=== PATIENT | male | born 1970 | race Caucasian/White ===

== ENCOUNTER 2025-01-01 14:47 | Inpatient (IN) | payer SELFPAY ==
[2025-01-01 14:48] VITALS: BP 148/79; PULSE 90; RESP 18; TEMP 36.8; O2SAT 99; BMI 27.4
--- NOTE | 2025-01-01 16:16 | EX.ED.SAOD ---
HPI History of Present Illness Chief Complaint: Substance Abuse Detail of Chief Complaint: Requesting detox for opiate abuse. Informant: patient Onset/Context/Timing Onset: - (Years.) Context: Gradual Onset Timing: Continuous Current Severity: Moderate Maximum Severity: Moderate Associated Symptoms Associated Symptoms: Positive for vomiting* Narrative Narrative: 54-year-old male history of opiate abuse. States he uses heroin daily about a gram a day. He snorts it. He denies any IV drug abuse. His last detox was 2017 about 7 years ago. States he has had some mild nausea and vomiting. Denies any other complaints. Prior similar symptoms: Yes Recent Illness/Hospitalization: No PFSH PFSH Home Medications ?Medication ?Instructions ?Recorded ?Last Taken ?Type diflunisal 500 mg tablet 500 mg PO BID 06/25/16 06/25/16 History orphenadrine citrate 100 mg 100 mg PO BID 06/25/16 06/25/16 History tablet,extended release Allergy/AdvReac Type Severity Reaction Status Date / Time ciprofloxacin (From Cipro) AdvReac Upset Verified 01/01/25 14:49 Stomach Social History Smoking Status: Current every day smoker ROS ROS ED ROS Narrative Nausea and vomiting. Constitutional Constitutional ED: Denies chills or fever(s) Eyes Eyes: Denies blurry vision ENT ENT ED: Denies ear pain Cardiovascular Cardiovascular: Denies chest pain Respiratory/Chest Respiratory/Chest: Denies cough or dyspnea Gastrointestinal Gastrointestinal: Reports nausea and vomiting; Denies abdominal pain, constipation, diarrhea or melena Genitourinary Genitourinary ED: Denies dysuria Musculoskeletal Musculoskeletal: Denies arthralgias Integumentary Denies abscess Neurologic Neurologic: Denies headache(s) Psychiatric Psychiatric: Denies anxiety Endocrine Endocrinology: Denies cold intolerance Hematologic/Lymphatic Hematologic/Lymphatic: Denies easy bleeding, easy bruising or lymphadenopathy Allergic/Immunologic Allergic/Immunologic ED: Denies mouth swelling, tongue swelling or urticaria EXAM Physical Exam Narrative Exam Narrative: 54-year-old male sitting upright in bed. Vital signs are stable afebrile. No acute distress. Clinically looks well. H EENT exam pupils round react to light. Moist mucous membranes. No trauma. Neck nontender. No lymphadenopathy. Back nontender. Lungs clear to auscultation bilaterally. Heart regular rhythm rate about 90 no murmur. Chest wall ribs nontender. Moving all 4 extremities. Normal strength. Normal range of motion. No track molina. Nontender no edema. Neurologically he is awake alert. Answering questions following commands. Very benign exam. Const Vital Signs: 01/01/25 14:48 Temperature 98.3 F Temperature Source Oral Pulse Rate 90 Respiratory Rate 18 Blood Pressure 148/79 H Blood Pressure Mean 102 Pulse Ox 99 Oxygen Delivery Method Room Air MDM MDM MDM Narrative Medical decision making narrative: 54-year-old male history of opiate abuse snorts heroin. Requesting inpatient detox. Exam benign. Hospitalist on page for admission. History & Record Review Discussion w/independent historian: Patient Additional record(s) reviewed:: Prior labs Lab Data Attestation: I reviewed the patient's lab results. Discharge Plan Dx/Rx/DC Orders Clinical Impression: Opiate abuse, continuous, Admitted to substance misuse detoxification center Disposition Disposition: Acute Care Hospital [facility]
[2025-01-01 16:40] LABS: Hematocrit 45.5 % (40-54); Hemoglobin 14.7 g/dL (13.0-16.5); Immature Granulocytes Count 0.010 X10^3/uL (0.0-0.0); Mean Corp Hgb Conc 32.3 g/dL (32-36); Mean Corpuscular Volume 88.3 fL (80-94); Mean Platelet Vol. 10.9 fl (6.2-12.0); NRBC Flagged by Analyzer 0 % (0-5); Platelet Count 187 K/mm3 (150-450); RBC Distribution Width CV 13.2 % (11.6-14.6); RBC Distribution Width SD 43.0 fl (35.1-43.9); Red Blood Count 5.15 M/mm3 (4.6-6.2); White Blood Count 8.8 K/mm3 (4.4-11.0)
--- NOTE | 2025-01-01 16:41 | HP.PCM.HOS_ITS ---
HPI - General General Date of Admission: 01/01/25 Date of Service: 01/01/25 Chief Complaint: Opiate withdrawal and desire for detox HPI Narrative ARJUN VACA, is a 54 M who presented to [facility] ED on 01/01/2025 with opiate withdrawal and desire for detox. Patient snorts about a gram of heroin daily. Last use was around 2 PM this afternoon. Denies any IV drug use. Has history of hepatitis C, no other medical history noted. He was last here in 2017 for opiate detox and left AMA. In the ED today he is hemodynamically stable on room air at rest. Labs are pending. Given desire for detox, hospitalist was contacted for admission. I saw the patient at bedside in the ED. He was sitting back fairly comfortably in bed, conversing normally, in no acute distress. Reported mild nausea and bodyaches currently, no other significant withdrawal symptoms. Notes that he left AMA in 2017 because the Subutex led to precipitated withdrawal for him. I noted that we can use as needed medications for symptom control without Subutex and he preferred this. No other acute concerns currently. Will be admitted for further management. [facility] Medical History (Updated 01/01/25 @ 16:45 by Cristina Vargas) Substance abuse Home Medications ?Medication ?Instructions ?Recorded ?Last Taken ?Type omeprazole 20 mg capsule,delayed 20 mg PO DAILY GERD 1 03/03/24 01/01/25 History release Allergy/AdvReac Type Severity Reaction Status Date / Time ciprofloxacin (From Cipro) AdvReac Upset Verified 01/01/25 14:49 Stomach Social History Smoking Status: Current every day smoker tobacco type: cigarettes ROS Constitutional Constitutional: Denies chills, fatigue, fever(s) or weakness Cardiovascular Cardiovascular: Denies chest pain Respiratory/Chest Respiratory/Chest: Denies shortness of breath at rest Gastrointestinal Gastrointestinal: Reports nausea; Denies abdominal pain, constipation, diarrhea or vomiting Musculoskeletal Musculoskeletal: Reports myalgias; Denies arthralgias Neurologic Neurologic: Denies dizziness, focal weakness or headache(s) Vital Signs Vital Signs Vital Signs: 01/01/25 14:48 Temperature 98.3 F Temperature Source Oral Pulse Rate 90 Respiratory Rate 18 Blood Pressure 148/79 H Blood Pressure Mean 102 Pulse Ox 99 Oxygen Delivery Method Room Air Weight Weight: 97.069 kg Body Mass Index (BMI) 27.4 Physical Exam Const alert, oriented x3, no apparent distress and average body habitus Constitutional Narrative: Pleasant middle-age male, sitting back in bed fairly comfortably, conversing normally, in no acute distress. General Appearance: cooperative and comfortable HEENT normocephalic, head/scalp atraumatic, hearing grossly normal bilaterally, nasal mucous membranes and turbinates normal and moist oral mucous membranes Eyes PERRL, EOMs intact bilaterally and conjunctivae normal Neck full ROM Chest inspection of chest normal Resp normal respiratory effort, normal air movement, no use of accessory muscles and clear to auscultation bilaterally Cardio regular rate, regular rhythm, no murmurs and peripheral pulses 2+ throughout GI normal to inspection, nondistended, normoactive bowel sounds, soft to palpation, non-tender and non-distended Back/Spine normal ROM Extremity normal to inspection, full ROM and no pedal edema Skin no rashes or lesions noted Psych mental status grossly normal Results Lab / Micro Data 01/01/25 16:34 01/01/25 16:34 Labs: Laboratory Results - last 24 hr 01/01/25 16:34: WBC 8.8, RBC 5.15, Hgb 14.7, Hct 45.5, MCV 88.3, MCH 28.5, MCHC 32.3, RDW Std Deviation 43.0, RDW Coeff of Julio 13.2, Plt Count 187, MPV 10.9, Immature Gran % (Auto) 0.100, Neut % (Auto) 69.1, Lymph % (Auto) 24.3, [place] % (Auto) 5.6, Eos % (Auto) 0.7, Baso % (Auto) 0.2, Absolute Neuts (auto) 6.1, Absolute Lymphs (auto) 2.13, Nucleated RBC % 0 Assessment & Plan Assessment/Plan (1) Opiate abuse, continuous: (2) Acute opioid withdrawal: PLAN: Plan Patient is a 54-year-old male who presented to [facility] ED on 01/01/2025 for opiate withdrawal and desire for detox. 1. Opiate abuse with withdrawal and desire for detox ? Admit under inpatient status to [facility]. Case management consulted. Snorts about 1 g of heroin daily, last used at 2 PM on day of admission. No IV drug use recently but does have history of IV drug use. Last attempted detox in 2017 but had precipitated withdrawal due to Subutex and left AMA. Will treat with as needed medications per opiate withdrawal order set. Will not give Subutex taper per patient request. Appreciate case management recommendations. 2. History of hepatitis C ? History of hepatitis C reported during prior hospitalization here in 2017. No abdominal pain at this time. Hepatic panel and hepatitis C viral quant ordered. 3. GERD ? Continue home PPI. DVT prophylaxis: Lovenox CODE STATUS: Full code, verified Expected disposition: TBD Total clinical time spent by myself addressing the patient's medical issues, reviewing all the data, and collaborating with patient's care team: 57 minutes. Charges/Coding Visit Charges Inpatient E&M: 67103 Init Hosp L2
[2025-01-01 16:47] VITALS: BP 150/75; PULSE 78; RESP 18; TEMP 35.9; O2SAT 97
--- NOTE | 2025-01-01 16:59 | CM.ED ---
Social work Reason for referral: no insurance Referral source: Roxy, [facility] Registration SW heard from Roxy that patient did not have insurance and made a comment stating that patient came here due to hearing that we have a program that will pay for detox. SW entered patient's room, introducing self and role at [facility]. Patient accepted SW visit and SW explained the [facility]AMP process and how [employer] is involved. SW also explained that SW could reach out to someone who could help patient apply for Medicaid tomorrow; patient stated this would be fine. Patient denied further needs at this time and thanked SW for time spent. Olesya Ocampo, FIG W[employer]ER, OPERATIONS CHIEF
[2025-01-01 17:06] LABS: Alcohol, Blood (Medical)-Serum < 10.1 mg/dL (<=10.0)
[2025-01-01 17:12] LABS: Barbiturate Urine NEGATIVE (< 200 ng/mL); Benzodiazepine Urine NEGATIVE (< 200 ng/mL); PCP Urine NEGATIVE (< 25 ng/mL); THC Urine PRESUMPTIVE POSITIVE (< 50 ng/mL)
[2025-01-01 17:39] LABS: AST(SGOT) 20 U/L (<=37); Alanine Aminotransfer ALT/SGPT 10 U/L (<=46); Albumin, Serum 4.3 g/dL (3.5-5.0); Alkaline Phosphatase 88 U/L (40-129); Anion Gap 10 (5-15); BUN 12 mg/dL (4-19); BUN/Creat Ratio 13.1 RATIO (10-20); Bilirubin, Direct 0.22 mg/dL (0.00-0.30); Calcium,Total 9.9 mg/dL (7.6-11.0); Carbon Dioxide 28.9 mmol/L (21.0-32.0); Chloride 101 mmol/L (98-108); Estimated Creatinine Clearance 105.66 ml/min (50-250); Globulin 4.3 g/dL (2.2-4.2); Glucose 102 mg/dL (70-99); Potassium 4.0 mmol/L (3.3-5.1)
[2025-01-01 18:14] VITALS: BMI 27.4
[2025-01-01 18:32] VITALS: BP 153/80; PULSE 77; RESP 16; TEMP 36.4; O2SAT 97
--- OUTSIDE RECORDS SUMMARY | 2025-01-01 19:39 | XMS RPT_ITS | CCD ---
Author Organization [facility] [employer] [facility] [employer] [facility] Care Team Providers Care Work Force Advisor Name Role Phone KAPPUS, POP Unavailable Unavailable KAPPUS, POP Unavailable Unavailable MUKONJE, SHAMAR Unavailable Unavailable [facility] Unavailable Unavaila ble MUKONJE, SHAMAR Unavailable Unavailable MUKONJE, SHAMAR Unavailable Unavailable MUKONJE, SHAMAR Unavailable Unavailable Physician, No Family Unavailable Unavailable Physician, No Family Unavailable Unavailable Parran, Andres Unavailable Unavailable Parran, Andres Unavailable Unavailable PHYSICAN, NONE Unavailable Unavailable PHYSICAN, NONE Unavailable Unavailable Galvan III, DO, Rudy R Primary Care Provider NEERU ELIZONDO Referring Unavailable GALVAN III, RUDY R Primary Care Unavailabl e LISA DELGADO Attending Unavailable NEERU ELIZONDO Attending Unavailable CARO, NEERU Referring Unavailable GALVAN III, RUDY R Primary Care Unavailabl e NICOLE POLANCO Attending Unavailable GALVAN III, RUDY R Primary Care Unavailabl e LESLIE BLOUNT Referring Unavailable GALVAN III, RUDY R Primary Care Unavailabl e CARO, NEERU Referring Unavailable GALVAN III, RUDY R Primary Care Unavailabl e CAROJONATHANA Attending Unavailable GALVAN III, RUDY R Primary Care Unavailabl e CARO, NEERU Referring Unavailable GALVAN III, RUDY R Primary Care Unavailabl e GIL CORDERO Attending Unavailable GALVAN III, RUDY R Primary Care Unavailabl e GALVAN III, RUDY R Primary Care Unavailabl e Yamil Swan Attending Unavailable James Yi Attending Unavailable James Yi Attending Unavailable PRIYA ELIZONDO Admitting Unavailable PRIYA ELIZONDO Attending Unavailable Yamil Swan Attending Unavailable Lyn Dumont Attending Unavailable Yamil Swan Attending Unavailable Yamil Swan Attending Unavailable Unavailable Primary Care Provider UnavailEMILY Lizarraga Consulting Unavailable SHARON MENDOZA Admitting Unavail able SHARON MENDOZA Attending Unavail able Case Jenn ZAFAR Attending Unavailable Allergies Allergy Classification Reported Allergen(s) Allergy Type Date of Onset Reaction(s) Facility (20 sources) Ciprofloxacin; Translations: [CIPROFLOXACIN] Drug Allergy 7 GI Upset, Hives [facility] (8 sources) gabapentin; Translations: [GABAPENTIN] Drug Allergy 3 Intolerance [facility] (3 sources) Ciprofloxacin; Translations: [Cipro] Drug Allergy [facility] (3 sources) Sulfamethoxazole / Trimethoprim; Translations: [Bactrim] Drug Allergy [facility] Medications Current Medications Medication Drug Class(es) Dates Sig (Normalized) Sig (Original) Acetaminophen (1 source) Start: 09-18-2024 acetaminophen (TYLENOL) tablet 650 mg cloNIDine hydrochloride 0.1 mg oral tablet (2 sources) Central alpha-2 Adrenergic Agonist Start: 09-20-2024 take 1 tablet by mouth twice daily cloNIDine (CATAPRES) 0.1 MG tablet Take 1 tablet by mouth 2 times daily 60 tablet 3 09/20/2024 Active Start: 09-18-2024 take 0.1 mg by mouth twice daily 0.1 mg, Oral, 2 TIMES DAILY, First dose on Tue09/18/24 at 0900, Until Discontinued cyclobenzaprine hydrochloride 10 mg oral tablet (2 sources) Muscle Relaxant Start: 06-09-2022 End: 07-09-2022 take 1 tablet by mouth every twenty-four hours as needed cyclobenzaprine (FLEXERIL) 10 mg tablet Take 1 tablet by mouth at bedtime as needed. 30 tablet 0 06/09/2022 07/09/2022 Active Comment on above: Take 1 tablet by azael th at bedtime as needed. 0.4 ml enoxaparin sodium 100 mg/ml prefilled syringe (1 source) Low Molecular Weight Heparin Start: 09-18-2024 famotidine (PEPCID) 20 MG/2ML 20 mg in sodium chloride (PF) 0.9 % 10 mL injection (2 sources) Start: 09-18-2024 take 10 mL intravenously twice daily 20 mg, IntraVENous, 2 TIMES DAILY, First dose on Tue09/18/24 at 0900, Until Discontinued, IV Push over minimum of 2 minutes - Dilute with 10 mL NS Start: 09-18-2024 End: 09-18-2024 20 mg, IntraVENous, NOW, 1 d ose, On Tue09/18/24 at 0015, IV Push over minimum of 2 minutes - Dilute with 10 mL NS 50 ml magnesium sulfate 40 mg/ml injection (1 source) Start: 09-18-2024 melatonin 3 mg oral tablet (1 source) Start: 09-18-2024 naproxen 500 mg oral tablet (2 sources) Nonsteroidal Anti-inflammatory Drug Start: 06-09-2022 End: 07-09-2022 take 1 tablet by mouth twice daily at mealtime naproxen (NAPROSYN) 500 mg tablet Take 1 tablet by mouth twice daily with meals. 60 tablet 0 06/09/2022 07/09/2022 Active Comment on above: Take 1 tablet by azael th twice daily with meals. ondansetron (ZOFRAN-ODT) disintegrating tablet 4 mg (1 source) Start: 09-18-2024 ondansetron (ZOFRAN-ODT) disintegrating tablet 4 mg polyethylene glycol [id number] [id number] mg powder for oral solution (1 source) Osmotic Laxative Start: 09-18-2024 Potassium Chloride (1 source) Start: 09-18-2024 potassium chloride (KLOR-CON M) extended release tablet 40 mEq rOPINIRole 0.25 mg oral tablet (2 sources) Nonergot Dopamine Agonist Start: 09-20-2024 take 1 tablet by mouth three times daily as needed rOPINIRole (REQUIP) 0.25 MG tablet Take 1 tablet by mouth 3 times daily as needed (Restless legs) 90 tablet 3 09/20/2024 Active Start: 09-18-2024 take 0.25 mg by mout h three times daily as needed 0.25 mg, Oral, 3 TIMES DAILY PRN, Starting on Tue09/18/24 at 0802, Until Discontinued, Restless legs Completed/Discontinued Medications Medication Drug Class(es) Dates Sig (Normalized) Sig (Original) buprenorphine 4 mg / naloxone 1 mg sublingual film (2 sources) Partial Opioid Agonist, Opioid Antagonist Start: 09-18-2024 1 Film, SubLINGual, PRN, Starting on Tue09/18/24 at 0157, Until Discontinued, Per COWS assessment, No withdrawal (COWS less than 5): No medication intervention and reassess COWS in 4 hours. Mild (COWS 5-12): Give 2 tablets of buprenorphine-nalox one 2-0.5 mg per tablet and reassess COWS in 2 hours (120 minutes). Moderate (COWS 13-24): Give 2 tablets of buprenorphine-nalox one 2-0.5 mg per tablet and reassess COWS in 1.5 hours (90 minutes). Moderately Severe (COWS 25-36): Give 2 tablets of buprenorphine-nalox one 2-0.5 mg per tablet and reassess COWS in 1 hour (60 minutes). Severe (COWS above 36): Give 2 tablets of buprenorphine-nalox one 2-0.5 mg per tablet and reassess COWS in 0.5 hours (30 minutes). Do not exceed 12 tablets of buprenorphine-nalox one 2-0.5 mg per tablet in any 24 hour period. Start: 09-18-2024 End: 09-18-2024 1 tablet, SubLINGual, ONCE, 1 dose, On Tue09/18/24 at 0045, For 15 minutes before, during and after dissolving Buprenorphine in your mouth: NO EATING, DRINIKING or SMOKING. calcium chloride 0.0014 meq/ml / potassium chloride 0.004 meq/ml / sodium chloride 0.103 meq/ml / sodium lactate 0.028 meq/ml injectable solution (1 source) Start: 09-18-2024 End: 09-19-2024 IntraVENous, at 75 mL/hr, CONTINUOUS, Starting on Tue09/18/24 at 0200, For 24 hours, Complete last bag that is running at 24 hours and then saline lock IV glecaprevir 100 mg / pibrentasvir 40 mg oral tablet (13 sources) Start: 04-08-2022 take 3 tablets by mouth once daily at mealtime glecaprevir-pibre ntasvir (MAVYRET) 100-40 mg tablet Indications: Chronic hepatitis C without hepatic coma (HCC) Take 3 tablets by mouth once daily with food. 84 tablet 1 04/08/2022 Active Comment on above: Take 3 tablets by [facility] once daily. Take with food. Take 3 tablets by [facility] once daily with food. hydrOXYzine hydrochloride 25 mg oral tablet (1 source) Antihistamine Start: 09-18-2024 take 50 mg by mouth three times daily as needed 50 mg, Oral, 3 TIMES DAILY PRN, Starting on Tue09/18/24 at 0802, Until Discontinued, Anxiety loperamide hydrochloride 2 mg oral capsule (1 source) Opioid Agonist Start: 09-18-2024 2 mg, Oral, 4 TIMES DAILY PRN, Starting on Tue09/18/24 at 0026, Until Discontinued, Diarrhea, After each loose stool. methocarbamol 500 mg oral tablet (1 source) Muscle Relaxant Start: 09-18-2024 take 1000 mg by mouth every six hours as needed 1,000 mg, Oral, EVERY 6 HOURS PRN, Starting on Tue09/18/24 at 0802, Until Discontinued, Muscle spasms 1 ml naloxone hydrochloride 0.4 mg/ml injection (1 source) Opioid Antagonist Start: 09-17-2024 End: 09-17-2024 0.4 mg, IntraVENous, ONCE, 1 dose, On Tue09/17/24 at 2100 Start: 09-17-2024 End: 09-17-2024 0.4 mg, IntraVENous, ONCE, 1 dose, On Tue09/17/24 at 2100 2 ml ondansetron 2 mg/ml injection (18 sources) Serotonin-3 Receptor Antagonist Start: 09-17-2024 End: 09-17-2024 4 mg, IntraVENous, ONCE, 1 dose, On Tue09/17/24 at 2345 Start: 09-17-2024 End: 09-17-2024 4 mg, IntraVENous, ONCE, 1 d ose, On Tue09/17/24 at 2100 take [address] [facility] every eight hours as needed for nausea ondansetron (ZOFRAN) 4 MG tablet Take 1 tablet by mouth every 8 hours as needed for Nausea or Vomiting Active Comment on above: Take 4 mg by mouth e very 8 hours as needed for nausea/vomiting. promethazine hydrochloride 12.5 mg oral tablet (2 sources) Phenothiazine Start: 09-19-19 take 12.5 mg by mouth every six hours as needed 12.5 mg, Oral, EVERY 6 HOURS PRN, Starting on Tue09/18/24 at 1624, Until Discontinued, Nausea Start: 09-18-2024 End: 09-18-2024 inject 1 dose by intramuscular injection once 12.5 mg, IntraMUSCular, ONCE, 1 dose, On Tue09/18/24 at 0615, Only to be given as IM injection. 5 ml sodium chloride 9 mg/ml injection (3 sources) Start: 09-18-2024 5-40 mL, Intra VENous, EVERY 12 HOURS SCHEDULED (2 times per day), First dose on Tue09/18/24 at 0900, Until Discontinued, For Line Patency: Peripheral IV = 5 mL; Midline or Central Line = 10 mL/lumen. If following IV push medication, administer flush at same rate as the IV push. Flush volume is determined by type of infusion therapy being given. For non-viscous solutions use: Peripheral IV = 5 mL Midline or Central Line = 10 mL/lumen For viscous solutions (i.e. blood components, parenteral nutrition, contrast media, or after obtaining blood sample) use: Peripheral IV = 10 mL Midline or Central Line = 20 mL/lumen Start: 09-18-2024 Start: 09-18-2024 Problems Active Problems Problem Classification Problem Date Documented Da te Episodic/Chronic Hepatitis (20 sources) Chronic hepatitis C; Translations: [Chronic viral hepatitis C] Onset: 03-05-2022 03-05-2022 Chronic Nausea and vomiting (5 sources) Nausea; Translations: [Nausea] Onset: 04-14-2022 Episodic Other connective tissue disease (2 sources) Muscle pain; Translations: [Myalgia, unspecified site] Onset: 09-18-2024 09-18-2024 Episodic Other non-traumatic joint disorders (1 source) 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; Translations: [Other specified joint disorders, right hip] Episodic Other nutritional; endocrine; and metabolic disorders (2 sources) Decrease in appetite; Translations: [Anorexia] Episodic Other nutritional; endocrine; and metabolic disorders (1 source) Anorexia; Translations: [Decreased appetite] Onset: 04-14-2022 Episodic Residual codes; unclassified (1 source) Left before being seen; Translations: [Procedure and treatment not carried out due to patient leaving prior to being seen by health care provider] Episodic Spondylosis; intervertebral disc disorders; other back problems (1 source) Lumbar radiculopathy; Translations: [Radiculopathy, lumbar region] Episodic Substance-related disorders (17 sources) History of opioid abuse; 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, in remission] Onset: 04-05-2022 Chronic Substance-related disorders (20 sources) Opioid withdrawal; Translations: [Opioid use, unspecified with withdrawal] Onset: 01-14-2017 03-05-2022 Episodic Unclassified (1 source) Unknown / UNK(Unknown) Onset: 01-14-2017 Past or Other Problems Problem Classification Problem Date Documented Da te Episodic/Chronic Residual codes; unclassified (19 sources) Tobacco user; Translations: [Tobacco use] Onset: 01-15-2017 03-05-2022 Episodic Results Test Name Value Interpretation Reference Range Facility Basic Metab w/rfx MGon 09-19 Anion gap [Moles/Vol] 12 mmol/L Normal 9-16 [facility] Comment on above: Performed By: #### C DP, BMPX ####[facility] [address] [place] [address] Lab Director: Ramy Cho MD Calcium [Mass/Vol] 9.4 mg/dL Normal 8.6-10.4 [facility] Comment on above: Performed By: #### C DP, BMPX ####[facility] [address] [place] [address] Lab Director: Ramy Cho MD Chloride [Moles/Vol] 104 mmol/L Normal 98-107 [facility] Comment on above: Performed By: #### C DP, BMPX ####[facility] [address] [place] [address] Lab Director: Ramy Cho MD CO2 [Moles/Vol] 23 mmol/L Normal 20-31 [facility] Comment on above: Performed By: #### C DP, BMPX ####[employer] [address] [place] [address] Lab Director: Ramy Cho MD Creatinine [Mass/Vol] 0.9 mg/dL Normal 0.7-1.2 [facility] Comment on above: Performed By: #### C DP, BMPX ####[place] [address] Lab Director: Ramy Cho MD GFR/1.73 sq M.predicted among non-blacks MDRD (S/P/Bld) [Vol rate/Area] mL/min/{1.73_m2} Normal >60 [facility] Comment on above: Result Comment: These results are not intended for use in patients <18 years of age. eGFR results are calculated without a race factor using the 2020 CKD-EPI equation. Careful clinical correlation is recommended, particularly when comparing to results calculated using previous equations. The CKD-EPI equation is less accurate in patients with extremes of muscle mass, extra-renal metabolism of creatine, excessive creatine ingestion, or following therapy that affects renal tubular secretion. Performed By: #### C DP, BMPX ####[facility] [address] [place] [address] Lab Director: Ramy Cho MD Glucose [Mass/Vol] 114 mg/dL High 74-99 [facility] Comment on above: Performed By: #### C DP, BMPX ####[facility] [address] [place] [address] Lab Director: Ramy Cho MD Potassium [Moles/Vol] 4.1 mmol/L Normal 3.7-5.3 [facility] Comment on above: Result Comment: Spec imen hemolysis has exceeded the interference as defined by Kojo. Value may be falsely increased. Suggest recollection if clinically indicated. Performed By: #### C DP, BMPX ####[facility] [address] [place] [address] Lab Director: Ramy Cho MD Sodium [Moles/Vol] 139 mmol/L Normal 136-145 [facility] Comment on above: Performed By: #### C DP, BMPX ####[place] [address] lab Director: Ramy Cho MD Urea nitrogen [Mass/Vol] 14 mg/dL Normal 6-20 [facility] Comment on above: Performed By: #### C DP, BMPX ####[facility] [address] [place], [place] [phone] lab Director: Ramy Cho MD Basic Metabolic Panel w/ Ref gisela to MGon 09-19-2024 Anion gap [Moles/Vol] 12 mmol/L 9 - 16 mmol/L [facility] Calcium [Mass/Vol] 9.4 mg/dL 8.6 - 10. 4 mg/dL [facility] Chloride [Moles/Vol] 104 mmol/L 98 - 107 mmol/L [facility] CO2 [Moles/Vol] 23 mmol/L 20 - 31 mmol/L [facility] Creatinine [Mass/Vol] 0.9 mg/dL 0.7 - 1.2 mg/dL [facility] Est, Glom Filt Rate - PINF [facility] Comment on above: These results are not intended for use in patients <18 years of age. eGFR results are calculated without a race factor using the 2020 CKD-EPI equation. Careful clinical correlation is recommended, particularly when comparing to results calculated using previous equations. The CKD-EPI equation is less accurate in patients with extremes of muscle mass, extra-renal metabolism of creatine, excessive creatine ingestion, or following therapy that affects renal tubular secretion. Glucose [Mass/Vol] 114 mg/dL High 74 - 99 mg/dL [facility] Interpretation and review of laboratory results Abnormal [facility] Potassium [Moles/Vol] 4.1 mmol/L 3.7 - 5.3 mmol/L [facility] Comment on above: Specimen hemolysis h as exceeded the interference as defined by Kojo. Value may be falsely increased. Suggest recollection if clinically indicated. Sodium [Moles/Vol] 139 mmol/L 136 - 145 mmol/L [facility] Urea nitrogen [Mass/Vol] 14 mg/dL 6 - 20 mg/dL [facility] CBC with Auto Differentialon 09-19-2024 Basophils (Bld) [#/Vol] [facility] Eosinophils (Bld) [#/Vol] [facility] Immature granulocytes (Bld) [#/Vol] 0.03 10*3/uL [facility] Interpretation and review of laboratory results Abnormal [facility] Lymphocytes/100 WBC (Bld) 1.96 % [facility] Monocytes/100 WBC (Bld) 0.84 % [facility] Neutrophils/100 WBC (Bld) 74 % High 36 - 65 % [facility] Nucleated RBC/100 WBC (Bld) [Ratio] 0 % 0.0 per 100 WBC [facility] Segmented neutrophils/100 WBC (Bld) 8.2 % High [facility] WBC other (Bld) [#/Vol] 11.1 [facility] CBC with Diffon 09-19-2024 Basophils/100 WBC (Bld) 0 % Normal 0-2 [facility] Comment on above: Performed By: #### C DP, BMPX ####[facility] [address] [place] [address] Lab Director: Ramy Cho MD Eosinophils/100 WBC (Bld) 0 % Low 1-4 [facility] Comment on above: Performed By: #### C DP, BMPX ####[facility] [address] [place] [address] Lab Director: Ramy Cho MD Erythrocyte distribution width (RBC) [Ratio] 13.4 % Normal 11.8-14.4 [facility] Comment on above: Performed By: #### C DP, BMPX ####[facility] [address] [place] [address] Lab Director: Ramy Cho MD Hematocrit (Bld) [Volume fraction] 39.8 % Low 40.7-50.3 [facility] Comment on above: Performed By: #### C DP, BMPX ####[facility] [address] [place] [address] Lab Director: Ramy Cho MD Hemoglobin (Bld) [Mass/Vol] 13.1 g/dL Normal 13.0-17.0 [facility] Comment on above: Performed By: #### C DP, BMPX ####[facility] [address] [place] [address] [facility] Director: Ramy Cho MD Immature granulocytes/100 WBC (Bld) 0 % Normal 0 [facility] Comment on above: Performed By: #### C DP, BMPX ####[facility] [address] [place] [address] [facility] Director: Ramy Cho MD Lymphocytes/100 WBC (Bld) 18 % Low 24-43 [facility] Comment on above: Performed By: #### C DP, BMPX ####[address] [address] [facility] Director: Ramy Cho MD MCH (RBC) [Entitic mass] 28.2 pg Normal 25.2-33.5 [facility] Comment on above: Performed By: #### C DP, BMPX ####[address] [address] Lab Director: Ramy Cho MD MCHC (RBC) [Mass/Vol] 32.9 g/dL Normal 28.4-34.8 [facility] Comment on above: Performed By: #### C DP, BMPX ####[facility] [address] [place] [address] Lab Director: Ramy Cho MD MCV (RBC) [Entitic vol] 85.8 fL Normal 82.6-102.9 [facility] Comment on above: Performed By: #### C DP, BMPX ####[facility] [address] [place] [address] Lab Director: Ramy Cho MD Monocytes/100 WBC (Bld) 8 % Normal 3-12 [facility] Comment on above: Performed By: #### C DP, BMPX ####[facility] [address] [place], [place] [phone] Director: Ramy Cho MD Platelet mean volume (Bld) [Entitic vol] 11.6 fL Normal 8.1-13.5 [facility] Comment on above: Performed By: #### C DP, BMPX ####[facility] [address] [place], [place] [phone] Director: Ramy Cho MD Platelets (Bld) [#/Vol] 147 10*3/uL Normal 138-453 [facility] Comment on above: Performed By: #### C DP, BMPX ####[place], [place] [phone] Director: Ramy Cho MD RBC (Bld) [#/Vol] 4.64 10*6/uL Normal 4.21-5.77 [facility] Comment on above: Performed By: #### C DP, BMPX ####[facility] [address] [place], [place] [phone] Director: Ramy Cho MD Abs. Basophil <0.03 Normal 0.00-0.20 [facility] Comment on above: Performed By: #### C DP, BMPX ####[place] [address] Lab Director: Ramy Cho MD Abs. Eosinophil <0.03 Normal 0.00-0.44 [facility] Comment on above: Performed By: #### C DP, BMPX ####[facility] [address] [place], [place] [phone] Director: Ramy Cho MD Abs.Imm.Granulocyt e 0.03 k/uL Normal 0.00-0.30 [facility] Comment on above: Performed By: #### C DP, BMPX ####[facility] [address] [place], [place] [phone] Lab Director: Ramy Cho MD Abs.Neutrophil (Seg) 8.20 k/uL High 1.50-8.10 [facility] Comment on above: Performed By: #### C DP, BMPX ####[facility] [address] [place] [address] Lab Director: Ramy Cho MD Lymphocytes (Bld) [#/Vol] 1.96 10*3/uL Normal 1.10-3.70 [facility] Comment on above: Performed By: #### C DP, BMPX ####[address] [address] Lab Director: Ramy Cho MD Monocytes (Bld) [#/Vol] 0.84 10*3/uL Normal 0.10-1.20 [facility] Comment on above: Performed By: #### C DP, BMPX ####[facility] [address] [place] [address] Lab Director: Ramy Cho MD Neutrophil (Seg) 74 % High 36-65 [facility] Comment on above: Performed By: #### C DP, BMPX ####[facility] [address] [place] [address] Lab Director: Ramy Cho MD NRBC Automated 0.0 per 100 WBC Normal 0.0 [facility] Comment on above: Performed By: #### C DP, BMPX ####[facility] [address] [place] [address] Lab Director: Ramy Cho MD WBC (Bld) [#/Vol] 11.1 10*3/uL Normal 3.5-11.3 [facility] Comment on above: Performed By: #### C DP, BMPX ####[facility] [address] [place] [address] Lab Director: Ramy Cho MD EKG 12 Lead (SOB)Ordered By: Saturnino Zhao on 09-18-2024 Atrial Rate 82 BPM [facility] Work Phone: [phone] P Forbes 79 degrees [facility] Work Phone: [phone] P-R Interval 274 ms [facility] Work Phone: [phone] Q-T Interval 418 ms [facility] Work Phone: [phone] QRS Duration 86 ms [facility] Work Phone: QTc Calculation (Bazett) 488 ms [facility] Work Phone: R Forbes 67 degrees [facility] Work Phone: T Forbes 33 degrees [facility] Work Phone: [phone] Ventricular Rate 82 BPM [facility] [employer] Work Phone: [phone] [facility] Work Phone: [phone] EKG 12 Lead (SOB)on 09-19-19 25 Sinus rhythm with 1s t degree A-V block with occasional Premature ventricular complexes Biatrial enlargement Septal infarct , age undetermined Abnormal ECG No previous ECGs available [facility] Saturnino Iglesias DO - 06/2024 Sinus rhythm with 1st degree A-V block with occasional Premature ventricular complexes Biatrial enlargement Septal infarct , age undetermined Abnormal ECG No previous ECGs available [facility] [employer] Portable XR Chest AP single viewon 09-18-2024 No acute cardiopulmo nary finding. [facility] EXAM[facility]ATION: ONE XRAY VIEW OF THE CHEST 09/17/2024 6:18 pm COMPARISON: None. HISTORY: ORDERING SYSTEM PROVIDED HISTORY: Shortness of Breath TECHNOLOGIST PROVIDED HISTORY: Shortness of Breath FINDINGS: No focal airspace consolidation. Costophrenic angles are sharp. No pneumothorax. Cardiomediastinal silhouette is not enlarged. Visualized aorta is unremarkable. No acute osseous abnormality. [facility] Parisa Alvarenga MD - 09/18/2024 EXAMINATION: ONE XRAY VIEW OF THE CHEST 09/17/2024 6:18 pm COMPARISON: None. HISTORY: ORDERING SYSTEM PROVIDED HISTORY: Shortness of Breath TECHNOLOGIST PROVIDED HISTORY: Shortness of Breath FINDINGS: No focal airspace consolidation. Costophrenic angles are sharp. No pneumothorax. Cardiomediastinal silhouette is not enlarged. Visualized aorta is unremarkable. No acute osseous abnormality. IMPRESSION: No acute cardiopulmonary finding. [facility] [employer] Portable XR Chest AP single viewOrdered By: Parisa Alvarenga on 09-18-2024 [facility] tamyca Work Phone: XR CHEST PORTABLEon 09-19-19 XR CHEST PORTABLE EXAMINATION: ONE XRAY VIEW OF THE CHEST 09/17/2024 6:18 pm COMPARISON: None. HISTORY: ORDERING SYSTEM PROVIDED HISTORY: Shortness of Breath TECHNOLOGIST PROVIDED HISTORY: Shortness of Breath FINDINGS: No focal airspace consolidation. Costophrenic angles are sharp. No pneumothorax. Cardiomediastinal silhouette is not enlarged. Visualized aorta is unremarkable. No acute osseous abnormality. IMPRESSION: No acute cardiopulmonary finding. Interpreted by: Parisa Alvarenga MD Signed by: Parisa Alvarenga MD 09/18/24 Final result Normal [facility] BUN, POCon 09-17-2024 Urea nitrogen [Mass/Vol] 13 mg/dL Normal 10-09 [facility] CALCIUM, IONIC (POC)on 09-17 Calcium.ionized (Bld) [Moles/Vol] 1.15 mmol/L 1.15 - 1.33 mmol/L [facility] CBC with Auto Differentialon 09-17-2024 Basophils (Bld) [#/Vol] [facility] Basophils/100 WBC (Bld) 0 % 0 - 2 % [facility] Eosinophils (Bld) [#/Vol] 0.07 10*3/uL [facility] Eosinophils/100 WBC (Bld) 1 % 1 - 4 % [facility] Erythrocyte distribution width (RBC) [Ratio] 13.3 % 11.8 - 14.4 % [facility] Hematocrit (Bld) [Volume fraction] 39.9 % Low 40.7 - 50.3 % [facility] Hemoglobin (Bld) [Mass/Vol] 13.1 g/dL 13.0 - 17.0 g/dL [facility] Immature granulocytes (Bld) [#/Vol] [facility] Immature granulocytes/100 WBC (Bld) 0 % 0 [facility] Interpretation and review of laboratory results Abnormal [facility] Lymphocytes/100 WBC (Bld) 25 % 24 - 43 % [facility] Lymphocytes/100 WBC (Bld) 2.05 % [facility] MCH (RBC) [Entitic mass] 28.7 pg 25.2 - 33.5 pg [facility] MCHC (RBC) [Mass/Vol] 32.8 g/dL 28.4 - 34.8 g/dL [facility] MCV (RBC) [Entitic vol] 87.3 fL 82.6 - 102.9 fL [facility] Monocytes/100 WBC (Bld) 7 % 3 - 12 % [facility] Monocytes/100 WBC (Bld) 0.56 % [facility] Neutrophils/100 WBC (Bld) 67 % High 36 - 65 % [facility] Nucleated RBC/100 WBC (Bld) [Ratio] 0 % 0.0 per 100 WBC [facility] Platelet mean volume (Bld) [Entitic vol] 10.9 fL 8.1 - 13.5 fL [facility] Platelets (Bld) [#/Vol] 150 10*3/uL [facility] RBC (Bld) [#/Vol] 4.57 10*6/uL 4.21 - 5.7 7 m/uL [facility] Segmented neutrophils/100 WBC (Bld) 5.47 % [facility] WBC other (Bld) [#/Vol] 8.2 [facility] CBC with Diffon 09-17-2024 Abs. Basophil <0.03 Normal 0.00-0.20 [facility] Comment on above: Performed By: #### C DP, CP, TROPI #### [facility] [employer] [facility] [place] [address] Graphic Art Technician: Ramy Cho MD Abs.Imm.Granulocyt e <0.03 Normal 0.00-0.30 [facility] Comment on above: Performed By: #### C DP, CP, TROPI #### [address] [address] Graphic Art Technician: Ramy Cho MD Abs.Neutrophil (Seg) 5.47 k/uL Normal 1.50-8.10 [facility] Comment on above: Performed By: #### C DP, CP, TROPI #### [address] [address] Graphic Art Technician: Raym Cho MD Basophils/100 WBC (Bld) 0 % Normal 0-2 [facility] Comment on above: Performed By: #### C DP, CP, TROPI #### [place] [address] Graphic Art Technician: Ramy Cho MD Eosinophils (Bld) [#/Vol] 0.07 10*3/uL Normal 0.00-0.44 [facility] Comment on above: Performed By: #### C DP, CP, TROPI #### [address] [address] Graphic Art Technician: Ramy Cho MD Eosinophils/100 WBC (Bld) 1 % Normal 1-4 [facility] Comment on above: Performed By: #### C DP, CP, TROPI #### [address] [address] Graphic Art Technician: Ramy Cho MD Erythrocyte distribution width (RBC) [Ratio] 13.3 % Normal 11.8-14.4 [facility] Comment on above: Performed By: #### C DP, CP, TROPI #### [address] [address] Graphic Art Technician: Ramy Cho MD Hematocrit (Bld) [Volume fraction] 39.9 % Low 40.7-50.3 [facility] Comment on above: Performed By: #### C DP, CP, TROPI #### [address] [address] Graphic Art Technician: Ramy Cho MD Hemoglobin (Bld) [Mass/Vol] 13.1 g/dL Normal 13.0-17.0 [facility] Comment on above: Performed By: #### C DP, CP, TROPI #### [address] [address] Graphic Art Technician: Ramy Cho MD Immature granulocytes/100 WBC (Bld) 0 % Normal 0 [facility] Comment on above: Performed By: #### C DP, CP, TROPI #### [address] [address] Graphic Art Technician: Ramy Cho MD Lymphocytes (Bld) [#/Vol] 2.05 10*3/uL Normal 1.10-3.70 [facility] Comment on above: Performed By: #### C DP, CP, TROPI #### [address] [address] Graphic Art Technician: Ramy Cho MD Lymphocytes/100 WBC (Bld) 25 % Normal 24-43 [facility] Comment on above: Performed By: #### C DP, CP, TROPI #### [address] [address] Graphic Art Technician: Ramy Cho MD MCH (RBC) [Entitic mass] 28.7 pg Normal 25.2-33.5 [facility] Comment on above: Performed By: #### C DP, CP, TROPI #### [address] [address] Graphic Art Technician: Ramy Cho MD MCHC (RBC) [Mass/Vol] 32.8 g/dL Normal 28.4-34.8 [facility] Comment on above: Performed By: #### C DP, CP, TROPI #### [place] [address] Graphic Art Technician: Ramy Cho MD MCV (RBC) [Entitic vol] 87.3 fL Normal 82.6-102.9 [facility] Comment on above: Performed By: #### C DP, CP, TROPI #### [place] [address] Graphic Art Technician: Ramy Cho MD Monocytes (Bld) [#/Vol] 0.56 10*3/uL Normal 0.10-1.20 [facility] Comment on above: Performed By: #### C DP, CP, TROPI #### [place] [address] Graphic Art Technician: Ramy Cho MD Monocytes/100 WBC (Bld) 7 % Normal 3-12 [facility] Comment on above: Performed By: #### C DP, CP, TROPI #### [place] [address] Graphic Art Technician: Ramy Cho MD Neutrophil (Seg) 67 % High 36-65 [facility] Comment on above: Performed By: #### C DP, CP, TROPI #### [place] [address] Graphic Art Technician: Ramy Cho MD NRBC Automated 0.0 per 100 WBC Normal 0.0 [facility] Comment on above: Performed By: #### C DP, CP, TROPI #### [place] [address] Graphic Art Technician: Ramy Cho MD Platelet mean volume (Bld) [Entitic vol] 10.9 fL Normal 8.1-13.5 [facility] Comment on above: Performed By: #### C DP CP, TROPI #### [facility] [address] [place] [address] Graphic Art Technician: Ramy Cho MD Platelets (Bld) [#/Vol] 150 10*3/uL Normal 138-453 [facility] Comment on above: Performed By: #### C DP CP, TROPI #### [facility] [address] [place] [address] Graphic Art Technician: Ramy Cho MD RBC (Bld) [#/Vol] 4.57 10*6/uL Normal 4.21-5.77 [facility] Comment on above: Performed By: #### C DP CP, TROPI #### [facility] [address] [place] [address] Graphic Art Technician: Ramy Cho MD WBC (Bld) [#/Vol] 8.2 10*3/uL Normal 3.5-11.3 [facility] Comment on above: Performed By: #### C DP CP, TROPI #### [facility] [address] [place] [address] Graphic Art Technician: Ramy Cho MD [facility] 09-17-2024 Albumin [Mass/Vol] 3.9 g/dL 3.5 - 5.2 g/dL [facility] Albumin/Globulin [Mass ratio] 1.3 {ratio} 1.0 - 2.5 [facility] ALP [Catalytic activity/Vol] 74 U/L 40 - 129 U/L [facility] ALT [Catalytic activity/Vol] 9 U/L Low 10 - 50 U/L [facility] Anion gap [Moles/Vol] 13 mmol/L 9 - 16 mmol/L [facility] AST [Catalytic activity/Vol] 20 U/L 10 - 50 U/L [facility] Bilirubin [Mass/Vol] 0.3 mg/dL 0.0 - 1.2 mg/dL [facility] Calcium [Mass/Vol] 9.2 mg/dL 8.6 - 10. 4 mg/dL [facility] Chloride [Moles/Vol] 105 mmol/L 98 - 107 mmol/L [facility] CO2 [Moles/Vol] 22 mmol/L 20 - 31 mmol/L [facility] Creatinine [Mass/Vol] 1.1 mg/dL 0.7 - 1.2 mg/dL [facility] Est, Glom Filt Rate 80 - PINF [facility] Comment on above: These results are not intended for use in patients <18 years of age. eGFR results are calculated without a race factor using the 2020 CKD-EPI equation. Careful clinical correlation is recommended, particularly when comparing to results calculated using previous equations. The CKD-EPI equation is less accurate in patients with extremes of muscle mass, extra-renal metabolism of creatine, excessive creatine ingestion, or following therapy that affects renal tubular secretion. Glucose [Mass/Vol] 119 mg/dL High 74 - 99 mg/dL [facility] Interpretation and review of laboratory results Abnormal [facility] Potassium [Moles/Vol] 3.2 mmol/L Low 3.7 - 5.3 mmol/L [facility] Comment on above: Specimen hemolysis h as exceeded the interference as defined by Kojo. Value may be falsely increased. Suggest recollection if clinically indicated. Protein [Mass/Vol] 7 g/dL 6.6 - 8.7 g/dL [facility] Sodium [Moles/Vol] 140 mmol/L 136 - 145 mmol/L [facility] Urea nitrogen [Mass/Vol] 14 mg/dL 6 - 20 mg/dL [facility] Calcium, Ionic (POC)on 09-17 Calcium [Moles/Vol] 1.15 mmol/L Normal 1.15-1.33 [facility] Comp Metabolic Profon 2024 Albumin [Mass/Vol] 3.9 g/dL Normal 3.5-5.2 [facility] Comment on above: Performed By: #### C DP, CP, TROPI #### [facility] [employer] [facility] [place] [address] Graphic Art Technician: Ramy Cho MD Albumin/Glob Ratio 1.3 Normal 1.0-2.5 [facility] Comment on above: Performed By: #### C DP, CP, TROPI #### [address] [address] Graphic Art Technician: Ramy Cho MD Alkaline Phos 74 U/L Normal 40-129 [facility] Comment on above: Performed By: #### C DP, CP, TROPI #### [address] [address] Graphic Art Technician: Ramy Cho MD ALT [Catalytic activity/Vol] 9 U/L Low 10-50 [facility] Comment on above: Performed By: #### C DP, CP, TROPI #### [address] [address] Graphic Art Technician: Ramy Cho MD Anion gap [Moles/Vol] 13 mmol/L Normal 9-16 [facility] Comment on above: Performed By: #### C DP, CP, TROPI #### [address] [address] Graphic Art Technician: Ramy Cho MD AST [Catalytic activity/Vol] 20 U/L Normal 10-50 [facility] Comment on above: Performed By: #### C DP, CP, TROPI #### [address] [address] Graphic Art Technician: Ramy Cho MD Bilirubin [Mass/Vol] 0.3 mg/dL Normal 0.0-1.2 [facility] Comment on above: Performed By: #### C DP, CP, TROPI #### [facility] [employer] [address] [place] [address] Graphic Art Technician: Ramy Cho MD Calcium [Mass/Vol] 9.2 mg/dL Normal 8.6-10.4 [facility] Comment on above: Performed By: #### C DP, CP, TROPI #### [facility] [place] [address] Graphic Art Technician: Ramy Cho MD Chloride [Moles/Vol] 105 mmol/L Normal 98-107 [facility] Comment on above: Performed By: #### C DP CP, TROPI #### [facility] [address] [place] [address] Graphic Art Technician: Ramy Cho MD CO2 [Moles/Vol] 22 mmol/L Normal 20-31 [facility] Comment on above: Performed By: #### C DP CP, TROPI #### [facility] [address] [place] [address] Graphic Art Technician: Ramy Cho MD Creatinine [Mass/Vol] 1.1 mg/dL Normal 0.7-1.2 [facility] Comment on above: Performed By: #### C BHASKAR CP, TROPI #### [facility] [employer] [address] [place] [address] Graphic Art Technician: Ramy Cho MD GFR/1.73 sq M.predicted among non-blacks MDRD (S/P/Bld) [Vol rate/Area] 80 mL/min/{1.73_m2} Normal >60 [facility] Comment on above: Result Comment: These results are not intended for use in patients <18 years of age. eGFR results are calculated without a race factor using the 2020 CKD-EPI equation. Careful clinical correlation is recommended, particularly when comparing to results calculated using previous equations. The CKD-EPI equation is less accurate in patients with extremes of muscle mass, extra-renal metabolism of creatine, excessive creatine ingestion, or following therapy that affects renal tubular secretion. Performed By: #### C DP CP, TROPI #### [address] [address] Graphic Art Technician: Ramy Cho MD Glucose [Mass/Vol] 119 mg/dL High 74-99 [facility] Comment on above: Performed By: #### C DP, CP, TROPI #### [employer] [address] [place] [address] Graphic Art Technician: Ramy Cho MD Potassium [Moles/Vol] 3.2 mmol/L Low 3.7-5.3 [facility] Comment on above: Result Comment: Spec imen hemolysis has exceeded the interference as defined by Kojo. Value may be falsely increased. Suggest recollection if clinically indicated. Performed By: #### C DP, CP, TROPI #### [employer] [address] [place] [address] Graphic Art Technician: Ramy Cho MD Protein [Mass/Vol] 7.0 g/dL Normal 6.6-8.7 [facility] Comment on above: Performed By: #### C DP, CP, TROPI #### [facility] [address] [place] [address] Graphic Art Technician: Ramy Cho MD Sodium [Moles/Vol] 140 mmol/L Normal 136-145 [facility] Comment on above: Performed By: #### C DP, CP, TROPI #### [facility] [address] [place] [address] Graphic Art Technician: Ramy Cho MD Urea nitrogen [Mass/Vol] 14 mg/dL Normal 6-20 [facility] Comment on above: Performed By: #### C DP, CP, TROPI #### [facility] [address] [place] [address] Graphic Art Technician: Ramy Cho MD Creatinine W/GFR Point of Ca reon 09-17-2024 Creatinine [Mass/Vol] 1.1 mg/dL 0.51 - 1.19 mg/dL [facility] eGFR, POC 80 - PINF [facility] Comment on above: These results are not intended for use in patients <18 years of age. eGFR results are calculated without a race factor using the 2020 CKD-EPI equation. Careful clinical correlation is recommended, particularly when comparing to results calculated using previous equations. The CKD-EPI equation is less accurate in patients with extremes of muscle mass, extra-renal metabolism of creatine, excessive creatine ingestion, or following therapy that affects renal tubular secretion. Creatinine w/GFR, POCon Creatinine [Mass/Vol] 1.1 mg/dL Normal 0.51-1.19 [facility] GFR/1.73 sq M.predicted among non-blacks MDRD (S/P/Bld) [Vol rate/Area] 80 mL/min/{1.73_m2} Normal >60 [facility] Comment on above: Result Comment: These results are not intended for use in patients <18 years of age. eGFR results are calculated without a race factor using the 2020 CKD-EPI equation. Careful clinical correlation is recommended, particularly when comparing to results calculated using previous equations. The CKD-EPI equation is less accurate in patients with extremes of muscle mass, extra-renal metabolism of creatine, excessive creatine ingestion, or following therapy that affects renal tubular secretion. ELECTROLYTES PLUSon 09-18-19 Anion gap [Moles/Vol] 15 mmol/L 7 - 16 mmol/L [facility] Chloride [Moles/Vol] 108 mmol/L High 98 - 107 mmol/L [facility] CO2 Calc (Bld) [Moles/Vol] 23 mmol/L 22 - 30 mmol/L [facility] Potassium [Moles/Vol] 3 mmol/L Low 3.5 - 4.5 mmol/L [facility] Sodium [Moles/Vol] 145 mmol/L 138 - 146 mmol/L [facility] Electrolyteson 09-17-2024 Anion gap [Moles/Vol] 15 mmol/L Normal 7-16 [facility] Chloride [Moles/Vol] 108 mmol/L High 98-107 [facility] CO2 [Moles/Vol] 23 mmol/L Normal 22-30 [facility] Potassium [Moles/Vol] 3.0 mmol/L Low 3.5-4.5 [facility] Sodium [Moles/Vol] 145 mmol/L Normal 138-146 [facility] Glucose (POC)on 09-17-2024 Glucose [Mass/Vol] 120 mg/dL High 74-100 [facility] Hemoglobin and hematocrit, b loodon 09-17-2024 Hematocrit (Bld) [Volume fraction] 40 % Low 41 - 53 % [facility] Hemoglobin (Bld) [Mass/Vol] 13.7 g/dL 13.5 - 17.5 g/dL [facility] Hgb/Hct, POCon 09-17-2024 Hematocrit (Bld) [Volume fraction] 40 % Low 41-53 [facility] Hemoglobin (Bld) [Mass/Vol] 13.7 g/dL Normal 13.5-17.5 [facility] Lactic Acid (POC)on 09-18-19 25 Lactate [Moles/Vol] 2.0 mmol/L High 0.56-1.39 [facility] Lactic Acid, POCon POC Lactic Acid 2 mmol/L High 0.56 - 1.39 mmol/L [facility] No Panel Informationon 09-17 [facility] Interpretation and review of laboratory results Abnormal [facility] POCT Glucoseon 09-17-2024 Glucose [Mass/Vol] 120 mg/dL High 74 - 100 mg/dL [facility] POCT urea (BUN)on 09-17-2024 Urea nitrogen [Mass/Vol] 13 mg/dL 8 - 26 mg/dL [facility] Portable XR Chest AP single viewon 09-17-2024 Radiology Study observation (narrative) [facility] Troponinon 09-17-2024 Troponin I.cardiac High sensitivity method [Mass/Vol] ng/L 0 - 22 ng/L [facility] Comment on above: High Sensitivity Tro ponin values cannot be compared with other Troponin methodologies. [facility] Troponin, High Sens <6 Normal 0-22 [facility] Comment on above: Result Comment: High Sensitivity Troponin values cannot be compared with other Troponin methodologies. Performed By: #### T ROPI ####[facility] [place] [id number] [facility] Director: Ramy Cho MD Troponin I.cardiac High sensitivity method [Mass/Vol] ng/L 0 - 22 ng/L [facility] Comment on above: High Sensitivity Tro ponin values cannot be compared with other Troponin methodologies. Troponin, High Sens <6 Normal 0-22 [facility] Comment on above: Result Comment: High Sensitivity Troponin values cannot be compared with other Troponin methodologies. Performed By: #### C DP, CP, TROPI ####[facility] [place] [address] lab Director: Ramy Cho MD Venous Bld Gas,POCon HCO3 (Bld) [Moles/Vol] 23.9 mmol/L Normal 22.0-29.0 [facility] Oxygen saturation in Blood 89.4 % High 60.0-85.0 [facility] pCO2, Venous 28.3 mm Hg Low 41.0-51.0 [facility] pH,Venous 7.536 High 7.320-7.430 [facility] pO2, Venous 49.2 mm Hg Normal 30.0-50.0 [facility] Positive Base Excess (calc) 2.3 mmol/L Normal 0.0-3.0 [facility] Venous Blood Gas, POCon HCO3 (Bld) [Moles/Vol] 23.9 mmol/L 22.0 - 29.0 mmol/L [facility] Oxygen saturation in Blood 89.4 % High 60.0 - 85.0 % [facility] pCO2, Madan 28.3 Low [facility] pH, Madan 7.536 High 7.320 - 7.430 [facility] PO2, Madan 49.2 [facility] Positive Base Excess, Madan 2.3 mmol/L 0.0 - 3.0 mmol/L [facility] BMPon 02-10-2024 Anion gap [Moles/Vol] 14 mmol/L Normal 6-16 [facility] Comment on above: Performed By: #### 2 [id number] #### [facility] [address] [place] [address] Calcium [Mass/Vol] 9.8 mg/dL Normal 8.9-11.1 [facility] Comment on above: Performed By: #### 2 [id number] #### [facility] [address] [place] [address] Chloride [Moles/Vol] 100 mmol/L Low 101-111 [facility] Comment on above: Performed By: #### 2 [id number] #### [facility] [address] [place] [address] CO2 [Moles/Vol] 25 mmol/L Normal 21-31 [facility] Comment on above: Performed By: #### 2 [id number] #### [facility] [address] [place] [address] Creatinine [Mass/Vol] 0.9 mg/dL Normal 0.5-1.3 [facility] Comment on above: Performed By: #### 2 [id number] #### [facility] [address] [place] [address] Glucose [Mass/Vol] 124 mg/dL Normal 55-199 [facility] Comment on above: Performed By: #### 2 [id number] #### [facility] [address] [place] [address] Potassium [Moles/Vol] 4.3 mmol/L Normal 3.5-5.3 [facility] Comment on above: Performed By: #### 2 [id number] #### [facility] [address] [place] [address] Sodium [Moles/Vol] 135 mmol/L Normal 135-145 [facility] Comment on above: Performed By: #### 2 [id number] #### [facility] [address] [place] [address] Urea nitrogen [Mass/Vol] 13 mg/dL Normal 5-21 [facility] Comment on above: Performed By: #### 2 [id number] #### [facility] [address] [place] [address] Urea nitrogen/Creatinin e [Mass ratio] 14 No Units Normal 10-20 [facility] Comment on above: Performed By: #### 2 [id number] #### [facility] [address] [place] [address] CBC w/ Auto Diffon 4 Basophils/100 WBC (Bld) 0.6 % Normal 0.0-2.0 [facility] Comment on above: Performed By: #### 2 [id number] #### [facility] [address] [place] [address] Basophils/Leukocyt es Auto (Bld) [Pure # fraction] 0.1 E9/L Normal 0.0-0.2 [facility] Comment on above: Performed By: #### 2 [id number] #### [facility] [facility] [address] [place] [id number] Eosinophils (Bld) [#/Vol] 0.0 E9/L Normal 0.0-0.5 [facility] Comment on above: Performed By: #### 2 [id number] #### [facility] [address] [place] [address] Eosinophils/100 WBC (Bld) 0.4 % Normal 0.0-8.0 [facility] Comment on above: Performed By: #### 2 [id number] #### [facility] [address] [place] [address] Erythrocyte distribution width (RBC) [Ratio] 14.9 % High 10.9-14.2 [facility] Comment on above: Performed By: #### 2 [id number] #### [facility] [address] [place] [address] Hematocrit (Bld) [Volume fraction] 39.6 % Normal 37.7-49.0 [facility] Comment on above: Performed By: #### 2 [id number] #### [facility] [address] [place] [address] Hemoglobin (Bld) [Mass/Vol] 13.3 g/dL Low 13.5-17.5 [facility] Comment on above: Performed By: #### 2 [id number] #### [facility] [address] [place] [address] Lymphocytes (Bld) [#/Vol] 1.5 E9/L Normal 1.0-4.0 [facility] Comment on above: Performed By: #### 2 [id number] #### [facility] [address] [place] [address] Lymphocytes/100 WBC (Bld) 17.0 % Normal 14.0-50.0 [facility] Comment on above: Performed By: #### 2 [id number] #### [facility] [address] [place] [address] MCH (RBC) [Entitic mass] 26.2 pg Low 27.0-34.0 [facility] Comment on above: Performed By: #### 2 [id number] #### [facility] [address] [place] [address] MCHC (RBC) [Mass/Vol] 33.7 g/dL Normal 31.4-36.0 [facility] Comment on above: Performed By: #### 2 [id number] #### [facility] [address] [place] [address] MCV (RBC) [Entitic vol] 77.7 fL Low 80.0-100.0 [facility] Comment on above: Performed By: #### 2 [id number] #### [facility] [address] [place] [address] Monocytes (Bld) [#/Vol] 0.4 E9/L Normal 0.2-1.0 [facility] Comment on above: Performed By: #### 2 [id number] #### [facility] [address] [place] [address] Neutrophils (Bld) [#/Vol] 6.9 E9/L Normal 2.0-7.5 [facility] Comment on above: Performed By: #### 2 [id number] #### [facility] [address] [place] [address] Neutrophils/100 WBC (Bld) 77.1 % High 36.0-75.0 [facility] Comment on above: Performed By: #### 2 [id number] #### [facility] [address] [place] [address] Platelet mean volume (Bld) [Entitic vol] 8.3 fL Normal 6.4-10.8 [facility] Comment on above: Performed By: #### 2 [id number] #### [facility] [address] [place] [address] Platelets (Bld) [#/Vol] 268.0 E9/L Normal 150.0-500.0 [facility] Comment on above: Performed By: #### 2 [id number] #### [facility] [address] [place] [address] RBC (Bld) [#/Vol] 5.1 E12/L Normal 4.3-5.9 [facility] Comment on above: Performed By: #### 2 [id number] #### [facility] [address] [place] [address] WBC corrected for nucl RBC Auto (Bld) [#/Vol] 8.9 E9/L Normal 4.0-11.0 [facility] Comment on above: Performed By: #### 2 [id number] #### [facility] [address] [place] [address] ED Clinical Summaryon 2023 ED Clinical Summary ED Clinical Summary [address] [address] ED Clinical Summary Person Information Name: ADDISON GRULLON Kyle Sue/[facility] Age: 53 Years : 1970 Sex: Male Language: Ghanaian PCP: Rudy Galvan III, DO Marital Status: Phone: [phone] Visit Id: Visit Reason: Medical problem - minor; DRUG USE Speciality: Acuity: 3 Enc Type: Emergency Med Service: Emergency Arrival: 02/10/2024 12:32:09 Discharge: 02/10/2024 16:24:48 LOS: 000 03:52 Checkin: 02/10/2024 12:32:09 Checkout: 02/10/2024 16:24:48 Dispo Type: Home (Routine DC) EVENTS: Event Name Event Status Request Date/Time Start Date/Time Complete Date/Time Arrive Complete 02/10/2024 12:32:09 02/10/2024 12:32:09 02/10/2024 12:32:09 Document Home Meds Request 02/10/2024 12:32:09 Triage Complete 02/10/2024 12:32:09 02/10/2024 12:37:29 02/10/2024 12:37:29 Bed Assign Complete 02/10/2024 12:32:09 02/10/2024 12:32:09 02/10/2024 12:32:09 Dr Exam Complete 02/10/2024 12:32:09 02/10/2024 12:50:23 02/10/2024 12:50:23 RN Exam Complete 02/10/2024 12:32:09 02/10/2024 12:36:53 02/10/2024 12:36:53 Registration Complete 02/10/2024 12:50:23 02/10/2024 13:36:31 02/10/2024 13:36:31 EKG Complete 02/10/2024 13:01:48 02/10/2024 13:42:52 Meds Admin Cancel 02/10/2024 13:01:48 02/10/2024 13:02:14 Pending Labs Inlab 02/10/2024 13:01:48 Lab Inlab 02/10/2024 13:01:48 Urine Collect Complete 02/10/2024 13:01:48 02/10/2024 15:50:17 Patient Care Cancel 02/10/2024 13:01:48 02/10/2024 13:02:14 RT Request 02/10/2024 13:01:48 Pending Labs Complete 02/10/2024 13:27:51 02/10/2024 13:27:51 02/10/2024 14:09:53 Lab Complete 02/10/2024 13:27:51 02/10/2024 13:27:51 02/10/2024 14:09:53 Reg Complete Request 02/10/2024 13:36:31 Reg Bed Request Complete 02/10/2024 13:36:31 02/10/2024 13:36:31 02/10/2024 13:36:31 Pending Labs Complete 02/10/2024 13:54:23 02/10/2024 13:54:23 02/10/2024 13:54:24 Discharge Complete 02/10/2024 16:17:15 02/10/2024 16:25:15 02/10/2024 16:25:15 Transfer Complete 02/10/2024 16:25:15 02/10/2024 16:25:15 02/10/2024 16:25:15 ADDRESS: [address] [place] [phone] PHYS DOC NOTES: MEDICAL INFORMATION: Prescriptions Given: Medications to Continue with No Changes Other Medications ondansetron (Zofran ODT 4 mg Tab-Dis) 1 Tablets By Mouth every 12 hours as needed Nausea. Refills: 0. PATIENT EDUCATION INFORMATION: Instructions: Opioid Use Disorder Follow up: With: Address: When: Rudy Galvan [address] [place] [address], [place] [address] [facility] (5) In 3 days 02/13/2024 Comments: Call the office of your primary care doctor to arrange for follow-up within the above-stated timeframe. Follow-up with your primary care doctor about this ED visit. You should review your labs, imaging, and diagnoses from this ED visit with your primary care physician. There are occasionally non-emergent findings that require additional follow-up after your ED visit. If you were prescribed medications you should discuss possible side-effects and drug interactions with your pharmacist. Call 911 or go to the nearest Emergency Department if you develop any new or worsening symptoms. DIAGNOSIS: Opiate abuse, continuous Normal [facility] ED Note-Physicianon 02-10-20 ED Note-Physician ED Note-Physician Basic Information Time Seen: Yamil Swan DO 02/10/2024 12:50 Chief Complaint pt believes he got bad batch of heroin on 02/07. weak ever since. pt tried new batch 2 hrs ago. pt worried something was in bad batch History of Present Illness 53-year-old male to the emergency department with chief complaint of generalized weakness. Patient reports that on 02/07 he tried a new batch of heroin. He reports that ever since that he felt off. He denies any fever, sweats, chills. No chest pain, shortness of breath. No nausea, vomiting, abdominal pain, diarrhea. He reports that he just feels fatigued. It is worse after he uses the bad batch of heroin. He last used it 3 hours ago. Review of Systems A 10 point review of systems is negative except as noted above. Medical and Surgical History: Reviewed and noted Social history: Lives at home Tobacco: Denies Physical Exam Vitals & Measurements T: 36.5 ???C(Oral) HR: 59(Monitored) RR: 18 BP: 118/56 SpO2: 98% HT: 184 cm WT: 93.8 kg BMI: 27.71 VITALS: I have reviewed the triage vital signs. GENERAL: Disheveled male in no distress NEURO: Alert and oriented. Moves all extremities. Face is symmetric and expressive. EYES: PERRL. No scleral icterus or conjunctival injection. No discharge. HENT: Normocephalic, atraumatic. Hearing is grossly intact. Nares grossly patent and without discharge. Mucous membranes moist. NECK: No JVD. Patient moves neck without restriction. CARDIO: Rhythm regular. Normal rate. No murmur, rub, or gallop. Pulses equal bilaterally in the upper and lower extremity. No lower extremity edema. PULM: Lungs clear to auscultation in all medellin. No wheezes, rales, or rhonchi. No conversational dyspnea. No splinting, stridor, or accessory muscle use. GI/: Abdomen is soft and non-tender. Normoactive bowel sounds. EXTREMITIES: Symmetric muscle bulk. No joint swelling. No clubbing, cyanosis, or deformity. SKIN: Warm and dry. Normal turgor. No rash or lesions appreciated. PSYCH: Mood, affect, and interaction is appropriate to the setting. Medical Decision Making Well-appearing 53-year-old male to the emergency department chief complaint of fatigue and feeling unwell after using a bad batch of heroin. He is continue to use it. Vital stable, the patient is afebrile. Lab work reviewed and noted. No major abnormalities. Urine drug screen positive for marijuana, fentanyl, opiates. Patient is not surprised by these results. EKG without evidence of ischemia. Troponin is normal. Patient remains well-appearing and in no distress. I recommended he discontinue use of the bad heroin. Discussed reassuring workup with the patient. He is going to proceed directly to rehab facility. Patient was discharged to his 's care. Assessment/Plan Opiate abuse, continuous (F11.10: Opioid abuse, uncomplicated) Orders: Basic Metabolic Panel Blood Culture Charcoal Blood Culture Charcoal CBC w/ Auto Diff Continuous Pulse Oximetry Drug Screen Urine ECG 12 Lead Adult ED Cardiac Monitoring eGFR Ethanol Level Extra SST Tube Hepatic Function Panel Routine Capillary Glucose POC Troponin 0 Hr. UA with Cult Rflx Disposition Plan Patient Discharge Condition Stable Discharge Disposition Home Discharge Prescription List Prescriptions No active prescription medications Follow-up With When Contact Information Rudy Galvan In 3 days 02/13/[address] [address] Business (1) Additional Instructions: Call the office of your primary care doctor to arrange for follow-up within the above-stated timeframe. Follow-up with your primary care doctor about this ED visit. You should review your labs, imaging, and diagnoses from this ED visit with your primary care physician. There are occasionally non-emergent findings that require additional follow-up after your ED visit. If you were prescribed medications you should discuss possible side-effects and drug interactions with your pharmacist. Call 911 or go to the nearest Emergency Department if you develop any new or worsening symptoms. Patient Education Opioid Use Disorder Problem List/Past Medical History Ongoing Abdominal pain Acid reflux Basal cell carcinoma of cheek BMI 27.0-27.9,adult Heavy tobacco smoker >10 cigarettes per day Hepatitis C, chronic Heroin addiction Heroin User IV - Intravenous drug user Kidney stone Liver Failure Nausea & vomiting Overweight with body mass index (BMI) of 27 to 27.9 in adult RUQ pain Screen for colon cancer Skin infection Smoker Historical Addiction, opium Procedure/Surgical History cystoscopy left stent removed (09/15/2016), stent lt ureter lt post eswl. (09/15/2016), Circumcision, Lithotripsy of kidney, stent insertion left ureter. Medications Inpatient No active inpatient medications Home Zofran ODT 4 mg Tab-Dis, 4 mg= 1 tab(s), Oral, q12hr, PRN Allergies Cipro (Nause (more content not included)... Normal [facility] Comment on above: Result Comment: Elec tronically Signed By: Yamil Swan DO\.br\Date and Time Signed: 02/10/24 19:55 EST ED Patient Summaryon 024 ED Patient Summary ED Patient Summary [facility] [address] [place], [place] [address] Patient Discharge Instructions Person Information Name: ADDISON GRULLON Age: 53 Years Arrival Date: 02/10/2024 12:32:09 Discharge Diagnosis: Opiate abuse, continuous Primary Care Physician: Rudy Galvan III, DO Provider Information Primary Provider: Yamil Swan DO Advanced Electronics System Mechanic:None The exam and treatment you received in the Emergency Department were for an urgent problem and are not intended as complete care. It is important that you follow up with a doctor, nurse practitioner, or physician???s post production assistant for ongoing care. If your symptoms become worse or you do not improve as expected and you are unable to reach your usual health care provider, you should return to the Emergency Department. We are available 24 hours a day. CHAIADDISON CEJA has been given the following list of patient education materials, prescriptions and follow-up instructions: Follow-up Instructions: With: Address: When: Rudy Galvan [address] [place] [id number] Business (1) In 3 days 02/13/2024 Comments: Call the office of your primary care doctor to arrange for follow-up within the above-stated timeframe. Follow-up with your primary care doctor about this ED visit. You should review your labs, imaging, and diagnoses from this ED visit with your primary care physician. There are occasionally non-emergent findings that require additional follow-up after your ED visit. If you were prescribed medications you should discuss possible side-effects and drug interactions with your pharmacist. Call 911 or go to the nearest Emergency Department if you develop any new or worsening symptoms. In the event that this physician does not participate in your insurance network, please consult with your insurance company to find a nearby participating provider. Patient Education Materials: Opioid Use Disorder A MESSAGE TO ALL PATIENTS REGARDING OPIOIDS PRESCRIPTION OPIOIDS: WHAT YOU NEED TO KNOW Prescription opioids can be used to help relieve yobuypqi-bc-tprnzq pain and are often prescribed following a surgery or injury, or for certain health conditions. These medications can be an important part of the treatment but also come with serious risks. It is important to work with your healthcare provider to make sure you are getting the safest, most effective care. WHAT ARE THE RISKS AND SIDE EFFECTS OF OPIOID USE? Prescription opioids carry serious risks of addiction and overdose, especially with prolonged use. An opioid overdose, often marked by slowed breathing, can cause sudden . The use of prescription opioids can have a number of side effects as well, even when taken as directed: ??? Tolerance???meaning you might need to take more of the medication for the same pain relief ??? Physical dependence???meaning you have symptoms of withdrawal when a medication is stopped ??? Increased sensitivity to pain ??? Constipation ??? Nausea, vomiting, and dry mouth ??? Sleepiness and dizziness ??? Confusion ??? Depression ??? Low levels of testosterone that can result in lower sex drive, energy, and strength ??? Itching and sweating RISKS ARE GREATER WITH: ??? History of drug misuse, substance use disorder, or overdose ??? Mental health conditions (such as depression or anxiety) ??? Sleep apnea ??? Older age (65 years and older) ??? Avoid alcohol while taking prescription opioids. Also, unless specifically advised by your health care provider, medications to avoid include: ??? Benzodiazepines (such as Xanax or Valium) ??? Muscle relaxants (such as Soma or Flexeril) ??? Hypnotics (such as Ambien or Lunesta) ??? Other prescription opioids KNOW YOUR OPTIONS Talk to your health care provider about ways to manage your pain that don???t involve prescription opioids. Some of these options may actually work better and have fewer risks and side effects. Options may include: ??? Pain relievers such as acetaminophen, ibuprofen, and naproxen ??? Some medication that are also used for depression or seizures ??? Physical therapy and exercise ??? Cognitive behavioral therapy, a psychological, goal-directed approach, in which patients learn how to modify physical, behavioral, and emotional triggers of pain and stress. IF YOU ARE PRESCRIBED OPIOIDS FOR PAIN: ??? Never take opioids in greater amounts or more often than prescribed. ??? Follow up with your primary health care provider. o Work together to create a plan on how to manage your pain. o Talk about ways to help manage your pain that don???t involve prescription opioids. o Talk about any and all concerns and side effects. ??? Help prevent misuse and abuse o Never sell or share prescription opioids. o Never use another person???s (more content not included)... Normal [facility] Ethanolon 02-10-2024 Ethanol Lvl <10 Normal <=11 [facility] Comment on above: Performed By: #### 2 [id number] #### [facility] [address] [place] [address] Hep Func Panelon 02-10-2024 Albumin [Mass/Vol] 4.0 g/dL Normal 3.3-5.0 [facility] Comment on above: Performed By: #### 2 [id number] #### [facility] [address] [place] [address] Albumin/Globulin (S) [Mass conc ratio] 0.9 Low 1.1-2.2 [facility] Comment on above: Performed By: #### 2 [id number] #### [facility] [address] [place] [address] ALP [Catalytic activity/Vol] 79 Int._Unit/L Normal 21-98 [facility] Comment on above: Performed By: #### 2 [id number] #### [facility] [address] [place] [address] ALT No additional P-5'-P [Catalytic activity/Vol] 6 Int._Unit/L Normal 6-46 [facility] Comment on above: Performed By: #### 2 [id number] #### [facility] [address] [place] [address] AST [Catalytic activity/Vol] 13 Int._Unit/L Normal 5-43 [facility] Comment on above: Performed By: #### 2 [id number] #### [facility] [address] [place] [address] Bilirubin [Mass/Vol] 1.2 mg/dL High 0.0-1.1 [facility] Comment on above: Performed By: #### 2 [id number] #### [facility] [address] [place] [address] Bilirubin.direct [Mass/Vol] 0.1 mg/dL Normal 0.0-0.4 [facility] Comment on above: Performed By: #### 2 [id number] #### [facility] [address] [place] [address] Bilirubin.indirect [Mass or moles/Vol] 1.1 mg/dL High 0.1-0.9 [facility] Comment on above: Performed By: #### 2 [id number] #### [facility] [address] [place] [address] Globulin (S) [Mass/Vol] 4.5 g/dL High 1.4-4.0 [facility] Comment on above: Performed By: #### 2 [id number] #### [facility] [address] [place] [address] Protein [Mass/Vol] 8.5 g/dL High 6.0-7.8 [facility] Comment on above: Performed By: #### 2 [id number] #### [facility] [address] [place] [address] Pre-Arrival Noteon Pre-Arrival Note Pre-Arrival Note Pre-Arrival Summary Name: , Current Date: 02/10/2024 12:32:50 EST Gender: Date of : Age: 53 Pre-Arrival Type: EMS ETA: 02/10/2024 12:56:00 EST Primary Care Physician: Presenting Problem: drug use Pre-Arrival User: Matias Israel Referring Source: Location: [place] Completion Date/Time: 02/10/2024 12:26:00 [facility] Emergency Department Pre-Hospital Report Form Vital Signs: Pre-Hospital Report: Treatment in Route: Response to Treatment: Misc. Issues: Normal [facility] Troponin 0 Hr.on 02-10-2024 Troponin HS 3.30 pg/mL Low 15.90-38.40 [facility] Comment on above: Result Comment: The 95% CI (Confidence Interval) PPV (Positive Predictive Value) for myocardial infarction in females is 38 pg/mL, in males 51 pg/mL. The results should be used in conjunction with clinical conditions of myocardial infarction. (Access High Sensitivity Troponin I Instructions For Use, Juliane [place], September 2017) Performed By: #### 1 [id number] #### [facility] [address] [place] [address] U Drug Screenon 02-10-2024 Amphetamines Screen method >1000 ng/mL Ql (U) Negative Normal NEGATIVE [facility] Comment on above: Result Comment: Nega tive Cutoff: <1000 ng/mL Performed By: #### 2 [id number] #### [facility] [address] [place] [address] Barbiturates Screen Ql (U) Negative Normal NEGATIVE [facility] Comment on above: Result Comment: Nega tive Cutoff: <200 ng/mL Performed By: #### 2 [id number] #### [facility] [address] [place] [address] Benzodiazepines Ql (U) Negative Normal NEGATIVE [facility] Comment on above: Result Comment: Nega tive Cutoff: <200 ng/mL Performed By: #### 2 [id number] #### [facility] [address] [place] [address] Cannabinoids Screen Ql (U) Positive Abnormal NEGATIVE [facility] Comment on above: Result Comment: No C onfirmation Requested by Physician Result Verified by Repeat Analysis Unconfirmed by an Alternate Method Negative Cutoff: <50 ng/mL Performed By: #### 2 [id number] #### [facility] [address] [place] [address] Cocaine Ql (U) Negative Normal NEGATIVE [facility] Comment on above: Result Comment: Nega tive Cutoff: <300 ng/mL Performed By: #### 2 [id number] #### [facility] [address] [place] [address] Opiates Screen Ql (U) Positive Abnormal NEGATIVE [facility] Comment on above: Result Comment: Resu lt Verified by Repeat Analysis Unconfirmed by an Alternate Method No Confirmation Requested by Physician Negative Cutoff: <300 ng/mL Performed By: #### 2 [id number] #### [facility] [address] [place] [address] Phencyclidine Screen method >25 ng/mL Ql (U) Negative Normal NEGATIVE [facility] Comment on above: Result Comment: Nega tive Cutoff: <25 ng/mL These drug screen results are to be used for medical (i.e., treatment) purposes only. Unconfirmed drug screening results must not be used for non-medical purposes (e.g., employment testing, legal testing). Performed By: #### 2 [id number] #### [facility] [address] [place] [address] U Fentanyl Positive Abnormal NEGATIVE [facility] Comment on above: Result Comment: No C onfirmation Requested by Physician Result Verified by Repeat Analysis Unconfirmed by an Alternate Method postives called to Nafisa Garcia in ER Negative Cutoff: <5 ng/mL These drug screen results are to be used for medical (i.e., treatment) purposes only. Unconfirmed drug screening results must not be used for non-medical purposes (e.g., employment testing, legal testing). Performed By: #### 2 [id number] #### [facility] [address] [place] [address] UA with Cult Rflxon 02-10-20 24 Bilirubin Ql (U) Negative Normal Negative [facility] Comment on above: Performed By: #### 4 [id number] #### [facility] [address] [place] [address] Clarity (U) Clear Normal Clear [facility] Comment on above: Performed By: #### 4 [id number] #### [facility] [address] [place] [address] Color (U) Light-Yellow Normal Yellow [facility] Comment on above: Result Comment: Micr oscopic readings are only performed on those samples that meet specific criteria set forth by [facility]. Performed By: #### 4 [id number] #### [facility] [address] [place] [address] Glucose Ql (U) Negative Normal Negative [facility] Comment on above: Performed By: #### 4 [id number] #### [facility] [address] [place] [address] Hemoglobin Auto test strip (U) [Mass/Vol] Negative Normal Negative [facility] Comment on above: Performed By: #### 4 [id number] #### [facility] [address] [place] [address] Ketones Auto test strip Ql (U) Negative Normal Negative [facility] Comment on above: Performed By: #### 4 [id number] #### [facility] [address] [place] [address] Leukocyte esterase Auto test strip Ql (U) Negative Normal Negative [facility] Comment on above: Performed By: #### 4 [id number] #### [facility] [address] [place] [address] Nitrite Auto test strip Ql (U) Negative Normal Negative [facility] Comment on above: Performed By: #### 4 [id number] #### [facility] [address] [place] [address] pH (U) 7.0 [pH] Invalid Interpretation Code 5.0-9.0 [facility] Comment on above: Performed By: #### 4 [id number] #### [facility] [address] [place] [address] Protein Ql (U) Negative Normal Negative [facility] Comment on above: Performed By: #### 4 [id number] #### [facility] [address] [place] [address] Specific gravity (U) [Rel density] 1.013 Invalid Interpretation Code 1.005-1.030 [facility] Comment on above: Performed By: #### 4 [id number] #### [facility] [address] [id number] Urobilinogen (U) [Mass/Vol] Negative Normal Negative [facility] Comment on above: Performed By: #### 4 [id number] #### [facility] [address] [id number] Type of Urine collection method Clean Catch Normal [facility] Comment on above: Performed By: #### 4 [id number] #### [facility] [address] [place] [address] eGFRon 02-10-2024 eGFR 102 mL/min/1.73 m2 Normal >=59 [facility] Comment on above: Performed By: #### 1 [id number] #### [facility] [address] [id number] Family Medicine Office/Clini c Noteon 11-04-2023 Family Medicine Office/Clinic Note Family Medicine Office/Clinic Note Chief Complaint ER follow up HPI Staff New pt. presents today for ER followup: Hospital: [facility] [place] Visit date: 10/30/23 Symptoms the patient presented with: vomiting & abdominal pain Left AMA before CT was finalized. Current concerns: sx have calmed down. No vomiting for the past 2-3 days. Poor appetite. Gets lightheaded when he stands up to walk. Rt foot swollen & red. Painful. Believes he may have infection from IV drug use. History of Present Illness pt presents today for ER follow up. has infection of right foot Review of Systems PHQ Score Initial Depression Screen Score: 0 SCORE Physical Exam Vitals & Measurements T: 37.4 ?C(Temporal Artery) HR: 69(Peripheral) RR: 16 BP: 122/68 SpO2: 98% HT: 72 in HT: 184 cm WT: 93.8 kg WT: 206.36 lb BMI: 27.71 General: alert, no acute distress ENMT: oral mucosa moist, no pharyngeal erythema or exudate Cardiovascular: regular rate and rhythm, normal peripheral perfusion Respiratory: Lungs CTA, respirations non labored Extremities: no deformity, no trauma Neurological: oriented x 4, LOC appropriate for age, CN II-XII intact, motor strength equal & normal bilaterally, speech normal multiple abscesses healing in different stages on arms, right foot pain swelling redness and warmth Assessment/Plan 1. Skin infection (L08.9: Local infection of the skin and subcutaneous tissue, unspecified) pt presents today for infection of right foot. pt admits to IV drug use. right foot is red, warm, swollen and painful. pt was in ER the other day for nausea, vomiting and stomach pain. and at that time WBC's were elevated. left AMA so was never treated for this infection. Will send in Bactrim DS. if area is not improved by Tuesday they will call in and I will change antibiotics. pt is very appreciative that we were able to help him today. would like to switch to me for PCP. Ordered: ondansetron, 4 mg = 1 tab(s), Oral, q12hr, PRN Nausea, # 10 tab(s), Refills(s) 0, Pharmacy: [facility], 184, cm, 11/04/23 11:02:00 EDT, Height/Length Dosing, 93.8, kg, 11/04/23 11:02:00 EDT, Weight Dosing sulfamethoxazole-trimethopr im, 1 tab(s), Oral, BID for 10 day(s), 20 tab(s), Refill(s) 0, [facility], 184, cm, 11/04/23 11:02:00 EDT, Height/Length Dosing, 93.8, kg, 11/04/23 11:02:00 EDT, Weight Dosing 2. BMI 27.0-27.9,adult, (Z68.27: Body mass index [BMI] 27.0-27.9, adult)Body mass index [BMI] 27.0-27.9, adult BMI education given Ordered: ondansetron, 4 mg = 1 tab(s), Oral, q12hr, PRN Nausea, # 10 tab(s), Refills(s) 0, Pharmacy: [facility], 184, cm, 11/04/23 11:02:00 EDT, Height/Length Dosing, 93.8, kg, 11/04/23 11:02:00 EDT, Weight Dosing sulfamethoxazole-trimethopr im, 1 tab(s), Oral, BID for 10 day(s), 20 tab(s), Refill(s) 0, [facility], 184, cm, 11/04/23 11:02:00 EDT, Height/Length Dosing, 93.8, kg, 11/04/23 11:02:00 EDT, Weight Dosing Body Mass Index (BMI) documented 3008F Current tobacco smoker 1034F Depression Screening Negative 3352F Discharge medications reconciled with current medications in outpatient record 1111F Medication list documented in medical record 1159F Most recent diastolic blood pressure <80 mm Hg 3078F Patient screen for fall risk: no falls in last year or 1 fall with no injury in last year 1101F Review of all meds by a prescribing practitioner or clinical pharmacist documented in EHR 1160F Systolic BP <130 mm Hg (Most Recent) 3074F 3. Overweight with body mass index (BMI) of 27 to 27.9 in adult (E66.3: Overweight) see above Ordered: ondansetron, 4 mg = 1 tab(s), Oral, q12hr, PRN Nausea, # 10 tab(s), Refills(s) 0, Pharmacy: [facility], 184, cm, 11/04/23 11:02:00 EDT, Height/Length Dosing, 93.8, kg, 11/04/23 11:02:00 EDT, Weight Dosing sulfamethoxazole-trimethopr im, 1 tab(s), Oral, BID for 10 day(s), 20 tab(s), Refill(s) 0, [facility], 184, cm, 11/04/23 11:02:00 EDT, Height/Length Dosing, 93.8, kg, 11/04/23 11:02:00 EDT, Weight Dosing 4. Heavy tobacco smoker >10 cigarettes per day (F17.210: Nicotine dependence, cigarettes, uncomplicated) consider not smoking or decreasing Ordered: ondansetron, 4 mg = 1 tab(s), Oral, q12hr, PRN Nausea, # 10 tab(s), Refills(s) 0, Pharmacy: [facility], 184, cm, 11/04/23 11:02:00 EDT, Height/Length Dosing, 93.8, kg, 11/04/23 11:02:00 EDT, Weight Dosing sulfamethoxazole-trimethopr im, 1 tab(s), Oral, BID for 10 day(s), 20 tab(s), Refill(s) 0, [facility], 184, cm, 11/04/23 11:02:00 EDT, Height/Length Dosing, 93.8, kg, 11/04/23 11:02:00 EDT, Weight Dosing Follow-up No qualifying data available Problem List/Past Medical History Ongoing Abdominal pain Acid reflux Basal cell carcinoma of cheek BMI 27.0-27.9,adult Heavy tobacco smoker >10 cigarettes per day Hepatitis C, chronic Heroin addiction Heroin User IV - Intravenous drug user Kidney stone Liver Failure (more content not included)... Normal [facility] Comment on above: Result Comment: Elec tronically Signed By: Julia MEI, Lyn Tellez\.br\Date and Time Signed: 11/04/23 11:36 EDT ED Note-Physicianon 11-02-19 ED Note-Physician ED Note-Physician Basic Information Time Seen: Leonel POWERS, Toby New. 10/30/2023 17:47 Chief Complaint vomiting x5 days History of Present Illness A 53-year-old male reports emerged department complaining of vomiting for last 5 days. States that he also has some upper abdominal pain. States that he is a IV drug user. He has a history of kidney stones. Reports does have Zofran at home but is not working. He denies any constipation. He denies any chest pain or shortness of breath. Reports more of a heartburn-like sensation. States not any blood thinners at this time. Reports he does smoke marijuana daily. Review of Systems No other aggravating or relieving factors no other associated symptoms no other prior treatments or complaints. Family: Reviewed and noncontributory Social: lives at home Review of systems negative unless otherwise specified in the HPI. Physical Exam Vitals & Measurements T: 37.4 ?C(Oral) HR: 81(Monitored) RR: 16 BP: 112/64 SpO2: 98% HT: 187.96 cm WT: 92.4 kg BMI: 26.15 General: The patient appears well and in no apparent distress. Patient is resting comfortably on bed. Afebrile Skin: Warm, dry, no pallor noted. Head: Normocephalic, atraumatic Neck: No JVD Eye: PERRLA, EOMI ENT: Moist mucus membranes Cardiovascular: Regular rate normal peripheral perfusion Respiratory: No respiratory distress no accessory muscle use no obvious audible wheezing. Lung sounds clear auscultation Chest Wall: no deformity Musculoskeletal: normal ROM, no deformity, no swelling GI: No obvious distention soft, mild generalized tenderness throughout the entire abdomen. No rebound tenderness or guarding noted. Neurological: A&O moves all extremities equal strength and symmetry Psychiatric: Cooperative and appropriate Medical Decision Making MEDICAL DECISION MAKING Number and Complexity of Problems Differential Diagnosis: [] [facility] Data External documents reviewed: [] My EKG interpretation: [] My CT interpretation: reviewed My X-ray interpretation: [] My Ultrasound interpretation: [] Decision rules/scores evaluated: [] Discussed with: [] Treatment and Disposition ED Course: 53-year-old male reports emerged department with complaints of abdominal pain with vomiting. Reports heartburn-like sensation. Exam the patient is rather benign. Mild tenderness generalized throughout the abdomen, otherwise benign. Due to concerns, we did do a full workup on the patient. Lab work reviewed noted. No acute changes seen. Does have a history of liver failure. He does have slight elevation of his bilirubin. Due to concerns, we did do lab work as well as EKG and CT of his abdomen. Lab work reviewed noted. No acute changes seen. CT of his abdomen that pending at this time, patient became impatient because of the long time to read the CTs. He decided leave AGAINST MEDICAL ADVICE. The patient wishes to sign out AGAINST MEDICAL ADVICE. The nursing staff and physicians begged and pleaded with the patient to stay for further investigations and evaluation. The patient understands and appreciates the admission diagnosis and its prognosis and the likelihood of risks and benefits of leaving the hospital. The patient signed documentation that they would like to leave at their own insistence and against the advice of the physicians. The patient was advised of the possible dangers to their life and health from this departure, and the patient assumes the risks and consequences involved and releases the staff and the Medical Center from any liability in connection with leaving AGAINST MEDICAL ADVICE. The patient understands that we cannot fully assess the patient for the current complaint at this time because they do not want us to perform our investigations. The patient understands and the possibilities of and disability and consequences of leaving AGAINST MEDICAL ADVICE. The patient has been informed of the dangers of leaving AGAINST MEDICAL ADVICE and still is insistent upon signing out. The patient has arrived at this decision without being subjected to coercion and with a full understanding in appreciation of the risks, benefits, and alternatives of the decision. The patient is not intoxicated. Shared decision making: [] Code status: [] Assessment/Plan Abdominal pain (R10.9: Unspecified abdominal pain) Left against medical advice (Z53.29: Procedure and treatment not carried out because of patient's decision for other reasons) Orders: famotidine, 20 mg = 2 mL, Soln-IV, IV Push, Once, Stop date 10/30/23 18:08:00 EDT, STAT, Start date 10/30/23 18:08:00 EDT, 10/30/23 18:08:00 EDT promethazine 12.5 mg + Sodium Chloride 0.9% intravenous solution 50 mL, Injection, IV Piggyback, Once, Stop date 10/30/23 18:08:00 EDT, STAT, Start date 10/30/23 18:08:00 EDT, 151.5 mL/hr, Infuse over 20 minute(s) Sodium Chloride 0.9% intravenous solution, 1,000 mL, Soln-IV, IV, Once, Stop date 10/30/23 18:08:00 EDT, STAT, Start date (more content not included)... Normal [facility] Comment on above: Result Comment: Elec tronically Signed By: Toby Castaneda PA-C\.br\Date and Time Signed: 10/30/23 22:01 EDT\.br\Electronically Co-Signed By: Yamil Swan DO.br\Date and Time Co-Signed: 11/02/23 06:48 EDT C Urineon 10-31-2023 Bacteria identified Cx Nom (U) Microbiology PROCEDURE: Urine Culture [R1] SOURCE: U CleanCatch BODY SITE: COLLECTED DATE/TIME: 10/29/2023 19:58 EDT RECEIVED DATE/TIME: 10/29/2023 20:41 EDT START DATE/TIME: 10/29/2023 20:41 EDT FREE TEXT SOURCE: James Yi DO Kd ROJAS, James Mckay. FINAL REPORTS Final Report [] Verified Date/Time: 10/31/2023 10:41 EDT 1,000 cfu/ml Mixed skin contaminants Performing Locations R1: This test was performed at: [facility], [address] [place] [address], [id number] , [place], Normal [facility] Comment on above: Performed By: #### 2 [id number] #### [facility] [address] [place] [address] CT Abdomen/Pelvis w/ Contras ton 10-31-2023 CT Abdomen/Pelvis w/ Contrast Exam Date/Time: 10/30/2023 18:51 EDT Reason for Exam: ABDOMINAL PAIN, ACUTE, NONLOCALIZED;Other (please specify) Report IMPRESSION: No acute process in the abdomen/pelvis. EXAMINATION: CT Abdomen/Pelvis w/ Contrast HISTORY: Nausea. Vomiting. TECHNIQUE: CT of the abdomen and pelvis was performed using standard technique with intravenous contrast, scanning from just above the dome of the diaphragm to the symphysis pubis. Including delayed images through the kidneys. Including sagittal and coronal reconstructions on both phases. Unless otherwise stated, incidental findings identified in this report do not require routine follow-up imaging. All CT scans at this facility use dose modulation, iterative reconstruction, and/or weight based dosing when appropriate to reduce radiation dose to as low as reasonably achievable. COMPARISON: 07/30/2020. RESULT: Liver: No mass or lesion. Biliary: Gallbladder partially decompressed and not well evaluated. No bile duct dilation. Pancreas: Atrophy without distinct duct dilation. Spleen: Calcified granulomas. Otherwise unremarkable. Adrenals: No mass. Kidneys: No calculus or hydronephrosis. Lobular contour to the left kidney with parenchymal defect/scar, unchanged. No suspicious renal lesions. Delayed phase images unremarkable. GI tract: No bowel dilation. Stomach decompressed and not well evaluated. Fluid-filled loops of normal caliber small bowel. No evidence for appendicitis or diverticulitis. Lymph nodes: No abdominal or pelvic lymphadenopathy. Report Mesentery/Peritoneum/Retrop eritoneum: No ascites or mass. Vasculature: The celiac axis and SMA are patent. The portal vein and branches, splenic vein, SMV, and hepatic veins are patent. Mild arterial atherosclerotic disease without aneurysm. Pelvis: No significant free fluid. Bladder decompressed. Bones: No acute osseous findings. Degenerative changes. Soft tissues: Unremarkable. Lower thorax: Unremarkable. Ordering Provider: Toby Castaneda FINAL REPORT Dictated: 10/31/2023 9:35 am Tommy Brown MD. Signed (Electronic Signature): 10/31/2023 9:35 am Signed by: Tommy Brown MD. Transcribed by: BHASKAR Technologist: COLT Technical Comments GFR (mL/min/1/73m2) na Contrast: Isovue 300 Contrast amount in ml's: 100 Rectal Contrast Given? No Normal [facility] XR Chest 2 Viewson XR Chest 2 Views Exam Date/Time: 10/30/2023 19:00 EDT Reason for Exam: Abdominal pain;Other (please specify) Report IMPRESSION: NO EVIDENCE OF ACTIVE CHEST DISEASE. CLINICAL HISTORY: Abdominal pain. Burning sensation in chest. COMPARISON: 04/28/2021. COMMENT: The heart is normal in size. The mediastinum is unremarkable. The lungs appear clear. No infiltration nor pleural effusion is evident. There is an old healed anterior right rib fracture. No significant change is noted when compared to the prior exam. Ordering Provider: Toby Castaneda FINAL REPORT Dictated: 10/31/2023 8:16 am Ar Simpson M.D. Signed (Electronic Signature): 10/31/2023 8:16 am Signed by: Ar Simpson M.D. Transcribed by: BHASKAR Technologist: ANDI Technical Comments Radiation Dose: Ka,r in mGy = 0 DAP = [address] [facility] BMPon 10-30-2023 Anion gap [Moles/Vol] 16 mmol/L Normal -16 [facility] Comment on above: Performed By: #### 2 [id number] #### [facility] [address] [place] [address] Calcium [Mass/Vol] 9.5 mg/dL Normal 8.9-11.1 [facility] Comment on above: Performed By: #### 2 [id number] #### [facility] [address] [place] [address] Chloride [Moles/Vol] 93 mmol/L Low 101-111 [facility] Comment on above: Performed By: #### 2 [id number] #### [facility] [address] [place] [address] CO2 [Moles/Vol] 26 mmol/L Normal 21-31 [facility] Comment on above: Performed By: #### 2 [id number] #### [facility] [address] [place] [address] Creatinine [Mass/Vol] 1.2 mg/dL Normal 0.5-1.3 [facility] Comment on above: Performed By: #### 2 [id number] #### [facility] [address] [place] [address] Glucose [Mass/Vol] 107 mg/dL Normal 55-199 [facility] Comment on above: Performed By: #### 2 [id number] #### [facility] [address] [place] [address] Potassium [Moles/Vol] 4.0 mmol/L Normal 3.5-5.3 [facility] Comment on above: Performed By: #### 2 [id number] #### [facility] [address] [place] [address] Sodium [Moles/Vol] 131 mmol/L Low 135-145 [facility] Comment on above: Performed By: #### 2 [id number] #### [facility] [address] [place] [address] Urea nitrogen [Mass/Vol] 22 mg/dL High 5-21 [facility] Comment on above: Performed By: #### 2 [id number] #### [facility] [address] [place] [address] Urea nitrogen/Creatinin e [Mass ratio] 18 No Units Normal 10-20 [facility] Comment on above: Performed By: #### 2 [id number] #### [facility] [address] [place] [address] CBC w/ Auto Diffon 4 Basophils/100 WBC (Bld) 0.6 % Normal 0.0-2.0 [facility] Comment on above: Performed By: #### 2 [id number] #### [facility] [address] [place] [address] Basophils/Leukocyt es Auto (Bld) [Pure # fraction] 0.1 E9/L Normal 0.0-0.2 [facility] Comment on above: Performed By: #### 2 [id number] #### [facility] [address] [place] [address] Eosinophils (Bld) [#/Vol] 0.0 E9/L Normal 0.0-0.5 [facility] Comment on above: Performed By: #### 2 [id number] #### [facility] [address] [place] [address] Eosinophils/100 WBC (Bld) 0.2 % Normal 0.0-8.0 [facility] Comment on above: Performed By: #### 2 [id number] #### [facility] [address] [place] [address] Erythrocyte distribution width (RBC) [Ratio] 14.2 % Normal 10.9-14.2 [facility] Comment on above: Performed By: #### 2 [id number] #### [facility] [address] [place] [address] Hematocrit (Bld) [Volume fraction] 41.0 % Normal 37.7-49.0 [facility] Comment on above: Performed By: #### 2 [id number] #### [facility] [address] [place] [address] Hemoglobin (Bld) [Mass/Vol] 13.9 g/dL Normal 13.5-17.5 [facility] Comment on above: Performed By: #### 2 [id number] #### [facility] [address] [place] [address] Lymphocytes (Bld) [#/Vol] 2.0 E9/L Normal 1.0-4.0 [facility] Comment on above: Performed By: #### 2 [id number] #### [facility] [address] [place] [address] Lymphocytes/100 WBC (Bld) 16.7 % Normal 14.0-50.0 [facility] Comment on above: Performed By: #### 2 827189 #### [facility] [address] [place] [address] MCH (RBC) [Entitic mass] 27.9 pg Normal 27.0-34.0 [facility] Comment on above: Performed By: #### 2 [id number] #### [facility] [address] [place] [address] MCHC (RBC) [Mass/Vol] 33.9 g/dL Normal 31.4-36.0 [facility] Comment on above: Performed By: #### 2 [id number] #### [facility] [address] [place] [address] MCV (RBC) [Entitic vol] 82.4 fL Normal 80.0-100.0 [facility] Comment on above: Performed By: #### 2 136892 #### [facility] [address] [place] [address] Monocytes (Bld) [#/Vol] 1.3 E9/L High 0.2-1.0 [facility] Comment on above: Performed By: #### 2 [id number] #### [facility] [address] [place] [address] Neutrophils (Bld) [#/Vol] 8.6 E9/L High 2.0-7.5 [facility] Comment on above: Performed By: #### 2 [id number] #### [facility] [address] [place] [address] Neutrophils/100 WBC (Bld) 71.7 % Normal 36.0-75.0 [facility] Comment on above: Performed By: #### 2 [id number] #### [facility] [address] [place] [address] Platelet mean volume (Bld) [Entitic vol] 9.7 fL Normal 6.4-10.8 [facility] Comment on above: Performed By: #### 2 [id number] #### [facility] [address] [place] [address] Platelets (Bld) [#/Vol] 145.0 E9/L Low 150.0-500.0 [facility] Comment on above: Performed By: #### 2 130702 #### [facility] [address] [place] [address] RBC (Bld) [#/Vol] 5.0 E12/L Normal 4.3-5.9 [facility] Comment on above: Performed By: #### 2 [id number] #### [facility] [address] [place] [address] WBC corrected for nucl RBC Auto (Bld) [#/Vol] 12.0 E9/L High 4.0-11.0 [facility] Comment on above: Performed By: #### 2 [id number] #### [facility] [address] [place], [place] [id number] ED Clinical Summaryon 2023 ED Clinical Summary ED Clinical Summary [address] [address] ED Clinical Summary Person Information Name: ADDISON GRULLON Kyle Use/[facility] Age: 53 Years : 1970 Sex: Male Language: Ghanaian PCP: Rudy Galvan III, DO Marital Status: Phone: [phone] Visit Id: Visit Reason: Heartburn or indigestion; Abdominal pain; Vomiting; NAUSEA/ VOMMITING Speciality: Acuity: 3 Enc Type: Emergency Med Service: Emergency Arrival: 10/30/2023 17:35:32 Discharge: 10/30/2023 21:55:38 LOS: 000 04:20 Checkin: 10/30/2023 17:35:32 Checkout: 10/30/2023 21:55:38 Dispo Type: Left Against Medical Advice EVENTS: Event Name Event Status Request Date/Time Start Date/Time Complete Date/Time Arrive Complete 10/30/2023 17:35:32 10/30/2023 17:35:32 10/30/2023 17:35:32 Document Home Meds Request 10/30/2023 17:35:32 Triage Complete 10/30/2023 17:35:32 10/30/2023 17:50:54 10/30/2023 17:50:54 Registration Complete 10/30/2023 17:38:12 10/30/2023 17:38:12 10/30/2023 17:38:12 Reg Complete Request 10/30/2023 17:38:12 Reg Bed Request Complete 10/30/2023 17:38:12 10/30/2023 17:38:12 10/30/2023 17:38:12 Bed Assign Complete 10/30/2023 17:45:55 10/30/2023 17:45:55 10/30/2023 17:45:55 Dr Exam Complete 10/30/2023 17:45:55 10/30/2023 17:47:10 10/30/2023 17:47:10 RN Exam Complete 10/30/2023 17:45:55 10/30/2023 18:04:58 10/30/2023 18:04:58 Registration Request 10/30/2023 17:47:10 EKG Complete 10/30/2023 17:48:05 10/30/2023 18:26:04 Dr Exam Complete 10/30/2023 17:50:34 10/30/2023 17:50:34 10/30/2023 17:50:34 X-Ray Complete 10/30/2023 18:08:44 10/30/2023 18:51:19 10/30/2023 19:00:43 CT Complete 10/30/2023 18:08:44 10/30/2023 18:32:47 10/30/2023 18:51:34 Meds Admin Complete 10/30/2023 18:08:44 10/30/2023 18:22:39 Pending Labs Complete 10/30/2023 18:08:44 10/30/2023 18:39:00 10/30/2023 18:59:56 Lab Complete 10/30/2023 18:08:44 10/30/2023 18:48:47 Pending Labs Complete 10/30/2023 18:13:55 10/30/2023 18:13:55 10/30/2023 18:48:47 Lab Complete 10/30/2023 18:13:55 10/30/2023 18:13:55 10/30/2023 18:48:47 Wet Read Request 10/30/2023 19:00:43 Discharge Complete 10/30/2023 21:55:59 10/30/2023 21:55:59 10/30/2023 21:55:59 Transfer Complete 10/30/2023 21:55:59 10/30/2023 21:55:59 10/30/2023 21:55:59 ADDRESS: [address] [place] [phone] PHYS DOC NOTES: MEDICAL INFORMATION: Prescriptions Given: Medications to Continue with No Changes Other Medications acetaminophen (acetaminophen 325 mg Tab) 2 Tablets By Mouth every 4 hours. cyclobenzaprine (cyclobenzaprine 10 mg Tab) 1 Tablets By Mouth 3 times a day as needed Muscle pain. Refills: 0. dicyclomine (dicyclomine 20 mg Tab) 1 Tablets By Mouth 3 times a day. as needed. Refills: 11. lidocaine topical (Lidoderm 5% Patch) 1 Patches Topical every day. apply 12 hours on and 12 hours off daily. Refills: 0. naproxen (Naprosyn 500 mg Tab) 1 Tablets By Mouth 2 times a day as needed for pain. Refills: 0. naproxen (naproxen 500 mg Tab) 1 Tablets By Mouth 2 times a day as needed for pain. Refills: 0. ondansetron (Zofran ODT 4 mg Tab-Dis) 1 Tablets By Mouth every 8 hours as needed Nausea/Vomiting. Refills: 0. ondansetron (Zofran ODT 4 mg Tab-Dis) 1 Tablets By Mouth every 8 hours. Refills: 0. pantoprazole (Protonix 40 mg Tab-DR) 1 Tablets By Mouth every day. PATIENT EDUCATION INFORMATION: Instructions: Follow up: DIAGNOSIS: Normal [facility] ED Note-Nursingon 10-30-2023 ED Note-Nursing ED Note-Nursing pt requesting to leave at this time. states he can't wait any longer for this ct to come back. pt calm and cooperative, just repeatedly reiterating that he would like to leave, and requesting ama paper. this rn reviewed risks of leaving ama and pt agreed, verbalized understanding. pt signed ama paper and left calmly. Normal [facility] ED Patient Education Noteon 10-30-2023 ED Patient Education Note ED Patient Education Note Normal [facility] ED Patient Summaryon 024 ED Patient Summary ED Patient Summary [place] [id number] Patient Discharge Instructions Person Information Name: ADDISON GRULLON Age: 53 Years Arrival Date: 10/30/2023 17:35:32 Discharge Diagnosis: Primary Care Physician: Rudy Galvan III, DO Provider Information Primary Provider: Yamil Swan DO Advanced [employer] System Mechanic:None The exam and treatment you received in the Emergency Department were for an urgent problem and are not intended as complete care. It is important that you follow up with a doctor, nurse practitioner, or physician?s post production assistant for ongoing care. If your symptoms become worse or you do not improve as expected and you are unable to reach your usual health care provider, you should return to the Emergency Department. We are available 24 hours a day. ADDISON GRULLON has been given the following list of patient education materials, prescriptions and follow-up instructions: Follow-up Instructions: In the event that this physician does not participate in your insurance network, please consult with your insurance company to find a nearby participating provider. Patient Education Materials: A MESSAGE TO ALL PATIENTS REGARDING OPIOIDS PRESCRIPTION OPIOIDS: WHAT YOU NEED TO KNOW Prescription opioids can be used to help relieve itrfgxiv-ul-mhtdex pain and are often prescribed following a surgery or injury, or for certain health conditions. These medications can be an important part of the treatment but also come with serious risks. It is important to work with your healthcare provider to make sure you are getting the safest, most effective care. WHAT ARE THE RISKS AND SIDE EFFECTS OF OPIOID USE? Prescription opioids carry serious risks of addiction and overdose, especially with prolonged use. An opioid overdose, often marked by slowed breathing, can cause sudden . The use of prescription opioids can have a number of side effects as well, even when taken as directed: ? Tolerance?meaning you might need to take more of the medication for the same pain relief ? Physical dependence?meaning you have symptoms of withdrawal when a medication is stopped ? Increased sensitivity to pain ? Constipation ? Nausea, vomiting, and dry mouth ? Sleepiness and dizziness ? Confusion ? Depression ? Low levels of testosterone that can result in lower sex drive, energy, and strength ? Itching and sweating RISKS ARE GREATER WITH: ? History of drug misuse, substance use disorder, or overdose ? Mental health conditions (such as depression or anxiety) ? Sleep apnea ? Older age (65 years and older) ? Avoid alcohol while taking prescription opioids. Also, unless specifically advised by your health care provider, medications to avoid include: ? Benzodiazepines (such as Xanax or Valium) ? Muscle relaxants (such as Soma or Flexeril) ? Hypnotics (such as Ambien or Lunesta) ? Other prescription opioids KNOW YOUR OPTIONS Talk to your health care provider about ways to manage your pain that don?t involve prescription opioids. Some of these options may actually work better and have fewer risks and side effects. Options may include: ? Pain relievers such as acetaminophen, ibuprofen, and naproxen ? Some medication that are also used for depression or seizures ? Physical therapy and exercise ? Cognitive behavioral therapy, a psychological, goal-directed approach, in which patients learn how to modify physical, behavioral, and emotional triggers of pain and stress. IF YOU ARE PRESCRIBED OPIOIDS FOR PAIN: ? Never take opioids in greater amounts or more often than prescribed. ? Follow up with your primary health care provider. o Work together to create a plan on how to manage your pain. o Talk about ways to help manage your pain that don?t involve prescription opioids. o Talk about any and all concerns and side effects. ? Help prevent misuse and abuse o Never sell or share prescription opioids. o Never use another person?s prescription opioids. ? Store prescription opioids in a secure place and out of reach of others (this may include visitors, children, friends, and family). ? Safely dispose of unused prescription opioids: Find your community drug take-back program or your pharmacy mail-back program, or flush them down the toilet, following guidance from the Food and Drug Administration (www.fda.gov/Drugs/Resource sFPatiou). ? Visit www.cdc.gov/drugoverdose to learn about the risks of opioids abuse and overdose. ? If you believe you may be struggling with addiction, tell your health workforce investment act career manager and ask for guidance or call [facility]S National Helpline at 4-988-774-UCKO. v Source: US Department of Health and Human Services/Center for Disease Control & Prevention [facility] Medications Given: Medication Dose Route Sodium C (more content not included)... Normal [facility] Hep Func Panelon 10-30-2023 Albumin [Mass/Vol] 4.5 g/dL Normal 3.3-5.0 [facility] Comment on above: Performed By: #### 2 [id number] #### [facility] [address] [place] [address] Albumin/Globulin (S) [Mass conc ratio] 1.2 Normal 1.1-2.2 [facility] Comment on above: Performed By: #### 2 [id number] #### [facility] [address] [place] [address] ALP [Catalytic activity/Vol] 75 Int._Unit/L Normal 21-98 [facility] Comment on above: Performed By: #### 2 [id number] #### [facility] [address] [place] [address] ALT No additional P-5'-P [Catalytic activity/Vol] 14 Int._Unit/L Normal 6-46 [facility] Comment on above: Performed By: #### 2 [id number] #### [facility] [address] [place] [address] AST [Catalytic activity/Vol] 35 Int._Unit/L Normal 5-43 [facility] Comment on above: Performed By: #### 2 [id number] #### [facility] [address] [place] [address] Bilirubin [Mass/Vol] 2.5 mg/dL High 0.0-1.1 [facility] Comment on above: Performed By: #### 2 [id number] #### [facility] [address] [place] [address] Bilirubin.direct [Mass/Vol] 0.3 mg/dL Normal 0.0-0.4 [facility] Comment on above: Performed By: #### 2 [id number] #### [facility] [address] [place] [address] Bilirubin.indirect [Mass or moles/Vol] 2.2 mg/dL High 0.1-0.9 [facility] Comment on above: Performed By: #### 2 [id number] #### [facility] [address] [place] [address] Globulin (S) [Mass/Vol] 3.8 g/dL Normal 1.4-4.0 [facility] Comment on above: Performed By: #### 2 [id number] #### [facility] [address] [place] [address] Protein [Mass/Vol] 8.3 g/dL High 6.0-7.8 [facility] Comment on above: Performed By: #### 2 [id number] #### [facility] [address] [place] [address] Lipase Levelon 10-30-2023 Lipase [Catalytic activity/Vol] 4 U/L Low 13-58 [facility] Comment on above: Performed By: #### 2 [id number] #### [facility] [address] [place] [address] PT & PTTon 10-30-2023 aPTT Coag (PPP) [Time] 28.0 second(s) Normal 25.1-36.5 [facility] Comment on above: Result Comment: Para meter 15 days - 4 weeks 1 - 5 months 6 - 11 months 1 - 5 years 6 - 10 years 11 - 17 years PTT Mean: 35.4 (27.6-45.6) Mean: 33.5 (24.8-40.7) Mean: 32.4 (25.1-40.7) Mean: 31.6 (24.0-39.2) Mean: 31.6 (26.9-38.7) Mean: 31.0 (24.6-38.4) Pediatric Reference ranges were obtained from a study by siena Gong. prepared from 1437 samples obtained at 7 different centers using the same coagulation reagent and instrumentation as [facility]. Currently there are no coagulation studies available worldwide for children to 14 days, and no normal ranges. Heparin therapeutic range (represented by Anti-Factor Xa activity of 0.2 - 0.4 U/mL) corresponds to PTT of 56.6 - 109.0 sec. Performed By: #### 1 [id number] #### [facility] [address] [place] [address] INR Coag (PPP) [Relative time] 1.27 {INR} Invalid Interpretation Code [facility] Comment on above: Result Comment: INR results are specifically intended to assess patients stabilized on long-term Anticoagulation therapy suggested INR?s ?Less Intensive Anticoagulation? 2.0 ? 3.0 Conventional Range 3.0 ? 4.5 Performed By: #### 1 [id number] #### [facility] [address] [place] [address] PT Coag (PPP) [Time] 14.3 second(s) High 9.4-12.5 [facility] Comment on above: Result Comment: 15 d ays - 4 weeks 1 - 5 months 6 -11 months 1 ? 5 years 6 ? 10 years 11 -17 years Mean: 11.2 (9.5 ? 12.6) Mean: 11.0 (9.7 ? 12.8) Mean: 11.0 (9.8 ? 13.0) Mean: 11.3 (9.9 ? 13.4) Mean: 11.7 (10.0 ? 14.6) Mean: 11.8 (10.0 - 14.1) Pediatric Reference ranges were obtained from a study by siena Gong. prepared from 1437 samples obtained at 7 different centers using the same coagulation reagent and instrumentation as [facility]. Currently there are no coagulation studies available worldwide for children to 14 days, and no normal ranges. Performed By: #### 1 [id number] #### [facility] [address] [place] [address] Troponin 0 Hr.on 10-30-2023 Troponin HS 7.70 pg/mL Low 15.90-38.40 [facility] Comment on above: Result Comment: The 95% CI (Confidence Interval) PPV (Positive Predictive Value) for myocardial infarction in females is 38 pg/mL, in males 51 pg/mL. The results should be used in conjunction with clinical conditions of myocardial infarction. (Access High Sensitivity Troponin I Instructions For Use, Juliane [place], September 2017) Performed By: #### 1 [id number] #### [facility] [address] [place] [address] UA with Cult Rflxon 10-30-19 Bilirubin Ql (U) 1+ mg/dL Abnormal Negative [facility] Comment on above: Performed By: #### 4 [id number] #### [facility] [address] [place] [address] Clarity (U) Clear Normal Clear [facility] Comment on above: Performed By: #### 4 [id number] #### [facility] [address] [place] [address] Color (U) [place] Abnormal Yellow [facility] Comment on above: Result Comment: Micr oscopic readings are only performed on those samples that meet specific criteria set forth by [facility]. Performed By: #### 4 [id number] #### [facility] [address] [place] [address] Epithelial cells.squamous Auto (Urine sed) [#/Area] 0-[address] [facility] Comment on above: Performed By: #### 4 [id number] #### [facility] [address] [place] [address] Glucose Ql (U) Negative Normal Negative [facility] Comment on above: Performed By: #### 4 [id number] #### [facility] [address] [place] [address] Hemoglobin Auto test strip (U) [Mass/Vol] 1+ mg/dL Abnormal Negative [facility] Comment on above: Performed By: #### 4 [id number] #### [facility] [address] [place] [address] Ketones Auto test strip Ql (U) Trace Abnormal Negative [facility] Comment on above: Performed By: #### 4 [id number] #### [facility] [address] [place] [address] Leukocyte esterase Auto test strip Ql (U) Negative Normal Negative [facility] Comment on above: Performed By: #### 4 [id number] #### [facility] [address] [place] [address] Mucus Auto Ql (U) 2+ CD:[id number] Abnormal Negative [facility] Comment on above: Performed By: #### 4 [id number] #### [facility] [address] [place] [address] Nitrite Auto test strip Ql (U) Negative Normal Negative [facility] Comment on above: Performed By: #### 4 [id number] #### [facility] [address] [place] [address] pH (U) 5.5 [pH] Invalid Interpretation Code 5.0-9.0 [facility] Comment on above: Performed By: #### 4 [id number] #### [facility] [address] [place] [address] Protein Ql (U) 1+ mg/dL Abnormal Negative [facility] Comment on above: Performed By: #### 4 [id number] #### [facility] [address] [place] [address] RBC Ql (U) 0-3 Normal 0-3 [facility] Comment on above: Performed By: #### 4 [id number] #### [facility] [address] [place] [address] Specific gravity (U) [Rel density] 1.032 Invalid Interpretation Code 1.005-1.030 [facility] Comment on above: Performed By: #### 4 [id number] #### [facility] [address] [place] [address] Urobilinogen (U) [Mass/Vol] 6 mg/dL Abnormal Negative [facility] Comment on above: Performed By: #### 4 [id number] #### [facility] [address] [place] [address] WBC Auto (Urine sed) [#/Area] 0-5 Normal 0-5 [facility] Comment on above: Performed By: #### 4 [id number] #### [facility] [address] [place] [address] Type of Urine collection method Clean Catch Normal [facility] Comment on above: Performed By: #### 4 [id number] #### [facility] [address] [place] [address] eGFRon 10-30-2023 eGFR 73 mL/min/1.73 m2 Normal >=59 [facility] Comment on above: Order Comment: Order added by Discern Expert. Performed By: #### 1 [id number] #### [facility] [address] [place] [address] ED Clinical Summaryon 2023 ED Clinical Summary ED Clinical Summary [address] [address] ED Clinical Summary Person Information Name: ADDISON GRULLON Sue/[facility] Age: 53 Years : 1970 Sex: Male Language: Ghanaian PCP: Rudy Galvan III, DO Marital Status: Phone: [phone] Visit Id: Visit Reason: Vomiting; Abdominal pain; NAUSEA/VOMMITING Speciality: Acuity: 3 Enc Type: Emergency Med Service: Emergency Arrival: 10/29/2023 19:42:49 Discharge: 10/29/2023 20:51:07 LOS: 000 01:09 Checkin: 10/29/2023 19:42:49 Checkout: 10/29/2023 20:51:07 Dispo Type: Eloped EVENTS: Event Name Event Status Request Date/Time Start Date/Time Complete Date/Time Arrive Complete 10/29/2023 19:42:49 10/29/2023 19:42:49 10/29/2023 19:42:49 Document Home Meds Request 10/29/2023 19:42:49 Triage Complete 10/29/2023 19:42:49 10/29/2023 19:54:45 10/29/2023 19:54:45 Registration Complete 10/29/2023 19:46:54 10/29/2023 19:46:54 10/29/2023 19:46:54 Reg Complete Request 10/29/2023 19:46:54 Reg Bed Request Complete 10/29/2023 19:46:54 10/29/2023 19:46:54 10/29/2023 19:46:54 Pending Labs Complete 10/29/2023 19:56:19 10/29/2023 20:09:26 Pending Labs Inlab 10/29/2023 20:09:26 10/29/2023 20:09:26 Lab Inlab 10/29/2023 20:09:26 10/29/2023 20:09:26 Discharge Complete 10/29/2023 20:51:17 10/29/2023 20:51:17 10/29/2023 20:51:17 Transfer Complete 10/29/2023 20:51:17 10/29/2023 20:51:17 10/29/2023 20:51:17 ADDRESS: [address] [place] [id number] PHYS DOC NOTES: MEDICAL INFORMATION: Prescriptions Given: Medications to Continue with No Changes Other Medications acetaminophen (acetaminophen 325 mg Tab) 2 Tablets By Mouth every 4 hours. cyclobenzaprine (cyclobenzaprine 10 mg Tab) 1 Tablets By Mouth 3 times a day as needed Muscle pain. Refills: 0. dicyclomine (dicyclomine 20 mg Tab) 1 Tablets By Mouth 3 times a day. as needed. Refills: 11. lidocaine topical (Lidoderm 5% Patch) 1 Patches Topical every day. apply 12 hours on and 12 hours off daily. Refills: 0. naproxen (Naprosyn 500 mg Tab) 1 Tablets By Mouth 2 times a day as needed for pain. Refills: 0. naproxen (naproxen 500 mg Tab) 1 Tablets By Mouth 2 times a day as needed for pain. Refills: 0. ondansetron (Zofran ODT 4 mg Tab-Dis) 1 Tablets By Mouth every 8 hours as needed Nausea/Vomiting. Refills: 0. ondansetron (Zofran ODT 4 mg Tab-Dis) 1 Tablets By Mouth every 8 hours. Refills: 0. pantoprazole (Protonix 40 mg Tab-DR) 1 Tablets By Mouth every day. PATIENT EDUCATION INFORMATION: Instructions: Follow up: DIAGNOSIS: Normal [facility] ED Patient Education Noteon 10-29-2023 ED Patient Education Note ED Patient Education Note Normal [facility] ED Patient Summaryon 024 ED Patient Summary ED Patient Summary [place] [id number] Patient Discharge Instructions Person Information Name: ADDISON GRULLON Age: 53 Years Arrival Date: 10/29/2023 19:42:49 Discharge Diagnosis: Primary Care Physician: Rudy Galvan III, DO Provider Information Primary Provider: Advanced [employer] System Mechanic:None The exam and treatment you received in the Emergency Department were for an urgent problem and are not intended as complete care. It is important that you follow up with a doctor, nurse practitioner, or physician?s post production assistant for ongoing care. If your symptoms become worse or you do not improve as expected and you are unable to reach your usual health care provider, you should return to the Emergency Department. We are available 24 hours a day. ADDISON GRULLON has been given the following list of patient education materials, prescriptions and follow-up instructions: Follow-up Instructions: In the event that this physician does not participate in your insurance network, please consult with your insurance company to find a nearby participating provider. Patient Education Materials: A MESSAGE TO ALL PATIENTS REGARDING OPIOIDS PRESCRIPTION OPIOIDS: WHAT YOU NEED TO KNOW Prescription opioids can be used to help relieve ylwhkltc-hj-fageir pain and are often prescribed following a surgery or injury, or for certain health conditions. These medications can be an important part of the treatment but also come with serious risks. It is important to work with your healthcare provider to make sure you are getting the safest, most effective care. WHAT ARE THE RISKS AND SIDE EFFECTS OF OPIOID USE? Prescription opioids carry serious risks of addiction and overdose, especially with prolonged use. An opioid overdose, often marked by slowed breathing, can cause sudden . The use of prescription opioids can have a number of side effects as well, even when taken as directed: ? Tolerance?meaning you might need to take more of the medication for the same pain relief ? Physical dependence?meaning you have symptoms of withdrawal when a medication is stopped ? Increased sensitivity to pain ? Constipation ? Nausea, vomiting, and dry mouth ? Sleepiness and dizziness ? Confusion ? Depression ? Low levels of testosterone that can result in lower sex drive, energy, and strength ? Itching and sweating RISKS ARE GREATER WITH: ? History of drug misuse, substance use disorder, or overdose ? Mental health conditions (such as depression or anxiety) ? Sleep apnea ? Older age (65 years and older) ? Avoid alcohol while taking prescription opioids. Also, unless specifically advised by your health care provider, medications to avoid include: ? Benzodiazepines (such as Xanax or Valium) ? Muscle relaxants (such as Soma or Flexeril) ? Hypnotics (such as Ambien or Lunesta) ? Other prescription opioids KNOW YOUR OPTIONS Talk to your health care provider about ways to manage your pain that don?t involve prescription opioids. Some of these options may actually work better and have fewer risks and side effects. Options may include: ? Pain relievers such as acetaminophen, ibuprofen, and naproxen ? Some medication that are also used for depression or seizures ? Physical therapy and exercise ? Cognitive behavioral therapy, a psychological, goal-directed approach, in which patients learn how to modify physical, behavioral, and emotional triggers of pain and stress. IF YOU ARE PRESCRIBED OPIOIDS FOR PAIN: ? Never take opioids in greater amounts or more often than prescribed. ? Follow up with your primary health care provider. o Work together to create a plan on how to manage your pain. o Talk about ways to help manage your pain that don?t involve prescription opioids. o Talk about any and all concerns and side effects. ? Help prevent misuse and abuse o Never sell or share prescription opioids. o Never use another person?s prescription opioids. ? Store prescription opioids in a secure place and out of reach of others (this may include visitors, children, friends, and family). ? Safely dispose of unused prescription opioids: Find your community drug take-back program or your pharmacy mail-back program, or flush them down the toilet, following guidance from the Food and Drug Administration (www.fda.gov/Drugs/Resource sFSamantha). ? Visit www.cdc.gov/drugoverdose to learn about the risks of opioids abuse and overdose. ? If you believe you may be struggling with addiction, tell your health workforce investment act career manager and ask for guidance or call [facility]S National Helpline at 3-461-088-WPLX. v Source: US Department of Health and Human Services/Center for Disease Control & Prevention [facility] Medications Given: Medication Dose Route No medications found. Med (more content not included)... Normal [facility] UA with Cult Rflxon 10-29-19 24 Bilirubin Ql (U) 1+ mg/dL Abnormal Negative [facility] Comment on above: Performed By: #### 4 [id number] #### [facility] [address] [place] [address] Clarity (U) Clear Normal Clear [facility] Comment on above: Performed By: #### 4 [id number] #### [facility] [address] [place] [address] Color (U) Light-[place] Abnormal Yellow [facility] Comment on above: Result Comment: Micr oscopic readings are only performed on those samples that meet specific criteria set forth by [facility]. Performed By: #### 4 [id number] #### [facility] [address] [place] [address] Glucose Ql (U) Negative Normal Negative [facility] Comment on above: Performed By: #### 4 [id number] #### [facility] [address] [place] [address] Hemoglobin Auto test strip (U) [Mass/Vol] 1+ mg/dL Abnormal Negative [facility] Comment on above: Performed By: #### 4 [id number] #### [facility] [address] [place] [address] Ketones Auto test strip Ql (U) Trace Abnormal Negative [facility] Comment on above: Performed By: #### 4 [id number] #### [facility] [address] [place] [address] Leukocyte esterase Auto test strip Ql (U) 75 [place]/uL Abnormal Negative [facility] Comment on above: Performed By: #### 4 [id number] #### [facility] [address] [place] [address] Mucus Auto Ql (U) 2+ CD:[id number] Abnormal Negative [facility] Comment on above: Performed By: #### 4 [id number] #### [facility] [address] [place] [address] Nitrite Auto test strip Ql (U) Negative Normal Negative [facility] Comment on above: Performed By: #### 4 [id number] #### [facility] [address] [place] [address] pH (U) 5.5 [pH] Invalid Interpretation Code 5.0-9.0 [facility] Comment on above: Performed By: #### 4 [id number] #### [facility] [address] [place] [address] Protein Ql (U) 1+ mg/dL Abnormal Negative [facility] Comment on above: Performed By: #### 4 [id number] #### [facility] [address] [place] [address] RBC Ql (U) 0-3 Normal 0-3 [facility] Comment on above: Performed By: #### 4 [id number] #### [facility] [address] [place] [address] Specific gravity (U) [Rel density] 1.033 Invalid Interpretation Code 1.005-1.030 [facility] Comment on above: Performed By: #### 4 [id number] #### [facility] [address] [place] [address] Urobilinogen (U) [Mass/Vol] 3 mg/dL Abnormal Negative [facility] Comment on above: Performed By: #### 4 [id number] #### [facility] [address] [place] [address] WBC Auto (Urine sed) [#/Area] 0-5 Normal 0-5 [facility] Comment on above: Performed By: #### 4 [id number] #### [facility] [address] [place] [address] Type of Urine collection method Clean Catch Normal [facility] Comment on above: Performed By: #### 4 [id number] #### [facility] [address] [place] [address] .HCV RT-PCR, Quant (Non-Grap h)on 12-03-2022 Diagnostic impression Molgen Felipe (Unsp spec) [Interp] Comment Invalid Interpretation Code [facility] Comment on above: Result Comment: Posi tive HCV antibody screen without the presence of HCV RNA is consistent with a resolved past infection or a false positive HCV antibody. Consider repeat testing after one month. Performed at: [facility] [id number] MD Joe Carpio Performed By: #### 2 [id number], 9933784, 31203446, [id number], [id number] #### [facility] [address] [place] [address] HCV RNA BELKYS+probe Qn Not detected Invalid Interpretation Code [facility] Comment on above: Performed By: #### 2 [id number], 4372012, 68011924, [id number], 8018740 #### [facility] [address] [place] [address] Reference Lab Test Reference Range Comment Invalid Interpretation Code [facility] Comment on above: Result Comment: The quantitative range of this assay is 15 IU/mL to 100 million IU/mL. Performed By: #### 2 [id number], 0245249, 42872429, [id number], 7999804 #### [facility] [address] [place] [address] HCV Antibody RFX to Quant PC Heriberto 12-03-2022 HCV IgG IA Ql Reactive Abnormal Non Reactive [facility] Comment on above: Result Comment: Perf ormed at: [facility] [address] [id number] PhD Tucker Varela Performed By: #### 2 [id number], 8512008, 15031834, [id number], 2596001 #### [facility] [address] [place] [address] CBC w/Indiceson 11-29-2022 Erythrocyte distribution width (RBC) [Ratio] 13.8 % Normal 10.9-14.2 [facility] Comment on above: Performed By: #### 2 [id number], 3281979, 94206359, 7532242323, 2875894 #### [facility] [address] [place] [address] Hematocrit (Bld) [Volume fraction] 44.0 % Normal 37.7-49.0 [facility] Comment on above: Performed By: #### 2 [id number], 3712274, 89908114, 8106859099, 7669093 #### [facility] [address] [place] [address] Hemoglobin (Bld) [Mass/Vol] 14.8 g/dL Normal 13.5-17.5 [facility] Comment on above: Performed By: #### 2 [id number], 3462634, 59977059, 2500077007, 0089127 #### [facility] [address] [place] [address] MCH (RBC) [Entitic mass] 28.4 pg Normal 27.0-34.0 [facility] Comment on above: Performed By: #### 2 [id number], 1962999, 15899672, 2546161418, 2348390 #### [facility] [address] [place] [address] MCHC (RBC) [Mass/Vol] 33.6 g/dL Normal 31.4-36.0 [facility] Comment on above: Performed By: #### 2 [id number], 0537304, 61308276, 5665497385, 2749708 #### [facility] [address] [place] [address] MCV (RBC) [Entitic vol] 84.5 fL Normal 80.0-100.0 [facility] Comment on above: Performed By: #### 2 [id number], 0348271, 36631103, 9570445414, 0201182 #### [facility] [address] [place] [address] Platelet mean volume (Bld) [Entitic vol] 9.1 fL Normal 6.4-10.8 [facility] Comment on above: Performed By: #### 2 [id number], 2335089, 66684200, 2232438014, 9460906 #### [facility] [address] [place] [address] Platelets (Bld) [#/Vol] 149.0 E9/L Low 150.0-500.0 [facility] Comment on above: Performed By: #### 2 [id number], 5064632, 03175186, 9779310415, 7168093 #### [facility] [address] [place] [address] RBC (Bld) [#/Vol] 5.2 E12/L Normal 4.3-5.9 [facility] Comment on above: Performed By: #### 2 135410621, 8778345, 44762475, 1495882620, 5230043 #### [facility] [address] [place] [address] WBC corrected for nucl RBC Auto (Bld) [#/Vol] 7.5 E9/L Normal 4.0-11.0 [facility] Comment on above: Performed By: #### 2 [id number], 5253376, 33025344, 9738103759, 8036098 #### [facility] [address] [place] [address] CMPon 11-29-2022 Albumin [Mass/Vol] 4.2 g/dL Normal 3.3-5.0 [facility] Comment on above: Performed By: #### 2 326552303, 7145379, 68568644, 3893965968, 6186391 #### [facility] [address] [place] [address] Albumin/Globulin (S) [Mass conc ratio] 1.0 Low 1.1-2.2 [facility] Comment on above: Performed By: #### 2 963213146, 8776146, 63399526, 6423326034, 8026997 #### [facility] [address] [place] [address] ALP [Catalytic activity/Vol] 73 Int._Unit/L Normal 21-98 [facility] Comment on above: Performed By: #### 2 [id number], 2491362, 92464553, 3685531716, 5680804 #### [facility] [address] [place] [address] ALT No additional P-5'-P [Catalytic activity/Vol] 10 Int._Unit/L Normal 6-46 [facility] Comment on above: Performed By: #### 2 887539076, 1153202, 68174151, 7510769356, 0052397 #### [facility] [address] [place] [address] Anion gap [Moles/Vol] 10 mmol/L Normal 6-16 [facility] Comment on above: Performed By: #### 2 528268457, 6586506, 02687813, 7277729131, 5701616 #### [facility] [address] [place] [address] AST [Catalytic activity/Vol] 16 Int._Unit/L Normal 5-43 [facility] Comment on above: Performed By: #### 2 851058450, 1377226, 79452786, 8092923125, 4994979 #### [facility] [address] [place] [address] Bilirubin [Mass/Vol] 0.8 mg/dL Normal 0.0-1.1 [facility] Comment on above: Performed By: #### 2 892425120, 9037381, 64136331, 6572698347, 3850826 #### [facility] [address] [place] [address] Calcium [Mass/Vol] 9.5 mg/dL Normal 8.9-11.1 [facility] Comment on above: Performed By: #### 2 404908184, 6634979, 55258137, 8192509419, 5828614 #### [facility] [address] [place] [address] Chloride [Moles/Vol] 102 mmol/L Normal 101-111 [facility] Comment on above: Performed By: #### 2 048244881, 8965864, 10543746, 5047876527, 2142874 #### [facility] [address] [place] [address] CO2 [Moles/Vol] 30 mmol/L Normal 21-31 [facility] Comment on above: Performed By: #### 2 738168915, 6894411, 50088911, 4097949518, 2380324 #### [facility] [address] [place] [address] Creatinine [Mass/Vol] 0.8 mg/dL Normal 0.5-1.3 [facility] Comment on above: Performed By: #### 2 557121880, 5898204, 87801781, 8027286043, 0145190 #### [facility] [address] [place] [address] Globulin (S) [Mass/Vol] 4.2 g/dL High 1.4-4.0 [facility] Comment on above: Performed By: #### 2 215881105, 2025688, 76468965, 2056380003, 4049413 #### [facility] [address] [place] [address] Glucose [Mass/Vol] 94 mg/dL Normal 55-199 [facility] Comment on above: Result Comment: If t his glucose result represents a fasting glucose, interpretation should refer to the following reference range: 55-99 mg/dL Performed By: #### 2 501140905, 2104862, 86833572, 1129928909, 5232457 #### [facility] [address] [place] [address] Potassium [Moles/Vol] 3.4 mmol/L Low 3.5-5.3 [facility] Comment on above: Performed By: #### 2 529216522, 3656472, 37884844, 2711689580, 9731390 #### [facility] [address] [place] [address] Protein [Mass/Vol] 8.4 g/dL High 6.0-7.8 [facility] Comment on above: Performed By: #### 2 910802636, 2521456, 80640727, 5676808402, 4388591 #### [facility] [address] [place] [address] Sodium [Moles/Vol] 139 mmol/L Normal 135-145 [facility] Comment on above: Performed By: #### 2 310747564, 0718318, 68070243, 8891538819, 2625729 #### [facility] [address] [place] [address] Urea nitrogen [Mass/Vol] 10 mg/dL Normal 5-21 [facility] Comment on above: Performed By: #### 2 217677838, 8275941, 67588112, 6256807426, 4790907 #### [facility] [address] [place] [address] Urea nitrogen/Creatinin e [Mass ratio] 12 No Units Normal 10-20 [facility] Comment on above: Performed By: #### 2 492698713, 8636456, 20626074, 2206569915, 2215786 #### [facility] [address] [place] [address] Physician Orderon 11-29-2022 Physician Order [id number] Normal [facility] eGFRon 11-29-2022 GFR/1.73 sq M.predicted among non-blacks MDRD (S/P/Bld) [Vol rate/Area] 107 mL/min/1.73 m2 Normal >=59 [facility] Comment on above: Order Comment: Order added by Discern Expert. Result Comment: Flight Communications Officer deion kidney disease could be indicated at eGFR's of less than 60 mL/min/1.73m2. Kidney failure is indicated at less than 15 mL/min/1.73m2. Performed By: #### 2 [id number], 1823573, 50166594, 4555127172, 5716941 #### [facility] [address] [place] [address] [facility] 10-13-2022 CNPN Telephone (GASTA5) ADDISON GRULLON ([id number]) 1970 M Date Time Provider Department 10/13/22 NEERU ELIZONDO GASTA5 During your visit today, we recorded the following information about you: Neeru Elizondo PA-C 10/13/2022 9:10 AM Signed Spoke to patient's , said she forgot to help patient log in for VV last night, she was at work, ask that we re-schedule, agreed on 11/02 at 4:45pm and will have patient go for labs, prefers [facility], will fax lab orders there She said he completed treatment but just hasn't had labs done She appreciated my call Neeru Elizondo PA-C October 13, 2022 9:09 AM Allergies As of Date: 10/13/2022 Noted Allergy Reaction CIPROFLOXACIN 01/14/2017 8 - GI Upset GABAPENTIN 05/31/2022 5 - Intolerance Date Reviewed: 05/31/2022 Reviewed by: Catalina Underwood MA - Fully Assessed Reason for Visit: Patient Update [1234] Prescriptions as of 10/13/2022 - glecaprevir-pibrentasvir (MAVYRET) 100-40 mg tablet Take 3 tablets by mouth once daily with food. - ondansetron (ZOFRAN) 4 mg tablet Take 4 mg by mouth every 8 hours as needed for nausea/vomiting. Problem List As Of Date 10/13/2022 Noted Resolved Opiate withdrawal (HCC) [F11.93] 01/14/2017 Tobacco abuse disorder [Z72.0] 01/15/2017 Chronic hepatitis C without hepatic coma (HCC) *03/05/2022 History of opioid abuse (HCC) [F11.11] 04/05/2022 Encounter Status:Closed by NEERU ELIZONDO on 10/13/22 [facility] CNPNon 06-24-2022 CNPN Telephone (CrowdmarkWIL) ADDISON GRULLON ([id number]) 1970 M Date Time Provider Department 06/24/22 NICOLE POLANCO SPMWIL During your visit today, we recorded the following information about you: Allergies As of Date: 06/24/2022 Noted Allergy Reaction CIPROFLOXACIN 01/14/2017 8 - GI Upset GABAPENTIN 05/31/2022 5 - Intolerance Date Reviewed: 05/31/2022 Reviewed by: Catalina Underwood MA - Fully Assessed Reason for Visit: Roll Hand - Other [3602] Cmt: Signed physical therapy orders faxed to [facility] with confirmation Orders [441] Prescriptions as of 06/29/2022 - naproxen (NAPROSYN) 500 mg tablet Take 1 tablet by mouth twice daily with meals. - cyclobenzaprine (FLEXERIL) 10 mg tablet Take 1 tablet by mouth at bedtime as needed. - glecaprevir-pibrentasvir (MAVYRET) 100-40 mg tablet Take 3 tablets by mouth once daily with food. - ondansetron (ZOFRAN) 4 mg tablet Take 4 mg by mouth every 8 hours as needed for nausea/vomiting. Problem List As Of Date 06/24/2022 Noted Resolved Opiate withdrawal (HCC) [F11.93] 01/14/2017 Tobacco abuse disorder [Z72.0] 01/15/2017 Chronic hepatitis C without hepatic coma (HCC) *03/05/2022 History of opioid abuse (HCC) [F11.11] 04/05/2022 Encounter Status:Closed by PETER ALLRED on 06/29/22 [facility] CNCOon 06-09-2022 CNCO Letter Text [facility] CNOVon 05-31-2022 CNOV Office Visit (PAINLN ) ADDISON GRULLON ([id number]) 1970 M Date Time Provider Department 05/31/22 1:00 PM GIL CORDERO PAINLN During your visit today, we recorded the following information about you: Pulse Height 87/minute 1.88 m Allergies As of Date: 05/31/2022 Noted Allergy Reaction CIPROFLOXACIN 01/14/2017 8 - GI Upset GABAPENTIN 05/31/2022 5 - Intolerance Date Reviewed: 05/31/2022 Reviewed by: Catalina Underwood MA - Fully Assessed Reason for Visit: Patient Left Without Being Seen [2006] Primary Visit Diagnosis:Patient left without being seen [Z53.21] Prescriptions as of 06/28/2022 - naproxen (NAPROSYN) 500 mg tablet Take 1 tablet by mouth twice daily with meals. - cyclobenzaprine (FLEXERIL) 10 mg tablet Take 1 tablet by mouth at bedtime as needed. - glecaprevir-pibrentasvir (MAVYRET) 100-40 mg tablet Take 3 tablets by mouth once daily with food. - ondansetron (ZOFRAN) 4 mg tablet Take 4 mg by mouth every 8 hours as needed for nausea/vomiting. Problem List As Of Date 05/31/2022 Noted Resolved Opiate withdrawal (HCC) [F11.93] 01/14/2017 Tobacco abuse disorder [Z72.0] 01/15/2017 Chronic hepatitis C without hepatic coma (HCC) *03/05/2022 History of opioid abuse (HCC) [F11.11] 04/05/2022 Level of Service: UNLISTED EVALUATION AND MANAGEMENT SERVICE [[id number]] Encounter Status:Closed by MARIE PETERS on 06/28/22 [facility] Kenny 05-11-2022 CNPN Telephone (GASTA5) ADDISON GRULLON ([id number]) 1970 M Date Time Provider Department 05/11/22 NEERU ELIZONDO GASTA5 During your visit today, we recorded the following information about you: Neeru Elizondo PA-C 05/11/2022 2:42 PM Signed Attempted to call patient to discuss recent suspected allergic reaction, left voicemail and call back number with his spouse Lisa (per notes) Requested call back to discuss results from local ED and to see if he's had any lapses in his HCV treatment (Mavyret) and if he is still taking it Allergies As of Date: 05/11/2022 Noted Allergy Reaction CIPROFLOXACIN 01/14/2017 8 - GI Upset Date Reviewed: 04/14/2022 Reviewed by: Oneyda Talley RN - Fully Assessed Reason for Visit: Patient Update [1234] Prescriptions as of 05/11/2022 - glecaprevir-pibrentasvir (MAVYRET) 100-40 mg tablet Take 3 tablets by mouth once daily with food. - ondansetron (ZOFRAN) 4 mg tablet Take 4 mg by mouth every 8 hours as needed for nausea/vomiting. Problem List As Of Date 05/11/2022 Noted Resolved Opiate withdrawal (HCC) [F11.93] 01/14/2017 Tobacco abuse disorder [Z72.0] 01/15/2017 Chronic hepatitis C without hepatic coma (HCC) *03/05/2022 History of opioid abuse (HCC) [F11.11] 04/05/2022 Encounter Status:Closed by NEERU ELIZONDO on 05/11/22 [facility] CNPNon 04-29-2022 CNPN Telephone (GASTA5) ADDISON GRULLON ([id number]) 1970 M Date Time Provider Department 04/29/22 NEERU ELIZONDO GASTA5 During your visit today, we recorded the following information about you: Neeru Elizondo PA-C 04/29/2022 1:07 PM Signed Spoke to patient's , Mavyret delivered yesterday and will start tonight/tomorrow. First set of labs due around 05/28 then at end of treatment around 06/25/22 and SVR around 10/06 Can go to any [facility] lab to have blood work done, she verbalized understanding and thanked me for calling Allergies As of Date: 04/29/2022 Noted Allergy Reaction CIPROFLOXACIN 01/14/2017 8 - GI Upset Date Reviewed: 04/14/2022 Reviewed by: Oneyda Talley RN - Fully Assessed Reason for Visit: Patient Update [1234] Prescriptions as of 04/29/2022 - glecaprevir-pibrentasvir (MAVYRET) 100-40 mg tablet Take 3 tablets by mouth once daily with food. - ondansetron (ZOFRAN) 4 mg tablet Take 4 mg by mouth every 8 hours as needed for nausea/vomiting. Problem List As Of Date 04/29/2022 Noted Resolved Opiate withdrawal (HCC) [F11.93] 01/14/2017 Tobacco abuse disorder [Z72.0] 01/15/2017 Chronic hepatitis C without hepatic coma (HCC) *03/05/2022 History of opioid abuse (HCC) [F11.11] 04/05/2022 Encounter Status:Closed by NEERU ELIZONDO on 04/29/22 [facility] Kenny 04-19-2022 CNPN Telephone (AVPRAD) ADDISON GRULLON ([id number]) 1970 M Date Time Provider Department 04/19/22 LESLIE BLOUNT AVPRAD During your visit today, we recorded the following information about you: Mary Lou Blount DO 04/19/2022 8:58 AM Signed Please contact patient regarding upper endoscopy BIOPSY result - see below. FINAL DIAGNOSIS Stomach, biopsy: - Oxyntic mucosa with no significant diagnostic alteration. - No morphologic evidence of Helicobacter pylori organisms Recommend patient to follow-up with GI for further workup for abdominal pain. . Mary Lou Blount DO April 19, 2022 8:57 AM Cheryl Veliz RN 04/19/2022 9:11 AM Signed April 19, 2022 9:11 AM Contacted patient and reviewed his results with his . They verbalized understanding. Cheryl Veliz RN Allergies As of Date: 04/19/2022 Noted Allergy Reaction CIPROFLOXACIN 01/14/2017 8 - GI Upset Date Reviewed: 04/14/2022 Reviewed by: Oneyda Talley RN - Fully Assessed Reason for Visit: Results [95] Prescriptions as of 04/19/2022 - glecaprevir-pibrentasvir (MAVYRET) 100-40 mg tablet Take 3 tablets by mouth once daily with food. - ondansetron (ZOFRAN) 4 mg tablet Take 4 mg by mouth every 8 hours as needed for nausea/vomiting. Problem List As Of Date 04/19/2022 Noted Resolved Opiate withdrawal (HCC) [F11.93] 01/14/2017 Tobacco abuse disorder [Z72.0] 01/15/2017 Chronic hepatitis C without hepatic coma (HCC) *03/05/2022 History of opioid abuse (HCC) [F11.11] 04/05/2022 Encounter Status:Closed by CHERYL VELIZ on 04/19/22 [facility] SURGICAL PATHOLOGYon 023 Case Report Surgical Pathology R eport Case: [id number] Authorizing Provider: Leslie Blount DO Collected: 04/14/2022 10:31 AM Ordering Location: Procedures Received: 04/14/2022 10:46 AM Pathologist: Reba Yost MD Specimen: STOMACH BIOPSY, r/o h pylori [facility] FINAL DIAGNOSIS Stomach, biopsy: - Oxyntic mucosa with no significant diagnostic alteration. - No morphologic evidence of Helicobacter pylori organisms. [facility] Gross Description A. STOMACH BIOPSY Received in formalin is one piece of finney, soft tissue measuring 0.5 x 0.2 x 0.2 cm. Totally submitted in one cassette. Gross examination performed at [facility], [address] [place] [address] 04/14/2022 4:36 PM [facility] Performing Lab Diagnostic interpret ation performed at [facility], [address] [place] [address] CLIA# [id number] Cigar Binder: Vinayak Mansfield M.D. [facility] ANES POSTPROC EVALon 023 ANES POSTPROC EVAL HNO ID: [id number] Author: Jenny Gramajo MD Service: Anesthesiology Author Type: Anesthesiologist Type: Anesthesia Postprocedure Evaluation Filed: 04/14/2022 11:44 AM Note Text: POST ANESTHESIA EVALUATION NOTE : 1970 Procedure Summary Date: 04/14/22 Room / Location: Procedures Anesthesia Start: 1022 Anesthesia Stop: 1038 Procedure: EGD DIAGNOSTIC Diagnosis: Nausea Decreased appetite (Abdominal pain in the left upper quadrant) Scheduled Providers: Leslie Blount DO; Jenny Gramajo MD; ANNA Matute Responsible Provider: Jenny Gramajo MD Anesthesia Type: MAC ASA Status: 2 Anesthesia Type: MAC Last Vitals Vitals Value Taken Time BP 126/78 04/14/22 1107 Temp 36.5 ?C (97.7 ?F) 04/14/22 1037 Pulse 67 04/14/22 1107 Resp 16 04/14/22 1107 SpO2 98 % 04/14/22 1107 Post Anesthesia Patient Status Patient Evaluation: PACU. Neurological Status: aware and responsive. Pulmonary Status: breathing comfortably on room air Airway Control: returned to baseline unsupported. Cardiovascular Status: stable. Pain Management: clinically adequate Postoperative Hydration: acceptable. Intraoperative Events: no significant anesthesia events Post Operative Nausea/Vomiting Status: no significant post operative nausea or vomiting Recommendation: continue current plan of care. Anesthesia Observations No Documentation SIGNATURE: JENNY GRAMAJO MD PATIENT NAME: Addison Grullon DATE: April 14, 2022 TIME: 11:44 AM CSN: [id number] [facility] ANES PRE-OPon 04-14-2022 ANES PRE-OP HNO ID: [id number] Author: Jenny Gramajo MD Service: Anesthesiology Author Type: Anesthesiologist Type: Anesthesia Preprocedure Evaluation Filed: 04/14/2022 9:04 AM Note Text: ANESTHESIOLOGY DAY OF SURGERY NOTE : 1970 Procedure Information Date/Time: 04/14/22 0930 Scheduled providers: Leslie Blount DO; Jenny Gramajo MD; ANNA Matute Procedure: EGD DIAGNOSTIC Location: Procedures Estimated body mass index is 28.76 kg/m? as calculated from the following: Height as of 04/05/22: 188 cm (6' 2). Weight as of 04/05/22: 101.6 kg (224 lb). Most recent hematocrit and potassium results: Hematocrit 48.1 04/05/2022 Potassium 4.0 04/05/2022 Relevant Problems -RENAL (+) Chronic hepatitis C without hepatic coma (HCC) NEURO-PSYCH (+) History of opioid abuse (HCC) PULMONARY (+) Tobacco abuse disorder I - PHYSICAL EVALUATION AIRWAY Patient intubated: No. Tracheostomy tube not present Mallampati: II. TM distance: >3 FB. Neck ROM: full ROM without neurological symptoms. Mouth opening: adequate. Short neck: no. Thick neck: no DENTAL Normal dental observations. Dental findings: teeth intact. Additional exam findings: yes. CARDIOVASCULAR Rhythm: regular Rate: normal PULMONARY Breath sounds clear to auscultation. II - ANESTHESIA PLAN ASA Score: 2 Anesthetic Plan: MAC NPO Status: adequate Beta Major Monitoring Plan Monitoring plan: Standard ASA. Post Procedure Analgesic Plan Postoperative analgesic plan: parenteral or oral opioids and multimodal analgesia. Informed Consent Anesthetic risks, benefits, alternatives, personnel and consent discussed: yes. Patient / Responsible Green Party agrees to proceed: yes Patient / Surrogate agrees to blood products: blood products not planned DNR status not reviewed with patient and/or family prior to surgery. Significant changes in the patient condition since the History and Physical, not otherwise documented in primary service progress note: no. Potential Anesthesia issues that may suggest increased risk of complications or contraindication to planned procedure: none. No vitals data found for the desired time range. Outpatient Medications as of 04/14/2022 Medication Sig - glecaprevir-pibrentasvir (MAVYRET) 100-40 mg tablet Take 3 tablets by mouth once daily with food. - ondansetron (ZOFRAN) 4 mg tablet Take 4 mg by mouth every 8 hours as needed for nausea/vomiting. No current facility-administered medications on file as of 04/14/2022. I have interviewed and examined the patient. I have reviewed the medical record and/or the pre-anesthesia evaluation, pertinent labs, and test results. This contains updated information obtained within 48 hours of Surgery/Procedure. SIGNATURE: JENNY GRAMAJO MD PATIENT NAME: Addison Grullon DATE: April 14, 2022 TIME: 9:04 AM CSN: [id number] Normal [facility] EGD DIAGNOSTICon 04-14-2022 [facility] HISTORY PHYSICALon HISTORY PHYSICAL HNO ID: [id number] Author: Leslie Blount DO Service: General Surgery Author Type: Physician Type: HANDP Filed: 04/14/2022 10:22 AM Note Text: PROCEDURAL SEDATION HISTORY AND PHYSICAL EXAM SERVICE DATE: 04/14/2022 SERVICE TIME: 10:21 AM Subjective HPI: This is a 51 year old male who presents with No FH of stomach cancer, here for EGD due to chronic abdominal pain, mainly on the left. Seen GI at [facility], recommending EGD due to Hep C, nausea and lack of appetite. PAST ANESTHESIA HISTORY: No history of adverse event PAST MEDICAL HISTORY Diagnosis Date Chronic hepatitis C without hepatic coma (HCC) 03/05/2022 History of drug use Tobacco abuse disorder 01/15/2017 PAST SURGICAL HISTORY Procedure Laterality Date EGD KIDNEY STONE SURGERY HX Prior to Admission medications as of 04/14/22 1001 Medication Sig Last Dose Taking glecaprevir-pibrentasvir (MAVYRET) 100-40 mg tablet Take 3 tablets by mouth once daily with food. Unknown ondansetron (ZOFRAN) 4 mg tablet Take 4 mg by mouth every 8 hours as needed for nausea/vomiting. Unknown ALLERGIES Allergen Reactions Ciprofloxacin GI Upset Objective PHYSICAL EXAM: The remainder of the physical exam is noncontributory. AIRWAY: Airway Visualization of Uvula: Yes Mouth opening greater than 2 fingerbreadths: Yes Neck Full Range of Motion: Yes LUNGS: cta CARDIAC: , rrr Assessment/Plan ASA Class: ASA Class:: Patient with severe systemic disease Active Problems: * No active hospital problems. * Resolved Problems: * No resolved hospital problems. * Medication and Non-Pharmacologic VTE Prophylaxis/Anticoagulants VTE Prophylaxis: none Provisional Diagnosis/Treatment Plan: EGD SEDATION GOAL: Anesthesia SIGNATURE: Mary Lou Blount DO PATIENT NAME: Addison Grullon DATE: April 14, 2022 TIME: 10:21 AM [facility] SURGICAL PATHOLOGYon 023 CASE REPORT [facility] Comment on above: Order Comment: Speci jeremias Type: TISSUE SPECIMEN Ordering Facility[facility] Address: [address] [place] [address] Result Comment: Surg ica Pathology Report Case: [id number] Authorizing Provider: Leslie Blount DO Collected: 04/14/2022 10:31 AM Ordering Location: Procedures Received: 04/14/2022 10:46 AM Pathologist: Reba Yost MD Specimen: STOMACH BIOPSY, r/o h pylori Performed By: #### S #### [facility] CLIA [id number] [address] [facility] [place] [address] [place] FINAL DIAGNOSIS Normal [facility] ital Comment on above: Order Comment: Speci men Type: TISSUE SPECIMEN Ordering Facility: [facility] Address: [address] [place] [address] Result Comment: Stom ach, biopsy: - Oxyntic mucosa with no significant diagnostic alteration. - No morphologic evidence of Helicobacter pylori organisms. Performed By: #### S #### [facility] CLIA [id number] [address] [place] [address] [place] FINAL PERFORMING LAB Normal [facility] Comment on above: Order Comment: Speci men Type: TISSUE SPECIMEN [facility]ing Facility[facility] Address: [address] [place] [address] Result Comment: Diag nostic interpretation performed at [facility], [address] [place] [address] CLIA# [id number] Cigar Binder: Vinayak Mansfield M.D. Performed By: #### S #### [facility] CLIA [id number] [address] [place] [address] GROSS DESCRIPTION Normal [facility] Comment on above: Order Comment: Speci men Type: TISSUE SPECIMEN Ordering Facility: [facility] Address: [address] [place] [address] Result Comment: A. S TOMACH BIOPSY Received in formalin is one piece of finney, soft tissue measuring 0.5 x 0.2 x 0.2 cm. Totally submitted in one cassette. Gross examination performed at [address] 04/14/2022 4:36 PM Performed By: #### S #### [facility] CLIA [id number] [address] [place] [address] [place] Upper GI endoscopyon 023 Upper GI endoscopy [facility] Gastrointestinal Endoscopy Patient Name: Addison Grullon Procedure Date: 04/14/2022 10:19 AM Date of : 1970 Admit Type: Outpatient Age: 51 Room: PROCEDURE A Gender: Male Note Status: Finalized Attending MD: Mary Lou Blount DO Procedure: Upper GI endoscopy Indications: Abdominal pain in the left upper quadrant Providers: Mary Lou Blount DO Referring Physician: Neeru Torrez (pa) (Referring ) Medicines: Monitored Anesthesia Care Complications: No immediate complications. Requesting Provider: Procedure: Pre-Anesthesia Assessment: - Prior to the procedure, a History and Physical was performed, and patient medications, allergies and sensitivities were reviewed. The patient's tolerance of previous anesthesia was reviewed. - The risks and benefits of the procedure and the sedation options and risks were discussed with the patient. All questions were answered and informed consent was obtained. - ASA Grade Assessment: II - A patient with mild systemic disease. After obtaining informed consent, the endoscope was passed under direct vision. Throughout the procedure, the patient's blood pressure, pulse, and oxygen saturations were monitored continuously. The Endoscope was introduced through the mouth, and advanced to the second part of duodenum. The upper GI endoscopy was accomplished with ease. The patient tolerated the procedure well. Moderate Sedation: MAC anesthesia was administered by the anesthesia team. Total Procedure Duration: 0 hours 3 minutes 35 seconds Findings: The oropharynx was normal. The esophagus was normal. Diffuse minimal inflammation characterized by erythema was found in the gastric body and in the gastric antrum. Biopsies were taken with a cold forceps for Helicobacter pylori testing. Verification of patient identification for the specimen was done. Estimated blood loss was minimal. To prevent bleeding after the biopsy, one hemostatic clip was successfully placed. There was no bleeding at the end of the procedure. Estimated blood loss was minimal. The examined duodenum was normal. The cardia and gastric fundus were normal on retroflexion. The exam was otherwise without abnormality. Impression: - Normal oropharynx. - Normal esophagus. - Gastritis. Biopsied. Clip was placed. - Normal examined duodenum. - The examination was otherwise normal. Recommendation: - Discharge patient to home (ambulatory). - Resume previous diet. - Continue present medications. - Await pathology results. - Return to referring physician. - Patient has a contact number available for emergencies. The signs and symptoms of potential delayed complications were discussed with the patient. Return to normal activities tomorrow. Written discharge instructions were provided to the patient. - The findings and recommendations were discussed with the patient and their family. Procedure Code(s): --- Professional --- 51708, Esophagogastroduodenoscopy, flexible, transoral; with biopsy, single or multiple CPT copyright 2021 [employer]. All rights reserved. The codes documented in this report are preliminary and upon catering manager review may be revised to meet current compliance requirements. Attending Participation: I personally performed the entire procedure. Scope In: 10:29:26 AM Scope Out: 10:33:01 AM Aide Lora DO 04/14/2022 10:37:37 AM This report has been signed electronically by Mary Lou Blount DO Number of Addenda: 0 Note Initiated On: 04/14/2022 10:19 AM Estimated Blood Loss: Estimated blood loss: none. [facility] 04-08-[facility]22 CARLOSN Telephone (GASTA5) ADDISON GRULLON ([id number]) 1970 M Date Time Provider Department 04/08/22 NEERU ELIZONDO GASTA5 During your visit today, we recorded the following information about you: Neeru Elizondo PA-C 04/08/2022 3:35 PM Signed Virajyret x 8 weeks ordered Shadia Goodrich 04/09/2022 11:26 AM Signed Tried to call pt. Pt does not have vm box set up to leave a message. Will call again at a later time. Shadia Goodrich Lpn April 09, 2022 Shadia Goodrich 04/14/2022 9:07 AM Signed Called pt again. No answer and vm not set up to leave a message. Shadia Goodrich Lpn April 14, 2022 Shadia Goodrich 04/14/2022 12:28 PM Signed Pt spouse aware of message. Medication is pending approval. She will contact the office once medication received. Shadia Goodrich Lpn April 14, 2022 Allergies As of Date: 04/08/2022 Noted Allergy Reaction CIPROFLOXACIN 01/14/2017 8 - GI Upset Date Reviewed: 04/05/2022 Reviewed by: Marie Dainel APRN.CHIEF HYDROELECTRIC STATION OPERATOR - Fully Assessed Reason for Visit: Results [95] Prescriptions as of 04/14/2022 - glecaprevir-pibrentasvir (MAVYRET) 100-40 mg tablet Take 3 tablets by mouth once daily with food. - ondansetron (ZOFRAN) 4 mg tablet Take 4 mg by mouth every 8 hours as needed for nausea/vomiting. Problem List As Of Date 04/08/2022 Noted Resolved Opiate withdrawal (HCC) [F11.93] 01/14/2017 Tobacco abuse disorder [Z72.0] 01/15/2017 Chronic hepatitis C without hepatic coma (HCC) *03/05/2022 History of opioid abuse (HCC) [F11.11] 04/05/2022 Encounter Status:Closed by NEERU ELIZONDO on 04/08/22 [facility] Kenny 04-06-2022 ANGEL Telephone (GENSAM) ADDISON GRULLON ([id number]) 1970 M Date Time Provider Department 04/06/22 LESLIE BLOUNT During your visit today, we recorded the following information about you: Roberta Gaines LPN 04/06/2022 9:56 AM Addendum Unable to LM for patient to call office, VM not set up. Nurse will review EGD prep. Please transfer to [phone] or [phone]. Roberta Gaines LPN Allergies As of Date: 04/06/2022 Noted Allergy Reaction CIPROFLOXACIN 01/14/2017 8 - GI Upset Date Reviewed: 04/05/2022 Reviewed by: Marie Daniel APRN.CHIEF HYDROELECTRIC STATION OPERATOR - Fully Assessed Reason for Visit: EGD Prep [Other] Prescriptions as of 04/06/2022 - ondansetron (ZOFRAN) 4 mg tablet Take 4 mg by mouth every 8 hours as needed for nausea/vomiting. Problem List As Of Date 04/06/2022 Noted Resolved Opiate withdrawal (HCC) [F11.93] 01/14/2017 Tobacco abuse disorder [Z72.0] 01/15/2017 Chronic hepatitis C without hepatic coma (HCC) *03/05/2022 History of opioid abuse (HCC) [F11.11] 04/05/2022 Encounter Status:Closed by ROBERTA GAINES on 04/06/22 Normal [facility] AFP SerPl-mCncon 04-05-2022 AFP [Mass/Vol] 3.5 ng/mL Normal <11.0 [facility] Comment on above: Order Comment: Speci men Type: BLOOD SPECIMENOrdering Facility: [facility] Address: [address] [id number] Result Comment: The test is typically used as an aid in managing hepatocellular carcinoma and non-seminomatous testicular cancer when used in conjunction with physical examination, histology, and other clinical evaluation procedures. Normal levels of AFP do not entirely exclude the possibility of the above-mentioned conditions, other malignancies, and chronic liver diseases. The normal range has not been established for newborns. The Alpha-Fetoprotein test was performed using the Siemens Panjivaaur XP chemiluminometric immunoassay method. Results obtained with different assay methods or kits cannot be used interchangeably. Performed By: #### 1 834-1 ####[facility] [id number] [place] [address] [place] Basic metabolic 2000 panelon 04-05-2022 Anion gap [Moles/Vol] 9 mmol/L Normal 9-18 [facility] Comment on above: Order Comment: Speci men Type: BLOOD SPECIMENOrdering Facility: [facility] Address: [address] [phone] Performed By: #### 2 4321-2, 54430-1 ####[facility] [id number] [place] [address] [place] Calcium [Mass/Vol] 9.9 mg/dL Normal 8.5-10.2 [facility] Comment on above: Order Comment: Speci men Type: BLOOD SPECIMENOrdering Facility: [facility] Address: [address] [place], [place] [id number] Performed By: #### 2 4321-2, 28617-1 ####[facility]CLIA [id number] [place] [address] [place] Chloride [Moles/Vol] 103 mmol/L Normal 97-105 [facility] Comment on above: Order Comment: Speci men Type: BLOOD SPECIMENOrdering Facility: [facility] Address: [address] [place] [address] Performed By: #### 2 432-2, 98173-6 ####[facility]CLIA [id number] [place] [address] [place] CO2 [Moles/Vol] 27 mmol/L Normal 22-30 [facility] Comment on above: Order Comment: Speci men Type: BLOOD SPECIMENOrdering Facility: [facility] Address: [address] [place] [address] Performed By: #### 2 432-2, 20210-5 ####[facility]IA [id number] [place] [address] [place] Creatinine [Mass/Vol] 0.96 mg/dL Normal 0.73-1.22 [facility] Comment on above: Order Comment: Speci men Type: BLOOD SPECIMENOrdering Facility: [facility] Address: [address] [place] [address] Performed By: #### 2 4320-2, 04646-2 ####[facility] LABIA [id number] [place] [address] [place] ESTIMATED GLOMERULAR FILTRATION RATE 96 mL/min/1.73m??? Normal >=60 [facility] Comment on above: Order Comment: Speci men Type: BLOOD SPECIMENOrdering Facility: [facility] Address: [address] [place] [address] Result Comment: Katie mated Glomerular Filtration Rate (eGFR) is calculated using the 2020 CKD-EPI creatinine equation. This equation utilizes serum creatinine, sex, and age as parameters. The creatinine assay has traceable calibration to isotope dilution-mass spectrometry. Refer to KDIGO guidelines for clinical interpretation. In patients with unstable renal function, e.g. those with acute kidney injury, the eGFR may not accurately reflect actual GFR. Performed By: #### 2 4321-2, 09204-7 ####[facility] LABCLIA [id number] [place] [address] [place] Glucose [Mass/Vol] 80 mg/dL Normal 74-99 [facility] Comment on above: Order Comment: Paulette mcdowell Type: BLOOD SPECIMENOrdering Facility: [facility] Address: [address] [address] Result Comment: The [place] [employer] (ADA) provides guidance for cutoff values for fasting glucose and random glucose. The ADA defines fasting as no caloric intake for at least 8 hours. Fasting plasma glucose results between 100 to 125 mg/dL indicate increased risk for diabetes (prediabetes). Fasting plasma glucose results greater than or equal to 126 mg/dL meet the criteria for diagnosis of diabetes. In the absence of unequivocal hyperglycemia, results should be confirmed by repeat testing. In a patient with classic symptoms of hyperglycemia or hyperglycemic crisis, random plasma glucose results greater than or equal to 200 mg/dL meet the criteria for diagnosis of diabetes. Reference: Standards of Medical Care in Diabetes 2016, [place] [employer]. Diabetes Care. 2016.39(Suppl 1). Performed By: #### 2 4320-2, 26599-3 ####[facility]CLIA [id number] [place] [address] [place] Potassium [Moles/Vol] 4.0 mmol/L Normal 3.7-5.1 [facility] Comment on above: Order Comment: Paulette mcdowell Type: BLOOD SPECIMENOrdering Facility: [facility] Address: [address] [phone] Performed By: #### 2 432-2, 00073-4 ####[facility]CLIA [id number] [place] [address] [place] Sodium [Moles/Vol] 139 mmol/L Normal 136-144 [facility] Comment on above: Order Comment: Speci men Type: BLOOD SPECIMENOrdering Facility: [facility] Address: [address] Performed By: #### 2 4321-2, 02429-6 ####[facility]CLIA [id number] [place] [address] [place] Urea nitrogen [Mass/Vol] 17 mg/dL Normal 9-24 [facility] Comment on above: Order Comment: Speci men Type: BLOOD SPECIMENOrdering Facility: [facility] Address: [address] [place] [address] Performed By: #### 2 4321-2, 25084-9 ####[facility]CLIA [id number] [place] [address] [place] CBC W Auto Differential pane l (Bld)on 04-05-2022 Basophils (Bld) [#/Vol] 10*3/uL Normal <0.11 [facility] Comment on above: Order Comment: Speci men Type: BLOOD SPECIMENOrdering Facility: [facility] Address: [address] [place], [place] [id number] Performed By: #### 5 7021-8 ####[facility] LABCLIA [id number] [place] [address] [place] Basophils/100 WBC (Bld) 0.2 % Normal [facility] Comment on above: Order Comment: Speci men Type: BLOOD SPECIMENOrdering Facility: [facility] Address: [address] [place], [place] [id number] Performed By: #### 5 7021-8 ####[facility] LABCLIA [id number] [place] [address] [place] Differential cell count method Nom (Bld) Auto Normal [facility] Comment on above: Order Comment: Speci men Type: BLOOD SPECIMENOrdering Facility: [facility] Address: [address] Performed By: #### 5 7021-8 ####[facility]CLIA [id number] [place] [address] [place] Eosinophils (Bld) [#/Vol] 0.06 10*3/uL Normal <0.46 [facility] Comment on above: Order Comment: Speci men Type: BLOOD SPECIMENOrdering Facility: [facility] Address: [address] [address] Performed By: #### 5 7021-8 ####[facility]CLIA [id number] [address] [place] Eosinophils/100 WBC (Bld) 0.7 % Normal [facility] Comment on above: Order Comment: Speci men Type: BLOOD SPECIMENOrdering Facility: [facility] Address: [address] [place], [place] [id number] Performed By: #### 5 7021-8 ####[facility] LABCLIA [id number] [place] [address] [place] Erythrocyte distribution width (RBC) [Ratio] 13.5 % Normal 11.5-15.0 [facility] Comment on above: Order Comment: Speci men Type: BLOOD SPECIMENOrdering Facility: [facility] Address: [address] [place], [place] [id number] Performed By: #### 5 7021-8 ####[facility] LABCLIA [id number] [address] [place] Hematocrit (Bld) [Volume fraction] 48.1 % Normal 39.0-51.0 [facility] Comment on above: Order Comment: Speci men Type: BLOOD SPECIMENOrdering Facility: [facility] Address: [address] [place], [place] [id number] Performed By: #### 5 7021-8 ####[facility] LABCLIA [id number] [place] [address] [place] Hemoglobin (Bld) [Mass/Vol] 16.5 g/dL Normal 13.0-17.0 [facility] Comment on above: Order Comment: Speci men Type: BLOOD SPECIMENOrdering Facility: [facility] Address: [address] [place] [address] Performed By: #### 5 7021-8 ####[facility] LABCLIA [id number] [place] [address] [place] Immature granulocytes (Bld) [#/Vol] 10*3/uL Normal <0.10 [facility] Comment on above: Order Comment: Speci men Type: BLOOD SPECIMENOrdering Facility: [facility] Address: [address] [place] [address] Performed By: #### 5 7021-8 ####[facility] LABCLIA [id number] [address] [place] Immature granulocytes/100 WBC (Bld) 0.1 % Normal [facility] Comment on above: Order Comment: Speci men Type: BLOOD SPECIMENOrdering Facility: [facility] Address: [address] [place] [address] Performed By: #### 5 7021-8 ####[facility] LABCLIA [id number] [place] [address] [place] Lymphocytes (Bld) [#/Vol] 2.02 10*3/uL Normal 1.00-4.00 [facility] Comment on above: Order Comment: Speci men Type: BLOOD SPECIMENOrdering Facility: [facility] Address: [address] [place], [place] [id number] Performed By: #### 5 7021-8 ####[facility] LABCLIA [id number] [place] [address] [place] Lymphocytes/100 WBC (Bld) 23.4 % Normal [facility] Comment on above: Order Comment: Speci men Type: BLOOD SPECIMENOrdering Facility: [facility] Address: [address] [address] Performed By: #### 5 7021-8 ####[facility] [id number] [address] MCH (RBC) [Entitic mass] 31.0 pg Normal 26.0-34.0 [facility] Comment on above: Order Comment: Speci men Type: BLOOD SPECIMENOrdering Facility: [facility] Address: [address] Performed By: #### 5 7021-8 ####[facility] [id number] [address] [place] MCHC (RBC) [Mass/Vol] 34.3 g/dL Normal 30.5-36.0 [facility] Comment on above: Order Comment: Speci men Type: BLOOD SPECIMENOrdering Facility: [facility] Address: [address] Performed By: #### 5 7021-8 ####[facility] [id number] [address] [place] [facility] MCV (RBC) [Entitic vol] 90.4 fL Normal 80.0-100.0 [facility] Comment on above: Order Comment: Speci men Type: BLOOD SPECIMENOrdering Facility: [facility] Address: [address] [place], [place] [id number] Performed By: #### 5 7021-8 ####[facility] [id number] [place] [address] [facility] [place] Monocytes (Bld) [#/Vol] 0.48 10*3/uL Normal <0.87 [facility] Comment on above: Order Comment: Speci men Type: BLOOD SPECIMENOrdering Facility: [facility] Address: [address] [place], [place] [id number] Performed By: #### 5 7021-8 ####[facility] LABCLIA [id number] [place] [address] [place] Monocytes/100 WBC (Bld) 5.6 % Normal [facility] Comment on above: Order Comment: Speci men Type: BLOOD SPECIMENOrdering Facility: [facility] Address: [address] [place] [address] Performed By: #### 5 7021-8 ####[facility] LABCLIA [id number] [place] [address] [place] Neutrophils (Bld) [#/Vol] 6.03 10*3/uL Normal 1.45-7.50 [facility] Comment on above: Order Comment: Speci men Type: BLOOD SPECIMENOrdering Facility: [facility] Address: [address] [place] [address] Performed By: #### 5 7021-8 ####[facility] LABCLIA [id number] [place] [address] [place] Neutrophils/100 WBC (Bld) 70.0 % Normal [facility] Comment on above: Order Comment: Speci men Type: BLOOD SPECIMENOrdering Facility: [facility] Address: [address] [place], [place] [id number] Performed By: #### 5 7021-8 ####[facility] LABCLIA [id number] [place] [address] [place] Nucleated RBC (Bld) [#/Vol] 10*3/uL Normal <0.01 [facility] Comment on above: Order Comment: Speci men Type: BLOOD SPECIMENOrdering Facility: [facility] Address: [address] [place], [place] [id number] Performed By: #### 5 7021-8 ####[facility] LABCLIA [id number] [place] [address] [place] Nucleated RBC/100 WBC (Bld) [Ratio] 0.0 /100 WBC Normal [facility] Comment on above: Order Comment: Speci men Type: BLOOD SPECIMENOrdering Facility: [facility] Address: [address] [place] [address] Performed By: #### 5 7021-8 ####[facility] [id number] [place] [address] [place] Platelet mean volume (Bld) [Entitic vol] Normal [facility] Comment on above: Order Comment: Speci men Type: BLOOD SPECIMENOrdering Facility: [facility] Address: [address] [place] [address] Result Comment: Unab le to Report. Performed By: #### 5 7021-8 ####[facility] [id number] [place] [address] [place] Platelets (Bld) [#/Vol] Normal [facility] Comment on above: Order Comment: Speci men Type: BLOOD SPECIMENOrdering Facility: [facility] Address: [address] [address] [place], [place] [id number] Result Comment: Plat elets Clumped Estimate Normal. Platelet count confirmed by manual review of peripheral blood smear. Results checked and verified.No clot detected. Performed By: #### 5 7021-8 ####[facility] [id number] [place] [address] [place] RBC (Bld) [#/Vol] 5.32 10*6/uL Normal 4.20-6.00 [facility] Comment on above: Order Comment: Speci men Type: BLOOD SPECIMENOrdering Facility: [facility] Address: [address] [place], [place] [id number] Performed By: #### 5 7021-8 ####[facility] LABIA [id number] [place] [address] [place] WBC (Bld) [#/Vol] 8.62 10*3/uL Normal 3.70-11.00 [facility] Comment on above: Order Comment: Speci men Type: BLOOD SPECIMENOrdering Facility: [facility] Address: [address] [place] [address] Performed By: #### 5 7021-8 ####[facility] LABCLIA [id number] [place] [address] [place] HBV core Ab Ser Qlon 023 HBV core Ab Ql (S) Positive Abnormal Negative [facility] Comment on above: Order Comment: Speci men Type: BLOOD SPECIMENOrdering Facility: [facility] Address: [address] [place] [address] Result Comment: The result suggests either current or past infection with Hepatitis B virus. Non-specific reactivity may at times be seen with this test due to some underlying phenomena. Please correlate with HBsAg result and medical history. Performed By: #### 5 195-3, 63746-9, 18079-0 ####[facility] LABCLIA [id number] [address] OF [facility] HBV surface Ab Ql (S)on 03-18 HBV surface Ab Qn (S) <8.00 Low >=12.00 [facility] Comment on above: Order Comment: Speci jeremias Type: BLOOD SPECIMENOrdering Facility: [facility] Address: [address] [place] [address] Performed By: #### 5 195-3, 43923-0, 35247-2 ####[facility] LABCLIA [id number] [address] OF [facility] HBV surface Ab Ser Qlon 03-18 HBV surface Ab Ql (S) Negative Abnormal Positive [facility] Comment on above: Order Comment: Speci [facility] Type: BLOOD SPECIMENOrdering Facility: [facility] Address: [address] [place] [address] Result Comment: No e vidence of antibodies to Hepatitis B surface antigen. Performed By: #### 5 195-3, 18079-3, 97983-2 ####[facility] LABCLIA [id number] [place] [address] [place] HBV surface Ag Ser Qlon 03-18 HBV surface Ag Ql (S) Negative Normal Negative [facility] Comment on above: Order Comment: Speci men Type: BLOOD SPECIMENOrdering Facility: [facility] Address: [address] [place] [address] Performed By: #### 5 195-3, 91499-8, 84449-2 ####[facility] LABCLIA [id number] [place] [address] [place] HCV Ab Ser Qlon 04-05-2022 HCV Ab Ql (S) Positive Abnormal Negative [facility] Comment on above: Order Comment: Speci men Type: BLOOD SPECIMENOrdering Facility: [facility] Address: [address] [place] [address] Performed By: #### 1 6128-1, 07958-2 ####[facility] LABCLIA [id number] [place] [address] [place] HCV Gentyp SerPl BELKYS+probeon 04-05-2022 HCV genotype BELKYS+probe Nom Genotype 1a Abnormal [facility] Comment on above: Order Comment: Speci men Type: BLOOD SPECIMENOrdering Facility: [facility] Address: [address] [place] [address] Performed By: #### 3 2286-7 ####[facility] LABCLIA [id number] [place] [address] [place] HCV RNA SerPl BELKYS+probe-aCnc on 04-05-2022 HCV RNA BELKYS+probe Qn Abnormal HCV RNA not detected by PCR. [facility] Comment on above: Order Comment: Speci men Type: BLOOD SPECIMENOrdering Facility: [facility] Address: [address] [place] [address] Result Comment: HCV RNA detected by PCR. [id number] 6.64 Performed By: #### 1 1011-4 ####[facility] LABCLIA [id number] [address] Result Comment: HCV RNA detected by PCR. [id number] 6.79 Performed By: #### 1 6128-1, 10438-1 ####[facility] LABCLIA [id number] [address] OF SUE HEPATITIS A ANTIBODY, IGGon 04-05-2022 HEPATITIS A ANTIBODY IGG Positive Abnormal Negative [facility] Comment on above: Order Comment: Speci men Type: BLOOD SPECIMEN [facility] Address: [address] [address] Result Comment: The result suggests recent or past exposure to hepatitis A virus or hepatitis A vaccination. Clinical correlation required. Performed By: #### 3 4528-0 #### [facility] LAB CLIA [id number] [address] HISTORY PHYSICALon HISTORY PHYSICAL HNO ID: [id number] Author: Marie Daniel APRN.CHIEF HYDROELECTRIC STATION OPERATOR Service: ? Author Type: Nurse Practitioner Type: HANDP Filed: 04/06/2022 7:35 AM Note Text: HISTORY AND PHYSICAL EXAMINATION SERVICE DATE: 04/05/2022 SERVICE TIME: 8:20 AM PRIMARY CARE PHYSICIAN: Rudy Galvan III, DO, DO REASON FOR VISIT: Addison Grullon is a 51 year old male who is scheduled for EGD at the request of Dr. Leslie Blount for consultation. My final recommendation will be communicated back to the requesting physician by way of shared medical record or letter. The patient has the following: ACTIVE PROBLEM LIST Opiate Withdrawal (Hcc) Tobacco Abuse Disorder Chronic Hepatitis C Without Hepatic Coma (Hcc) History of Opioid Abuse (Hcc) Subjective CHIEF COMPLAINT: Epigastric pain HPI: 51 year old male with chronic epigastric pain. States had EGD in past- and ulcer was found. Takes Zofran for N/V PRN. Has known hep C- was approved for Epclusa in 2018 but then was incarcerated. Etiology of HCV infection-illicit drug use, last use 2017, fibroscan noted F2 from OSH. PAST MEDICAL HISTORY Diagnosis Date Chronic hepatitis C without hepatic coma (HCC) 03/05/2022 History of drug use Tobacco abuse disorder 01/15/2017 PAST SURGICAL HISTORY Procedure Laterality Date EGD KIDNEY STONE SURGERY HX FAMILY HISTORY Problem Relation Age of Onset Difficulty with anesthesia No Family History SOCIAL HISTORY: Social History Tobacco Use Smoking status: Every Day Packs/day: 2.00 Types: Cigarettes Start date: 1986 Smokeless tobacco: Never Substance Use Topics Alcohol use: Not Currently Comment: drug abuse tx a few yrs ago as of 04/05/21 Drug use: Yes Types: Marijuana Comment: medical---daily MEDICATIONS: Prior to Admission medications as of 04/05/22 0825 Medication Sig Last Dose Taking ondansetron (ZOFRAN) 4 mg tablet Take 4 mg by mouth every 8 hours as needed for nausea/vomiting. No medication comments found. CURRENT ALLERGIES: ALLERGIES Allergen Reactions Ciprofloxacin GI Upset COVID VACCINATION STATUS: Not vaccinated REVIEW OF SYSTEMS: PAIN ASSESSMENT: Pain Pain Level: 5 Pain Location: Abdomen Description: Other: See comment (Nausea more than anything.) Duration Amount of Time: 1.5 Duration Units: Years Frequency: Intermittent Intervention/Comfort measure: Medication Comments: Zofran helps a bit General: No weight loss, malaise or fevers. Neuro: No history of TIA's, stroke, PICTURE FRAMER tumor, impaired sensorium, hemiplegia, paraplegia or quadraplegia. No neurological symptoms or problems. Respiratory: Negative for Asthma, URI < 2 weeks, Wheezing + Smoker - current Cardiovascular: No history of HTN requiring medication, no history of angina, CHF, PR, cardiac surgery or stents. Denies rest pain, gangrene or revascularization/amputatio n for PVD. No history of cardiovascular symptoms or problems. GI: See HPI : No history of dysuria, frequency or incontinence,, stones or chronic kidney disease Endocrine: No history of diabetes. Has not taken steroids within the past 30 days. No history of endocrinological symptoms or problems. Hematology: No history of bleeding or clotting disorder. Pt is not taking anti-coagulation or platelet medications. No history of hematological symptoms or problems. Oncology: No history of CA metastasis, chemo within 30 days, or radiotherapy within 90 days. Has not lost 10% of body wt in 6 months. No history of oncological symptoms or problems. Hx of skin Ca on face Psych: hx of opiate abuse- last use 2017 Musculoskeletal: Negative for joint pain or swelling, back pain or muscle pain. Skin: Negative for lesions, rash and itching. Objective PHYSICAL EXAM: VITALS: BP 119/67 Pulse 86 Temp (Src) 98.1 (Temporal Artery) Resp 16 Ht 6' 2 (1.88m) Wt 224 lb (101.6kg) SpO2 98% BMI 28.75 kg/(m2). General: Alert and oriented, No acute distress Skin: Normal color, no rash, no lesions. HEENT: EOM, pupils equal, round and reactive. Cardiovascular: Normal S1 AND S2, no rubs, murmurs or gallops. No JVD. Pulse regular. Lungs: Normal breath sounds, no wheezes or crackles. Abdomen: Soft, non-tender, no rigidity. Extremities: No deformity, no edema or tenderness, no joint swelling or clubbing. Neurological: Normal cognition and motor skills. Pulses: Carotid and radial pulses normal +2. Diagnostic tests reviewed for today's visit: Lab Value Units Date High Low HB 16.5 g/dL 04/05/2022 17.0 13.0 HCT 48.1 % 04/05/2022 51.0 39.0 WBC 8.62 k/uL 04/05/2022 11.00 3.70 PLT Platelets Clumped Estimate Normal. Platelet count confirmed by manual review of peripheral blood smear. Results checked and verified.No clot detected. NA 139 mmol/L 04/05/2022 144 136 K 4.0 mmol/L 04/05/2022 5.1 3.7 GLUC 80 mg/dL 04/05/2022 99 74 BUN 17 mg/dL 04/05/2022 24 9 CREAT 0.96 mg/dL 04/05/2022 1.22 0.73 PTSEC 10.5 sec 04/05/2022 13.0 9.7 INR 1.0 (more content not included)... Normal [facility] HIV 1+2 Ab IA Qlon 3 HIV 1 and 2 Ab IA.rapid Nom Normal [facility] Comment on above: Order Comment: Speci men Type: BLOOD SPECIMEN [facility] Address: [address] [place] [id number] Result Comment: Test not indicated. Performed By: #### 3 4528-0 #### [facility] LAB CLIA [id number] [address] [place] [address] [place] HIV 1+2 Ab+HIV1 p24 Ag IA Ql Non-Reactive Normal Nonreactive [facility] Comment on above: Order Comment: Speci men Type: BLOOD SPECIMEN [facility] Address: [address] [place] [address] Performed By: #### 3 4528-0 #### [facility] LAB CLIA [id number] [address] [place] HIVINT Normal [facility] Comment on above: Order Comment: Speci men Type: BLOOD SPECIMEN [facility] Address: [address] [place] [address] Result Comment: No e vidence of HIV-1 or HIV-2 infection. Should recent infection be suspected, repeat testing may be considered 2-3 weeks after this draw. [place] Rev. Code 3701.243(E): This information has been disclosed to you from confidential records protected from disclosure by state law. ???You shall make no further disclosure of this information without the specific, written, and informed release of the individual to whom it pertains or as otherwise permitted by state law. A general authorization for the release of medical or other information is not sufficient for the purpose of the release of HIV test results or diagnoses. Performed By: #### 3 4528-0 #### [facility] CLIA [id number] [address] [place] [address] [place] Hepatic function 2000 panelo n 04-05-2022 Albumin [Mass/Vol] 4.6 g/dL Normal 3.9-4.9 [facility] Comment on above: Order Comment: Speci men Type: BLOOD SPECIMENOrdering Facility: [facility] Address: [address] [place] [address] Performed By: #### 2 4321-2, 33360-4 ####[facility] LABCLIA [id number] [place] [address] [place] ALP [Catalytic activity/Vol] 69 U/L Normal 38-113 [facility] Comment on above: Order Comment: Speci men Type: BLOOD SPECIMENOrdering Facility: [facility] Address: [address] [place] [address] Performed By: #### 2 4320-2, 27211-9 ####[facility] LABCLIA [id number] [place] [address] [place] ALT [Catalytic activity/Vol] 45 U/L Normal 10-54 [facility] Comment on above: Order Comment: Speci men Type: BLOOD SPECIMENOrdering Facility: [facility] Address: [address] [place] [address] Performed By: #### 2 2, 27288-5 ####[facility] LABCLIA [id number] [address] [place] AST [Catalytic activity/Vol] 43 U/L High 14-40 [facility] Comment on above: Order Comment: Speci men Type: BLOOD SPECIMENOrdering Facility: [facility] Address: [address] [place], [place] [id number] Performed By: #### 2 2, 15767-4 ####[facility] LABCLIA [id number] [place] [address] [place] Bilirubin [Mass/Vol] 1.1 mg/dL Normal 0.2-1.3 [facility] Comment on above: Order Comment: Speci men Type: BLOOD SPECIMENOrdering Facility: [facility] Address: [address] [place], [place] [id number] Performed By: #### 2 2, 70942-6 ####[facility] LABCLIA [id number] [place] [address] [place] Bilirubin.conjugat ed [Mass/Vol] 0.2 mg/dL High <0.2 [facility] Comment on above: Order Comment: Speci men Type: BLOOD SPECIMENOrdering Facility: [facility] Address: [address] [address] Performed By: #### 2 4321-2, 60669-4 ####[facility] LABCLIA [id number] [place] [address] [place] Protein [Mass/Vol] 7.8 g/dL Normal 6.3-8.0 [facility] Comment on above: Order Comment: Paulette mcdowell Type: BLOOD SPECIMENOrdering Facility: [facility] Address: [address] [address] Performed By: #### 2 4321-2, 31308-9 ####[facility] LABIA [id number] [place] [address] [place] PT panel Coag (PPP)on 2022 INR Coag (PPP) [Relative time] 1.0 {INR} Normal 0.9-1.3 [facility] Comment on above: Order Comment: Paulette mcdowell Type: BLOOD SPECIMEN [facility] Address: [address] [place] [address] Result Comment: Tatianna min K Antagonist (VKA) Therapeutic Range: INR 2 to 3 (Target INR of 2.5) Note: For patients treated with VKA drugs, such as warfarin, the [employer] 2012 Guideline recommends a therapeutic INR range of 2 to 3 (target INR of 2.5). This recommendation includes high-risk patients with antiphospholipid syndrome with previous arterial or venous thromboembolism, current-generation mechanical or bioprosthetic aortic heart valve replacement. Note: Patients with mechanical aortic valve replacement and additional risk factors for thromboembolic events (atrial fibrillation, previous thromboembolism, LV dysfunction, hypercoagulable conditions) or an older generation mechanical AVR (i.e., ball in-Cage) or any mechanical MVR should have a INR therapeutic range of 2.5 to 3.5 (target INR of 3). Kuldeep GH, et al. Chest 2012, 141:7S-47S Lisandra RA, et al. [facility] 2017, 70: 252-289 Performed By: #### 3 4528-0 #### [facility] CLIA [id number] [address] [place] PT Coag (PPP) [Time] 10.5 s Normal 9.7-13.0 [facility] Comment on above: Order Comment: Speci men Type: BLOOD SPECIMEN [facility] Address: [address] [place] [address] Performed By: #### 3 4528-0 #### [facility] CLIA [id number] [address] [place] [address] [place] TOX SCREEN ROUT URon 023 Amphetamines Confirm (U) [Mass/Vol] Negative Normal Negative [facility] Comment on above: Order Comment: Speci men Type: URINE SPECIMEN [facility] Address: [address] [place] [address] Result Comment: Cuto ff threshold at 1000 ng/mL. Performed By: #### U TOX2 #### [facility] CLIA [id number] [address] [place] [address] [place] BARBITURATES, URINE Negative Normal Negative [facility] Comment on above: Order Comment: Speci men Type: URINE SPECIMEN [facility] Address: [address] [place] [address] Result Comment: Cuto ff threshold at 200 ng/mL. Performed By: #### U TOX2 #### [facility] CLIA [id number] [address] [place] [address] [place] BENZODIAZEPINES, UR Negative Normal Negative [facility] Comment on above: Order Comment: Speci men Type: URINE SPECIMEN [facility] Address: [address] [place] [address] Result Comment: Cuto ff threshold at 200 ng/mL. Performed By: #### U TOX2 #### [facility] CLIA [id number] [facility] [place] [address] [place] CANNABINOIDS,URINE Positive Abnormal Negative [facility] Comment on above: Order Comment: Speci men Type: URINE SPECIMEN [facility] Address: [address] [place], [place] [id number] Result Comment: Cuto ff threshold at 50 ng/mL. Performed By: #### U TOX2 #### [facility] CLIA [id number] [address] [place] [address] [place] Cocaine Ql (U) Negative Normal Negative [facility] Comment on above: Order Comment: Speci men Type: URINE SPECIMEN [facility] Address: [address] [place] [address] Result Comment: Cuto ff threshold at 300 ng/mL. Performed By: #### U TOX2 #### [facility] CLIA [id number] [address] [place] [address] [place] Ethanol (U) [Mass/Vol] <11 Normal <11 [facility] Comment on above: Order Comment: Speci men Type: URINE SPECIMEN [facility] Address: [address] [place] [address] Performed By: #### U TOX2 #### [facility] CLIA [id number] [address] [place] [address] [place] Opiates Screen Ql (U) Positive Abnormal Negative [facility] Comment on above: Order Comment: Speci men Type: URINE SPECIMEN [facility] Address: [address] Result Comment: Cuto ff threshold at 300 ng/mL. Performed By: #### U TOX2 #### [facility] CLIA [id number] [address] [place] [address] [place] oxyCODONE cutoff Screen (U) [Mass/Vol] Positive Abnormal Negative [facility] Comment on above: Order Comment: Speci men Type: URINE SPECIMEN [facility] Address: [address] [id number] Result Comment: Cuto ff threshold at 100 ng/mL. Performed By: #### U TOX2 #### [facility] IA [id number] [address] [place] [address] Phencyclidine Ql (U) Negative Normal Negative [facility] Comment on above: Order Comment: Speci men Type: URINE SPECIMEN [facility] Address: [address] [address] Result Comment: Cuto ff threshold at 25 ng/mL. Performed By: #### U TOX2 #### [facility] CLIA [id number] [address] OF [place] CNPNon 03-08-2022 CNPN Telephone (GASTNO) ADDISON GRULLON ([id number]) 1970 M Date Time Provider Department 03/08/22 NEERU ELIZONDO During your visit today, we recorded the following information about you: Rosa Isela Haddad RN 03/08/2022 3:31 PM Signed Wilton Carroll, I'm Dr. Iniguez's RN hearing care professional in her office. I see you've seen this pt in the office for Hep C. He is scheduled for EGD with Dr. Blount, then has an office visit set up with Dr. Iniguez in May. Then has a follow up office visit with you in August. Just trying to figure out if this office visit with Dr. Iniguez is needed. She also does not see Hep C pts's. Just want to be sure we get the pt in the right direction. Thank you for any input. Rosa Isela Haddad RN 03/09/2022 9:01 AM Signed Wilton Natarajan, He has been struggling with nausea and decreased appetite so the consult and EGD is for that, I am taking care of his hepatitis C. Thanks, Neeru Elizondo PA-C Great, thank you for the update. I'll have the diagnosis on the office visit with Dr. Iniguez changed to to that then. Thank you again Rosa Isela Haddad RN 03/09/2022 9:05 AM Signed Schedulers, can someone please change the diagnosis for pt's May with Dr. Iniguez to nausea and loss of appetite? He has Hep C but is being treated for that by an [facility]. Not seeing Dr. Iniguez for that diagnosis. Thank you Rosa Isela Haddad RN Allergies As of Date: 03/08/2022 Noted Allergy Reaction CIPROFLOXACIN 01/14/2017 8 - GI Upset Date Reviewed: 03/05/2022 Reviewed by: Neeru Elizondo PA-C - Fully Assessed Reason for Visit: Appointment [186] Prescriptions as of 04/16/2022 - glecaprevir-pibrentasvir (MAVYRET) 100-40 mg tablet Take 3 tablets by mouth once daily with food. - ondansetron (ZOFRAN) 4 mg tablet Take 4 mg by mouth every 8 hours as needed for nausea/vomiting. Problem List As Of Date 03/08/2022 Noted Resolved Opiate withdrawal (HCC) [F11.93] 01/14/2017 Tobacco abuse disorder [Z72.0] 01/15/2017 Chronic hepatitis C without hepatic coma (HCC) *03/05/2022 Encounter Status:Closed by ROSA ISELA HADDAD RN on 04/16/22 [facility] CNOVon 03-05-2022 CNOV Office Visit (GASTA5 ) ADDISON GRULLON ([id number]) 1970 M Date Time Provider Department 03/05/22 1:00 PM NEERU ELIZONDO During your visit today, we recorded the following information about you: Temperature Pulse Blood pressure Weight 97.9 degrees 92/minute 137/84 101.7 kg Height 1.88 m Neeru Elizondo PA-C 03/08/2022 8:11 AM Signed NAME: Addison Grullon AGE: [age] year old Patient is referred in consultation by for an opinion regarding Hepatitis C and my final recommendations will be communicated back to the requesting physician by way of shared Medical Record. PRESENTING COMPLAINT AND HISTORY Patient presents with: New Patient: Hep C symptoms Addison Grullon is a 51 year old year with pmhx of chronic epigastric pain, PUD (dx 2012), chronic HCV infection (tx naive) who presents with hepatitis C. Presents to clinic with his . This is his [facility] visit to [facility] Per notes from scanned documents, in regards to his HCV he is treatment naive, was approved for Epclusa in 2018 but then was incarcerated. Etiology of HCV infection-illicit drug use, last use 2018, fibroscan noted F2 from OSH. States he's had difficulty obtaining treatment locally, judgmental doctors. Has had chronic nausea, last EGD years ago, interested in GI with [facility] Risk Factors for Liver Disease: 1. Blood transfusions before 1991: 2. IVDA: No 3. Intranasal coccaine use: yes-last use years ago 4. Tattoos: yes 5. Service: No 6. High risk sexual behavior: No 7. Alcohol: No 8. Obesity: No 9. Hyperlipidemia: No 10. Prolonged exposure to hepatotoxic meds: No 11. Other autoimmune disorders No Denies current issues with ascites, HE, hematemesis, hematochezia, confusion, dark urine, nithin colored stool, vomiting, weight loss, early satiety, bloating, dysphagia, odynophagia, change in bm. Remaining systems reviewed and are negative. History reviewed. No pertinent surgical history. History reviewed. No pertinent past medical history. Social History Tobacco Use Smoking status: Never Smokeless tobacco: Never Substance Use Topics Alcohol use: Never Drug use: Yes Types: Marijuana Comment: medical No current outpatient medications on file. No current facility-administered medications for this visit. ALLERGIES Allergen Reactions Ciprofloxacin GI Upset FAMILY HISTORY Liver Problems: No Colitis: No Colon Cancer: No Other Cancers: Yes History reviewed. No pertinent family history. GI SPECIFIC ROS Difficulty swallowing / foods sticking in throat: No Heartburn: No Hoarseness: No Chronic cough: No Regurgitation: No Chest pain: No Filling up quickly at meals: No Loss of appetite: Yes Nausea: Yes Vomiting: No Abdominal pain: No Recent change in bowel movements: No Bloody or black, bowel movements: No Constipation: No Diarrhea: No Loss of control of bowel movements: No Night sweats, fever, chills: No Thought or memory problems: No Fluid in abdomen (ascites): No Prominent leg swelling: No Vomiting blood: No Recent change in weight: No PHYSICAL EXAMINATION BP 137/84 Pulse 92 Temp (Src) 97.9 (Temporal) Ht 6' 2 (1.88m) Wt 224 lb 3.2 oz (101.7kg) SpO2 95% BMI 28.77 kg/(m2). General Appearance: Well appearing, alert, in no acute distress, well-hydrated, well nourished. Eyes: PERRLA, conjunctiva and sclera normal Oropharynx: covered by mask Lungs:breathing comfortably Heart: regular rate Abdomen: not distended Extremities: no cyanosis or edema Skin: no jaundice, no spider angiomas, no palmar erythema Neuro:alert, in no acute distress Recent Labs: No results found for: HB, HCT, WBC No results found for: GLUC, K, NA, CHLOR, CO2, CREAT, BUN, ANION, CA No results found for: ALB, TBILI, CBILI, ALKPHOS, AST, ALT, TPROT Computed MELD-Na score unavailable. Necessary lab results were not found in the last year. Computed MELD score unavailable. Necessary lab results were not found in the last year. Imaging: Fibroscan scanned in from 2018 Assessment IMPRESSION Addison Grullon is a 51 year old year with pmhx of chronic epigastric pain, PUD (dx 2013), chronic HCV infection (tx naive) who presents with hepatitis C. He is treatment naive, not bx proven, previously HCV GT 1a, fibroscan in 2018 (F2). Long discussion today regarding natural history of Hep C, likelihood of progression, complication of liver disease, as well as specific treatment options including side effect profile of therapy, probability of response and evaluation necessary before embarking on therapy. Oriented about risk factors, mode of transmission, strategies to avoid transmission (including very minimal risk of sexual transmission), potential treatment options and possible interventions to stage her liver disease.Discussed regarding the FDA approved HCV medication for his genotyp (more content not included)... [facility]GASTA[facility] ADDISON GRULLON ([id number]) 1970 M Date Time Provider Department 03/05/22 NEERU ELIZONDO GASTA5 During your visit today, we recorded the following information about you: Neeru Elizondo PA-C 03/05/2022 5:09 PM Signed Fibroscan likely F2, S3 (moderate fibrosis with significant steatosis) Shadia Goodrich 03/08/2022 4:14 PM Signed Pt advised of PA message below and voices understanding. Neeru Elizondo PA-C You 3 days ago [place], please call patient and let him know he likely still has stage 2 fibrosis on fibroscan but he also has a very fatty liver We will focus on his hepatitis C for now and can tackle the fatty liver after, treatment involves weight loss and eating well/exercising. Shadia Goodrich Lpn March 08, 2022 Allergies As of Date: 03/05/2022 Noted Allergy Reaction CIPROFLOXACIN 01/14/2017 8 - GI Upset Date Reviewed: 03/05/2022 Reviewed by: Neeru Elizondo PA-C - Fully Assessed Reason for Visit: Results [95] Problem List As Of Date 03/05/2022 Noted Resolved Opiate withdrawal (HCC) [F11.93] 01/14/2017 Tobacco abuse disorder [Z72.0] 01/15/2017 Chronic hepatitis C without hepatic coma (HCC) *03/05/2022 Encounter Status:Closed by NEERU ELIZONDO on 03/05/22 [facility] VIBRATION CONTROLLED TRANSIE NT ELASTOGRAPHY (POC)on 03-05-2022 [facility]20[facility]STA[facility] ADDISON GRULLON ([id number]) 1970 M Date Time Provider Department 03/03/22 MIESHA KEITA ([facility]) GASTA5 During your visit today, we recorded the following information about you: Miesha Keita 03/03/2022 10:31 AM Signed Called Addison Grullon to remind them of an appointment with Neeru Elizondo on 03/05/22. Spoke with patient. Appointment confirmed. Allergies As of Date: 03/03/2022 (Not on File) Date Reviewed: Never Reviewed Reason for Visit: Appointment [186] Problem List As Of Date: 03/03/2022 (None) Encounter Status:Closed by MIESHA KEITA on 03/03/22 [facility] Nohemi 02-06-2018 ALT enzyme act/vol 27 U/L Normal 13-61 [facility] Comment on above: Order Comment: CONSE RVATION Performed By: #### L 500.72384, L500.53746, L500.78859, L500.46953, L500.75949 ####Test performed at: [place] [address] [place] 02-06-2018 AST enzyme act/vol 32 U/L Normal 15-37 [facility] Comment on above: Order Comment: CONSE RVATION Result Comment: Resu lts may be inaccurate due to moderate hemolysis. Performed By: #### L 500.55450, L500.95147, L500.39188, L500.56616, L500.16001 ####Test performed at: [place] [address] BASIC MET PANELon 02-06-2018 Anion gap 3 molar conc 10 mmol/L Normal 6-18 [facility] Comment on above: Order Comment: CONSE RVATION Performed By: #### L 500.21656, L500.90191, L500.26573, L500.04478, L500.22203 ####Test performed at: [place] [address] Calcium mass conc 8.7 mg/dL Normal 8.5-10.1 [facility] Comment on above: Order Comment: CONSE RVATION Performed By: #### L 500.82423, L500.43428, L500.48681, L500.77864, L500.93986 ####Test performed at: [place] [address] Chloride molar conc 106 mmol/L Normal 98-107 [facility] Comment on above: Order Comment: CONSE RVATION Performed By: #### L 500.62819, L500.15793, L500.81046, L500.39325, L500.94414 ####Test performed at: [place] [address] CO2 molar conc 27 mmol/L Normal 21-32 [facility] Comment on above: Order Comment: CONSE RVATION Performed By: #### L 500.73980, L500.51605, L500.62716, L500.38719, L500.79338 ####Test performed at: [place] [id number] Creatinine mass conc 1.060 mg/dL Normal 0.700-1.300 [facility] Comment on above: Order Comment: CONSE RVATION Performed By: #### L 500.10823, L500.40583, L500.67725, L500.68919, L500.79113 ####Test performed at: [place] [id number] Glucose mass conc 83 mg/dL Normal 74-106 [facility] Comment on above: Order Comment: CONSE RVATION Performed By: #### L 500.43577, L500.40141, L500.03309, L500.57892, L500.20564 ####Test performed at: [place] [id number] OSM 286 mosm/kg Normal 270-300 [facility] Comment on above: Order Comment: CONSE RVATION Performed By: #### L 500.48447, L500.46905, L500.64846, L500.65005, L500.09758 ####Test performed at: [place] [address] Potassium molar conc 4.1 mmol/L Normal 3.5-5.1 [facility] Comment on above: Order Comment: CONSE RVATION Result Comment: Resu lts may be inaccurate due to moderate hemolysis. Performed By: #### L 500.60139, L500.27938, L500.77751, L500.54884, L500.81843 ####Test performed at: [place] [id number] Sodium molar conc 139 mmol/L Normal 136-145 [facility] Comment on above: Order Comment: CONSE RVATION Performed By: #### L 500.71823, L500.66823, L500.54479, L500.86385, L500.67419 ####Test performed at: [place] [id number] Urea nitrogen mass conc 10 mg/dL Normal 7-18 [facility] Comment on above: Order Comment: CONSE RVATION Performed By: #### L 500.21348, L500.25216, L500.47732, L500.73880, L500.48004 ####Test performed at: [place] [id number] CBCon 02-06-2018 Erythrocyte distribution width Auto Ratio (RBC) 13.1 % Normal 11.5-14.5 [facility] Comment on above: Order Comment: CONSE RVATION Performed By: #### L 200.36480 ####Test performed at: [place] [address] Hematocrit Auto Volume Fraction (Bld) 47.7 % Normal 39.0-55.0 [facility] Comment on above: Order Comment: CONSE RVATION Performed By: #### L 200.80134 ####Test performed at: [place] [address] Hemoglobin mass conc (Bld) 15.7 g/dL Normal 14.0-16.5 [facility] Comment on above: Order Comment: CONSE RVATION Performed By: #### L 200.64098 ####Test performed at: [place] [address] MCH Auto Entitic mass (RBC) 27.9 pg Normal 25.4-34.6 [facility] Comment on above: Order Comment: CONSE RVATION Performed By: #### L 200.84576 ####Test performed at: [place] [address] MCHC Auto mass conc (RBC) 32.9 g/dL Normal 31.5-36.5 [facility] Comment on above: Order Comment: CONSE RVATION Performed By: #### L 200.91599 ####Test performed at: [place] [address] MCV Auto Entitic volume (RBC) 84.9 fL Normal 80.0-100.0 [facility] Comment on above: Order Comment: CONSE RVATION Performed By: #### L 200.60542 ####Test performed at: [place] [address] Nucleated RBC #/vol (Bld) 0.000 10*3/uL Normal 0-0.012 [facility] Comment on above: Order Comment: CONSE RVATION Performed By: #### L 200.01154 ####Test performed at: [address] [address] Nucleated RBC/100 WBC Ratio (Bld) 0.0 /100 WBC Normal 0-0.2 [facility] Comment on above: Order Comment: CONSE RVATION Performed By: #### L 200.98795 ####Test performed at: [address] [address] Platelet mean volume Auto Entitic volume (Bld) 11.5 fL Normal 8.7-12.4 [facility] Comment on above: Order Comment: CONSE RVATION Performed By: #### L 200.91606 ####Test performed at: [place] [id number] Platelets Auto #/vol (Bld) 167 10*3/uL Normal 140-440 [facility] Comment on above: Order Comment: CONSE RVATION Performed By: #### L 200.59910 ####Test performed at: [place] [address] RBC Auto #/vol (Bld) 5.62 10*6/uL High 3.5-5.5 [facility] Comment on above: Order Comment: CONSE RVATION Performed By: #### L 200.88692 ####Test performed at: [place] [id number] WBC Auto #/vol (Bld) 7.9 10*3/uL Normal 3.9-11.0 [facility] Comment on above: Order Comment: CONSE RVATION Performed By: #### L 200.69740 ####Test performed at: [place] [id number] EST. CREAT CLRon 02-06-2018 Creatinine mass conc 97.177 ML/MIN Normal [facility] Comment on above: Order Comment: CONSE RVATION Result Comment: This result is an ESTIMATED blood creatinine clearance valuewhich is derived from the patient age, sex, weight, andprevious blood creatinine result. Performed By: #### L 500.74733, L500.05498, L500.54171, L500.61193, L500.74147 ####Test performed at: [place] [address] GFR ESTIMATEon 02-06-2018 IF AMER > 60 Normal > 60 [facility] Comment on above: Order Comment: CONSE RVATION Result Comment: eGFR (Estimated GFR) Units of measure:mL/min/1.73 meters sq.*CALCULATION REVISED 12/03/2014;IDMS-traceable MDRD equationeGFR is derived from the reexpressed MDRD Study equationusing the following parameters: serum creatinine, age,gender and race. An eGFR<60 mL/min/1.73m2 for >3 monthsis consistent with chronic kidney disease. Refer to KDOQIguidelines for clinical interpretation. Performed By: #### L 500.80561, L500.46888, L500.52178, L500.69232, L500.78834 ####Test performed at: [place] [address] IF non-AFR AMER > 60 Normal > 60 [facility] Comment on above: Order Comment: CONSE RVATION Performed By: #### L 500.98432, L500.65973, L500.14496, L500.27572, L500.13258 ####Test performed at: [place] [address] LIMIT UR TOXon 02-06-2018 UR AMPH Positive Critically abnormal Negative [facility] Comment on above: Order Comment: CONSE RVATION Result Comment: CUTO IK=4519 Performed By: #### L 600.61768 ####Test performed at: [place] [address] UR VERONICA Negative Normal Negative [facility] Comment on above: Order Comment: CONSE RVATION Result Comment: CUTO WS=373 Performed By: #### L 600.02166 ####Test performed at: [place] [id number] UR DREA Negative Normal Negative [facility] Comment on above: Order Comment: CONSE RVATION Result Comment: CUTO IT=010 Performed By: #### L 600.96640 ####Test performed at: [place] [address] UR BUPREN/NORBU Negative Normal Negative [facility] Comment on above: Order Comment: CONSE RVATION Result Comment: CUTO FF=10 Performed By: #### L 600.46335 ####Test performed at: [place] [address] UR KATE/THC Positive Critically abnormal Negative [facility] Comment on above: Order Comment: CONSE RVATION Result Comment: CUTO FF=50 Performed By: #### L 600.66616 ####Test performed at: [place] [id number] UR MANISH Positive Critically abnormal Negative [facility] Comment on above: Order Comment: CONSE RVATION Result Comment: CUTO HE=133 Performed By: #### L 600.74982 ####Test performed at: [place] [address] UR ECSTASY Negative Normal Negative [facility] Comment on above: Order Comment: CONSE RVATION Result Comment: CUTO BG=929 Performed By: #### L 600.57312 ####Test performed at: [place] [id number] UR METH Negative Normal Negative [facility] Comment on above: Order Comment: CONSE RVATION Result Comment: CUTO LQ=159 Performed By: #### L 600.38606 ####Test performed at: [place] [id number] UR OPIAT Positive Critically abnormal Negative [facility] Comment on above: Order Comment: CONSE RVATION Result Comment: CUTO HT=109 Performed By: #### L 600.17448 ####Test performed at: [place] [address] UR OXYCOCONE Negative Normal Negative [facility] Comment on above: Order Comment: CONSE RVATION Result Comment: CUTO QC=077 Performed By: #### L 600.24376 ####Test performed at: [place] [address] UR PCP Negative Normal Negative [facility] Comment on above: Order Comment: CONSE RVATION Result Comment: CUTO FF=25 Performed By: #### L 600.68415 ####Test performed at: [place] [address] PH TOX 5.0 Normal 5.0-8.0 [facility] Comment on above: Order Comment: CONSE RVATION Performed By: #### L 600.57170 ####Test performed at: [place] [address] TOX COMMENT *PLEASE NOTE: Normal [facility] Comment on above: Order Comment: CONSE RVATION Result Comment: UNCO NFIRMED Toxicology results. For MEDICAL purposes only. Performed By: #### L 600.95064 ####Test performed at: [place] [address] Discharge Summary Reporton 0 05-31-2017 Discharge Summary Report Patient: ADDISON GRULLON Age: 46 years Sex: Male : 1970 Associated Diagnoses: None Author: POP BURROWS DO Discharge [id number] male with no previous past medical history heroin abuse and chronic hepatitis C comes in for sweats and loose stool. Patient says that he does about a half a gram of heroine IV daily with the last use yesterday at 1 PM. Patient says that he decided that he needed to stop using heroin. He does have support at home. He plans on having vivitrol going to MAT out in [facility]. He admits to some watery stool as well as loose stool. he admits to generalized abdominal pain, sweats, increase thist, and anxiety. he was being treated for opoid withdrawl symptoms and left AMA. [facility] Utilization Review Noteon Utilization Review Note BREAKTHRU PATIENT: [facility] STAFF TO COMPLETE AUTH FOR INPT ADMIT Normal [facility] Progress Note-Physicianon Progress Note-Physician Patient: ADDISON GRULLON Age: 46 years Sex: Male : 1970 Associated Diagnoses: None Author: DONTAE WILSON, LAURITA Subjective -Patient seen and examined. No acute events, sleepy Results Review Labs (Last four charted values)WBC 7.2 (MAY 20) Hgb 13.9 (MAY 20) Hct 41.9 (MAY 20) Plt 190 (MAY 20) Na 139 (MAY 20) K 4.1 (MAY 20) CO2 H 32.3 (MAY 20) Cl 104 (MAY 20) Cr 1.0 (MAY 20) BUN 14 (MAY 20) Glucose Random 98 (MAY 20) Ca 9.0 (MAY 20) INR 1.0 (MAY 20) Objective Vital Signs (last 24 hrs) Last Charted Minimum__ Maximum Temp 36.5 (MAY 22 08:44) 36.5 (MAY 22 00:35) 36.7 (MAY 21 16:47)Heart Rate 63 (MAY 22 08:44) L 54 (MAY 22 05:36) 68 (MAY 21 16:47)Resp Rate 16 (MAY 22 08:44) 16 (MAY 21 16:47) 18 (MAY 22 00:35)SBP 112 (MAY 22 08:44) 104 (MAY 21 16:47) 119 (MAY 21 21:17)DBP 67 (MAY 22 08:44) 64 (MAY 21 16:47) 70 (MAY 22 05:36) General: Alert and oriented, No acute distress. Eye: Pupils are equal, round and reactive to light, Extraocular movements are intact, Normal conjunctiva. HENT: Normocephalic, Normal hearing, Oral mucosa is moist. Neck: Supple, Non-tender, No carotid bruit. Respiratory: Lungs are clear to auscultation, Respirations are non-labored, Breath sounds are equal. Cardiovascular: Normal rate, Regular rhythm, No murmur, No gallop, No edema. Musculoskeletal: Normal strength. Neurologic: Alert, Oriented, No focal deficits. Psychiatric: Cooperative, Appropriate mood & affect. Medications (24) ActiveScheduled: (11)CloniDINE 0.1MG TABLET 0.1 mg 1 tabs, ORAL, [id number] ACID 1MG TABLET 1 mg 1 tabs, ORAL, DAILYGABAPENTIN 300MG CAPSULE 300 mg 1 caps, ORAL, QIDMULTIPLE VITAMIN (THERAPUTIC) 1 tabs, ORAL, DAILYNICOTINE 21MG/24HR PATCH 21 mg, Transderm, DAILYNICOTINE PATCH OFF 1 patches, Transderm, DAILYNICOTINE PATCH SITE CHECK 1 patches, Transderm, [id number] PPD 1 EA, Topical, ONCEREAD PPD 1 EA, Topical, ONCESODIUM CHLORIDE SYR/VIAL 10ML 3 mL, IV Push, [id number] (VIT B1) 100MG TABLET 100 mg 1 tabs, ORAL, DAILYContinuous: (0)PRN: (13)ACETAMINOPHEN 325 MG TAB 650 mg 2 tabs, ORAL, [id number] SIMETHICONE 30 ML 30 mL, ORAL, [id number] 10MG SUPP 10 mg 1 supp, Rectal, ONCEDICYCLOMINE 10MG CAPSULE 20 mg 2 caps, ORAL, [id number] 50MG/SENNA 8.6MG TABLET 2 tabs, ORAL, DAILY WITH SUPPERHydrOXYzine LENNOX. 50MG CAPSULE 50 mg 1 caps, ORAL, [id number] 400MG TABLET 800 mg 2 tabs, ORAL, [id number] 2MG CAPSULE 4 mg 2 caps, ORAL, DAILYLOPERAMIDE 2MG CAPSULE 2 mg 1 caps, ORAL, EACH LOOSE STOOLMETHOCARBAMOL 750MG TABLET 750 mg 1 tabs, ORAL, [id number] 4MG ODT TABLET 4 mg 1 tabs, ORAL, R4RXEVVAAHNYX CHLORIDE SYR/VIAL 10ML 3 mL, IV Push, PRNTrazODONE 50MG TABLET 50 mg 1 tabs, ORAL, QHS/[id number] Plan No new acute problems. Continue current treatment opioid withdrawal and addiction patient is not suitable for outpatient opiate withdrawal treatment and will require close monitoring while in the hospital given the concern for potential adverse events. Avoid chlordiazepoxide and Suboxone. Patient is warned that once she has gone through the detox process, she has a risk of if she uses opoids again when the body is opoid naive.Gabapentin and clonidineacute hepatitis panel, PPD, hiv sent and patient informed and agreeable to testingGeneralized body crampingConsider Robaxin.Chronic hepatitis CPatient is aware of his medical condition and that he has not yet cleared the disease. He needs to follow-up with a electrotype finisher of his choosing once he is dischargedFollow up with iron worker needs viral loadDiarrheaContinue oral hydrationAnxiety Will add gabapentin and hydroxyzine.Nausea, vomiting. P.r.n. Zofran.Nicotine dependence Will put nicotine patch, if patient requests. SCD's placed Normal [facility] BreakThru Progress Noteon INR Coag RelTime (Bld) New patient Male 46 in room 245 for Opiate Withdrawal. History of withdrawals. Polysubstance use. OARRS 190. COWS 15 Daily IV use by history 2-3 grams daily but recently reduced to 1/2 gram daily. Last use 05/19/2017 at 1300. Current symptoms include diarrhia, nausea, anxiety, BP 90, bone -joint aches, runny nose. Comorbid Hep C untreated. Smoked a joint to manage withdrawal this morning. Loss of 60 lbs in the last year. Discharge [facility] IOP MAT Vivitrol.This was meant as a progress note [facility] BreakThru Progress Note Patient resting and did not want to talk. He said the medical team was responding to his symptoms. Normal [facility] Progress Note-Physicianon Progress Note-Physician Patient: ADDISON GRULLON Age: 46 years Sex: Male : 1970 Associated Diagnoses: None Author: LAURITA DIGGS MD Subjective -Patient seen and examined. No acute events Health Status Allergies: Allergies (1) Active ReactionNo Known Allergies None Documented Results Review Labs (Last four charted values)WBC 7.2 (MAY 20) Hgb 13.9 (MAY 20) Hct 41.9 (MAY 20) Plt 190 (MAY 20) Na 139 (MAY 20) K 4.1 (MAY 20) CO2 H 32.3 (MAY 20) Cl 104 (MAY 20) Cr 1.0 (MAY 20) BUN 14 (MAY 20) Glucose Random 98 (MAY 20) Ca 9.0 (MAY 20) INR 1.0 (MAY 20) Objective Vital Signs (last 24 hrs) Last Charted Minimum__ Maximum Temp 36.3 (MAY 21 08:51) 36.3 (MAY 21 08:51) 36.7 (MAY 20 15:00)Heart Rate 62 (MAY 21 08:51) L 59 (MAY 21 00:54) 70 (MAY 20 15:00)Resp Rate 16 (MAY 21 08:51) 16 (MAY 20 15:00) 18 (MAY 20 20:13)SBP 118 (MAY 21 08:51) 105 (MAY 21 00:54) 128 (MAY 21 05:10)DBP 73 (MAY 21 08:51) 67 (MAY 21 00:54) 75 (MAY 21 05:10)Weight 84 (MAY 20 15:44)Height 187.96 (MAY 20 15:44)BMI 23.78 (MAY 20 15:44) General: Alert and oriented, No acute distress. Eye: Pupils are equal, round and reactive to light, Extraocular movements are intact, Normal conjunctiva. HENT: Normocephalic, Normal hearing, Oral mucosa is moist. Neck: Supple, Non-tender, No carotid bruit. Respiratory: Lungs are clear to auscultation, Respirations are non-labored, Breath sounds are equal. Cardiovascular: Normal rate, Regular rhythm, No murmur, No gallop, No edema. Musculoskeletal: Normal strength. Neurologic: Alert, Oriented, No focal deficits. Psychiatric: Cooperative, Appropriate mood & affect. Medications (24) ActiveScheduled: (11)CloniDINE 0.1MG TABLET 0.1 mg 1 tabs, ORAL, [id number] ACID 1MG TABLET 1 mg 1 tabs, ORAL, DAILYGABAPENTIN 300MG CAPSULE 300 mg 1 caps, ORAL, QIDMULTIPLE VITAMIN (THERAPUTIC) 1 tabs, ORAL, DAILYNICOTINE 21MG/24HR PATCH 21 mg, Transderm, DAILYNICOTINE PATCH OFF 1 patches, Transderm, DAILYNICOTINE PATCH SITE CHECK 1 patches, Transderm, [id number] PPD 1 EA, Topical, ONCEREAD PPD 1 EA, Topical, ONCESODIUM CHLORIDE SYR/VIAL 10ML 3 mL, IV Push, [id number] (VIT B1) 100MG TABLET 100 mg 1 tabs, ORAL, DAILYContinuous: (0)PRN: (13)ACETAMINOPHEN 325 MG TAB 650 mg 2 tabs, ORAL, [id number] SIMETHICONE 30 ML 30 mL, ORAL, [id number] 10MG SUPP 10 mg 1 supp, Rectal, ONCEDICYCLOMINE 10MG CAPSULE 20 mg 2 caps, ORAL, [id number] 50MG/SENNA 8.6MG TABLET 2 tabs, ORAL, DAILY WITH SUPPERHydrOXYzine LENNOX. 50MG CAPSULE 50 mg 1 caps, ORAL, [id number] 400MG TABLET 800 mg 2 tabs, ORAL, [id number] 2MG CAPSULE 4 mg 2 caps, ORAL, DAILYLOPERAMIDE 2MG CAPSULE 2 mg 1 caps, ORAL, EACH LOOSE STOOLMETHOCARBAMOL 750MG TABLET 750 mg 1 tabs, ORAL, [id number] 4MG ODT TABLET 4 mg 1 tabs, ORAL, [id number] CHLORIDE SYR/VIAL 10ML 3 mL, IV Push, PRNTrazODONE 50MG TABLET 50 mg 1 tabs, ORAL, QHS/EIQLQZDYHB6UOTC Plan Symptoms are well managed with current treatment protocolopioid withdrawal and addiction patient is not suitable for outpatient opiate withdrawal treatment and will require close monitoring while in the hospital given the concern for potential adverse events. Avoid chlordiazepoxide and Suboxone. Patient is warned that once she has gone through the detox process, she has a risk of if she uses opoids again when the body is opoid naive.Gabapentin and clonidineacute hepatitis panel, PPD, hiv sent and patient informed and agreeable to testingGeneralized body crampingConsider Robaxin.Chronic hepatitis CPatient is aware of his medical condition and that he has not yet cleared the disease. He needs to follow-up with a electrotype finisher of his choosing once he is dischargedFollow up with iron worker needs viral loadDiarrheaContinue oral hydrationAnxiety Will add gabapentin and hydroxyzine.Nausea, vomiting. P.r.n. Zofran.Nicotine dependence Will put nicotine patch, if patient requests. SCD's placed [facility] U DOAon 05-21-2017 Amphetamines, U Negative [facility] Comment on above: Order Comment: on ad mission Result Comment: Urin e for Drugs of Abuse tests (U Amphetamines, U Barbituates, U PCP, U Benzodiazepines, U Cocaine, U THC, U Opiates & U Ecstasy)provide preliminary test results only. A more specific alternate method must be used in order to obtain a confirmed analytical result. Gas chromatography/mass spectrometry is the preferred confirmatory method. Clinical consideration and professional judgment should be applied to any drug of abuse test result, particularly when preliminary positive results are used.Urine for Drugs of Abuse [place] Levels:Barbiturate 200 ng/ml PCP 25 ng/ml Cocaine 300 ng/ml Opiates 2000 ng/ml Amphetamines 1000 ng/ml Benzodiazepines 200 ng/ml THC 50 ng/ml EXTC 500 ng/ml Performed By: #### 1 [id number] ####[facility] Ftrfwplj35797 [place] [address] Medical Director: Zachary Niño MD Barbituates, U Negative [facility] Comment on above: Order Comment: on ad mission Performed By: #### 1 23769 ####[facility] Podigtip15301 [place] [address] Medical Director: Zachary Niño MD Benzodiazepines, U Positive Normal [facility] Comment on above: Order Comment: on ad mission Performed By: #### 1 62316 ####[facility] Ajqfxweq92436 [place] [address] Medical Director: Zachary Niño MD Cocaine, U Positive Normal [facility] Comment on above: Order Comment: on ad mission Performed By: #### 1 65963 ####[facility] Ixwlcixc38966 [place] [address] Medical Director: Zachary Niño MD Ecstasy, Negative [facility] Comment on above: Order Comment: on ad mission Performed By: #### 1 89490 ####[facility] Mghmsaba74637 [place] [address] Medical Director: Zachary Niño MD Opiates, U Positive [facility] Comment on above: Order Comment: on ad mission Performed By: #### 1 85402 ####[facility] Mvoraiwb19025 [place] [address] Medical Director: Zachary Niño MD PCP, Negative [facility] Comment on above: Order Comment: on ad mission Performed By: #### 1 54356 ####[facility] Tbcouvdq88837 [place] [address] Medical Director: Zachary Niño MD THC, U Positive [facility] Comment on above: Order Comment: on ad mission Performed By: #### 1 62283 ####[facility] Xsadgqqr75280 [place] [address] Medical Director: Zachary Niño MD AMYon 05-20-2017 Amylase 71 unit/L Normal 25-115 [facility] Comment on above: Order Comment: on ad mission Performed By: #### 1 65835, 625756, 206260, 226812, 051272 ####[facility] Rggbedrn44492 [place] [address] Medical Director: MD Larissa FrazierThruoalla 05-20-2017 INR Coag RelTime (Bld) New patient Male 46 in room 245 for Opiate Withdrawal. History of withdrawals. Polysubstance use. OARRS 190. COWS 15 Daily IV use by history 2-3 grams daily but recently reduced to 1/2 gram daily. Last use 05/19/2017 at 1300. Current symptoms include diarrhia, nausea, anxiety, BP 90, bone -joint aches, runny nose. Comorbid Hep C untreated. Smoked a joint to manage withdrawal this morning. Loss of 60 lbs in the last year. Discharge [facility] Vivitrol. Normal [facility] CBCNDon 05-20-2017 Erythrocyte distribution width Auto Ratio (RBC) 14.9 % High 11.5-14.5 [facility] Comment on above: Order Comment: on ad mission Performed By: #### 1 40050, 832706, 571436, 686039, 815160 ####[facility] Iquixlex95814 [place] [id number] Medical Director: Zachary Niño MD Erythrocytes (RBC) 4.96 x10 Normal 4.70-6.10 [facility] Comment on above: Order Comment: on ad mission Result Comment: Note : RBC morphology is normal unless otherwise stated. Evaluation performed only if differential is requested. Performed By: #### 1 47229, 985139, 955772, 929534, 707524 ####[facility] Mihwhnvb63545 [place] [id number] Medical Director: Zachary Niño MD Hematocrit (HCT) 41.9 % Normal 41.0-52.0 [facility] Comment on above: Order Comment: on ad mission Performed By: #### 1 61339, 029472, 964101, 191828, 706251 ####[facility] Rmiqyqyi10631 [place] [id number] Medical Director: Zachary Niño MD Hemoglobin mass conc (Bld) 13.9 g/dL Normal 13.5-17.5 [facility] Comment on above: Order Comment: on ad mission Performed By: #### 1 64740, 824153, 806855, 111636, 336519 ####[facility] Samqwujd20490 [place], [place] [id number]) [phone] Director: Zachary Niño MD MCH 28.0 pg Normal 27.0-34.0 [facility] Comment on above: Order Comment: on ad mission Performed By: #### 1 55918, 968095, 587961, 995655, 832322 ####[facility] Ofohhfix38958 [place] [address] Medical Director: Zachary Niño MD MCHC mass conc (RBC) 33.1 g/dL Normal 32.0-37.0 [facility] Comment on above: Order Comment: on ad mission Performed By: #### 1 09980, 983541, 965509, 319584, 155579 ####[facility] Btnkmwpf19335 [place], [place] [id number]) [phone] Director: Zachary Niño MD MCV 84.5 fL Normal 80.0-100.0 [facility] Comment on above: Order Comment: on ad mission Performed By: #### 1 49012, 636352, 216642, 313152, 400422 ####[facility] Hzuphpdw38899 [place] [address] Medical Director: Zachary Niño MD Platelet mean volume (PMV) 8.8 fL Normal 7.4-10.4 [facility] Comment on above: Order Comment: on ad mission Performed By: #### 1 17919, 551293, 977481, 538503, 655135 ####[facility] Sjvkolug19768 [place], [place] [id number]) [phone] Director: Zachary Niño MD Platelets 190 x1000 Normal 150-450 [facility] Comment on above: Order Comment: on ad mission Performed By: #### 1 24333, 845925, 760056, 224189, 283278 ####[facility] Slcxucbw36101 [place] [address] Medical Director: Zachary Niño MD WBC (Leukocytes) 7.2 10*3/uL Normal [facility] Comment on above: Order Comment: on ad mission Performed By: #### 1 06506, 398609, 318958, 266431, 845704 ####[facility] Xmlgaakj01491 [place] [address] Medical Director: Zachary Niño MD WBC (Leukocytes) 7.2 x10 Normal 4.5-11.0 [facility] Comment on above: Order Comment: on ad mission Performed By: #### 1 27939, 070237, 557221, 692350, 803554 ####[facility] Hgsparth86437 [place] [address] Medical Director: Zachary Niño MD COMPMETAon 05-20-2017 Albumin/Globulin Ratio 0.8 {ratio} Normal [facility] Comment on above: Order Comment: on ad mission Performed By: #### 1 27686, 163798, 268641, 950178, 440618 ####[facility] Gckuqynm89759 [place] [address] Medical Director: Zachary Niño MD BUN/Creatinine Ratio 14.2 mg/mg Normal [facility] Comment on above: Order Comment: on ad mission Performed By: #### 1 49718, 017259, 639515, 353545, 400270 ####[facility] Gojsngok16862 [place] [address] Medical Director: Zachary Niño MD eGFR (non-black) mL/min/{1.73_m2} Normal [facility] Comment on above: Order Comment: on ad mission Result Comment: Afri can Mongolian GFR Calc Performed By: #### 1 09341, 365823, 646369, 352039, 064924 ####[facility] Eiwiexgd09266 [place], [place] [id number]) [phone] Director: Zachary Niño MD Result Comment: Non GFR CalcMedical judgement is necessary to interpret GFR. The calculated GFR may not accurately reflect renal status in patients >70 years, women, acutely ill hospitalized patients and patients with acute renal failure or known renal disease.Note:Creatinine clearance (not GFR) should be used for drug dosing. Osmolality 278 mOsm/kg Normal 275-295 [facility] Comment on above: Order Comment: on ad mission Performed By: #### 1 30835, 694544, 426046, 699322, 885376 ####[facility] Eckodqbm17356 [place] [address] Medical Director: Zachary Niño MD Albumin 3.3 g/dL Low 3.4-5.0 [facility] Comment on above: Order Comment: on ad mission Performed By: #### 1 67793, 216563, 536598, 818858, 591076 ####[facility] Rtmuhsuk33038 [place] [address] Medical Director: Zachary Niño MD Alk Phos 96 unit/L Normal 45-117 [facility] Comment on above: Order Comment: on ad mission Performed By: #### 1 85957, 816889, 502614, 201906, 707510 ####[facility] Qlwjfijc81734 [place] [address] Medical Director: Zachary Niño MD Bilirubin (total) 0.35 mg/dL Normal 0.20-1.00 [facility] Comment on above: Order Comment: on ad mission Performed By: #### 1 68451, 552116, 044577, 093919, 604078 ####[facility] Juzelskk31003 [place] [address] Medical Director: Zachary Niño MD Calcium 9.0 mg/dL Normal 8.5-10.5 [facility] Comment on above: Order Comment: on ad mission Performed By: #### 1 85118, 720908, 277644, 460061, 209356 ####[facility] Owzoclgx57971 [place] [address] Medical Director: Zachary Niño MD Chloride 104 mmol/L Normal 100-109 [facility] Comment on above: Order Comment: on ad mission Performed By: #### 1 09262, 751069, 806352, 208273, 733454 ####[facility] Dfybdzmu63034 [place] [address] Medical Director: Zachary Niño MD CO2 32.3 mmol/L High 21.0-32.0 [facility] Comment on above: Order Comment: on ad mission Performed By: #### 1 68272, 646872, 904225, 104854, 668190 ####[facility] Fqbwpxbh97264 [place] [address] Medical Director: Zachary Niño MD Creatinine 1.0 mg/dL Normal 0.7-1.3 [facility] Comment on above: Order Comment: on ad mission Performed By: #### 1 35766, 389867, 287656, 960004, 251634 ####[facility] Clstoabd64412 [place] [address] Medical Director: Zachary Niño MD Globulin 3.9 g/dL Normal [facility] Comment on above: Order Comment: on ad mission Performed By: #### 1 24024, 782170, 992970, 936224, 627411 ####[facility] Vliojqnr85868 [place] [address] Medical Director: Zachary Niño MD Glucose mass conc 98 mg/dL Normal 72-100 [facility] Comment on above: Order Comment: on ad mission Result Comment: Karlene puncture should occur prior to sulfasalazine administration due to the potential for falsely depressed results. Venipuncture should occur prior to sulfapyridine administration due to the potential falsely elevated results.Baseline assay values before administration of sulfasalazine and sulfapyridine therapy would not be affected. Performed By: #### 1 14263, 242485, 045981, 486440, 117923 ####[facility] Vhudpnku04491 [place] [address] Medical Director: Zachary Niño MD GOT 22 unit/L Normal 15-37 [facility] Comment on above: Order Comment: on ad mission Result Comment: Karlene puncture should occur prior to sulfasalazine and/or sulfapyridine administration due to the potential for falsely depressed results.Baseline assay values before administration of sulfasalazine and sulfapyridine therapy would not be affected. Performed By: #### 1 79347, 701227, 600581, 121090, 317834 ####[facility] Yadusfvd96332 [place] [address] Medical Director: Zachary Niño MD GPT 22 unit/L Normal 16-61 [facility] Comment on above: Order Comment: on ad mission Result Comment: Karlene puncture should occur prior to sulfasalazine and/or sulfapyridine administration due to the potential for falsely depressed results.Baseline assay values before administration of sulfasalazine and sulfapyridine therapy would not be affected. Performed By: #### 1 62297, 817970, 665179, 178191, 991075 ####[facility] Slycdjro71139 [place] [address] Medical Director: Zachary Niño MD Potassium molar conc 4.1 mmol/L Normal 3.5-5.1 [facility] Comment on above: Order Comment: on ad mission Performed By: #### 1 43110, 908023, 359046, 002132, 558284 ####[facility] Itltavbj20843 [place] [address] Medical Director: Zachary Niño MD Protein 7.2 g/dL Normal 6.0-8.5 [facility] Comment on above: Order Comment: on ad mission Performed By: #### 1 02727, 671285, 390366, 578776, 557077 ####[facility] Qdtxlrmw49584 [place] [address] Medical Director: Zachary Niño MD Sodium 139 mmol/L Normal 135-145 [facility] Comment on above: Order Comment: on ad mission Performed By: #### 1 10987, 569479, 928201, 885988, 998353 ####[facility] Bkmrpnws52316 [place] [address] Medical Director: Zachary Niño MD Urea nitrogen 14 mg/dL Normal 10-20 [facility] Comment on above: Order Comment: on ad mission Performed By: #### 1 66098, 760221, 529757, 759480, 422174 ####[facility] Fovivszj30923 [place] [address] Medical Director: Zachary Niño MD HEP ACUTEon 05-20-2017 Hepatitis A Antibody, IgM Nonreactive Normal [facility] Comment on above: Result Comment: High levels of serum biotin may interfere with this test. Performed By: #### 3 792768 ####[facility] Dteoyanz99532 [place] [address] Medical Director: Zachary Niño MD Hepatitis B Core Antibody, IgM Nonreactive Normal [facility] Comment on above: Result Comment: High levels of serum biotin may interfere with this test. Performed By: #### 3 960447 ####[facility] Lnwctlfu43111 [place] [address] Medical Director: Zachary Niño MD Hepatitis B Surface Antigen Nonreactive Normal [facility] Comment on above: Result Comment: High levels of serum biotin may interfere with this test. Performed By: #### 3 036439 ####[facility] Cbvidxnk58331 [place] [address] Medical Director: Zachary Niño MD Hepatitis C Antibody Reactive Abnormal [facility] Comment on above: Performed By: #### 3 741602 ####[facility] Whuacrsr41760 [place], [place] 0727230 Medical Director: Zachary Niño MD HIV 1O2on 05-20-2017 HIV Panel 1&2 Nonreactive Normal [facility] Comment on above: Performed By: #### 1 [id number] ####[facility] Wihlxjdr15229 [place] [address] Medical Director: Zachary Niño MD History and Physicalon 05-20 History and Physical Patient: ADDISON GRULLON Age: 46 years Sex: Male : 1970 Associated Diagnoses: None Author: POP BURROWS DO History of Present Illness 46-year-old male with no previous past medical history heroin abuse and chronic hepatitis C comes in for sweats and loose stool. Patient says that he does about a half a gram of heroine IV daily with the last use yesterday at 1 PM. Patient says that he decided that he needed to stop using heroin. He does have support at home. He plans on having vivitrol going to [facility] out [facility]. He admits to some watery stool as well as loose stool. he admits to generalized abdominal pain, sweats, increase thist, and anxiety. Review of Systems Constitutional: Admits to sweats. Denies weight lossHEENT: Denies sore throat or blurred vision or double vision. No headaches. Cardiovascular: No exertional chest pain, no palpitations, no lower extremity edema. No intermittent leg claudication. No syncopal episodes.Lungs: Denies shortness of breath, exertional dyspnea, wheezing.Gastrointestinal: Denies changes in bowel habits. . Denies melena, bright red blood per rectum, dark stool.Musculoskeletal: No myalgias, no muscle weakness. No limb swelling.Neurological: No headaches, seizures, numbness, or lateralizing deficits. No fainting.Psychiatric: No depression or anxiety. denies hematuria, dysuria, polyriaSkin: denies any skin rashes or skin lesions Health Status Allergies: Allergies (1) Active ReactionNo Known Allergies None Documented Current medications: No qualifying data available Problem list: Active Problems (1)At risk for falls Histories Family History: No family history items have been selected or recorded. Procedure history: No active procedure history items have been selected or recorded. Social History Social & Psychosocial HabitsSubstance Abuse05/20/2017 Use: Current Type: Heroin Frequency: BgbkaBznvsyk87/06/2018 Use: 10 or more cigarettes (1/ Type: Cigarettes. Physical Examination VS/Measurements Vital Signs (last 24 hrs) Last Charted Minimum__ Maximum Temp 36.7 (MAY 20 15:00) 36.7 (MAY 20 15:00) 36.7 (MAY 20 15:00)Heart Rate 70 (MAY 20 15:00) 70 (MAY 20 15:00) 70 (MAY 20 15:00)Resp Rate 16 (MAY 20 15:00) 16 (MAY 20 15:00) 16 (MAY 20 15:00)SBP 110 (MAY 20 15:00) 110 (MAY 20 15:00) 110 (MAY 20 15:00)DBP 71 (MAY 20 15:00) 71 (MAY 20 15:00) 71 (MAY 20 15:00)Weight 84 (MAY 20 15:44)Height 187.96 (MAY 20 15:44)BMI 23.78 (MAY 20 15:44) Gen. appearance: Alert and oriented in no acute distress. Speech is clear and coherent.HEENT: Sclera and conjunctiva white, PERRLA, EOMI, uvula midline, no mouth lesions. Moist mucous membranes.Neck: No carotid bruits, thyromegaly. No lymphadenopathyCardiovascul ar: Regular heart rate, S1-S2. No murmurs. No lower extremity edemaRespiratory: No increased work of breathing, normal respiratory rhythm and effort. Clear to auscultation bilaterally. No wheezing or rhonchi.Skin inspection: Normal skin color and pigmentation. Normal skin turgor. No visible rash induration or cellulitis.Muscle skeletal: 5/5 strength upper and lower extremities. No loss of muscle mass.Neuro: 2-12 CN grossly intact. No slurred speech no lateralizing deficits.Psychiatric orientation: Oriented to person place and time. No depression, homicidal or suicidal thoughts. Normal affect.Abdomen: Soft, nontender, nondistended. No organomegaly. Impression and Plan opioid withdrawal and addiction patient is not suitable for outpatient opiate withdrawal treatment and will require close monitoring while in the hospital given the concern for potential adverse events. Avoid chlordiazepoxide and Suboxone. Patient is warned that once she has gone through the detox process, she has a risk of if she uses opoids again when the body is opoid naive.Gabapentin and clonidineacute hepatitis panel, PPD, hiv sent and patient informed and agreeable to testingGeneralized body crampingConsider Robaxin.Chronic hepatitis CPatient is aware of his medical condition and that he has not yet cleared the disease. He needs to follow-up with a electrotype finisher of his choosing once he is dischargedDiarrheaContinue oral hydrationAnxiety Will add gabapentin and hydroxyzine.Nausea, vomiting. P.r.n. Zofran.Nicotine dependence Will put nicotine patch, if patient requests. SCD's placed lectronically Co-Signed by: Daphne BURROWS DO 05/20/2017 17:28 EDT Normal [facility] LIPon 05-20-2017 Lipase 110 unit/L Normal 73-393 [facility] Comment on above: Order Comment: on ad mission Performed By: #### 1 61668, 625519, 525327, 858720, 358658 ####[facility] [address]ox[address]h927[address] [place] [id number] Medical Director: Zachary Niño MD PT INRon 05-20-2017 INR Coag RelTime (PPP) 1.0 {INR} Normal [facility] Comment on above: Order Comment: on ad mission Result Comment: Norm al reference range for INR on patients not on anticoagulant therapy: 0.9-1.1. General therapeutic range for patients on anticoagulant therapy: 2.0-3.5. Performed By: #### 1 12643, 328078, 523070, 781710, 485972 ####[facility] Kqidrfla40294 [place] [address] Medical Director: Zachary Niño MD Protime Patient 11.0 seconds Normal 9.8-12.7 [facility] Comment on above: Order Comment: on ad mission Performed By: #### 1 17892, 398950, 153738, 254454, 798937 ####[facility] Ccizsrdj77897 [place] [address] Medical Director: Zachary Niño MD Discharge Summarieson 2016 HIM IP Note OR Encephalographer Normal [facility] Progress Noteson 01-15-2017 HIM IP Note OR Encephalographer Normal [facility] TROPONIN-Ion 01-15-2017 Troponin I.cardiac mass conc ng/mL Normal 0.000-0.033 [facility] Comment on above: Result Comment: Expe cted Value: <0.034 ng/mL Indeterminate Value: 0.034 - 0.119 ng/mL Suggest repeat testing in 1 hr and 2 hrs with further evaluation of patient for cardiac ischemic event. Diagnostic of AMI: >= 0.120 ng/mL. Performed By: #### 4 [id number] ####[facility] [address] [phone] Troponin I.cardiac mass conc ng/mL Normal 0.000-0.033 [facility] Comment on above: Result Comment: Expe cted Value: <0.034 ng/mL Indeterminate Value: 0.034 - 0.119 ng/mL Suggest repeat testing in 1 hr and 2 hrs with further evaluation of patient for cardiac ischemic event. Diagnostic of AMI: >= 0.120 ng/mL. Performed By: #### 4 [id number] ####[facility] [address] [phone] AMYLASEon 01-14-2017 Amylase 87 U/L Normal 30-110 [facility] Comment on above: Performed By: #### 4 [id number] ####[facility] [address] [phone] BLOOD CULTUREon 01-14-2017 Bacteria culture NO GROWTH--PRELIMINA RY REPORT. NO GROWTH--PRELIMINARY REPORT. NO GROWTH--PRELIMINARY REPORT. NO GROWTH--PRELIMINARY REPORT. NO GROWTH--FINAL REPORT. Normal [facility] Comment on above: Order Comment: Site: not specified Performed By: #### 4 [id number] ####[facility] [address] [phone] Bacteria culture NO GROWTH--PRELIMINA RY REPORT. NO GROWTH--PRELIMINARY REPORT. NO GROWTH--PRELIMINARY REPORT. NO GROWTH--PRELIMINARY REPORT. NO GROWTH--FINAL REPORT. Normal [facility] Comment on above: Order Comment: Site: left arm Performed By: #### 4 [id number] ####[facility] [address] [phone] CBC NO DIFFon 01-14-2017 Erythrocyte distribution width Auto Ratio (RBC) 14.7 % High 11.5-14.5 [facility] Comment on above: Performed By: #### 4 [id number] ####[facility] [address] [phone] Erythrocytes (RBC) 5.88 x10 6/uL High 3.80-5.80 [facility] Comment on above: Performed By: #### 4 [id number] ####[facility] [address] [phone] Hematocrit (HCT) 48.7 % Normal 37.7-49.7 [facility] Comment on above: Performed By: #### 4 [id number] ####[facility] [address] [phone] Hemoglobin mass conc (Bld) 16.6 g/dL Normal 12.8-16.8 [facility] Comment on above: Performed By: #### 4 [id number] ####[facility] [address] [phone] MCH 28.2 pg Normal 26.0-34.0 [facility] Comment on above: Performed By: #### 4 [id number] ####[facility] [address] [phone] MCHC mass conc (RBC) 34.1 g/dL Normal 31.0-36.5 [facility] Comment on above: Performed By: #### 4 [id number] ####[facility] [address] [phone] MCV 82.8 fL Low 83.0-103.0 [facility] Comment on above: Performed By: #### 4 [id number] ####[facility] [address] [phone] Platelets 235.0 x10 3/uL Normal 150.0-440.0 [facility] Comment on above: Performed By: #### 4 [id number] ####[facility] [address] [phone] WBC (Leukocytes) 12.8 x10 3/uL High 4.0-11.0 [facility] Comment on above: Performed By: #### 4 [id number] ####[facility] [address] [phone] ECGon 01-14-2017 ECG Stationary ECG Study Test Date: [id number] Name: ADDISON GRULLON Department: Room: 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1970 Requested By: Order Number: Reading MD: Harry Armenta MeasurementsIntervals Forbes Rate: 70 P: 82PR: 195 QRS: 62QRSD: 94 T: 56QT: 415 QTc: 436 Interpretive StatementsSINUS RHYTHMPOSSIBLE RIGHT ATRIAL ENLARGEMENT LEFT ATRIAL ABNORMALITYABNORMAL ECGElectronically Signed On 01-15-2017 7:05:58 EST by Harry [id number] Normal [facility] ETHANOL-SERUMon 01-14-2017 ETHANOL-SERUM <10 Normal NOT DETECTED [facility] Comment on above: Performed By: #### 4 [id number] ####[employer] [address] [phone] GFRon 01-14-2017 eGFR (MDRD) mL/min/{1.73_m2} Normal [facility] Comment on above: Result Comment: To e stimate the GFR for Americans, multiply the resultprovided by 1.21. Population mean GFR = 99 ml/min/1.73 sq.m. for ages 40-49 yrsFive stages of CKD and GFR for each stage:Stage 1 GFR >=90Stage 2 GFR 60-89Stage 3 GFR 30-59Stage 4 GFR 15-29Stage 5 GFR <15 Performed By: #### G FR1 ####[address] [phone] GLUCOSE-POCon 01-14-2017 Glucose mass conc 94 mg/dL Normal 65-100 [facility] Comment on above: Performed By: #### 4 [id number] ####[address] [phone] H and Adebayo 01-14-2017 HIM IP Note OR Encephalographer Normal [facility] LIPASEon 01-14-2017 Lipase 38 U/L Normal 23-300 [facility] Comment on above: Performed By: #### 4 [id number] ####[address] [phone] METABOLIC PANELon 01-14-2017 Alanine aminotransferase (ALT) 42 U/L Normal 21-72 [facility] Comment on above: Performed By: #### 4 [id number] ####[address] [phone] ALK PHOS 96 U/L Normal 24-126 [facility] Comment on above: Performed By: #### 4 [id number] ####[address] [phone] Aspartate aminotransferase (AST) 56 U/L High 3-55 [facility] Comment on above: Performed By: #### 4 [id number] ####[facility] [address] [phone] Calcium 9.7 mg/dL Normal 8.4-10.4 [facility] Comment on above: Performed By: #### 4 [id number] ####[facility] [address] [phone] Glucose mass conc 93 mg/dL Normal 65-100 [facility] Comment on above: Performed By: #### 4 [id number] ####[facility] [address] [phone] Urea nitrogen 18 mg/dL Normal 8-26 [facility] Comment on above: Performed By: #### 4 [id number] ####[facility] [address] [phone] Bilirubin Ql (U) 1.1 mg/dL Normal 0.2-1.6 [facility] Comment on above: Performed By: #### 4 [id number] ####[facility] [address] [phone] CO2 19 mmol/L Low 22-30 [facility] Comment on above: Performed By: #### 4 [id number] ####[facility] [address] [phone] Creatinine 0.83 mg/dL Normal 0.66-1.25 [facility] Comment on above: Performed By: #### 4 [id number] ####[facility] [address] [phone] Protein 9.3 g/dL High 6.3-8.2 [facility] Comment on above: Performed By: #### 4 [id number] ####[facility] [address] [phone] Chloride 103 mmol/L Normal 96-109 [facility] Comment on above: Performed By: #### 4 [id number] ####[employer] [facility] [address] [phone] Potassium molar conc 4.0 mmol/L Normal 3.6-5.1 [facility] Comment on above: Performed By: #### 4 [id number] ####[employer] [facility] [address] [phone] Sodium 137 mmol/L Normal 135-147 [facility] Comment on above: Performed By: #### 4 [id number] ####[employer] [address] [phone] Albumin 4.1 g/dL Normal 3.5-5.0 [facility] Comment on above: Performed By: #### 4 [id number] ####[employer] [address] [phone] PROCALCITONINon 01-14-2017 PROCALCITONIN 0.21 ng/mL High 0.00 - 0.07 [facility] Comment on above: Result Comment: Proc alcitonin Interpretation GuidelinesDiagnosis of Systemic Bacterial Infection/Sepsis/or Septic Shock<0.50 ng/mL: Low risk for sepsis; localized infection possible. Recommend retest within 6-24hrs.>0.50-2.0 ng/mL: Sepsis is possible. Interpret in context of clinical condition of the patient. Recommend retest within 6-24hrs.>2.0 ng/mL: High risk for sepsis and /or septic shock.>10.0 ng/mL: Severe sepsis or septic shock.Diagnosis of Lower Respiratory Tract Infection (LRTI)and Antibiotic Therapy Recommendation<0.10 ng/mL: Bacterial infection very unlikely. Antibiotics strongly discouraged.0.10-0.25 ng/mL: Bacterial infection unlikely. Antibiotics discouraged.0.26-0.50 ng/mL: Bacterial infection likely. Antibiotics encouraged.>0.51 ng /mL: Bacterial infection very likely. Antibiotics strongly encouraged. Performed By: #### 3 [id number] ####[employer] [address] [phone] PTon 01-14-2017 INR Coag RelTime (PPP) 1.11 {INR} Normal 0.89-1.17 [facility] Comment on above: Performed By: #### 4 [id number] ####[employer] [address] [phone] Prothrombin time (PT) Coag time (PPP) 11.5 s Normal 9.1-11.9 [facility] Comment on above: Performed By: #### 4 [id number] ####[address] [phone] TROPONIN-Ion 01-14-2017 Troponin I.cardiac mass conc ng/mL Normal 0.000-0.033 [facility] Comment on above: Result Comment: Expe cted Value: <0.034 ng/mL Indeterminate Value: 0.034 - 0.119 ng/mL Suggest repeat testing in 1 hr and 2 hrs with further evaluation of patient for cardiac ischemic event. Diagnostic of AMI: >= 0.120 ng/mL. Performed By: #### 4 [id number] ####[address] [phone] UR DRUG SCREEN-7 PANELon PCP NOT DETECTED Normal CUTOFF <25 [facility] Comment on above: Performed By: #### 4 [id number] ####[address] [phone] COCAINE/BE NOT DETECTED Normal CUTOFF <300 [facility] Comment on above: Performed By: #### 4 [id number] ####[address] [phone] MARIJUANA/THC Positive Abnormal CUTOFF <50 [facility] Comment on above: Performed By: #### 4 [id number] ####[address] [phone] Urine, opiates presence NOT DETECTED Normal CUTOFF <300 [facility] Comment on above: Performed By: #### 4 [id number] ####[address] [phone] AMPHETAMINES/METH NOT DETECTED Normal CUTOFF <1000 [facility] Comment on above: Performed By: #### 4 [id number] ####[address] [phone] BARBITURATE NOT DETECTED Normal CUTOFF <200 [facility] Comment on above: Performed By: #### 4 [id number] ####[facility] [address] [phone] BENZODIAZEPINE Positive Abnormal CUTOFF <200 [facility] Comment on above: Performed By: #### 4 [id number] ####[address] [phone] TOX MESSAGE see below Normal [facility] Comment on above: Result Comment: Note s: 1. SCREENING RESULTS SHOULD BE CONSIDERED PRESUMPTIVE UNLESS THE PRESENCE OF THE ANALYTE HAS BEEN CONFIRMED BY A REFERENCE LAB. 2. ALL DRUG GROUPS ARE ANALYZED ON URINE. Performed By: #### 4 [id number] ####[address] [phone] URINALYSIS-NO CULTUREon 12-0 Bilirubin Ql (U) Negative Normal Negative [facility] Comment on above: Performed By: #### 4 [id number] ####[address] [phone] CELLULAR CAST 3 /LPF Normal [facility] Comment on above: Performed By: #### 4 [id number] ####[address] [phone] HYALINE CAST 2 /LPF Normal [facility] Comment on above: Performed By: #### 4 [id number] ####[address] [phone] LEUKOESTERASE Negative Normal Negative [facility] Comment on above: Performed By: #### 4 [id number] ####[address] [phone] MUCOUS-URINE Many Normal [facility] Comment on above: Performed By: #### 4 [id number] ####[address] [phone] OCCULT BLOOD Negative Normal Negative [facility] Comment on above: Performed By: #### 4 [id number] ####[address] [phone] SQUAMOUS EPI CELLS 3 /LPF Normal [facility] Comment on above: Performed By: #### 4 [id number] ####[facility] [address] [phone] Urine, appearance Cloudy Normal [facility] Comment on above: Performed By: #### 4 [id number] ####[facility] [address] [phone] Urine, color Abimbola Normal [facility] Comment on above: Performed By: #### 4 [id number] ####[facility] [address] [phone] Urine, erythrocytes in sediment by area 1 /[HPF] Normal 0-5 [facility] Comment on above: Performed By: #### 4 [id number] ####[facility] [address] [phone] Urine, glucose presence Negative Normal Negative [facility] Comment on above: Performed By: #### 4 [id number] ####[facility] [address] [phone] Urine, ketones presence Trace Abnormal Negative [facility] Comment on above: Performed By: #### 4 [id number] ####[facility] [address] [phone] Urine, leukocytes in sedmiment 6 /[HPF] High 0-5 [facility] Comment on above: Performed By: #### 4 [id number] ####[facility] [address] [phone] Urine, nitrite presence Negative Normal Negative [facility] Comment on above: Performed By: #### 4 [id number] ####[facility] [address] [phone] Urine, pH 5.0 [pH] Normal [facility] Comment on above: Performed By: #### 4 [id number] ####[facility] [address] [phone] Urine, protein presence 30 mg/dL Abnormal Negative [facility] Comment on above: Performed By: #### 4 [id number] ####[employer] [employer] [id number] [place], [place] [phone] Urine, specific gravity 1.029 Normal 1.003-1.029 [facility] Comment on above: Performed By: #### 4 [id number] ####[employer] [id number] [place] [address] [phone] Urine, urobilinogen 2.0 mg/dL Normal <2.0 [facility] Comment on above: Performed By: #### 4 [id number] ####[employer] [facility] [address] [phone] URINE SOURCE Not Specified Normal [facility] Comment on above: Performed By: #### 4 [id number] ####[employer] [address] [phone] XR CHEST 1 VIEWon 01-14-2017 XR CHEST 1 VIEW EXAMINATION:SINGLE V IEW OF THE CHEST01/14/2017 3:48 pmCOMPARISON:None.HISTORY:C hest painFINDINGS:Cardiomediasti nal silhouette is normal. Pulmonary vasculature is normal. Nolarge pleural effusion is identified. There is mild infiltrates in the rightupper lobe peripherally.IMPRESSION:Mil d right upper lobe infiltrates may represent pneumonia. Recommendshort-term follow-up in 6 weeks after treatment to ensure resolution. Normal [facility] DDI VIBRATION CONTROLLED TRA NSIENT ELASTOGRAPHY (VCTE) [facility] Vital Signs Date Time Vital Sign Value Performing Clinician Faci lity 09-20-2024 09:22-0400 Diastolic blood pressure 64 mm[Hg] Italo Pickett MD Work Phone: [facility] 09-20-2024 09:22-0400 Systolic blood pressure 128 mm[Hg] Italo Pickett MD Work Phone: [facility] 09-20-2024 07:35-0400 Body temperature 98.2 [degF] [facility] 09-20-2024 07:35-0400 Heart rate 68 /min Italo Pickett MD Work Phone: [facility] 09-20-2024 07:35-0400 Respiratory rate 18 /min Italo Pickett MD Work Phone: [facility] 09-20-2024 07:35-0400 SaO2% (BldA) [Mass fraction] 99 % Italo Pickett MD Work Phone: [facility] 09-20-2024 05:45-0400 Body mass index (BMI) [Ratio] 29.15 kg/m2 Italo Pickett MD Work Phone: [facility] 09-20-2024 05:45-0400 Body weight 103 kg Italo Pickett MD Work Phone: [facility] 09-18-2024 09:45-0400 Body height 188 cm Italo Pickett MD Work Phone: [facility] 05-31-2022 13:17-0400 Body height 188 cm Gil Gil DO Work Phone: [facility] 05-31-2022 13:17-0400 Heart rate 87 /min Gil Gil DO Work Phone: [facility] 05-31-2022 13:17-0400 SaO2% (BldA) [Mass fraction] 98 % Gil Gil DO Work Phone: [facility] 04-14-2022 11:07-0500 Diastolic blood pressure 78 mm[Hg] Mary Lou-Niko Blount DO Work Phone: [facility] 04-14-2022 11:07-0500 Heart rate 67 /min Mary Lou-Niko Blount DO Work Phone: [facility] 04-14-2022 11:07-0500 Respiratory rate 16 /min Mary Lou-Niko Blount DO Work Phone: [facility] 04-14-2022 11:07-0500 SaO2% (BldA) [Mass fraction] 98 % Mary Lou-Niko Blount DO Work Phone: [facility] 04-14-2022 11:07-0500 Systolic blood pressure 126 mm[Hg] Mary Lou-Niko Blount DO Work Phone: [facility] 04-14-2022 10:37-0500 Body temperature 97.7 [degF] Mary Lou-Niko Blount DO Work Phone: [facility] 04-14-2022 10:03-0500 Body height 188 cm Mary Lou-Niko Blount DO Work Phone: [facility] 04-14-2022 10:03-0500 Body weight 101.61 kg Mary Lou-Niko Blount DO Work Phone: [facility] 04-05-2022 08:24-0500 Body height 188 cm Pacc 2 Work Phone: [facility] 04-05-2022 08:24-0500 Body temperature 98.1 [degF] Pacc 2 Work Phone: [facility] 04-05-2022 08:24-0500 Body weight 101.61 kg Pacc 2 Work Phone: [facility] 04-05-2022 08:24-0500 Diastolic blood pressure 67 mm[Hg] Pacc 2 Work Phone: [facility] 04-05-2022 08:24-0500 Heart rate 86 /min Pacc 2 Work Phone: [facility] 04-05-2022 08:24-0500 Respiratory rate 16 /min Pacc 2 Work Phone: [facility] 04-05-2022 08:24-0500 SaO2% (BldA) [Mass fraction] 98 % Pacc 2 Work Phone: [facility] 04-05-2022 08:24-0500 Systolic blood pressure 119 mm[Hg] Pacc 2 Work Phone: [facility] 03-05-2022 13:24-0500 Body height 188 cm Neeru Elizondo PA-C Work Phone: [facility] 03-05-2022 13:24-0500 Body temperature 97.9 [degF] Neeru [place] PA-C Work Phone: [facility] 03-05-2022 13:24-0500 Body weight 101.7 kg Neeru Caro PA-C Work Phone: [facility] 03-05-2022 13:24-0500 Diastolic blood pressure 84 mm[Hg] Neeru Caro PA-C Work Phone: [facility] 03-05-2022 13:24-0500 Heart rate 92 /min Neeru [place] PA-C Work Phone: [facility] 03-05-2022 13:24-0500 SaO2% (BldA) [Mass fraction] 95 % Neeru Caro PA-C Work Phone: [facility] 03-05-2022 13:24-0500 Systolic blood pressure 137 mm[Hg] Neeru [place] PA-C Work Phone: [facility] Encounters Encounter Date Encounter Type Care Provider Facility Start: 12-20-2024 ambulatory Jenn Shyam [facility] Start: 09-17-2024 End: 09-20-2024 ambulatory [facility] Start: 09-17-2024 End: 09-20-2024 Evaluation and management of inpatient Italo Pickett MD Work Phone: [facility] Observation Unit Comment on above: Accidental overdose of heroin, initial encounter (HCC) (Primary Dx); Opiate withdrawal (HCC) Start: 02-10-2024 End: 02-10-2024 Emergency department patient visit Yamil Swan Facility:[facility] Start: 11-04-2023 End: 11-04-2023 ambulatory Lyn Dumont Facility:[facility] Tia mora Start: 11-04-2023 ambulatory James Yi Facility: [facility] Margaret Start: 10-30-2023 End: 10-30-2023 Emergency department patient visit Yamil Swan Facility:[facility] Start: 10-29-2023 End: 10-29-2023 Emergency department patient visit James MckayDirk Kd Facility:[facility] Start: 11-30-2022 End: 11-30-2022 ambulatory NEERU ELIZONDO Facility:[facility] Start: 11-29-2022 End: 11-29-2022 ambulatory PA-C NEERU ELIZONDO Facility:[facility] Start: 11-03-2022 End: 11-04-2022 ambulatory RUDY R GALVAN III Facility:[facility] Start: 10-13-2022 Telephone encounter Neeru wright PA-C Work Phone: Gastroenterology Comment on above: Patient Update Start: 06-24-2022 Telephone encounter Nicole spangler DO Work Phone: [facility] [place] Comment on above: Roll Hand - Daniel simms (Signed physical therapy orders faxed to [facility] with confirmation); Orders Start: 06-09-2022 End: 06-09-2022 ambulatory Nicole Polanco DO Work Phone: [facility] [place] Comment on above: Femoroacetabular imp ingement of right hip (Primary Dx); Radiculopathy, lumbar region Start: 06-09-2022 End: 06-09-2022 Telemedicine consultation with patient Nicole Polanco DO Work Phone: [place] [phone] Start: 05-31-2022 ambulatory GIL Lisbet CORDERO Facilit y:[facility] Start: 05-31-2022 End: 05-31-2022 Unlisted evaluation and management service Gil Lisbet Cordero DO Work Phone: Pain Management Comment on above: Patient left without being seen (Primary Dx) Start: 05-17-2022 Specialty Pharmacy Amy jonas [facility] Work Phone: [facility] Comment on above: SPP Hepatology - Med ication Refill (Mavyret final fill ) Start: 05-11-2022 Telephone encounter Neeru wright PA-C Work Phone: Gastroenterology Comment on above: Patient Update Start: 04-29-2022 Orders Only Neeru Elizondo PA -C Work Phone: Gastroenterology Comment on above: Chronic hepatitis C without hepatic coma (HCC) (Primary Dx) Patient Update Start: 04-19-2022 Telephone encounter Leslie Blount DO Work Phone: [facility] Adult Comment on above: Results Start: 04-14-2022 ambulatory NEERU ELIZONDO Facility:[facility] Start: 04-14-2022 End: 04-14-2022 Subsequent hospital visit by physician Leslie Blount DO Work Phone: Procedures Comment on above: Nausea [R11.0] Start: 04-09-2022 ambulatory Amy Mendoza [facility] Work Phone: [facility] Start: 04-09-2022 Patient encounter procedure Amy Mendoza [facility] Work Phone: [facility] Specialty Pharm[facility] Comment on above: SPP Hepatology - Juan Carlos atment Referral (Mavyret) Start: 04-08-2022 Orders Only Neeru Lockhart Work Phone: Gastroenterology Comment on above: Chronic hepatitis C without hepatic coma (HCC) (Primary Dx) Results Start: 04-06-2022 Telephone encounter Leslie Blount DO Work Phone: General Surgery Comment on above: EGD Prep Start: 04-05-2022 End: 04-06-2022 ambulatory NEERU ELIZONDO Facility:[facility] Start: 04-05-2022 Encounter for other preprocedural examination NEERU ELIZONDO [facility] Start: 04-05-2022 End: 04-05-2022 PAT Pacc Leonard 2 Work Phone: Pre Anesthesia Comment on above: Pre-op evaluation (P rimary Dx); Tobacco abuse disorder; Chronic hepatitis C without hepatic coma (HCC); History of opioid abuse (HCC) Start: 04-05-2022 End: 04-05-2022 Preprocedural examination done Pacc Leonard 2 Work Phone: Pre Anesthesia Start: 03-08-2022 Telephone encounter Neeru wright PA-C Work Phone: Gastroenterology Comment on above: Appointment Start: 03-05-2022 End: 03-05-2022 ambulatory NEERU ELIZONDO Facility:[facility] Start: 03-05-2022 Telephone encounter Neeru wright PA-C Work Phone: Gastroenterology Comment on above: Results Start: 03-05-2022 End: 03-05-2022 Patient encounter procedure Neeru Elizondo PA-C Work Phone: Gastroenterology Comment on above: Chronic hepatitis C without hepatic coma (HCC) (Primary Dx); Nausea; Decreased appetite Start: 03-03-2022 Telephone encounter Miesha Alla (Pss) [facility] Comment on above: Appointment Start: 02-23-2018 Evaluation and manag ement of inpatient NONE PHYSICAN Facility: Start: 02-06-2018 End: 02-06-2018 Evaluation and management of inpatient No Family Physician Facility:[facility] Start: 05-20-2017 End: 05-22-2017 Evaluation and management of inpatient POP KAPPUS Facility:[id number] Start: 01-14-2017 Evaluation and manag ement of inpatient [facility] Start: 01-14-2017 End: 01-15-2017 Evaluation and management of inpatient [facility] Procedures Date Procedure Procedure Detail Performing Clinician Start: 09-19-2024 BASIC METABOLIC PANEL W/ REFLEX TO MG FOR LOW K Emily Davila FELT HAT MELLOWING MACHINE OPERATOR - CHIEF HYDROELECTRIC STATION OPERATOR Work Phone: Start: 09-19-2024 Blood count complete auto&auto difrntl wbc Emily Davila FELT HAT MELLOWING MACHINE OPERATOR - CHIEF HYDROELECTRIC STATION OPERATOR Work Phone: Start: 09-17-2024 Assay of troponin quantitative Danny parsons MD Work Phone: Start: 09-17-2024 Radiologic exam chest single view Christina Comer MD Work Phone: Start: 09-17-2024 End: 09-17-2024 Comprehensive metabolic panel Danny epps MD Work Phone: Start: 09-17-2024 Ecg routine ecg w/least 12 lds i&r only Danny Comer MD Work Phone: Start: 09-17-2024 CALCIUM, IONIC (POC) Italo Pickett MD Work Phone: Start: 09-17-2024 CREATININE W/GFR POINT OF CARE Italo Pickett MD Work Phone: Start: 09-17-2024 ELECTROLYTES PLUS Italo Pickett MD Work Phone: Start: 09-17-2024 LACTIC ACID,POINT OF CARE Italo rainey MD Work Phone: Start: 09-17-2024 VENOUS BLOOD GAS, POINT OF CARE Italo Pickett MD Work Phone: Start: 04-14-2022 Level iv surg pathology gross&microscopic exam Leslie Blount DO Work Phone: Start: 04-14-2022 Esophagogastroduodenoscopy transoral diagnostic Neeru SOTOC Work Phone: Start: 03-05-2022 End: 03-05-2022 Liver elastography w/o imag w/i&r Neeru AYALA-C Work Phone: Plan of Treatment Date Care Activity Detail Author Start: 04-05-2025 DIABETES SCREEN DIABETES SCREEN [facility] Start: 04-05-2025 Diabetes Screening Diabetes Screening [facility] Start: 09-14-2024 Influenza vaccination Flu vaccine (#1) [facility] Start: 10-16-2023 COVID-19 Vaccine ( season) COVID-19 Vaccine ( season) [facility] Start: 10-15-2022 Influenza vaccination [facility] Start: 03-05-2022 End: 05-05-2022 [id number] [Mass/volume] in Serum or Plasma ALPHA FETOPROTEIN BL Lab Routine Chronic hepatitis C without hepatic coma (HCC) Expected: 03/05/2022, Expires: 05/05/2022 [facility] Work Phone: Comment on above: Expected: 03/05/2022, Expires: Start: 03-05-2022 End: 05-05-2022 Basic metabolic 2000 panel - Serum or Plasma BASIC METABOLIC PNL Lab Routine Chronic hepatitis C without hepatic coma (HCC) Expected: 03/05/2022, Expires: 05/05/2022 [facility] Work Phone: Comment on above: Expected: 03/05/2022, Expires: 3 Start: 03-05-2022 End: 05-05-2022 CBC W Auto Differential panel - Blood CBC + DIFF Lab Routine Chronic hepatitis C without hepatic coma (HCC) Expected: 03/05/2022, Expires: 05/05/2022 [facility] Work Phone: Comment on above: Expected: 03/05/2022, Expires: 3 Start: 03-05-2022 End: 05-05-2022 Chronic hepatitis differentiation between hepatitis B and C virus panel - Serum or Plasma HEP REMOTE PANEL BL Lab Routine Chronic hepatitis C without hepatic coma (HCC) Expected: 03/05/2022, Expires: 05/05/2022 [facility] Work Phone: Comment on above: Expected: 03/05/2022, Expires: 3 Start: 03-05-2022 End: 05-05-2022 Hepatic function 2000 panel - Serum or Plasma HEPATIC FUNCTION PNL Lab Routine Chronic hepatitis C without hepatic coma (HCC) Expected: 03/05/2022, Expires: 05/05/2022 [facility] Work Phone: Comment on above: Expected: 03/05/2022, Expires: 3 Start: 03-05-2022 End: 05-05-2022 HEPATITIS A ANTIBODY, IGG HEPATITIS A ANTIBODY, IGG Lab Routine Chronic hepatitis C without hepatic coma (HCC) Expected: 03/05/2022, Expires: 05/05/2022 [facility] Work Phone: Comment on above: Expected: 03/05/2022, Expires: 3 Start: 03-05-2022 End: 05-05-2022 Hepatitis C virus genotype [Identifier] in Serum or Plasma by BELKYS with probe detection HEPATITIS C GENOTYPE Lab Routine Chronic hepatitis C without hepatic coma (HCC) Expected: 03/05/2022, Expires: 05/05/2022 [facility] Work Phone: Comment on above: Expected: 03/05/2022, Expires: 3 Start: 03-05-2022 End: 05-05-2022 Hepatitis C virus RNA [Units/volume] (viral load) in Serum or Plasma by BELKYS with probe detection HCV QUANT RNA BY PCR Lab Routine Chronic hepatitis C without hepatic coma (HCC) Expected: 03/05/2022, Expires: 05/05/2022 [facility] Work Phone: Comment on above: Expected: 03/05/2022, Expires: 3 Start: 03-05-2022 End: 05-05-2022 HIV 1+2 Ab [Presence] in Serum or Plasma by Immunoassay HIV 1 2 COMBO(AG/AB),WITH REFLEX TO DIFFERENTIATION Lab Routine Chronic hepatitis C without hepatic coma (HCC) Expected: 03/05/2022, Expires: 05/05/2022 [facility] Work Phone: Comment on above: Expected: 03/05/2022, Expires: 3 Start: 03-05-2022 End: 05-05-2022 PT panel - Platelet poor plasma by Coagulation assay PROTHROMBIN TIME/PT Lab Routine Chronic hepatitis C without hepatic coma (HCC) Expected: 03/05/2022, Expires: 05/05/2022 [facility] Work Phone: Comment on above: Expected: 03/05/2022, Expires: 3 Start: 03-05-2022 End: 05-05-2022 TOX SCREEN ROUT UR TOX SCREEN ROUT UR Lab Routine Chronic hepatitis C without hepatic coma (HCC) Expected: 03/05/2022, Expires: 05/05/2022 [facility] Work Phone: Comment on above: Expected: 03/05/2022, Expires: 3 Start: 02-14-2022 DEPRESSION ASSESSMENT DEPRESSION ASSESSMENT [facility] Start: 10-15-2021 Influenza vaccination INFLUENZA (#1) [facility] Start: 07-27-2021 Pneumococcal 50+ years Vaccine (1 of 1 - PCV) Pneumococcal 50+ years Vaccine (1 of 1 - PCV) [facility] Start: 07-27-2021 Shingles vaccine (1 of 2) Shingles vaccine (1 of 2) [facility] Start: 07-27-2021 SHINGRIX VACCINE (1 of 2) SHINGRIX VACCINE (1 of 2) [facility] Start: 01-15-2020 DIABETES SCREEN DIABETES SCREEN [facility] Start: 07-27-2016 COLOGUARD (FIT-DNA) COLOGUARD (FIT-DNA) [facility] Start: 07-27-2016 Colonoscopy COLONOSCOPY [facility] Start: 07-27-2016 COLORECTAL CANCER SCREENING COLORECTAL CANCER SCREENING [facility] Start: 07-27-[address] COLONOGRAPHY [facility] Start: 07-27-2016 DIABETES SCREEN DIABETES SCREEN [facility] Start: 07-27-2016 FECAL OCCULT BLOOD FECAL OCCULT BLOOD [facility] Start: 07-27-2016 Screening for malignant neoplasm of colon [facility] Start: 07-27-2016 SIGMOIDOSCOPY SIGMOIDOSCOPY [facility] Start: 2011 Lipid panel Lipids [facility] Start: 07-27-2006 Diabetes screen Diabetes screen [facility] Start: 07-27-2006 Lipid 1996 panel - Serum or Plasma Lipid Screening [facility] Start: 07-27-2006 LIPID SCREEN LIPID SCREEN [facility] Start: 07-27-1990 DTaP/Tdap/Td vaccine (1 - Tdap) DTaP/Tdap/Td vaccine (1 - Tdap) [facility] Start: 07-27-1990 HEPATITIS A (1 of 2 - Risk 2-dose series) HEPATITIS A (1 of 2 - Risk 2-dose series) [facility] Start: 07-27-1990 Hepatitis A Vaccine (1 of 2 - Risk 2-dose series) Hepatitis A Vaccine (1 of 2 - Risk 2-dose series) [facility] Start: 07-27-1990 Hepatitis B vaccine (1 of 3 - 19+ 3-dose series) Hepatitis B vaccine (1 of 3 - 19+ 3-dose series) [facility] Start: 07-27-1990 Urine microalbumin profile [facility] Start: 07-27-1989 HEPATITIS C SCREENING HEPATITIS C SCREENING [facility] Start: 07-27-1989 Hepatitis C screening Hepatitis C screen [facility] Start: 07-27-1989 HIV SCREENING HIV SCREENING [facility] Start: 07-27-1986 HIV screening HIV screen [facility] Start: 1983 Depression Screen Depression Screen [facility] Start: 07-27-1977 PNEUMOCOCCAL (1 - PCV) PNEUMOCOCCAL (1 - PCV) [facility] Start: 07-27-1977 Pneumococcal vaccination Pneumococcal Vaccine (1 - PCV) [facility] Start: 07-27-1972 HEPATITIS A (1 of 2 - Risk 2-dose series) HEPATITIS A (1 of 2 - Risk 2-dose series) [facility] Start: 01-27-1972 COVID-19 VACCINE (#1) COVID-19 VACCINE (#1) [facility] Start: 1971 HEPATITIS B (1 of 3 - 3-dose series) HEPATITIS B (1 of 3 - 3-dose series) [facility] Start: 1971 Hepatitis B Vaccine (1 of 3 - 3-dose series) Hepatitis B Vaccine (1 of 3 - 3-dose series) [facility] End: 04-29-2023 CBC panel - Blood by Automated count CBC Lab Routine Chronic hepatitis C without hepatic coma (HCC) Once per month for 2 Occurrences starting 04/29/2022 until 04/29/2023 [facility] Work Phone: Comment on above: Once per month for 2 Occurrences startin g 04/29/2022 until 04/29/2023 End: 04-29-2023 Comprehensive metabolic 2000 panel - Serum or Plasma COMP METABOLIC PANEL Lab Routine Chronic hepatitis C without hepatic coma (HCC) Once per month for 2 Occurrences starting 04/29/2022 until 04/29/2023 [facility] Work Phone: Comment on above: Once per month for 2 Occurrences startin g 04/29/2022 until 04/29/2023 End: 03-05-2023 EGD DIAGNOSTIC EGD DIAGNOSTIC Endoscopy Routine Nausea Decreased appetite 1 Occurrences starting 03/05/2022 until 03/05/2023 [facility] Work Phone: Comment on above: 1 Occurrences starting 03/05/2022 until 03/05/2023 End: 09-18-2024 Gastrointestinal Panel, Molecular Gastrointestinal Panel, Molecular Microbiology Routine One Time for 1 Occurrences starting 09/18/2024 until 09/18/2024 [facility] Comment on above: One Time for 1 Occurrences starting 06/2024 until 09/18/2024 End: 04-29-2023 Hepatitis C virus RNA [Units/volume] (viral load) in Serum or Plasma by BELKYS with probe detection HCV QUANT RNA BY PCR Lab Routine Chronic hepatitis C without hepatic coma (HCC) Once per month for 2 Occurrences starting 04/29/2022 until 04/29/2023 [facility] Work Phone: Comment on above: Once per month for 2 Occurrences startin g 04/29/2022 until 04/29/2023 Intermittent pulse oximetry Pulse Oximetry Spot Check Respiratory Care Routine As Needed until discontinued starting 09/18/2024 [facility] Comment on above: As Needed until discontinued starting End: 09-18-2024 LAB RESULT LAB RESULT Lab One Time for 1 Occurrences starting 09/18/2024 until 09/18/2024 [facility] Comment on above: One Time for 1 Occurrences starting 06/2024 until 09/18/2024 Oxygen therapy [[facility] Data Set] Initiate Oxygen Therapy Protocol Respiratory Care Routine As Needed until discontinued starting 09/18/2024 [facility] Comment on above: As Needed until discontinued starting End: 04-04-2023 Us abdominal real time w/image limited US ABD RT UPPER QUADRANT Radiology Routine Chronic hepatitis C without hepatic coma (HCC) 1 Occurrences starting 03/05/2022 until 04/04/2023 [facility] Work Phone: Comment on above: 1 Occurrences starting 03/05/2022 until 04/04/2023 [facility] Payers Date Payer Category Payer Medicaid [id number] 2016 Medicaid [id number] 1970 Unknown [id number] 2.16.8 [id number] 1971 Unknown [id number] 2.16.8 [id number] 1971 Unknown [id number] 2.16.8 [id number] 1971 Unknown [id number] 2.16.8 [id number] 1971 Unknown [id number] 2.16.8 [id number] 1971 Unknown [id number] 2.16.8 [id number] 1971 Unknown [id number] 2.16.8 [id number] 1971 Unknown [id number] 2.16.8 [id number] 1971 Unknown [id number] 2.16.8 [id number] 1971 Unknown [id number] 2.16.8 [id number] 1971 Unknown [id number] 2.16.8 [id number] 1971 Unknown [id number] 2.16.8 [id number] 1959 Unknown [id number] Self-pay [id number] Unknown [id number] 2.16.8 [id number] Social History Date Type Detail Facility Tobacco smoking stat [facility] Tobacco smoking consumption unknown [facility] Start: 1970 Sex Assigned At Male C [facility] Start: 03-05-2022 Tobacco smoking stat [facility] Never smoked tobacco [facility] Start: 03-05-2022 End: 09-20-2024 Tobacco use and exposure Smokeless tobacco non-user [facility] Start: 03-05-2022 Alcohol intake Lifetime non-d aguilar (finding) [facility] Start: 04-05-2022 End: 09-20-2024 Tobacco smoking status NHIS Smokes tobacco daily [facility] Start: 02-14-1986 History of tobacco use Cigarette Smo ker [facility] Start: 04-05-2022 End: 09-18-2024 Cigarettes smoked current (pack per day) - Reported 2 [facility] Start: 04-05-2022 End: 05-31-2022 Alcohol intake Ex-drinker (finding) [facility] Start: 04-05-2022 Alcohol Comment drug abuse tx a few yrs ago as of 04/05/21 [facility] Start: 05-31-2022 End: 09-18-2024 Tobacco use panel [facility] Adult Depression Screening Assessment 3 [facility] Start: 02-24-2022 Gender identity Identifies as male gender (finding) [facility] Start: 02-24-2022 Sexual orientation Heterosexual (deya baldwin) [facility] Has the [employer], [employer], or [employer] threatened to shut off services in your home in past 12Mo No [employer] (I/We) worried wheth er (my/our) food would run out before (I/we) got money to buy more. Never true [employer] Start: 1970 Sex assigned at Not on file [facility] [employer] Start: 09-17-2024 Sex Male (finding) [facility] [employer] Clinical Notes 03-03-2022 to 09-19-2024 Sharon Mendoza MD - 09/19/2024 12:50 PM Mary Anglin PT - 09/19/2024 9:31 AM Brandie Gonzalez RN - 09/19/2024 6:37 AM Andrzej Gomez MD - 09/18/2024 1:42 PM EDT Note Date & Type Note Facility 09-19-2024 History of Presen t illness Narrative Images from the original note were not included. [facility] Office: [phone] Alexandre Cordon, DO, Mahesh Marcos, DO, Len Lynn, DO, Kareem Collins, DO, Sofía Fink MD, Ileana Kidd MD, Ester Balderas MD, Mariaelena Moya MD, Giancarlo Keita MD, Sallie Wilder MD, Bernardino Cardoso MD, Michelet Flores DO, Italo Cordon DO, Sonali Hines MD, Jackson Pascual DO, Kavita Ibrahim MD, Irene Paige MD, Cuate Cat MD, Darwin Grimm MD, Diana Damon MD, Faith Milan MD, Sharon Mendoza MD, Andrzej Arias MD, Martha Alejandra MD, Tommy Holt DO, Valentina Marroquin MD, Addi Saunders DO, Shahram Herrera MD, Antwan Morley MD, Michelet Gonsalez MD, Aruna Gonsalez MD, Radha Britt MD, Brittny Ochoa, CHIEF HYDROELECTRIC STATION OPERATOR, Glenny Malhotra, CHIEF HYDROELECTRIC STATION OPERATOR, Tommy Benton, CHIEF HYDROELECTRIC STATION OPERATOR, Gloria Ashby, DNP, Jaylene Monahan, CHIEF HYDROELECTRIC STATION OPERATOR, Shey Naik, CHIEF HYDROELECTRIC STATION OPERATOR, Elena Becerra, CHIEF HYDROELECTRIC STATION OPERATOR, Joselin Mcmillan, CHIEF HYDROELECTRIC STATION OPERATOR, Paris Gomez, PA-C, Patricia Khan, CHIEF HYDROELECTRIC STATION OPERATOR, Nisreen Weston, CHIEF HYDROELECTRIC STATION OPERATOR, Jamilah Oneal, CHIEF HYDROELECTRIC STATION OPERATOR, Mary Lainez, CHIEF HYDROELECTRIC STATION OPERATOR, Roman Cardozo, PA-C, Sowmya Anderson, PA-C, Abimbola Eckert, CHIEF HYDROELECTRIC STATION OPERATOR, Rika Hernandez, PICTURE FRAMER, Amy Davidson, CHIEF HYDROELECTRIC STATION OPERATOR, Mansi Lea, CHIEF HYDROELECTRIC STATION OPERATOR [facility] IN-PATIENT SERVICE [facility] Progress Note 09/19/2024 12:50 PM Name: Addison Grullon Acct: [id number] Room: OBS IP Day: 1 Admit Date: 09/17/2024 8:47 PM PCP: No primary care provider on file. Code Status: Full Code Subjective: C/C: Chief Complaint Patient presents with Drug Overdose Interval History Status: improved. Seen and examined, he is feeling better however he continued to reports nausea and vomiting Denies diarrhea Lab vital signs reviewed Review of Systems: Review of Systems Constitutional: Positive for fatigue. HENT: Negative. Respiratory: Negative. Gastrointestinal: Positive for abdominal pain, nausea and vomiting. Genitourinary: Negative. Musculoskeletal: Negative. Neurological: Negative. Hematological: Negative. Medications: Allergies: Allergies Allergen Reactions Ciprofloxacin Hives Current Meds: Scheduled Meds: sodium chloride flush 5-40 mL IntraVENous 2 times per day enoxaparin 40 mg SubCUTAneous Daily famotidine (PEPCID) injection 20 mg IntraVENous BID cloNIDine 0.1 mg Oral BID potassium chloride 40 mEq Oral Once Continuous Infusions: sodium chloride PRN Meds: loperamide, sodium chloride flush, sodium chloride, potassium chloride OR potassium alternative oral replacement OR potassium chloride, magnesium sulfate, ondansetron OR ondansetron, polyethylene glycol, acetaminophen OR acetaminophen, melatonin, buprenorphine-naloxone, methocarbamol, hydrOXYzine HCl, rOPINIRole, promethazine Data: Past Medical History: has no past medical history on file. Social History: Family History: No family history on file. Vitals: BP (!) 149/82 Pulse 56 Temp 98.8 F (37.1 C) Resp 14 Ht 1.88 m (6' 2) Wt 98.7 kg (217 lb 9.5 oz) SpO2 96% BMI 27.94 kg/m Temp (24hrs), Av.6 F (37 C), Min:97.7 F (36.5 C), Max:99.3 F (37.4 C) Recent Labs 09/17/242052 POCGLU 120* I/O (24Hr): No intake or output data in the 24 hours ending 09/19/24 1250 Labs: Hematology: Recent Labs 09/17/24205409/19/24 0700 WBC 8.2 11.1 RBC 4.57 4.64 HGB 13.1 13.1 HCT 39.9* 39.8* MCV 87.3 85.8 MCH 28.7 28.2 MCHC 32.8 32.9 RDW 13.3 13.4 PLT 150 147 MPV 10.9 11.6 Chemistry: Recent Labs 08/06/08 205209/17/24205409/17/24 2217 09/19/24 0700 NA -- 140 -- 139 K -- 3.2* -- 4.1 CL -- 105 -- 104 CO2 -- 22 -- 23 GLUCOSE -- 119* -- 114* BUN -- 14 -- 14 CREATININE 1.1 1.1 -- 0.9 ANIONGAP -- 13 -- 12 LABGLOM -- 80 -- >90 CALCIUM -- 9.2 -- 9.4 TROPHS -- <6 <6 -- Recent Labs 09/17/24205209/17/242054 AST -- 20 ALT -- 9* ALKPHOS -- 74 BILITOT -- 0.3 POCGLU 120* -- ABG:No results found for: POCPH, PHART, PH, POCPCO2, QUS8ZZH, PCO2, POCPO2, PO2ART, PO2, POCHCO3, BSG7AKH, HCO3, NBEA, PBEA, BEART, BE, THGBART, THB, HCG8JGG, HAGD1MXI, B6PITJTO, O2SAT, FIO2 No results found for: SPECIAL No results found for: CULTURE Radiology: XR CHEST PORTABLE Result Date: 09/18/2024 No acute cardiopulmonary finding. Physical Examination: Physical Exam Constitutional: General: He is not in acute distress. Appearance: Normal appearance. HENT: Head: Normocephalic and atraumatic. Mouth/Throat: Mouth: Mucous membranes are moist. Eyes: Extraocular Movements: Extraocular movements intact. Pupils: Pupils are equal, round, and reactive to light. Cardiovascular: Rate and Rhythm: Normal rate and regular rhythm. Heart sounds: No murmur heard. Pulmonary: Effort: No respiratory distress. Breath sounds: No wheezing or rales. Abdominal: General: There is no distension. Tenderness: There is abdominal tenderness. There is no rebound. Musculoskeletal: General: No deformity. Cervical back: No rigidity or tenderness. Right lower leg: No edema. Left lower leg: No edema. Lymphadenopathy: Cervical: No cervical adenopathy. Skin: Coloration: Skin is not jaundiced or pale. Findings: No lesion or rash. Neurological: General: No focal deficit present. Mental Status: He is alert and oriented to person, place, and time. Sensory: No sensory deficit. Motor: No weakness. Psychiatric: Mood and Affect: Mood normal. Assessment: Hospital Problems Last Modified POA * (Principal) Opiate withdrawal (HCC) 09/18/2024 Yes Accidental overdose of heroin (HCC) 09/18/2024 Yes Nausea and vomiting 09/18/2024 Yes Myalgia 09/18/2024 Yes Plan: Acute accidental heroin overdose present on admission with acute withdrawal symptoms after receiving 8 mg of Narcan, continued tachycardia continue supportive care, patient continued to experience nausea and vomiting, health and social care teacher was consulted for detox and rehab Hypertensive urgency present on admission, was started on clonidine continue to monitor blood pressure Correct electrolyte abnormalities DVT prophylaxis PT/OT Sharon Mendoza MD 09/19/2024 12:50 PM Images from the original note were not included. Physical Therapy Physical Therapy Cancel Note DATE: 09/19/2024 NAME: Addison Grullon : 1970 Patient not seen this date for Physical Therapy due to: Patient Declined: reports fatigue, chest pain. Check back as available Pt is refusing to wear telemetry at this time. Education was provided. Images from the original note were not included. [facility] Office: [phone] Alexandre Cordon DO, Mahesh Marcos DO, Len Lynn DO, Kareem Collins DO, Sofía Fink MD, Ileana Kidd MD, Ester Balderas MD, Mariaelena Moya MD, Giancarlo Keita MD, Sallie Wilder MD, Bertrand Meléndez DO, Bernardino Cardoso MD, Michelet Florse DO, Prudence Kearney MD, Shahram Herrera MD, Italo Cordon DO, Sonali Hines MD, Jackson Pascual DO, Terra Harman MD, Kavita Ibrahim MD, Irene Paige MD, Cuate Cat MD, Darwin Grimm MD, Diana Damon MD, Faith Milan MD, Julio Yun DO, Chris Hill MD, Antwan Morley MD, Brittny Ochoa, CHIEF HYDROELECTRIC STATION OPERATOR, Glenny Malhotra, CHIEF HYDROELECTRIC STATION OPERATOR, Abimbola Eckert, CHIEF HYDROELECTRIC STATION OPERATOR, Tommy Benton, CHIEF HYDROELECTRIC STATION OPERATOR, Gloria Ashby, DNP, Jaylene Monahan, CHIEF HYDROELECTRIC STATION OPERATOR, Shey Naik, CHIEF HYDROELECTRIC STATION OPERATOR, Amy Davidson CHIEF HYDROELECTRIC STATION OPERATOR, Elena Becerra, CHIEF HYDROELECTRIC STATION OPERATOR, Joselin Mcmillan, CHIEF HYDROELECTRIC STATION OPERATOR, Ludin Farrar PA-C, Rika Hernandez, PICTURE FRAMER, Emily Davila, CHIEF HYDROELECTRIC STATION OPERATOR, Mansi Lea, CHIEF HYDROELECTRIC STATION OPERATOR [facility] IN-PATIENT SERVICE [facility] Second Visit Note For more detailed information please refer to the progress note of the day 09/18/2024 1:42 PM Name: Addison Grullon Acct: [id number] Room: OBS IP Day: 1 Admit Date: 09/17/2024 8:47 PM PCP: No primary care provider on file. Code Status: Full Code Pt vitals were reviewed New labs were reviewed Patient was seen, RN reported that patient had loose stools overnight however nothing since this morning. Updated plan : Diarrhea: Follow-up on GI molecular panel. Continue to monitor electrolytes, replace as indicated, keep potassium more than 4 and mag more than 2. correction worker on board. Andrzej Arias MD 09/18/2024 1:42 PM documented in this encounter [facility] 02-17-2024 Note Microbiology PROCEDURE: Blood Culture Charcoal [R1] SOURCE: Blood BODY SITE: Arm R COLLECTED DATE/TIME: 02/10/2024 13:22 EST RECEIVED DATE/TIME: 02/10/2024 13:30 EST START DATE/TIME: 02/10/2024 13:30 EST FREE TEXT SOURCE: Yamil Levy DO, DO, Kevin M. FINAL REPORTS Final Report [] Verified Date/Time: 02/17/2024 14:48 EST No growth at 7 days. Performing Locations R1: This test was performed at: [facility], [address] [place] [address], [address] [place] [address], [facility] Comment on above: Performed By: #### [id number] #### [facility] [address] [place] [address] 02-17-2024 Note Microbiology PROCEDURE: Blood Culture Charcoal [R1] SOURCE: Blood BODY SITE: Arm L COLLECTED DATE/TIME: 02/10/2024 13:21 EST RECEIVED DATE/TIME: 02/10/2024 13:30 EST START DATE/TIME: 02/10/2024 13:30 EST FREE TEXT SOURCE: Yamil Bah DO, DO, Kevin M. FINAL REPORTS Final Report [] Verified Date/Time: 02/17/2024 14:48 EST No growth at 7 days. Performing Locations R1: This test was performed at: [facility], [address] [place] [address], [address] [place] [address], [facility] Comment on above: Performed By: #### 1 [id number] #### [facility] [address] [place] [address] 02-10-2024 Note ED Patient Education Note Mental and Behavioral Health Opioid Use Disorder Opioid use disorder is a condition in which opioids are used for reasons other than medical care. The person may use them even though taking them hurts the person's health and well-being. These drugs are powerful substances that relieve pain. Opioids include drugs such as heroin as well as prescription medicines for pain, such as: ??? Codeine. ??? Morphine. ??? Hydrocodone. ??? Oxycodone. ??? Fentanyl. Taking prescribed opioids regularly can lead to dependence, especially if you take them in larger amounts or more often than they should be taken. Opioid use disorder can lead to problems with mental and physical health, including: ??? Depression or anxiety. ??? Severe constipation. ??? Malnutrition and weight loss. ??? Sleep problems. ??? Diseases caused by infections, such as hepatitis or HIV. ??? Sexual problems. Opioid use disorder can be dangerous. It increases the risk of suicide and can lead to a life-threatening overdose. What are the causes? This condition is caused by taking opioids. Taking opioids again and again results in changes in the brain that make it hard to control opioid use. Many people develop this condition because they like the way they feel when they take opioids or because they get addicted to them. What increases the risk? This condition is more likely to develop in people who: ??? Have a family history of opioid use disorder. ??? Misuse other drugs. ??? Have a mental illness, such as depression, post-traumatic stress disorder, or antisocial personality disorder. ??? Begin use at an early age, such as during their teenage years. What are the signs or symptoms? Symptoms of this condition include: ??? Taking opioids in larger amounts or for longer periods than you want to. ??? Spending an abnormal amount of time getting opioids, using them, or recovering from their effects. ??? Craving opioids. ??? Using opioids in a way that interferes with work, school, social activities, and personal relationships. ??? Giving up or cutting down on important life activities because of opioid use. ??? Using opioids when it is dangerous, such as when driving a car. ??? Continuing to use the drug even after it has led to problems such as: ? Physical or mental health problems. ? Legal or financial troubles. ? Job loss. ? Broken relationships. ??? Being unable to slow down or stop your use of the drug. ??? Needing more and more of an opioid to get the same effect (building up a tolerance). ??? Experiencing unpleasant symptoms if you do not use the opioid (withdrawal). Some symptoms of withdrawal include: ? Depression, anxiety, or feeling irritable. ? Nausea or vomiting. ? Muscle aches or spasms. ? Watery eyes. ? Trouble sleeping. ? Yawning. How is this diagnosed? This condition is diagnosed based on: ??? A physical exam. ??? Your history of opioid use. ??? Your symptoms. This includes: ? How opioid use affects your life. ? Changes in personality, behaviors, and mood. ? Having at least two symptoms of opioid use disorder within a 12-month period. ? Health issues related to using opioids. ??? Blood or urine tests to screen for drugs. How is this treated? The first goal of treatment is to stop your use of opioids. This must be done safely and may involve taking medicines to lessen withdrawal symptoms. Treatment may also involve: ??? Taking part in group and individual counseling from mental health providers who have experience with substance use disorder. ??? Staying at a residential treatment center for several days or weeks. ??? Attending daily counseling sessions at a treatment center. ??? Taking medicines as told by your health care provider that: ? Ease symptoms and prevent complications during withdrawal. ? Block cravings and block the good feeling that you get from using opioids. ? Treat other mental health issues, such as depression or anxiety. ? Reduce agitation. ??? Participating in a support group to share your experience with others who are going through the same thing. ??? Using opioid maintenance treatment. This involves taking certain kinds of opioid medicines. These medicines satisfy cravings but are safer than opioids that are commonly misused. Recovery can be a long process. Some people who undergo treatment start using opioids again after stopping (relapse). If you relapse, it does not mean that treatment will not work. Follow these instructions at home: Medicines ??? Take [id number] and prescription medicines only as told by your health care provider. ??? Check with your health care provider before starting any new medicines, herbs, or supplements. General instructions ??? Do not use any drugs or alcohol. ??? Avoid people and activities that trigger your use of opioids. ??? Learn and practice techniques for managing str (more content not included)... [facility] 11-30-2022 Note HNO ID: [id number] Author: Neeru Elizondo PA-C Service: ? Author Type: Physician Senior Facilities Manager Type: Progress Notes Filed: 11/30/2022 4:14 PM Note Text: I have communicated my name and active licensure. The patient's identity and physical location were verified at the time of this visit. Either the patient or their legal marketing sales representative has been informed of the risks and benefits of -- and alternatives to -- treatment through a remote evaluation and consents to proceed with the evaluation remotely. VIRTUAL VISIT FOLLOW UP I had a virtual visit with Mr. Grullon today for follow up of chronic hep c. UPDATED HISTORY: HPI: Mr. Grullon is a 52 year old Male with past medical history of chronic epigastric pain, PUD (dx 2012), chronic HCV infection (tx naive) , presenting today for follow up of chronic hep c. Patient was last seen by myself 03/05/22. Patient unable to connect to [employer], I waited 35 minutes for him to connect and he never did. Attempted to call him and his -no response. My administrative assistant front desk tried to talk him through how to use the [employer] platform over the phone but seems he needed to update [employer] first so will re-schedule his visit Visit not completed, below was pre-charted for today's visit At last visit: He is treatment naive, not bx proven, previously HCV GT 1a, fibroscan in 2018 (F2). Long discussion today regarding natural history of Hep C, likelihood of progression, complication of liver disease, as well as specific treatment options including side effect profile of therapy, probability of response and evaluation necessary before embarking on therapy. Oriented about risk factors, mode of transmission, strategies to avoid transmission (including very minimal risk of sexual transmission), potential treatment options and possible interventions to stage her liver disease.Discussed regarding the FDA approved HCV medication for his genotype, side effects, DD interaction and response rate. Blood work will be due every 4 weeks while on treatment along with last set of labs 3 months after treatment completion. PLAN MELD labs with HBV serologies, AFP, HCV PCR, HCV GT, HAV IgG, HIV Urine drug screen Fibroscan today for staging RUQ US for liver morphology Okay to use medical marijuana, has medical marijuana card Will order HCV medication once above testing is complete. Instructed to call me 2-3 weeks from today if not heard about approval, will call me once meds are delivered so I know start date. Recommend CMP, CBC, HCV PCR every 4 weeks while on treatment then 3 months afterward -Mediterranean diet -increased cardiovascular exercise with goal >45 minutes 5 days weekly -avoid liver detox cleanse/supplements -not to exceed 2,000 mg tylenol daily -strict alcohol abstinence recommended -PCP to assist with management/screening for any and all components of metabolic syndrome Nausea with decreased appetite: EGD and referral to GI Return to office in 6 months (3 months post HCV treatment), sooner if needed Interval hx: Fibroscan kPa 8.7, CAP 360 Approved for Mavyret x 8 weeks 04/2022 and started 04/29/22 Labs received today from [facility]: Alk phos 73 AST 16, ALT 10 TB 0.8 PLT 149K MELD 3.0: 6 at 04/05/2022 9:08 AM MELD-Na: 7 at 04/05/2022 9:08 AM Calculated from: Serum Creatinine: 0.96 mg/dL (Using min of 1 mg/dL) at 04/05/2022 9:08 AM Serum Sodium: 139 mmol/L (Using max of 137 mmol/L) at 04/05/2022 9:08 AM Total Bilirubin: 1.1 mg/dL at 04/05/2022 9:08 AM Serum Albumin: 4.6 g/dL (Using max of 3.5 g/dL) at 04/05/2022 9:08 AM INR(ratio): 1.0 at 04/05/2022 9:08 AM Age at listing (hypothetical): 51 years Sex: Male at 04/05/2022 9:08 AM PAST MEDICAL HISTORY Diagnosis Date Chronic hepatitis C without hepatic coma (HCC) 03/05/2022 History of drug use Tobacco abuse disorder 01/15/2017 PAST SURGICAL HISTORY Procedure Laterality Date EGD KIDNEY STONE SURGERY HX FAMILY HISTORY Problem Relation Age of Onset Difficulty with anesthesia No Family History Social History Tobacco Use Smoking status: Every Day Packs/day: 2 Types: Cigarettes Start date: 1986 Smokeless tobacco: Never Substance Use Topics Alcohol use: Not Currently Comment: drug abuse tx a few yrs ago as of 04/05/21 Drug use: Yes Types: Marijuana Comment: medical---daily Current Outpatient Medications Medication Sig Dispense Refill glecaprevir-pibrentasvir (MAVYRET) 100-40 mg tablet Take 3 tablets by mouth once daily with food. 84 tablet 1 ondansetron (ZOFRAN) 4 mg tablet Take 4 mg by mouth every 8 hours as needed for nausea/vomiting. No current facility-administered medications for this visit. ALLERGIES Allergen Reactions Ciprofloxacin GI Upset Gabapentin Intolerance REVIEWED ITEMS EGD 05/06: Findings: The oropharynx was normal. The esophagus was normal. Diffuse minimal inflammation characterized by erythema was found in the gastric body and in the (more content not included)... [facility] 10-13-2022 Miscellaneous Notes Spoke to patient's , said she forgot to help patient log in for VV last night, she was at work, ask that we re-schedule, agreed on 11/02 at 4:45pm and will have patient go for labs, prefers [facility], will fax lab orders there She said he completed treatment but just hasn't had labs done She appreciated my call Neeru Elizondo PA-C October 13, 2022 9:09 AM documented in this encounter [facility] 06-09-2022 Note HNO ID: [id number] Author: Nicole Polanco, DO Service: ? Author Type: Physician Type: Progress Notes Filed: 06/09/2022 4:45 PM Note Text: Spine Care Path Low Back Pain - Acute (0 - 6 weeks) Initial Exam This was a virtual visit the patient requested. SUBJECTIVE HISTORY OF PRESENT ILLNESS: Addison Grullon is a 51 year old male who presents with a chief complaint of low back pain and is self-referred. Patient reports 2 week onset of acute low back pain radiating down posterior right lower extremity to foot. Reports symptoms started after he picked up a generator from his truck. Falls a loud pop in his low back and caused shooting pain down his right leg. Endorses weakness in his right foot with difficulty lifting it up while ambulating. Reports pain is worse in the right low back and right hip but radiates all the way down to his foot. He has tried Naproxen and Flexeril with some improvement. Reports pain has progressively been worsening. Pain ranges from 7-10/10 and wakes him up at night. Also reports difficulty ambulating and going up stairs due to pain in his right hip. Prior Therapy: Naproxen Flexeril [place] Litigation: No Workers' Compensation: No YELLOW AND BLUE FLAGS No-Neg Attitude; Back Pain is Disabling No-Avoiding Activity (for Fear of Pain) No-Depression or Anxiety Disorders No-Social Problems No-Substance Use Disorder No-Job Dissatisfaction No-Financial Disincentives Patient Entered Questionnaires Spine Questions 06/09/2022 Pain Location: Lower back Pain Duration: Less than 1 month Symptoms from neck/cervical spine: No Employment Status: Disabled due to back pain, permanently or temporarily Off work 1 month or more due to back/neck pain: Yes Applied for/receive disability/WC due to low back/neck pain No Involved in law suit/legal claim: No Spine Red Flags 06/09/2022 Any type of cancer: Yes Unexplained fever: No Bowel or bladder disfunction: No Unintentional weight loss: No Osteoporosis: No PROMIS Score Percentiles Physical Health 06/09/2022 Physical Function Percentile 4 Sleep Percentile 0 Fatigue Percentile 10 Pain Interference Percentile 1 PROMIS SOCIAL ROLE SCORE 06/09/2022 Social Role Satisfaction Percentile 5 PROMIS Global Health Scale 06/09/2022 Physical Health Percentile 2 Mental Health Percentile 13 Percentiles provide an indication of how the patient's score ranks in relation to the general population. Higher percentile rankings indicate better function/quality of life. 50th percentile is the average of the general population and indicates half of respondents had a worse score. Depression Screening: PHQ-9 06/09/2022 Score 11 PHQ-9 Self Harm 06/09/2022 Question 9 Not at all PHQ-9 Self-Harm (Item 9) response options: 0 Not at all 1 Several days 2 More than half the days 3 Nearly every day PHQ-9 Levels: 0-4 No - mild depression 5-9 Mild depression 10-14 Moderate depression 15-19 Moderately severe depression 20-27 Severe depression ACTIVE PROBLEM LIST Opiate Withdrawal (Hcc) Tobacco Abuse Disorder Chronic Hepatitis C Without Hepatic Coma (Hcc) History of Opioid Abuse (Hcc) PAST MEDICAL HISTORY Diagnosis Date Chronic hepatitis C without hepatic coma (HCC) 03/05/2022 History of drug use Tobacco abuse disorder 01/15/2017 PAST SURGICAL HISTORY Procedure Laterality Date EGD KIDNEY STONE SURGERY HX Social History Tobacco Use Smoking status: Every Day Packs/day: 2.00 Types: Cigarettes Start date: 1986 Smokeless tobacco: Never Substance Use Topics Alcohol use: Not Currently Comment: drug abuse tx a few yrs ago as of 04/05/21 Drug use: Yes Types: Marijuana Comment: medical---daily FAMILY HISTORY Problem Relation Age of Onset Difficulty with anesthesia No Family History ALLERGIES Allergen Reactions Ciprofloxacin GI Upset Gabapentin Intolerance CURRENT MEDICATIONS: glecaprevir-pibrentasvir (MAVYRET) 100-40 mg tablet Take 3 tablets by mouth once daily with food. ondansetron (ZOFRAN) 4 mg tablet Take 4 mg by mouth every 8 hours as needed for nausea/vomiting. REVIEW OF SYSTEMS: PAIN ASSESSMENT: See HPI. GENERAL: Denies fever, chills malaise and weight loss. HEENT: No recent change in vision or hearing. CARDIOVASCULAR: Denies chest pain, history of A-fib, valvular disease, or pacemaker/ICD. RESPIRATORY: Denies SOB, sputum production, and hemoptysis. GI: Denies GI ulcers, inflammatory disease, or liver disease. : Denies change in frequency or urgency, kidney disease, and burning with urination. MUSCULOSKELETAL: Positive for low back pain, right hip pain SKIN: Denies rash or itching. PSYCHOLOGICAL: Denies uncontrolled depression or anxiety. NEURO: Denies CVA, seizures, headaches. ENDOCRINE: Denies diabetes, thyroid disease. HEMATOLOGY/LYMPHOLOGY: Denies cancer, bleeding or clotting disorders, anemia,and DVT's. ALLERGIC/IMMUNOLOGICAL: (more content not included)... [facility] 06-09-2022 History of Presen t illness Narrative Spine Care Path Low Back Pain - Acute (0 - 6 weeks) Initial Exam This was a virtual visit the patient requested. SUBJECTIVE HISTORY OF PRESENT ILLNESS: Addison Grullon is a 51 year old male who presents with a chief complaint of low back pain and is self-referred. Patient reports 2 week onset of acute low back pain radiating down posterior right lower extremity to foot. Reports symptoms started after he picked up a generator from his truck. Falls a loud pop in his low back and caused shooting pain down his right leg. Endorses weakness in his right foot with difficulty lifting it up while ambulating. Reports pain is worse in the right low back and right hip but radiates all the way down to his foot. He has tried Naproxen and Flexeril with some improvement. Reports pain has progressively been worsening. Pain ranges from 7-10/10 and wakes him up at night. Also reports difficulty ambulating and going up stairs due to pain in his right hip. Prior Therapy: Naproxen Flexeril [place] Litigation: No Workers' Compensation: No YELLOW & BLUE FLAGS No-Neg Attitude; Back Pain is Disabling No-Avoiding Activity (for Fear of Pain) No-Depression or Anxiety Disorders No-Social Problems No-Substance Use Disorder No-Job Dissatisfaction No-Financial Disincentives Patient Entered Questionnaires Spine Questions 06/09/2022 Pain Location: Lower back Pain Duration: Less than 1 month Symptoms from neck/cervical spine: No Employment Status: Disabled due to back pain, permanently or temporarily Off work 1 month or more due to back/neck pain: Yes Applied for/receive disability/WC due to low back/neck pain No Involved in law suit/legal claim: No Spine Red Flags 06/09/2022 Any type of cancer: Yes Unexplained fever: No Bowel or bladder disfunction: No Unintentional weight loss: No Osteoporosis: No PROMIS Score Percentiles Physical Health 06/09/2022 Physical Function Percentile 4 Sleep Percentile 0 Fatigue Percentile 10 Pain Interference Percentile 1 PROMIS SOCIAL ROLE SCORE 06/09/2022 Social Role Satisfaction Percentile 5 PROMIS Global Health Scale 06/09/2022 Physical Health Percentile 2 Mental Health Percentile 13 Percentiles provide an indication of how the patient's score ranks in relation to the general population. Higher percentile rankings indicate better function/quality of life. 50th percentile is the average of the general population and indicates half of respondents had a worse score. Depression Screening: PHQ-9 06/09/2022 Score 11 PHQ-9 Self Harm 06/09/2022 Question 9 Not at all PHQ-9 Self-Harm (Item 9) response options: 0 Not at all 1 Several days 2 More than half the days 3 Nearly every day PHQ-9 Levels: 0-4 No - mild depression 5-9 Mild depression 10-14 Moderate depression 15-19 Moderately severe depression 20-27 Severe depression ACTIVE PROBLEM LIST Opiate Withdrawal (Hcc) Tobacco Abuse Disorder Chronic Hepatitis C Without Hepatic Coma (Hcc) History of Opioid Abuse (Hcc) PAST MEDICAL HISTORY Diagnosis Date Chronic hepatitis C without hepatic coma (HCC) 03/05/2022 History of drug use Tobacco abuse disorder 01/15/2017 PAST SURGICAL HISTORY Procedure Laterality Date EGD KIDNEY STONE SURGERY HX Social History Tobacco Use Smoking status: Every Day Packs/day: 2.00 Types: Cigarettes Start date: 1986 Smokeless tobacco: Never Substance Use Topics Alcohol use: Not Currently Comment: drug abuse tx a few yrs ago as of 04/05/21 Drug use: Yes Types: Marijuana Comment: medical---daily FAMILY HISTORY Problem Relation Age of Onset Difficulty with anesthesia No Family History ALLERGIES Allergen Reactions Ciprofloxacin GI Upset Gabapentin Intolerance CURRENT MEDICATIONS: glecaprevir-pibrentasvir (MAVYRET) 100-40 mg tablet Take 3 tablets by mouth once daily with food. ondansetron (ZOFRAN) 4 mg tablet Take 4 mg by mouth every 8 hours as needed for nausea/vomiting. REVIEW OF SYSTEMS: PAIN ASSESSMENT: See HPI. GENERAL: Denies fever, chills malaise and weight loss. HEENT: No recent change in vision or hearing. CARDIOVASCULAR: Denies chest pain, history of A-fib, valvular disease, or pacemaker/ICD. RESPIRATORY: Denies SOB, sputum production, and hemoptysis. GI: Denies GI ulcers, inflammatory disease, or liver disease. : Denies change in frequency or urgency, kidney disease, and burning with urination. MUSCULOSKELETAL: Positive for low back pain, right hip pain SKIN: Denies rash or itching. PSYCHOLOGICAL: Denies uncontrolled depression or anxiety. NEURO: Denies CVA, seizures, headaches. ENDOCRINE: Denies diabetes, thyroid disease. HEMATOLOGY/LYMPHOLOGY: Denies cancer, bleeding or clotting disorders, anemia,and DVT's. ALLERGIC/IMMUNOLOGICAL: Denies risks for infection, or recent MRSA infections. OBJECTIVE: PHYSICAL EXAM There were no vitals taken for this visit. GENERAL APPEARANCE: Well appearing, well-hydrated, well nourished and alert Rest of exam limited due to virtual encounter Data Review: Outside records independently reviewed, no imaging available XR lumbar spine 06/03/22: Minimal endplate degenerative spurring at L3-4 and L4-5 XR right hip 06/03/22: Shallow angle between the femoral head and neck which may produce a cam-type impingement ASSESSMENT/PLAN (M25.851) Femoroacetabular impingement of right hip (primary encounter diagnosis) (M54.16) Radiculopathy, lumbar region -Referral to PT for hip ROM, core strengthening, stretching/flexibility and strengthening exercises, soft-tissue/joint mobilization, modalities, gait mechanics, posture, and development of home exercise program -Prescribed Naproxen 500 mg BID and Flexeril 10 mg qhs -Follow up in 6 weeks for virtual visit- consider right intraarticular hip joint injection and MRI lumbar spine for consideration of Lumbar ENE if no improvement Medical Decision Making: Problems: Moderate: New problem with uncertain prognosis Data: Unique test result(s) reviewed: 1 Independent interpretation of test from other physician/QHCP Risk: Moderate: Drug management Medical Decision Making Level: 4 - Moderate SIGNATURE: Nicole Polanco DO PATIENT NAME: Addison Grullon DATE: June 09, 2022 TIME: 4:12 PM documented in this encounter [facility] 05-17-2022 Note HNO ID: [id number] Author: Anjel Renee (Combination Welder) Service: ? Author Type: ? Type: Progress Notes Filed: 05/18/2022 5:30 PM Note Text: [facility] Refill Assessment Medication(s): Mavyret final fill Reviewed Tel note on 05/11. Patient update, Any missed doses? Next clinic visit scheduled 09/07 Total duration of treatment: 8 weeks Estimated Start Date: 04/29/21 Estimated Completion Date: 06/24/22. Estimated SVR 12 Date 09/16/22 ALLERGIES Allergen Reactions Ciprofloxacin GI Upset Patient's current medication list and adherence status to current therapy were reviewed by Specialty Pharmacy clinical pharmacist to identify any new drug interactions or non-compliance to therapy. Therapy continues to be appropriate for disease, patient response, and medical condition. Verification of therapeutic benefit and effectiveness with current therapy was completed. Adverse events, barriers in adherence, and side effects were assessed and addressed if applicable. Will proceed with refill with no changes in therapy - patient progressing towards achieving therapeutic goals based on medication-specific laboratory parameters, disease state markers and outcomes. Amy Mendoza, PharmD, BCPS, CSP, MSCS Clinical Pharmacist [facility] P: ; F: Pool: P [facility] Coloring Room Worker Assessment Patient confirmed: Yes Med/dose confirmed: Yes Supplies needed: No supplies needed Missed doses: No Estimated days supply on hand: 10 Copay amount: 0 Copay form of payment: Credit card on file Payment confirmed: Yes Delivery method: FedEx Signature required: Yes (, Medicaid, patient preference) Delivery address: [address] [place] [id number] Delivery date: 05/21/22 Questions or concerns for the pharmacist?: No [facility] Visit Assessment - Hepatology: Ivent complete: No Is pre-assessment?: No Is initial or refill assessment?: Yes Assessment to use: Refill Vaccination Assessment: Date of influenza vaccination reminder: 04/26/2022 Date of most recent vaccination assessment: 04/26/2022 Refill Assessment: Concurrent med therapy screening: Yes Adverse reactions and mitigation: Yes Hepatitis C RNA level at 12 weeks after end of therapy with additional testing as clinically indicated: Yes Hepatic function panel, eGFR: Yes CBC after 2 weeks if on ribavirin: N/A Anjel Renee (Combination Welder) [facility] 05-17-2022 Note HNO ID: [id number] Author: Miracle Garcia RPh Service: ? Author Type: Pharmacist Type: Progress Notes Filed: 12/27/2022 8:15 AM Note Text: [facility] Discontinuation Assessment: Disease group: Hepatology Medication: MAVYRET 100 MG-40 MG TABLET Is this for hepatitis C treatment: Yes Did patient complete SVR-12: Yes SVR-12 result: Undetectable Discontinue reason: Completed full course of therapy OUTSIDE LABS scanned 12/06/22 Miracle Garcia RPh [facility] 05-17-2022 Note HNO ID: [id number] Author: Amy Mendoza RPh Service: ? Author Type: Pharmacist Type: Progress Notes Filed: 11/30/2022 5:29 PM Note Text: Addendum October 29, 2022 1:17 PM : Appt for 11/02 video call follow up to review labs not yet completed. Addendum November 04, 2022 3:47 PM : Patient has not completed lab work, Active in [email or web address] and has not read message. Spoke with who requests paper orders for local labs ([place]) and to reschedule virtual appt. Sent request to provider Amy Mendoza, PharmD, BCPS, CSP, MSCS Clinical Pharmacist [facility] P: ; F: Pool: P [facility] Addendum November 22, 2022 7:37 AM : Appointment rescheduled for 11/30 Addendum November 30, 2022 5:25 PM : Patient not able to complete visit, will be rescheduled. Standing order expires 04/29/23 Amy Mendoza PharmD, BCPS, CSP, MSCS Clinical Pharmacist [facility] P: ; F: Pool: P [facility] 05-17-2022 Note HNO ID: [id number] Author: Anjel Renee (Combination Welder) Service: ? Author Type: ? Type: Progress Notes Filed: 05/18/2022 5:30 PM Note Text: [facility] Visit Assessment - Hepatology: Is pre-assessment?: No Is initial or refill assessment?: No Is post-assessment?: Yes Vaccination Assessment: Date of influenza vaccination reminder: 04/26/2022 Date of most recent vaccination assessment: 04/26/2022 End of Treatment Assessment: Treatment end date: 06/24/2022 Estimated date SVR12 should be drawn: 09/16/2022 HCV RNA viral load ordered?: No The patient was reminded to follow-up with his/her provider regarding future tests. Anjel Renee (Dee) [facility] Addendum May 18, 2022 5:30 PM : Standing order HCV Quant Expires 04/29/2023 Amy Mendoza PharmD, RYLAN, JAYDEN, MSCS Clinical Pharmacist [facility] P: ; F: Pool: P [facility] 05-17-2022 Note HNO ID: [id number] Author: Amy Mendoza [facility] Service: ? Author Type: Pharmacist Type: Progress Notes Filed: 10/01/2022 9:01 AM Note Text: Patient has Gastro Follow up visit 10/12 Will check chart for result Standing order good until 04/29/2023 Amy Mendoza PharmD, BCPS, CSP, MSCS Clinical Pharmacist [facility] P: ; F: Pool: P [facility] 05-17-2022 History of Presen t illness Narrative [facility] Refill Assessment Medication(s): Mavyret final fill Patient's current medication list and adherence status to current therapy were reviewed by Specialty Pharmacy clinical pharmacist to identify any new drug interactions or non-compliance to therapy. Therapy continues to be appropriate for disease, patient response, and medical condition. Verification of therapeutic benefit and effectiveness with current therapy was completed. Adverse events, barriers in adherence, and side effects were assessed and addressed if applicable. Will proceed with refill with no changes in therapy - patient progressing towards achieving therapeutic goals based on medication-specific laboratory parameters, disease state markers and outcomes. Coloring Room Worker Assessment Patient confirmed: Yes Med/dose confirmed: Yes Supplies needed: No supplies needed Missed doses: No Estimated days supply on hand: 10 Copay amount: 0 Copay form of payment: Credit card on file Payment confirmed: Yes Delivery method: FedEx Signature required: Yes (, Medicaid, patient preference) Delivery address: [address] [place] [address] Delivery date: 05/21/22 Questions or concerns for the pharmacist?: No [facility] Visit Assessment - Hepatology: Is pre-assessment?: No Is initial or refill assessment?: Yes Assessment to use: Refill Vaccination Assessment: Date of influenza vaccination reminder: 04/26/2022 Date of most recent vaccination assessment: 04/26/2022 Anjel Renee ([employer]) [facility] Visit Assessment - Hepatology: Is pre-assessment?: No Is initial or refill assessment?: No Is post-assessment?: Yes Vaccination Assessment: Date of influenza vaccination reminder: 04/26/2022 Date of most recent vaccination assessment: 04/26/2022 End of Treatment Assessment: Treatment end date: 06/24/2022 Estimated date SVR12 should be drawn: 09/16/2022 HCV RNA viral load ordered?: No The patient was reminded to follow-up with his/her provider regarding future tests. Anjel Renee CPhT ([place]ee) [facility] documented in this encounter [facility] 05-11-2022 Miscellaneous Notes Attempted to call patient to discuss recent suspected allergic reaction, left voicemail and call back number with his spouse Lisa (per notes) Requested call back to discuss results from local ED and to see if he's had any lapses in his HCV treatment (Mavyret) and if he is still taking it documented in this encounter [facility] 04-29-2022 Miscellaneous Notes Spoke to patient's , Mavyret delivered yesterday and will start tonight/tomorrow. First set of labs due around 05/28 then at end of treatment around 06/25/22 and SVR around 10/06 Can go to any [facility] lab to have blood work done, she verbalized understanding and thanked me for calling documented in this encounter [facility] 04-19-2022 Miscellaneous Notes April 19, 2022 9:11 AM Contacted patient and reviewed his results with his . They verbalized understanding. Cheryl Veliz RN Please contact patient regarding upper endoscopy BIOPSY result - see below. FINAL DIAGNOSIS Stomach, biopsy: - Oxyntic mucosa with no significant diagnostic alteration. - No morphologic evidence of Helicobacter pylori organisms Recommend patient to follow-up with GI for further workup for abdominal pain. . Mary Lou Blount DO April 19, 2022 8:57 AM documented in this encounter [facility] 04-14-2022 History and physical note PROCEDURAL SEDATION HISTORY AND PHYSICAL EXAM SERVICE DATE: 04/14/2022 SERVICE TIME: 10:21 AM Subjective HPI: This is a 51 year old male who presents with No FH of stomach cancer, here for EGD due to chronic abdominal pain, mainly on the left. Seen GI at [facility], recommending EGD due to Hep C, nausea and lack of appetite. PAST ANESTHESIA HISTORY: No history of adverse event PAST MEDICAL HISTORY Diagnosis Date Chronic hepatitis C without hepatic coma (HCC) 03/05/2022 History of drug use Tobacco abuse disorder 01/15/2017 PAST SURGICAL HISTORY Procedure Laterality Date EGD KIDNEY STONE SURGERY HX Prior to Admission medications as of 04/14/22 1001 Medication Sig Last Dose Taking glecaprevir-pibrentasvir (MAVYRET) 100-40 mg tablet Take 3 tablets by mouth once daily with food. Unknown ondansetron (ZOFRAN) 4 mg tablet Take 4 mg by mouth every 8 hours as needed for nausea/vomiting. Unknown ALLERGIES Allergen Reactions Ciprofloxacin GI Upset Objective PHYSICAL EXAM: The remainder of the physical exam is noncontributory. AIRWAY: Airway Visualization of Uvula: Yes Mouth opening greater than 2 fingerbreadths: Yes Neck Full Range of Motion: Yes LUNGS: cta CARDIAC: , rrr Assessment/Plan ASA Class: ASA Class:: Patient with severe systemic disease Active Problems: * No active hospital problems. * Resolved Problems: * No resolved hospital problems. * Medication and Non-Pharmacologic VTE Prophylaxis/Anticoagulants VTE Prophylaxis: none Provisional Diagnosis/Treatment Plan: EGD SEDATION GOAL: Anesthesia SIGNATURE: Mary Lou Blount DO PATIENT NAME: Addison Grullon DATE: April 14, 2022 TIME: 10:21 AM documented in this encounter [facility] 04-09-2022 Note HNO ID: [id number] Author: Amy Mendoza [facility] Service: ? Author Type: Pharmacist Type: Progress Notes Filed: 04/13/2022 10:04 AM Note Text: HCV New Start HCV New Start Received referral for Hepatitis C follow up and prior authorization process Provider is Neeru Antunez [employer] Medication:Mavyret 8 weeks - take THREE tablets daily with food Indication: Chronic Hepatitis C B18.2 Prior Treatment: naive Allergies: Ciprofloxacin GI Upset PAST MEDICAL HISTORY Diagnosis Date Chronic hepatitis C without hepatic coma (HCC) 03/05/2022 History of drug use Tobacco abuse disorder 01/15/2017 Problem List as of 04/09/2022 Reviewed: 03/05/2022 1:50 PM by Neeru Elizondo PA-C Neurology Opiate withdrawal (HCC) Pulmonary Tobacco abuse disorder Last Assessment AND Plan 04/05/2022 PAT Written 04/05/2022 8:44 AM by Marie Daniel APRN.CHIEF HYDROELECTRIC STATION OPERATOR Assessment: current smoker-- > 40 pack year Gastrointestinal Chronic hepatitis C without hepatic coma (HCC) Last Assessment AND Plan 04/05/2022 PAT Written 04/05/2022 8:45 AM by Marie Daniel APRN.CHIEF HYDROELECTRIC STATION OPERATOR Assessment: see HPI Other History of opioid abuse (HCC) Last Assessment AND Plan 04/05/2022 PAT Written 04/05/2022 8:45 AM by Marie Daniel APRN.CHIEF HYDROELECTRIC STATION OPERATOR Assessment: vick last used 2017 GT 1A Fibroscan Score: 8.7 kPa F2 HBV status has been reviewed - 04/05/22 Hep B Core Ab Positive, José AG negative, José Ab negative. HIV negative (04/05/22) Addison Grullon has been counseled on adherence to therapy, office visits and labs. S/he will have HCV RNA testing every 4 weeks while on therapy and has a life expectancy greater than 12 months. Patient DOES NOT have cirrhosis. Patient has been screened for signs of decompensation (ascites, jaundice, hepatic encephalopathy, esophageal varices.) Medication list has been reviewed for adverse reactions, medication toxicity and interactions by introduction of treatment using Nichewith Hep interactions (https://www.hep-druginteraction s.org) and [employer] No significant drug interactions were found Patient does not take efavirenz or organic anion transporting polypeptides 1 b1/3 (XMMC6O6/3) inhibitors or strong inducers of CYP 450 (CYP3A) including: phenytoin, carbamazepine, rifampin, Biju's Wort, atazanavir, darunavir, lopinavir, saquinavir, tipranavir, cyclosporine. Bosentan (Tracleer), warfarin, Dabigatran (pradaxa) Patient does not take amiodarone HCV Treatment plan: -Candidate for treatment: YES -Medication(s): - Mavyret for 8 weeks - this treatment plan meets AASLD-IDSA guidelines -Therapeutic goal - achieve and sustain SVR as measured by HCV RNA test throughout and beyond treatment end date PLAN: - Medication reconciliation completed at last office visit. Medications are accurate as listed in chart. - Submit for prior authorization to insurance once above tests resulted - Pharmacy will update on progress in this encounter as updates are available. - Provider office will manage lab orders and follow up [facility] Visit Assessment - Hepatology: Ivent complete: Yes Is pre-assessment?: Yes Pre-Assessment: Diagnosis: Chronic Hepatits C Medication: Mavyret Length of treatment: 8 Genotype: 1 Fibroscan Score: F2 Cirrhotic: N/A iVent Started: No Amy Mendoza [facility] 04-09-2022 Note HNO ID: [id number] Author: Elena Hampton Service: ? Author Type: ? Type: Progress Notes Filed: 04/23/2022 3:49 PM Note Text: [facility] received prescription(s) for Mavyret from Dr. Elizondo's office. Benefits investigation was conducted, indicating that a prior authorization is required. PA was approved with details listed below. Plan Name: Hunter AYALA reference number: [id number] Approval Dates: 04/19/22 - 06/13/22 Prescriptions will now be processed through [facility] for determination of next steps. Elena Hampton [facility] P: [phone] F: [phone] [facility] 04-09-2022 Note HNO ID: [id number] Author: Amy Mendoza [facility] Service: ? Author Type: Pharmacist Type: Progress Notes Filed: 04/26/2022 1:29 PM Note Text: [facility] received prescription(s) for Mavyret from Dr. Neeru Elizondo's office. Benefits investigation was conducted, indicating that a prior authorization is required. PA was approved with details listed below: Plan Name: Hunter AYALA reference number: [id number] Approval Dates: 04/19/22 - 06/13/22 Pt's copay is $0. Shipment has been arranged, and pt will receive medication(s) on 04/28. Pt has been instructed to follow-up with clinic to confirm start date. A full drug interaction report was conducted, and none found. I reviewed with patients appropriate dose and dosing frequency, administration directions, potential side effects, ability to self-administer and proper storage and handling requirements. S/he expressed understanding of the information we provided today, and received our contact information for the pharmacy if s/he had any other questions. PAST MEDICAL HISTORY Diagnosis Date Chronic hepatitis C without hepatic coma (HCC) 03/05/2022 History of drug use Tobacco abuse disorder 01/15/2017 Problem List as of 04/09/2022 Reviewed: 03/05/2022 1:50 PM by Neeru Elizondo PA-C Neurology Opiate withdrawal (HCC) Pulmonary Tobacco abuse disorder Last Assessment AND Plan 04/05/2022 PAT Written 04/05/2022 8:44 AM by Marie Daniel APRN.CHIEF HYDROELECTRIC STATION OPERATOR Assessment: current smoker-- > 40 pack year Gastrointestinal Chronic hepatitis C without hepatic coma (HCC) Last Assessment AND Plan 04/05/2022 PAT Written 04/05/2022 8:45 AM by Marie Daniel APRN.CHIEF HYDROELECTRIC STATION OPERATOR Assessment: see HPI Other History of opioid abuse (HCC) Last Assessment AND Plan 04/05/2022 PAT Written 04/05/2022 8:45 AM by Marie Daniel APRN.CHIEF HYDROELECTRIC STATION OPERATOR Assessment: vick pedro used 2017 Coloring Room Worker Assessment Patient confirmed: Yes Med/dose confirmed: Yes Supplies needed: Welcome packet Copay amount: 0 Payment confirmed: Yes Delivery method: FedEx Signature required: Yes (, Medicaid, patient preference) (signature waived) Delivery address: [address] [place] [address] Delivery date: 04/28/22 Questions or concerns for the pharmacist?: Yes Patient questions/concerns: Medication dose, Medication route, Medication storage, Side effects, Delivery Total duration of treatment: 8 weeks Estimated Start Date: 04/29/21 Estimated Completion Date: 06/24/22 [facility] Visit Assessment - Hepatology: Ivent complete: No Is pre-assessment?: No Is initial or refill assessment?: Yes Assessment to use: Initial Vaccination Assessment: Annual influenza vaccination reminder: Yes Date of influenza vaccination reminder: 04/26/2022 Vaccination assessment completed: Yes Date of most recent vaccination assessment: 04/26/2022 Initial Assessment: Current and prior medication therapy assessment completed: Yes Counseling on intended outcome of therapy: Yes Hepatic function panel, eGFR, hepatic fibrosis staging, treatment history: Yes Baseline drug specific resistance testing (i.e. ZEPATIER, prior DAA treatment failures.): Yes HBV co-infection screening (HBsAg, anti-HBs, anti-HBc): Yes Hepatitis C genotype: Yes Hepatitis C RNA level: Yes HIV status: Yes HIV screening results: Yes CBC if on ribavirin: N/A testing in all women of childbearing potential prior to starting ribavirin: N/A Amy Mendoza [facility] 04-09-2022 Note HNO ID: [id number] Author: Anjel Renee ([employer]) Service: ? Author Type: ? Type: Progress Notes Filed: 04/09/2022 7:18 AM Note Text: [facility] received prescription(s) for Mavyret from Dr. Neeru Elizondo's office. Benefits investigation was conducted, indicating that a prior authorization is required by pt's plan with [place] Medicaid. Note will be updated once prior authorization has been submitted. Anjel Renee (Dee) [facility], Neurology/Cardiology/Hepatology/ Inflammatory P: F: [facility] 04-09-2022 Note HNO ID: [id number] Author: Amy Mendoza [facility] Service: ? Author Type: Pharmacist Type: Progress Notes Filed: 04/13/2022 3:23 PM Note Text: [facility] received prescription(s) for Mavyret from Dr. Neeru Elizondo's office. Benefits investigation was conducted, indicating that a prior authorization is required by pt's plan with [place] Medicaid. PA was initiated and pending review. Plan Name: [employer] medicaid/[facility] Plan Agent/Hooper: [id number] Phone/ / [phone] Timeline: Expedited Amy Mendoza [facility] 04-09-2022 Note HNO ID: [id number] Author: Amy Mendoza [facility] Service: ? Author Type: Pharmacist Type: Progress Notes Filed: 04/19/2022 3:08 PM Note Text: Addendum April 19, 2022 3:00 PM : Resubmitted with additional lab/chart note information [facility] received prescription(s) for Mavyret from Dr. Neeru Elizondo's office. Benefits investigation was conducted, indicating that a prior authorization is required by pt's plan with [place] Medicaid. PA was initiated and pending review. Plan Name: [employer] medicaid/[facility] Plan Agent/Hooper: [id number] Phone/ / [phone] Timeline: Expedited Amy Mendoza, [facility] 04-09-2022 History of Presen t illness Narrative [facility] received prescription(s) for Mavyret from Dr. Neeru Elizondo's office. Benefits investigation was conducted, indicating that a prior authorization is required by pt's plan with [place] Medicaid. Note will be updated once prior authorization has been submitted. Anjel Renee CPhT ([place]ee) [facility], Neurology/Cardiology/Hepatology/ Inflammatory P: F: documented in this encounter [facility] 04-08-2022 Miscellaneous Notes Mavyret x 8 weeks ordered documented in this encounter [facility] 04-06-2022 Miscellaneous Notes Unable to LM for patient to call office, VM not set up. Nurse will review EGD prep. Please transfer to [phone] or [phone]. Roberta Gaines LPN documented in this encounter [facility] 04-05-2022 Instructions Marie Daniel APRN.CHIEF HYDROELECTRIC STATION OPERATOR - 04/05/2022 8:21 AM EST PATIENT PREOPERATIVE INSTRUCTIONS Leslie Blount, DO has scheduled you for your procedure at this surgery center: [facility]: [phone] --[address] [place] [address]. Please enter through the entrance closest to [facility]. Arrival Time for Surgery: - The Surgery Center or hospital where you are having surgery will call the afternoon before surgery (or Tuesday for Tuesday surgery) with a scheduled arrival time. - If you have not heard by 3 pm, please contact the surgery center above. Please be aware that emergency situations arise, which may delay or change your surgical time. If this happens, we will notify you as soon as possible and regret any inconvenience. Please read below carefully for your personalized instructions. Dietary Restrictions: - No solid food after midnight. - You may have 12 ounces of clear liquids (water, clear juices such as apple juice or gatorade, carbonated beverages, clear tea, black coffee, jello) until 3 hours before scheduled arrival at facility. No milk/cream Medications: Unless instructed differently below, stay on all of your medications until your surgery. Approved medications to take the morning of surgery with a sip of water: NONE If you take any medications for erectile dysfunction-Cialis (Tadalafil), Levitra, Staxyn (Vardenafil) Viagra (Sildenenafil please do not take these for 48 hours before surgery. If you start any new medications after today's visit, please contact the surgeon's office. Blood Thinning Medications: - Stop NSAIDS (Ibuprofen, Advil, Aleve, Motrin, Celebrex, Mobic, etc.) 7 days before surgery, as directed by your surgeon. - Stop Aspirin 7 days before surgery, as directed by your surgeon. - Stop Vitamin E, ALL multi-vitamins, herbals and dietary supplements 7 days before surgery. - You may take Tylenol (Acetaminophen) or any of your pain medications that do not contain aspirin or NSAIDS as needed. Important Reminders: - If you are prescribed inhalers for breathing, continue using them. - Candy, mints, and tobacco products are NOT permitted the morning of surgery. - Hearing aids, dentures and glasses may be worn the morning of surgery. - NO jewelry, body piercings, makeup, hairpins or contacts are to be worn the day of surgery. If you develop symptoms such as a fever, cold, or flu, or have other changes to your health within TWO DAYS of scheduled surgery or the morning of surgery, please contact the surgery center above. Personal Belongings: -Please have photo ID and insurance cards. -If you do not have a copy of advance directives on file with us, please bring a copy with you on the day of surgery. - Leave ALL valuables and money at home or with family members. For Outpatient Procedures: - YOU MUST HAVE A RESPONSIBLE PLANT OPERATOR TAKE YOU HOME. A TIRE MOLD TESTER OR RUBBER GOODS INSPECTOR CANNOT BE MADE A RESPONSIBLE PLANT OPERATOR. - We recommend that a responsible person stays with you overnight to take care of you. - You cannot stay in a hotel alone after outpatient surgery. You will not be permitted to have your surgery, if you do not have someone to take care of you. If you already have an Advance Directive, please fax a copy to [phone] or email to for it to be added to your chart. If you do not have an Advance Directive, you can find the appropriate form and more information at [email or web address]. We recommend that you complete the Advance Directive form found on the website and bring it with you the day of your surgery. It can be witnessed and scanned into your chart that day. documented in this encounter [facility] 04-05-2022 History and physical note HISTORY AND PHYSICAL EXAMINATION SERVICE DATE: 04/05/2022 SERVICE TIME: 8:20 AM PRIMARY CARE PHYSICIAN: Rudy Galvan III, DO, DO REASON FOR VISIT: Addison Grullon is a 51 year old male who is scheduled for EGD at the request of Dr. Leslie Blount for consultation. My final recommendation will be communicated back to the requesting physician by way of shared medical record or letter. The patient has the following: ACTIVE PROBLEM LIST Opiate Withdrawal (Hcc) Tobacco Abuse Disorder Chronic Hepatitis C Without Hepatic Coma (Hcc) History of Opioid Abuse (Hcc) Subjective CHIEF COMPLAINT: Epigastric pain HPI: 51 year old male with chronic epigastric pain. States had EGD in past- and ulcer was found. Takes Zofran for N/V PRN. Has known hep C- was approved for Epclusa in 2018 but then was incarcerated. Etiology of HCV infection-illicit drug use, last use 2017, fibroscan noted F2 from OSH. PAST MEDICAL HISTORY Diagnosis Date Chronic hepatitis C without hepatic coma (HCC) 03/05/2022 History of drug use Tobacco abuse disorder 01/15/2017 PAST SURGICAL HISTORY Procedure Laterality Date EGD KIDNEY STONE SURGERY HX FAMILY HISTORY Problem Relation Age of Onset Difficulty with anesthesia No Family History SOCIAL HISTORY: Social History Tobacco Use Smoking status: Every Day Packs/day: 2.00 Types: Cigarettes Start date: 1986 Smokeless tobacco: Never Substance Use Topics Alcohol use: Not Currently Comment: drug abuse tx a few yrs ago as of 04/05/21 Drug use: Yes Types: Marijuana Comment: medical---daily MEDICATIONS: Prior to Admission medications as of 04/05/22 0825 Medication Sig Last Dose Taking ondansetron (ZOFRAN) 4 mg tablet Take 4 mg by mouth every 8 hours as needed for nausea/vomiting. No medication comments found. CURRENT ALLERGIES: ALLERGIES Allergen Reactions Ciprofloxacin GI Upset COVID VACCINATION STATUS: Not vaccinated REVIEW OF SYSTEMS: PAIN ASSESSMENT: Pain Pain Level: 5 Pain Location: Abdomen Description: Other: See comment (Nausea more than anything.) Duration Amount of Time: 1.5 Duration Units: Years Frequency: Intermittent Intervention/Comfort measure: Medication Comments: Zofran helps a bit General: No weight loss, malaise or fevers. Neuro: No history of TIA's, stroke, PICTURE FRAMER tumor, impaired sensorium, hemiplegia, paraplegia or quadraplegia. No neurological symptoms or problems. Respiratory: Negative for Asthma, URI < 2 weeks, Wheezing + Smoker - current Cardiovascular: No history of HTN requiring medication, no history of angina, CHF, PR, cardiac surgery or stents. Denies rest pain, gangrene or revascularization/amputation for PVD. No history of cardiovascular symptoms or problems. GI: See HPI : No history of dysuria, frequency or incontinence,, stones or chronic kidney disease Endocrine: No history of diabetes. Has not taken steroids within the past 30 days. No history of endocrinological symptoms or problems. Hematology: No history of bleeding or clotting disorder. Pt is not taking anti-coagulation or platelet medications. No history of hematological symptoms or problems. Oncology: No history of CA metastasis, chemo within 30 days, or radiotherapy within 90 days. Has not lost 10% of body wt in 6 months. No history of oncological symptoms or problems. Hx of skin Ca on face Psych: hx of opiate abuse- last use 2018 Musculoskeletal: Negative for joint pain or swelling, back pain or muscle pain. Skin: Negative for lesions, rash and itching. Objective PHYSICAL EXAM: VITALS: BP 119/67 Pulse 86 Temp (Src) 98.1 (Temporal Artery) Resp 16 Ht 6' 2 (1.88m) Wt 224 lb (101.6kg) SpO2 98% BMI 28.75 kg/(m^2). General: Alert and oriented, No acute distress Skin: Normal color, no rash, no lesions. HEENT: EOM, pupils equal, round and reactive. Cardiovascular: Normal S1 & S2, no rubs, murmurs or gallops. No JVD. Pulse regular. Lungs: Normal breath sounds, no wheezes or crackles. Abdomen: Soft, non-tender, no rigidity. Extremities: No deformity, no edema or tenderness, no joint swelling or clubbing. Neurological: Normal cognition and motor skills. Pulses: Carotid and radial pulses normal +2. Diagnostic tests reviewed for today's visit: Labs pending- ordered by GI Assessment/Plan Tobacco abuse disorder Assessment: current smoker-- > 40 pack year Chronic hepatitis C without hepatic coma (HCC) Assessment: see HPI History of opioid abuse (HCC) Assessment: sates last used 2018 METS: Climb a flight of stairs or walk up a hill (5.50 METs) Patient denies any chest pain or undue shortness of breath with the above physical activity. ASA Class: 3 ANESTHESIA FINDINGS: Intubation History: No history of difficult intubation Significant Anesthesia Considerations: None Airway Exam: General: Normal appearance Mallampati Score is CLASS II ULBT: Class II - Lower incisors can bite the upper lip below the michael line Neck: Normal appearance and function Mouth: Normal tongue size Dentition: Intact Airway History: No abnormal airway history STOP BANG Score: Criteria: Age over 50 (51 year old) Male gender Score = 2 PLAN This patient is optimally prepared for surgery. CONSULTS: Patient does not require consults for optimization at this time. The Following Tests/Procedures Have Been Initiated: EKG not indicated per [facility] protocol Planned Anesthetic: MAC Instructions Given to Patient: Instructions located in the after visit summary. Patient given verbal and written preop instructions and voices comprehension and compliance. SIGNATURE: Marie Daniel APRN.CNP PATIENT NAME: Addison Grullon DATE: April 05, 2022 TIME: documented in this encounter [facility] 03-09-2022 Miscellaneous Notes Schedulers, can someone please change the diagnosis for pt's May with Dr. Iniguez to nausea and loss of appetite? He has Hep C but is being treated for that by an [facility]. Not seeing Dr. Iniguez for that diagnosis. Thank you Rosa Isela Haddad RN Wilton Natarajan, He has been struggling with nausea and decreased appetite so the consult and EGD is for that, I am taking care of his hepatitis C. Thanks, Neeru Elizondo PA-C Great, thank you for the update. I'll have the diagnosis on the office visit with Dr. Iniguez changed to to that then. Thank you again Rosa Isela Haddad RN Wilton Carroll, I'm Dr. Iniguez's RN hearing care professional in her office. I see you've seen this pt in the office for Hep C. He is scheduled for EGD with Dr. Blount, then has an office visit set up with Dr. Iniguez in May. Then has a follow up office visit with you in August. Just trying to figure out if this office visit with Dr. Iniguez is needed. She also does not see Hep C pts's. Just want to be sure we get the pt in the right direction. Thank you for any input. Rosa Isela Haddad RN documented in this encounter [facility] 03-05-2022 Miscellaneous Notes Fibroscan likely F2, S3 (moderate fibrosis with significant steatosis) documented in this encounter [facility] 03-05-2022 Note HNO ID: [id number] Author: Neeru Elizondo PA-C Service: ? Author Type: Physician Senior Facilities Manager Type: Progress Notes Filed: 03/05/2022 2:40 PM Note Text: Patient fasting for 3 hours:Yes Any implanted devices:No Possibility of :No Fibroscan was performed on March 05, 2022, by Shadia Goodrich and results are interpreted by Neeru Elizondo PA-C Diagnosis: Hepatitis C Please refer to get images report for individual readings Number of readings: 10 IQR %: 11 E (kpa): 8.7 CAP: 360 Impression The reading was adequate. FS =8.7 kPA. The CAP is 360 and corresponds to steatosis grade of S3. This reading corresponds: A 88% chance of stage 0-2 fibrosis A 12% chance of stage 3-4 fibrosis (advanced fibrosis) A 1.7% chance of stage 4 fibrosis (cirrhosis). Neeru Elizondo PA-C Hepatitis C Fibroscan Fibrosis Risk <7 kPA = F0-F2 93%, F3+F4 7%, F4 <1% <10 kPA = F0-F2 88%, F3+F4 12%, F4 1.7% 10-15 kPA = F0-F2 43%, F3+F4 58%, F4 20% >15 kPA = F0-F2 16%, F3+F4 84%, F4 63% Grade CAP value up to 237 dB/M corresponds to S0 (< 10 % Fat) CAP value between (238 - 258 dB/M) corresponds to S1 (>/= 11 % Fat) CAP value between (259 - 289 dB/M) corresponds to S2 (>/= 33 % Fat) CAP value > 290dB/M corresponds to S3 (>/= 67 % Fat) stage 0 ( S0:< 10 % steatosis) stage 1 (>/= S1: 11%-33% steatosis) stage 2 (>/= S2: 34%-66% steatosis) stage 3 (>/= S3: > 66% steatosis) Reference Conor Y, Shiv Q, Conor T, Nicole J, Conor H, Abimael T. Controlled attenuation parameter for assessment of hepatic steatosis grades: a diagnostic meta-analysis. Int J Clin Exp Med. 2015 Nov 15;8(10):68284-58. PMID: 90020511; PMCID: [id number]. Luis Patino, Marjorie BUITRAGO, Chelsie M, Lizzie F, Ron J, Chante O, Jose Maria F, Sarah M, Neville G, Christina A, Jaz E, Kristie L, Yessi G, Benji A, Carson U, Rahul S, Humza P, Mariella V, Lopez V, Irvin M, Catina MORLEY. Refining the Baveno elastography criteria for the definition of compensated advanced chronic liver disease. J Hepatol. 2020;74(5):0423-7022. doi: 10.1016/j.jhep.2020.11.050. Epub 2019Jan 22. PMID: 18514618. [facility] 03-05-2022 Note HNO ID: [id number] Author: Neeru Elizondo PA-C Service: ? Author Type: Physician Senior Facilities Manager Type: Progress Notes Filed: 03/08/2022 8:11 AM Note Text: NAME: Addison Grullon AGE: [age] year old Patient is referred in consultation by for an opinion regarding HCV and my final recommendations will be communicated back to the requesting physician by way of shared Medical Record. PRESENTING COMPLAINT AND HISTORY No chief complaint on file. Addison Grullon is a 51 year old year with pmhx of chronic epigastric pain, PUD (dx 2012), chronic HCV infection (tx naive) who presents with Hepatitis C. Reports being diagnosed with HCV around 5352-6777. He reports hx of IVDU, last use 2018. Reports former daily ETOH use (beer), last drink was over 15 years ago. He admits marijuana use nightly; has medical marijuana card. He was incarcerated for 8 years. Per notes, has Fibroscan in 2018 248; 8.1; Genotype 1A, and was approved for Epclusa in 2018 but was then incarcerated. Per notes from scanned documents, in regards to his HCV he is treatment naive, was approved for Epclusa in 2018 but then was incarcerated. Etiology of HCV infection-illicit drug use, last use 2018, fibroscan noted F2 from OSH. Denies jaundice, hematemesis, hematochezia, episodes of confusion, ascites/fluid retention. Reports abdominal pain and nausea somewhat relieved with Zofran. Risk Factors for Liver Disease: 1. Blood transfusions before 1991: no 2. IVDA: Yes, formerly. Last use 1991 3. Intranasal coccaine use: No 4. Tattoos: Yes 5. Service: No 6. High risk sexual behavior: No 7. Alcohol: Yes, previously 8. Obesity: No 9. Hyperlipidemia: No 10. Prolonged exposure to hepatotoxic meds: No 11. Other autoimmune disorders No Family hx: denies family history of liver disease Surgical hx:denies PAST SURGICAL HISTORY No past surgical history on file. PAST MEDICAL HISTORY No past medical history on file. SOCIAL HISTORY CURRENT MEDICATIONS No current outpatient medications on file. No current facility-administered medications for this visit. ALLERGIES ALLERGIES Not on File Recent Labs: No results found for: HB, HCT, WBC No results found for: GLUC, K, NA, CHLOR, CO2, CREAT, BUN, ANION, CA No results found for: ALB, TBILI, CBILI, ALKPHOS, AST, ALT, TPROT Computed MELD-Na score unavailable. Necessary lab results were not found in the last year. Computed MELD score unavailable. Necessary lab results were not found in the last year. [facility] 03-05-2022 Note HNO ID: [id number] Author: Rosalinda Vieyra APRN.CHIEF HYDROELECTRIC STATION OPERATOR Service: ? Author Type: Nurse Practitioner Type: Progress Notes Filed: 03/08/2022 8:11 AM Note Text: NAME: Addison Grullon [facility] NO: [id number] REFERRING PHYSICIAN: PRESENTING COMPLAINT: Hepatitis C Patient is referred in consultation by for an opinion regarding Hepatitis C and my final recommendations will be communicated back to the requesting physician by way of shared Medical Record. PRESENTING COMPLAINT: HCV HISTORY Addison Grullon is a 51 year old year with pmhx of chronic epigastric pain, PUD (dx 2012), chronic HCV infection (tx naive) who presents with Hepatitis C. Per notes from scanned documents, in regards to his HCV he is treatment naive, was approved for Epclusa in 2018 but then was incarcerated. Etiology of HCV infection-illicit drug use, last use 2017, fibroscan noted F2 from OSH. Risk Factors for Liver Disease: 1. Blood transfusions before 1991: no 2. IVDA: Yes formerly, years ago 3. Intranasal coccaine use: No 4. Tattoos: yes 5. Service: No 6. High risk sexual behavior: No 7. Alcohol: Yes, sober since 8. Obesity: No 9. Hyperlipidemia: No 10. Prolonged exposure to hepatotoxic meds: No 11. Other autoimmune disorders No Family hx:denies Surgical hx:deneis PAST SURGICAL HISTORY No past surgical history on file. PAST MEDICAL HISTORY No past medical history on file. SOCIAL HISTORY CURRENT MEDICATIONS No current outpatient medications on file. No current facility-administered medications for this visit. ALLERGIES ALLERGIES Not on File FAMILY HISTORY Liver Problems: No Colitis: No Colon Cancer: No Other Cancers: No FAMILY HISTORY No family history on file. GI SPECIFIC ROS Difficulty swallowing / foods sticking in throat: No Heartburn: No Hoarseness: No Chronic cough: No Regurgitation: No Chest pain: No Filling up quickly at meals: No Loss of appetite: No Nausea: No Vomiting: No Abdominal pain: No Recent change in bowel movements: No Bloody or black, bowel movements: No Constipation: No Diarrhea: No Loss of control of bowel movements: No Night sweats, fever, chills: No Thought or memory problems: No Fluid in abdomen (ascites): No Prominent leg swelling: No Vomiting blood: No Recent change in weight: No PHYSICAL EXAMINATION There were no vitals taken for this visit. General Appearance: Well appearing, alert, in no acute distress, well-hydrated, well nourished. Eyes: PERRLA, conjunctiva and sclera normal Oropharynx: covered by mask Lungs:breath sounds clear to auscultation bilaterally, no crackles, rhonchi, or wheezes Heart: regular rate and rhythm, no murmurs or gallops. Abdomen: not distended, normal bowel sounds, soft and depressible, no guarding or rebound, no palpable mass, no organomegaly Extremities: no cyanosis or edema Skin: no jaundice, no spider angiomas, no palmar erythema Neuro:alert, in no acute distress Recent Labs: No results found for: HB, HCT, WBC No results found for: GLUC, K, NA, CHLOR, CO2, CREAT, BUN, ANION, CA No results found for: ALB, TBILI, CBILI, ALKPHOS, AST, ALT, TPROT Computed MELD-Na score unavailable. Necessary lab results were not found in the last year. Computed MELD score unavailable. Necessary lab results were not found in the last year. ASSESSMENT /IMPRESSION: Hepatitis C - treatment naive - previously HCV GT 1a - fibroscan in 2018 revealing F2 PLAN -Mediterranean diet -increased cardiovascular exercise with goal >45 minutes 5 days weekly -avoid liver detox cleanse/supplements -not to exceed 2,000 mg tylenol daily -strict alcohol abstinence recommended -PCP to assist with management/screening for any and all components of metabolic syndrome Hepatitis C - will obtain fibroscan for staging - will obtain RUQ US for HCC surveillance Will obtain the following labs: - CBC + DIFF - BASIC METABOLIC PNL - PROTHROMBIN TIME/PT - HEPATIC FUNCTION PNL - ALPHA FETOPROTEIN BL - HEP REMOTE PANEL BL - HCV QUANT RNA BY PCR - HEPATITIS C GENOTYPE - TOX SCREEN ROUT UR - HIV 1 2 COMBO(AG/AB),WITH REFLEX TO DIFFERENTIATION - HEPATITIS A ANTIBODY, IGG Nausea - will refer to gastroenterology - will place order for EGD Follow up in 4 weeks Rosalinda Vieyra APRN, CARL[facility] 03-05-2022 Note HNO ID: [id number] Author: Neeru Elizondo PA-C Service: ? Author Type: Physician Senior Facilities Manager Type: Progress Notes Filed: 03/08/2022 8:11 AM Note Text: NAME: Addison Grullon AGE: [age] year old Patient is referred in consultation by for an opinion regarding Hepatitis C and my final recommendations will be communicated back to the requesting physician by way of shared Medical Record. PRESENTING COMPLAINT AND HISTORY Patient presents with: New Patient: Hep C symptoms Addison Grullon is a 51 year old year with pmhx of chronic epigastric pain, PUD (dx 2013), chronic HCV infection (tx naive) who presents with hepatitis C. Presents to clinic with his . This is his first visit to [facility] Per notes from scanned documents, in regards to his HCV he is treatment naive, was approved for Epclusa in 2018 but then was incarcerated. Etiology of HCV infection-illicit drug use, last use 2018, fibroscan noted F2 from OSH. States he's had difficulty obtaining treatment locally, judgmental doctors. Has had chronic nausea, last EGD years ago, interested in GI with [facility] Risk Factors for Liver Disease: 1. Blood transfusions before 1991: 2. IVDA: No 3. Intranasal coccaine use: yes-last use years ago 4. Tattoos: yes 5. Service: No 6. High risk sexual behavior: No 7. Alcohol: No 8. Obesity: No 9. Hyperlipidemia: No 10. Prolonged exposure to hepatotoxic meds: No 11. Other autoimmune disorders No Denies current issues with ascites, HE, hematemesis, hematochezia, confusion, dark urine, nithin colored stool, vomiting, weight loss, early satiety, bloating, dysphagia, odynophagia, change in bm. Remaining systems reviewed and are negative. History reviewed. No pertinent surgical history. History reviewed. No pertinent past medical history. Social History Tobacco Use Smoking status: Never Smokeless tobacco: Never Substance Use Topics Alcohol use: Never Drug use: Yes Types: Marijuana Comment: medical No current outpatient medications on file. No current facility-administered medications for this visit. ALLERGIES Allergen Reactions Ciprofloxacin GI Upset FAMILY HISTORY Liver Problems: No Colitis: No Colon Cancer: No Other Cancers: Yes History reviewed. No pertinent family history. GI SPECIFIC ROS Difficulty swallowing / foods sticking in throat: No Heartburn: No Hoarseness: No Chronic cough: No Regurgitation: No Chest pain: No Filling up quickly at meals: No Loss of appetite: Yes Nausea: Yes Vomiting: No Abdominal pain: No Recent change in bowel movements: No Bloody or black, bowel movements: No Constipation: No Diarrhea: No Loss of control of bowel movements: No Night sweats, fever, chills: No Thought or memory problems: No Fluid in abdomen (ascites): No Prominent leg swelling: No Vomiting blood: No Recent change in weight: No PHYSICAL EXAMINATION BP 137/84 Pulse 92 Temp (Src) 97.9 (Temporal) Ht 6' 2 (1.88m) Wt 224 lb 3.2 oz (101.7kg) SpO2 95% BMI 28.77 kg/(m2). General Appearance: Well appearing, alert, in no acute distress, well-hydrated, well nourished. Eyes: PERRLA, conjunctiva and sclera normal Oropharynx: covered by mask Lungs:breathing comfortably Heart: regular rate Abdomen: not distended Extremities: no cyanosis or edema Skin: no jaundice, no spider angiomas, no palmar erythema Neuro:alert, in no acute distress Recent Labs: No results found for: HB, HCT, WBC No results found for: GLUC, K, NA, CHLOR, CO2, CREAT, BUN, ANION, CA No results found for: ALB, TBILI, CBILI, ALKPHOS, AST, ALT, TPROT Computed MELD-Na score unavailable. Necessary lab results were not found in the last year. Computed MELD score unavailable. Necessary lab results were not found in the last year. Imaging: Fibroscan scanned in from 2018 Assessment IMPRESSION Addison Grullon is a 51 year old year with pmhx of chronic epigastric pain, PUD (dx 2013), chronic HCV infection (tx naive) who presents with hepatitis C. He is treatment naive, not bx proven, previously HCV GT 1a, fibroscan in 2018 (F2). Long discussion today regarding natural history of Hep C, likelihood of progression, complication of liver disease, as well as specific treatment options including side effect profile of therapy, probability of response and evaluation necessary before embarking on therapy. Oriented about risk factors, mode of transmission, strategies to avoid transmission (including very minimal risk of sexual transmission), potential treatment options and possible interventions to stage her liver disease.Discussed regarding the FDA approved HCV medication for his genotype, side effects, DD interaction and response rate. Blood work will be due every 4 weeks while on treatment along with last set of labs 3 months after treatment completion. PLAN MELD labs with HBV serologies, AFP, HCV PCR, HCV GT, HAV IgG, HIV Urine drug scre (more content not included)... [facility] 03-05-2022 Instructions Neeru Elizondo PA-C - 03/05/2022 1:58 PM EST Blood work and urine screen today in lab on 1st floor Fibroscan today for staging Schedule upper endoscopy and the consultation with GI Schedule liver ultrasound, fast 6 hours prior. Call to schedule at [phone] Once imaging and labs are back, will call you and order Hep C medication. Please call me once your medications are delivered so I know your start date, as blood work is due every 4 weeks while on treatment then 3 months afterward Follow up with me in 6 months Call me at [phone] documented in this encounter [facility] 03-05-2022 History of Presen t illness Narrative NAME: Addison Grullon AGE: [age] year old Patient is referred in consultation by for an opinion regarding HCV and my final recommendations will be communicated back to the requesting physician by way of shared Medical Record. PRESENTING COMPLAINT & HISTORY No chief complaint on file. Addison Grullon is a 51 year old year with pmhx of chronic epigastric pain, PUD (dx 2013), chronic HCV infection (tx naive) who presents with Hepatitis C. Reports being diagnosed with HCV around 5297-7814. He reports hx of IVDU, last use 2018. Reports former daily ETOH use (beer), last drink was over 15 years ago. He admits marijuana use nightly; has medical marijuana card. He was incarcerated for 8 years. Per notes, has Fibroscan in 2018 248; 8.1; Genotype 1A, and was approved for Epclusa in 2018 but was then incarcerated. Per notes from scanned documents, in regards to his HCV he is treatment naive, was approved for Epclusa in 2018 but then was incarcerated. Etiology of HCV infection-illicit drug use, last use 2018, fibroscan noted F2 from OSH. Denies jaundice, hematemesis, hematochezia, episodes of confusion, ascites/fluid retention. Reports abdominal pain and nausea somewhat relieved with Zofran. Risk Factors for Liver Disease: 1. Blood transfusions before 1991: no 2. IVDA: Yes, formerly. Last use 1991 3. Intranasal coccaine use: No 4. Tattoos: Yes 5. Service: No 6. High risk sexual behavior: No 7. Alcohol: Yes, previously 8. Obesity: No 9. Hyperlipidemia: No 10. Prolonged exposure to hepatotoxic meds: No 11. Other autoimmune disorders No Family hx: denies family history of liver disease Surgical hx:denies PAST SURGICAL HISTORY No past surgical history on file. PAST MEDICAL HISTORY No past medical history on file. SOCIAL HISTORY CURRENT MEDICATIONS No current outpatient medications on file. No current facility-administered medications for this visit. ALLERGIES ALLERGIES Not on File Recent Labs: No results found for: HB, HCT, WBC No results found for: GLUC, K, NA, CHLOR, CO2, CREAT, BUN, ANION, CA No results found for: ALB, TBILI, CBILI, ALKPHOS, AST, ALT, TPROT Computed MELD-Na score unavailable. Necessary lab results were not found in the last year. Computed MELD score unavailable. Necessary lab results were not found in the last year. NAME: Addison Grullon CLINIC NO: [id number] REFERRING PHYSICIAN: PRESENTING COMPLAINT: Hepatitis C Patient is referred in consultation by for an opinion regarding Hepatitis C and my final recommendations will be communicated back to the requesting physician by way of shared Medical Record. PRESENTING COMPLAINT: HCV HISTORY Addison Grullon is a 51 year old year with pmhx of chronic epigastric pain, PUD (dx 2013), chronic HCV infection (tx naive) who presents with Hepatitis C. Per notes from scanned documents, in regards to his HCV he is treatment naive, was approved for Epclusa in 2018 but then was incarcerated. Etiology of HCV infection-illicit drug use, last use 2018, fibroscan noted F2 from OSH. Risk Factors for Liver Disease: 1. Blood transfusions before 1991: no 2. IVDA: Yes formerly, years ago 3. Intranasal coccaine use: No 4. Tattoos: yes 5. Service: No 6. High risk sexual behavior: No 7. Alcohol: Yes, sober since 8. Obesity: No 9. Hyperlipidemia: No 10. Prolonged exposure to hepatotoxic meds: No 11. Other autoimmune disorders No Family hx:denies Surgical hx:deneis PAST SURGICAL HISTORY No past surgical history on file. PAST MEDICAL HISTORY No past medical history on file. SOCIAL HISTORY CURRENT MEDICATIONS No current outpatient medications on file. No current facility-administered medications for this visit. ALLERGIES ALLERGIES Not on File FAMILY HISTORY Liver Problems: No Colitis: No Colon Cancer: No Other Cancers: No FAMILY HISTORY No family history on file. GI SPECIFIC ROS Difficulty swallowing / foods sticking in throat: No Heartburn: No Hoarseness: No Chronic cough: No Regurgitation: No Chest pain: No Filling up quickly at meals: No Loss of appetite: No Nausea: No Vomiting: No Abdominal pain: No Recent change in bowel movements: No Bloody or black, bowel movements: No Constipation: No Diarrhea: No Loss of control of bowel movements: No Night sweats, fever, chills: No Thought or memory problems: No Fluid in abdomen (ascites): No Prominent leg swelling: No Vomiting blood: No Recent change in weight: No PHYSICAL EXAMINATION There were no vitals taken for this visit. General Appearance: Well appearing, alert, in no acute distress, well-hydrated, well nourished. Eyes: PERRLA, conjunctiva and sclera normal Oropharynx: covered by mask Lungs:breath sounds clear to auscultation bilaterally, no crackles, rhonchi, or wheezes Heart: regular rate and rhythm, no murmurs or gallops. Abdomen: not distended, normal bowel sounds, soft and depressible, no guarding or rebound, no palpable mass, no organomegaly Extremities: no cyanosis or edema Skin: no jaundice, no spider angiomas, no palmar erythema Neuro:alert, in no acute distress Recent Labs: No results found for: HB, HCT, WBC No results found for: GLUC, K, NA, CHLOR, CO2, CREAT, BUN, ANION, CA No results found for: ALB, TBILI, CBILI, ALKPHOS, AST, ALT, TPROT Computed MELD-Na score unavailable. Necessary lab results were not found in the last year. Computed MELD score unavailable. Necessary lab results were not found in the last year. ASSESSMENT /IMPRESSION: Hepatitis C - treatment naive - previously HCV GT 1a - fibroscan in 2018 revealing F2 PLAN -Mediterranean diet -increased cardiovascular exercise with goal >45 minutes 5 days weekly -avoid liver detox cleanse/supplements -not to exceed 2,000 mg tylenol daily -strict alcohol abstinence recommended -PCP to assist with management/screening for any and all components of metabolic syndrome Hepatitis C - will obtain fibroscan for staging - will obtain RUQ US for HCC surveillance Will obtain the following labs: - CBC + DIFF - BASIC METABOLIC PNL - PROTHROMBIN TIME/PT - HEPATIC FUNCTION PNL - ALPHA FETOPROTEIN BL - HEP REMOTE PANEL BL - HCV QUANT RNA BY PCR - HEPATITIS C GENOTYPE - TOX SCREEN ROUT UR - HIV 1 2 COMBO(AG/AB),WITH REFLEX TO DIFFERENTIATION - HEPATITIS A ANTIBODY, IGG Nausea - will refer to gastroenterology - will place order for EGD Follow up in 4 weeks Rosalinda Vieyra APRN, CNP NAME: Addison Grullon AGE: [age] year old Patient is referred in consultation by for an opinion regarding Hepatitis C and my final recommendations will be communicated back to the requesting physician by way of shared Medical Record. PRESENTING COMPLAINT & HISTORY Patient presents with: New Patient: Hep C symptoms Addison Grullon is a 51 year old year with pmhx of chronic epigastric pain, PUD (dx 2013), chronic HCV infection (tx naive) who presents with hepatitis C. Presents to clinic with his . This is his first visit to [facility] Per notes from scanned documents, in regards to his HCV he is treatment naive, was approved for Epclusa in 2018 but then was incarcerated. Etiology of HCV infection-illicit drug use, last use 2018, fibroscan noted F2 from OSH. States he's had difficulty obtaining treatment locally, judgmental doctors. Has had chronic nausea, last EGD years ago, interested in GI with [facility] Risk Factors for Liver Disease: 1. Blood transfusions before 1991: 2. IVDA: No 3. Intranasal coccaine use: yes-last use years ago 4. Tattoos: yes 5. Service: No 6. High risk sexual behavior: No 7. Alcohol: No 8. Obesity: No 9. Hyperlipidemia: No 10. Prolonged exposure to hepatotoxic meds: No 11. Other autoimmune disorders No Denies current issues with ascites, HE, hematemesis, hematochezia, confusion, dark urine, nithin colored stool, vomiting, weight loss, early satiety, bloating, dysphagia, odynophagia, change in bm. Remaining systems reviewed and are negative. History reviewed. No pertinent surgical history. History reviewed. No pertinent past medical history. Social History Tobacco Use Smoking status: Never Smokeless tobacco: Never Substance Use Topics Alcohol use: Never Drug use: Yes Types: Marijuana Comment: medical No current outpatient medications on file. No current facility-administered medications for this visit. ALLERGIES Allergen Reactions Ciprofloxacin GI Upset FAMILY HISTORY Liver Problems: No Colitis: No Colon Cancer: No Other Cancers: Yes History reviewed. No pertinent family history. GI SPECIFIC ROS Difficulty swallowing / foods sticking in throat: No Heartburn: No Hoarseness: No Chronic cough: No Regurgitation: No Chest pain: No Filling up quickly at meals: No Loss of appetite: Yes Nausea: Yes Vomiting: No Abdominal pain: No Recent change in bowel movements: No Bloody or black, bowel movements: No Constipation: No Diarrhea: No Loss of control of bowel movements: No Night sweats, fever, chills: No Thought or memory problems: No Fluid in abdomen (ascites): No Prominent leg swelling: No Vomiting blood: No Recent change in weight: No PHYSICAL EXAMINATION BP 137/84 Pulse 92 Temp (Src) 97.9 (Temporal) Ht 6' 2 (1.88m) Wt 224 lb 3.2 oz (101.7kg) SpO2 95% BMI 28.77 kg/(m^2). General Appearance: Well appearing, alert, in no acute distress, well-hydrated, well nourished. Eyes: PERRLA, conjunctiva and sclera normal Oropharynx: covered by mask Lungs:breathing comfortably Heart: regular rate Abdomen: not distended Extremities: no cyanosis or edema Skin: no jaundice, no spider angiomas, no palmar erythema Neuro:alert, in no acute distress Recent Labs: No results found for: HB, HCT, WBC No results found for: GLUC, K, NA, CHLOR, CO2, CREAT, BUN, ANION, CA No results found for: ALB, TBILI, CBILI, ALKPHOS, AST, ALT, TPROT Computed MELD-Na score unavailable. Necessary lab results were not found in the last year. Computed MELD score unavailable. Necessary lab results were not found in the last year. Imaging: Fibroscan scanned in from 2018 Assessment IMPRESSION Addison Grullon is a 51 year old year with pmhx of chronic epigastric pain, PUD (dx 2013), chronic HCV infection (tx naive) who presents with hepatitis C. He is treatment naive, not bx proven, previously HCV GT 1a, fibroscan in 2018 (F2). Long discussion today regarding natural history of Hep C, likelihood of progression, complication of liver disease, as well as specific treatment options including side effect profile of therapy, probability of response and evaluation necessary before embarking on therapy. Oriented about risk factors, mode of transmission, strategies to avoid transmission (including very minimal risk of sexual transmission), potential treatment options and possible interventions to stage her liver disease.Discussed regarding the FDA approved HCV medication for his genotype, side effects, DD interaction and response rate. Blood work will be due every 4 weeks while on treatment along with last set of labs 3 months after treatment completion. PLAN MELD labs with HBV serologies, AFP, HCV PCR, HCV GT, HAV IgG, HIV Urine drug screen Fibroscan today for staging RUQ US for liver morphology Okay to use medical marijuana, has medical marijuana card Will order HCV medication once above testing is complete. Instructed to call me 2-3 weeks from today if not heard about approval, will call me once meds are delivered so I know start date. Recommend CMP, CBC, HCV PCR every 4 weeks while on treatment then 3 months afterward -Mediterranean diet -increased cardiovascular exercise with goal >45 minutes 5 days weekly -avoid liver detox cleanse/supplements -not to exceed 2,000 mg tylenol daily -strict alcohol abstinence recommended -PCP to assist with management/screening for any and all components of metabolic syndrome Nausea with decreased appetite: EGD and referral to GI Return to office in 6 months (3 months post HCV treatment), sooner if needed I spent a total of 40 minutes on the date of the service which included preparing to see the patient, [id number] patient care, completing clinical documentation, obtaining and/or reviewing separately obtained history, performing a medically appropriate examination, counseling and educating the patient/family/caregiver, ordering medications, tests, or procedures, communicating with other HCPs (not separately reported), and independently interpreting results (not separately reported). ASSESSMENT/PLAN: 1. Chronic hepatitis C without hepatic coma (HCC) - ICD9: 070.54, ICD10: B18.2 (primary diagnosis) - CBC + DIFF - BASIC METABOLIC PNL - PROTHROMBIN TIME/PT - HEPATIC FUNCTION PNL - ALPHA FETOPROTEIN BL - HEP REMOTE PANEL BL - HCV QUANT RNA BY PCR - HEPATITIS C GENOTYPE - TOX SCREEN ROUT UR - DDI VIBRATION CONTROLLED TRANSIENT ELASTOGRAPHY (VCTE) - VIBRATION CONTROLLED TRANSIENT ELASTOGRAPHY (POC) - HIV 1 2 COMBO(AG/AB),WITH REFLEX TO DIFFERENTIATION - US ABD RT UPPER QUADRANT - HEPATITIS A ANTIBODY, IGG - CONSULT TO GASTROENTEROLOGY 2. Nausea - ICD9: 787.02, ICD10: R11.0 - EGD DIAGNOSTIC - CONSULT TO GASTROENTEROLOGY 3. Decreased appetite - ICD9: 783.0, ICD10: R63.0 - EGD DIAGNOSTIC - CONSULT TO GASTROENTEROLOGY Neeru Elizondo PA-C March 05, 2022 2:29 PM documented in this encounter [facility] 03-03-2022 Miscellaneous Notes Called Addison Grullon to remind them of an appointment with Neeru Elizondo on 03/05/22. Spoke with patient. Appointment confirmed. documented in this encounter [facility] Evaluation note Diagnosis Chronic hepatitis C without hepatic coma (HCC)- Primary Chronic hepatitis C without mention of hepatic coma Nausea Nausea alone Decreased appetite Anorexia [facility] Diagnosis Pre-op evaluation- Primary Preoperative examination, unspecified Tobacco abuse disorder Tobacco use disorder Chronic hepatitis C without hepatic coma (HCC) Chronic hepatitis C without mention of hepatic coma History of opioid abuse (HCC) Opioid abuse, in remission [facility] Diagnosis Chronic hepatitis C without hepatic coma (HCC)- Primary Chronic hepatitis C without mention of hepatic coma [facility] Diagnosis Chronic hepatitis C without hepatic coma (HCC)- Primary Chronic hepatitis C without mention of hepatic coma [facility] Diagnosis Chronic hepatitis C without hepatic coma (HCC)- Primary Chronic hepatitis C without mention of hepatic coma [facility] Diagnosis Femoroacetabular impingement of right hip- Primary Enthesopathy of hip region Radiculopathy, lumbar region Thoracic or lumbosacral neuritis or radiculitis, unspecified [facility] this [facility]* Diagnosis Patient left without being seen- Primary Surgical or other procedure not carried out because of patient's decision [facility] Diagnosis Nausea Nausea alone Decreased appetite Anorexia documented in this encounter [facility] note* Diagnosis Opiate withdrawal (HCC)- Primary Drug withdrawal Accidental overdose of heroin, initial encounter (HCC) Opiate withdrawal (HCC) Drug withdrawal Accidental overdose of heroin (HCC) Poisoning by heroin Nausea and vomiting Nausea with vomiting Myalgia Mylagia and myositis, unspecified documented in this encounter [facility] for referral (narrative)* Outpatient Procedure (Routine) - Closed Specialty Diagnoses / Procedures Referred By Ovi t Referred To Contact [facility] Diagnoses Nausea Decreased appetite Procedures EGD DIAGNOSTIC ESOPHAGOGASTRODUODENOSC OPY TRANSORAL DIAGNOSTIC Neeru Elizondo PA-C [address] [place] [address] [facility] [address] [place] [address] Referral ID Status Reason Start Date Expiration Date V isits Requested Visits Authorized [id number] Closed Auto-Generate d Referral 03/05/2022 03/05/2023 1 1 [facility] N[facility]* Outpatient Procedure (Routine) - Closed Specialty Diagnoses / Procedures Referred By Ovi flores Referred To Contact [facility] Diagnoses Nausea Decreased appetite Procedures EGD DIAGNOSTIC ESOPHAGOGASTRODUODENOSC OPY TRANSORAL DIAGNOSTIC Neeru Elizondo PA-C [address] [place] [address] [facility] [address] [place] [address] Referral ID Status Reason Start Date Expiration Date V isits Requested Visits Authorized [id number] Closed Auto-Generate d Referral 03/05/2022 03/05/2023 1 1 [facility] Summary Purpose Family History No Family History Records FoundNo Family History Records FoundNo Family History Records FoundNo Family History Records FoundNo Family History Records FoundNo Family History Records FoundNo Family History Records FoundNo Family History Records FoundNo Family History Records FoundNo Family History Records FoundNo Family History Records FoundNo Family History Records FoundNo Family History Records FoundNo Family History Records FoundNo Family History Records FoundNo Family History Records FoundNo Family History Records FoundNo Family History Records FoundNo Family History Records FoundNo Family History Records FoundNo Family History Records FoundNo Family History Records FoundNo Family History Records FoundNo Family History Records FoundNo Family History Records FoundNo Family History Records FoundNo Family History Records FoundNo Family History Records FoundNo Family History Records Found Advance Directives No Advanced Directives Records Found Date Activated Date Inactivated Comments 09/18/2024 1:50 AM Reason for Referral Specialty Diagnoses / Procedures Referred By Ovi t Referred To Contact Gastro[facility]ology Diagnoses Chronic hepatitis C without hepatic coma (HCC) Nausea Decreased appetite Procedures CONSULT TO GASTROENTEROLOGY OFFICE/OUTPATIENT NEW HIGH MDM 60-74 MINUTES Neeru Elizondo PA-C [address] [place] [address] Referral ID Status Reason Start Date Expiration Date Visits Requested Visits Authorized [id number] Authorized PCP Requested Referral 03/05/2022 03/05/2023 1 1 Specialty Diagnoses / Procedures Referred By Ovi t Referred To Contact [facility] Diagnoses Nausea Decreased appetite Procedures EGD DIAGNOSTIC ESOPHAGOGASTRODUODENOSC OPY TRANSORAL DIAGNOSTIC Neeru Elizondo PA-C [address] [id number] [facility] [address] [place] [address] Referral ID Status Reason Start Date Expiration Date Visits Requested Visits Authorized [id number] Authorized Auto-Generat ed Referral 03/05/2022 03/05/2023 1 1 Specialty Diagnoses / Procedures Referred By Contac t Referred To Contact [facility] Diagnoses Chronic hepatitis C without hepatic coma (HCC) Procedures US ABD RT UPPER QUADRANT US ABDOMINAL REAL TIME W/IMAGE LIMITED Neeru Elizondo PA-C [address] [place] [address] [facility] Referral ID Status Reason Start Date Expiration Date Visits Requested Visits Authorized [id number] Authorized Auto-Generat ed Referral 03/05/2022 04/04/2023 1 1 Specialty Diagnoses / Procedures Referred By Contac t Referred To Contact GASTROENTEROLOGY Diagnoses Chronic hepatitis C without hepatic coma (HCC) Procedures DDI VIBRATION CONTROLLED TRANSIENT ELASTOGRAPHY (VCTE) LIVER ELASTOGRAPHY W/O IMAG W/I&R Neeru Elizondo PA-C [address] [id number] [facility] [address] [place] [address] Referral ID Status Reason Start Date Expiration Date V isits Requested Visits Authorized [id number] Closed Auto-Generate d Referral 03/05/2022 03/05/2023 1 1 Specialty Diagnoses / Procedures Referred By Contac t Referred To Contact [facility] Diagnoses Femoroacetabular impingement of right hip Radiculopathy, lumbar region Procedures CONSULT TO PHYSICAL THERAPY PHYSICAL THERAPY EVALUATION HIGH COMPLEX 45 MINS Nicole Polanco DO [address] [place] [address] [facility] [place] [address] [place] [address] Referral ID Status Reason Start Date Expiration Date Visits Requested Visits Authorized [id number] Pending Review Auto-Generat ed Referral 06/09/2022 06/09/2023 1 1 Medications Administered Section Administered Medications Medication Order MAR Action Action Date Dose Rate Site PPD ([place]) Intradermal Given 05/20/2017 Tuberculin Skin Test-PPD, ac test Given 05/20/2017 5.0 Units. Additional Source Comments (unrecognized sect ion and content) No Status Records FoundNo Status Records FoundNo Status Records FoundNo Status Records FoundNo Status Records FoundNo Status Records FoundNo Status Records FoundNo Status Records FoundNo Status Records FoundNo Status Records FoundNo Status Records FoundNo Status Records FoundNo Status Records FoundNo Status Records FoundNo Status Records FoundNo Status Records FoundNo Status Records FoundNo Status Records FoundNo Status Records FoundNo Status Records FoundNo Status Records FoundNo Status Records FoundNo Status Records FoundNo Status Records FoundNo Status Records FoundNo Status Records FoundNo Status Records FoundNo Status Records FoundNo Status Records Found INFORMATION SOURCE (unrecogn ized section and content) DATE CREATED AUTHOR 08/04/2017 [facility] DATE CREATED AUTHOR AUTHOR'S ORGANIZ ATION 08/09/2017 [facility] DATE CREATED AUTHOR AUTHOR'S ORGANIZ ATION 02/11/2018 [facility] DATE CREATED AUTHOR AUTHOR'S ORGANIZ ATION 02/17/2018 [facility] DATE CREATED AUTHOR AUTHOR'S ORGANIZ ATION 04/21/2022 [facility] DATE CREATED AUTHOR AUTHOR'S ORGANIZ ATION 12/27/2022 [facility] DATE CREATED AUTHOR AUTHOR'S ORGANIZ ATION 10/31/2023 [facility] DATE CREATED AUTHOR AUTHOR'S ORGANIZ ATION 11/04/2023 [facility] DATE CREATED AUTHOR AUTHOR'S ORGANIZ ATION 02/12/2024 [facility] DATE CREATED AUTHOR AUTHOR'S ORGANIZ ATION 02/16/2024 [facility] DATE CREATED AUTHOR AUTHOR'S ORGANIZ ATION 02/25/2024 [facility] DATE CREATED AUTHOR AUTHOR'S ORGANIZ ATION 09/22/2024 [facility] DATE CREATED AUTHOR AUTHOR'S ORGANIZ ATION 12/22/2024 [facility] Source Comments (unrecognize d section and content) In the event this informatio n is protected by the Federal Confidentiality of Alcohol and Drug Abuse Patient Records regulations: The Federal rules restrict any use of the information to criminally investigate or prosecute any alcohol or drug abuse patient.[facility] the event this information is protected by the Federal Confidentiality of Alcohol and Drug Abuse Patient Records regulations: The Federal rules restrict any use of the information to criminally investigate or prosecute any alcohol or drug abuse patient.[facility] the event this information is protected by the Federal Confidentiality of Alcohol and Drug Abuse Patient Records regulations: The Federal rules restrict any use of the information to criminally investigate or prosecute any alcohol or drug abuse patient.[facility] the event this information is protected by the Federal Confidentiality of Alcohol and Drug Abuse Patient Records regulations: The Federal rules restrict any use of the information to criminally investigate or prosecute any alcohol or drug abuse patient.[facility] the event this information is protected by the Federal Confidentiality of Alcohol and Drug Abuse Patient Records regulations: The Federal rules restrict any use of the information to criminally investigate or prosecute any alcohol or drug abuse patient.[facility] the event this information is protected by the Federal Confidentiality of Alcohol and Drug Abuse Patient Records regulations: The Federal rules restrict any use of the information to criminally investigate or prosecute any alcohol or drug abuse patient.[facility] the event this information is protected by the Federal Confidentiality of Alcohol and Drug Abuse Patient Records regulations: The Federal rules restrict any use of the information to criminally investigate or prosecute any alcohol or drug abuse patient.[facility] the event this information is protected by the Federal Confidentiality of Alcohol and Drug Abuse Patient Records regulations: The Federal rules restrict any use of the information to criminally investigate or prosecute any alcohol or drug abuse patient.[facility] the event this information is protected by the Federal Confidentiality of Alcohol and Drug Abuse Patient Records regulations: The Federal rules restrict any use of the information to criminally investigate or prosecute any alcohol or drug abuse patient.[facility] the event this information is protected by the Federal Confidentiality of Alcohol and Drug Abuse Patient Records regulations: The Federal rules restrict any use of the information to criminally investigate or prosecute any alcohol or drug abuse patient.[facility] the event this information is protected by the Federal Confidentiality of Alcohol and Drug Abuse Patient Records regulations: The Federal rules restrict any use of the information to criminally investigate or prosecute any alcohol or drug abuse patient.[facility] the event this information is protected by the Federal Confidentiality of Alcohol and Drug Abuse Patient Records regulations: The Federal rules restrict any use of the information to criminally investigate or prosecute any alcohol or drug abuse patient.[facility] the event this information is protected by the Federal Confidentiality of Alcohol and Drug Abuse Patient Records regulations: The Federal rules restrict any use of the information to criminally investigate or prosecute any alcohol or drug abuse patient.[facility] the event this information is protected by the Federal Confidentiality of Alcohol and Drug Abuse Patient Records regulations: The Federal rules restrict any use of the information to criminally investigate or prosecute any alcohol or drug abuse patient.[facility] the event this information is protected by the Federal Confidentiality of Alcohol and Drug Abuse Patient Records regulations: The Federal rules restrict any use of the information to criminally investigate or prosecute any alcohol or drug abuse patient.[facility] the event this information is protected by the Federal Confidentiality of Alcohol and Drug Abuse Patient Records regulations: The Federal rules restrict any use of the information to criminally investigate or prosecute any alcohol or drug abuse patient.[facility] the event this information is protected by the Federal Confidentiality of Alcohol and Drug Abuse Patient Records regulations: The Federal rules restrict any use of the information to criminally investigate or prosecute any alcohol or drug abuse patient.[facility] the event this information is protected by the Federal Confidentiality of Alcohol and Drug Abuse Patient Records regulations: The Federal rules restrict any use of the information to criminally investigate or prosecute any alcohol or drug abuse patient.[facility] the event this information is protected by the Federal Confidentiality of Alcohol and Drug Abuse Patient Records regulations: The Federal rules restrict any use of the information to criminally investigate or prosecute any alcohol or drug abuse patient.[facility] Reason for Visit (unrecogniz ed section and content) Reason Comments Appointment Reason Comments Results Reason Comments New Patient Hep C symptoms Reason Comments EGD Prep Reason Onset Date Comments [facility] Hepatology - Treatment Referral 04/09/2022 [facility] Reason Onset Date Comments Results 04/19/2022 Reason Comments Patient Update Reason Onset Date Comments [facility] Hepatology - Medication Refill 05/17/2022 [facility] final fill Reason Comments Low Back Pain Reason Comments Patient Left Without Being Seen Reason Comments Roll Hand - Other Signed physical therapy orders faxed to [facility] with confirmation Orders Reason Comments Drug Overdose Specialty Diagnoses / Procedures Referred By Contac t Referred To Contact Diagnoses Opiate withdrawal (HCC) Accidental overdose of heroin, initial encounter (HCC) Accidental heroin overdose, initial encounter (HCC) Sharon Mendoza MD [address] [place] [address] [facility] [address] [place] [address] Referral ID Status Reason Start Date Expiration Date Visits Re quested Visits Authorized [id number] 1 1 Care Teams (unrecognized sec tion and content) Work Force Advisor Relationship Specialty Start Date End Date Rudy Galvan III, DO PCP - General Family Medicine 08/14/16 Work Force Advisor Relationship Specialty Start Date End Date Rudy Galvan III, DO PCP - General Family Medicine 08/14/16 Work Force Advisor Relationship Specialty Start Date End Date Rudy Galvan III, DO PCP - General Family Medicine 08/14/16 Work Force Advisor Relationship Specialty Start Date End Date Rudy Galvan III, DO PCP - General Family Medicine 08/14/16 Work Force Advisor Relationship Specialty Start Date End Date Rudy Galvan III, DO PCP - General Family Medicine 08/14/16 Work Force Advisor Relationship Specialty Start Date End Date Rudy Galvan III, DO PCP - General Family Medicine 08/14/16 Work Force Advisor Relationship Specialty Start Date End Date Rudy Galvan III, DO PCP - General Family Medicine 08/14/16 Work Force Advisor Relationship Specialty Start Date End Date Rudy Galvan III, DO PCP - General Family Medicine 08/14/16 Work Force Advisor Relationship Specialty Start Date End Date Rudy Galvan III, DO PCP - General Family Medicine 08/14/16 Work Force Advisor Relationship Specialty Start Date End Date Rudy Galvan III, DO PCP - General Family Medicine 08/14/16 Work Force Advisor Relationship Specialty Start Date End Date Rudy Galvan III DO PCP - General Family Medicine 08/14/16 Work Force Advisor Relationship Specialty Start Date End Date Rudy Galvan III, DO PCP - General Family Medicine 08/14/16 Ordered Prescriptions (unrec ognized section and content) Prescription Sig Dispense Quantity Refills Last Filled Start Date End Date rOPINIRole (REQUIP) 0.25 MG tablet Take 1 tablet by mouth 3 times daily as needed (Restless legs) 90 tablet 3 09/20/2024 cloNIDine (CATAPRES) 0.1 MG tablet Take 1 tablet by mouth 2 times daily 60 tablet 3 09/20/2024 Scheduled Active and Recently Administ ered Medications (unrecognized section and content) Medication Order 09/18/2024 09/19/2024 09/20/2024 buprenorphine-naloxone (SUBOXONE) 8-2 MG SL tablet 1 tablet (COMPLETED) 1 tablet, SubLINGual, ONCE, 1 dose, On Tue09/18/24 at 0045, For 15 minutes before, during and after dissolving Buprenorphine in your mouth: NO EATING, DRINIKING or SMOKING. 0044 (Given - Provider: Haven Carrillo, LINDSEY) cloNIDine (CATAPRES) tablet 0.1 mg 0.1 mg, Oral, 2 TIMES DAILY, First dose on Tue09/18/24 at 0900, Until Discontinued 827 (Given - Provider: Mikki German, RN)2058 (Given - Provider: Brandie Fallon, RN) 110 (Given - Provider: Yarelis Montgomery RN)220 (Given - Provider: Ina Jackson RN) 09 (Given - Provider: Yarelis Montgomery RN)2100 (Due) enoxaparin (LOVENOX) injection 40 mg 40 mg, SubCUTAneous, DAILY, First dose on Tue09/18/24 at 0900, Until Discontinued, Indication of Use: Prophylaxis-DVT/PE, Administer by deep subCUTAneous injection with pt lying down. Alternate injection sites on abdominal wall. Do not rub site after injection. Check with provider prior to any invasive procedure. 1000 (Not Given - Provider: Ina Jackson RN - Reason: Patient/family refused) 1103 (Not Given - Provider: Yarelis Montgomery RN - Reason: Patient/family refused) 928 (Not Given - Provider: Yarelis Montgomery RN - Reason: Patient/family refused) famotidine (PEPCID) 20 MG/2ML 20 mg in sodium chloride (PF) 0.9 % 10 mL injection (COMPLETED) 20 mg, IntraVENous, NOW, 1 dose, On Tue09/18/24 at 0015, IV Push over minimum of 2 minutes - Dilute with 10 mL NS 0020 (Given - Provider: Haven Carrillo, LINDSEY) famotidine (PEPCID) 20 MG/2ML 20 mg in sodium chloride (PF) 0.9 % 10 mL injection 20 mg, IntraVENous, 2 TIMES DAILY, First dose on Tue09/18/24 at 0900, Until Discontinued, IV Push over minimum of 2 minutes - Dilute with 10 mL NS 0828 (Given - Provider: Mikki German, LINDSEY)2058 (Given - Provider: Brandie Fallon, LINDSEY) 1100 (Given - Provider: Yarelis Montgomery RN)2200 (Given - Provider: Ina Jackson, LINDSEY) 09 (Given - Provider: Yarelis Montgomery RN)2100 (Due) potassium chloride (KLOR-CON M) extended release tablet 40 mEq 40 mEq, Oral, ONCE, 1 dose, On Tue09/17/24 at 2145, Do not crush or break. Do not crush, chew, or suck on tablet. Tablet may also be broken in half and each half swallowed separately. promethazine (PHENERGAN) injection 12.5 mg (COMPLETED) 12.5 mg, IntraMUSCular, ONCE, 1 dose, On Tue09/18/24 at 0615, Only to be given as IM injection. 0652 (Given - Provider: Ivette Tong RN) sodium chloride flush 0.9 % injection 5-40 mL 5-40 mL, IntraVENous, EVERY 12 HOURS SCHEDULED (2 times per day), First dose on Tue09/18/24 at 0900, Until Discontinued, For Line Patency: Peripheral IV = 5 mL; Midline or Central Line = 10 mL/lumen. If following IV push medication, administer flush at same rate as the IV push. Flush volume is determined by type of infusion therapy being given. For non-viscous solutions use: Peripheral IV = 5 mL Midline or Central Line = 10 mL/lumen For viscous solutions (i.e. blood components, parenteral nutrition, contrast media, or after obtaining blood sample) use: Peripheral IV = 10 mL Midline or Central Line = 20 mL/lumen 0801 (Not Given - Provider: Mikki German RN - Reason: IV Fluid Infusing)2103 (Given - Provider: Brandie Fallon RN) 110 (Given - Provider: Yarelis Montgomery RN)2100 (Due) 09 (Given - Provider: Yarelis Montgomery RN)2100 (Due) Continuous Medication Order 09/18/2024 09/19/2024 09/20/2024 lactated ringers infusion () IntraVENous, at 75 mL/hr, CONTINUOUS, Starting on Tue09/18/24 at 0200, For 24 hours, Complete last bag that is running at 24 hours and then saline lock IV 0313 (New Bag - Provider: Haven Carrillo RN) 0242 (Stopped - Provider: Saige Easley RN - Comment: d/shannan not running at shift change) PRN Medication Order 09/18/2024 09/19/2024 09/20/2024 0.9 % sodium chloride infusion IntraVENous, at 5-250 mL/hr, PRN, if patient receiving piggyback infusions and maintenance fluids are not ordered, Starting on Tue09/18/24 at 0150, For piggyback infusion, administer at same rate as piggyback for a total of 25 mL. Enter 25 mL into dose field and piggyback rate into rate field of order. If piggyback is infusing at a rate less than 100 mL/hr, enter 25 mL into dose field and 100 mL/hr into rate field of order. acetaminophen (TYLENOL) suppository 650 mg(Linked Group 1) 650 mg, Rectal, EVERY 6 HOURS PRN, Starting on Tue09/18/24 at 0150, Until Discontinued, Pain Mild (1-3) OR per patient request for pain score (4-10), Fever, For temp greater than 100.4 F (38 C), Administer if oral route cannot be used. acetaminophen (TYLENOL) tablet 650 mg(Linked Group 1) 650 mg, Oral, EVERY 6 HOURS PRN, Starting on Tue09/18/24 at 0150, Until Discontinued, Pain Mild (1-3) OR per patient request for pain score (4-10), Fever, For temp greater than 100.4 F (38 C), Maximum dose of acetaminophen is 4000 mg from all sources in 24 hours. buprenorphine-naloxone (SUBOXONE) 4-1 MG SL film 1 Film 1 Film, SubLINGual, PRN, Starting on Tue09/18/24 at 0157, Until Discontinued, Per COWS assessment, No withdrawal (COWS less than 5): No medication intervention and reassess COWS in 4 hours. Mild (COWS 5-12): Give 2 tablets of buprenorphine-naloxone 2-0.5 mg per tablet and reassess COWS in 2 hours (120 minutes). Moderate (COWS 13-24): Give 2 tablets of buprenorphine-naloxone 2-0.5 mg per tablet and reassess COWS in 1.5 hours (90 minutes). Moderately Severe (COWS 25-36): Give 2 tablets of buprenorphine-naloxone 2-0.5 mg per tablet and reassess COWS in 1 hour (60 minutes). Severe (COWS above 36): Give 2 tablets of buprenorphine-naloxone 2-0.5 mg per tablet and reassess COWS in 0.5 hours (30 minutes). Do not exceed 12 tablets of buprenorphine-naloxone 2-0.5 mg per tablet in any 24 hour period. 0228 (Given - Provider: Haven Carrillo, RN)0432 (Given - Provider: Haven Carrillo RN)0607 (Given - Provider: Ivette Tong RN)1306 (Given - Provider: Ina Jackson, LINDSEY)1819 (Given - Provider: Ina Jackson, LINDSEY) 0644 (Given - Provider: Brandie Fallon RN) hydrOXYzine HCl (ATARAX) tablet 50 mg 50 mg, Oral, 3 TIMES DAILY PRN, Starting on Tue09/18/24 at 0802, Until Discontinued, Anxiety 1007 (Given - Provider: Ina Jackson RN)1638 (Given - Provider: Ina Jackson RN) loperamide (IMODIUM) capsule 2 mg 2 mg, Oral, 4 TIMES DAILY PRN, Starting on Tue09/18/24 at 0026, Until Discontinued, Diarrhea, After each loose stool. 1007 (Given - Provider: Ina Jackson RN) magnesium sulfate 2000 mg in 50 mL IVPB premix 2,000 mg, IntraVENous, at 25 mL/hr, Administer over 2 Hours, PRN, Other, Magnesium Replacement, Starting on Tue09/18/24 at 0150, Mag Lab Replacement Action 1.4-1.6 mg/dL 2,000 mg Total Dose Given as 1,000 mg IVPB x 2 doses or 2,000 mg IVPB x 1 dose 1.0-1.3 mg/dL 4,000 mg Total Dose Given as 1,000 mg IVPB x 4 doses or 2,000 mg IVPB x 2 doses Less than 1.0 mg/dL CALL PHYSICIAN and give 4,000 mg Total Dose Given as 1,000 mg IVPB x 4 doses or 2,000 mg IVPB x 2 doses Infuse at 1,000 mg/hr consecutively Repeat Mag level 1 hour after final administration Protocol not for use in Patients with CrCl less than 30ml/min melatonin tablet 3 mg 3 mg, Oral, NIGHTLY PRN, Starting on Tue09/18/24 at 0150, Until Discontinued, Sleep methocarbamol (ROBAXIN) tablet 1,000 mg 1,000 mg, Oral, EVERY 6 HOURS PRN, Starting on Tue09/18/24 at 0802, Until Discontinued, Muscle spasms 1007 (Given - Provider: Ina Jackson, LINDSEY)9 (Given - Provider: Brandie Fallon, LINDSEY) ondansetron (ZOFRAN) injection 4 mg(Linked Group 2) 4 mg, IntraVENous, EVERY 6 HOURS PRN, Starting on Tue09/18/24 at 0150, Until Discontinued, Nausea, Vomiting, Administer if oral route cannot be used. 0433 (Given - Provider: Haven Carrillo RN)1302 (Given - Provider: Ina Jackson RN)210 (Given - Provider: Brandie Fallon RN) 0644 (Given - Provider: Brandie Fallon RN) ondansetron (ZOFRAN-ODT) disintegrating tablet 4 mg(Linked Group 2) 4 mg, Oral, EVERY 8 HOURS PRN, Starting on Tue09/18/24 at 0150, Until Discontinued, Nausea, Vomiting 0433 (See Alternative - Provider: Haven Carrillo RN)1302 (See Alternative - Provider: Ina Jackson RN)210 (See Alternative - Provider: Brandie Fallon RN) 0644 (See Alternative - Provider: Brandie Fallon RN) polyethylene glycol (GLYCOLAX) packet 17 g 17 g, Oral, DAILY PRN, Starting on Tue09/18/24 at 0150, Until Discontinued, Constipation, First line therapy for constipation potassium bicarb-citric acid (EFFER-K) effervescent tablet 40 mEq(Linked Group 3) 40 mEq, Oral, PRN, Starting on Tue09/18/24 at 0150, Until Discontinued, Per Potassium Replacement Protocol, Administer as alternative if patient unable to tolerate oral tablet. K Lab Replacement Action 3.1 to 3.5 40 mEq ORAL x 1 Under 3.1 Refer to IV replacement protocol Recheck K level in AM. Protocol not for use in patients with CrCl lessthan 30 mL/min. Do not chew or crush. Dissolve flavored tablets completely in 3 to 4 ounces of cold water; unflavored tablets may be dissolved in 3 to 4 ounces of cold juice. Patient to sip slowly over a 5 to 10 minute period. May further dilute if GI adverse effects occur. potassium chloride (KLOR-CON M) extended release tablet 40 mEq(Linked Group 3) 40 mEq, Oral, PRN, Starting on Tue09/18/24 at 0150, Until Discontinued, Potassium Replacement, May give alternative linked oral order (ordered as effervescent, packet, or liquid solution) if patient unable to tolerate tablet. K Lab Replacement Action 3.1 to 3.5 40 mEq ORAL x 1 Under 3.1 Refer to IV replacement protocol Recheck K level in AM. Protocol not for use in patients with CrCl less than 30 mL/min. Do not crush, chew, or suck on tablet. Tablet may also be broken in half and each half swallowed separately. potassium chloride 10 mEq/100 mL IVPB (Peripheral Line)(Linked Group 3) 10 mEq, IntraVENous, PRN, Starting on Tue09/18/24 at 0150, Until Discontinued, at 100 mL/hr, Other, Potassium Replacement, K Lab Replacement Action 2.7 to 3.0 10 mEq IVPB x 6 doses (60 mEq Total) Under 2.7 CALL PROVIDER and administer 10 mEq IVPB x 6 doses (60 mEq Total) Infuse at 10 mEq/hr consecutively. Repeat Potassium lab 1 hour after final administration., Protocol not for use in patients with CrCl less than 30 mL/min. promethazine (PHENERGAN) tablet 12.5 mg 12.5 mg, Oral, EVERY 6 HOURS PRN, Starting on Tue09/18/24 at 1624, Until Discontinued, Nausea 1638 (Given - Provider: Ina Jackson RN) 2200 (Given - Provider: Ina Jackson RN) rOPINIRole (REQUIP) tablet 0.25 mg 0.25 mg, Oral, 3 TIMES DAILY PRN, Starting on Tue09/18/24 at 0802, Until Discontinued, Restless legs 1007 (Given - Provider: Ina Jackson RN)1638 (Given - Provider: Ina Jackson RN) sodium chloride flush 0.9 % injection 10 mL 10 mL, IntraVENous, PRN, Starting on Tue09/18/24 at 0150, Until Discontinued, Line Care, After every IV line use Linked Groups Order Group 1: acetaminophen (TYLENOL) tablet 650 mgJump to med 650 mg, Oral, EVERY 6 HOURS PRN, Starting on Tue09/18/24 at 0150, Until Discontinued, Pain Mild (1-3) OR per patient request for pain score (4-10), Fever, For temp greater than 100.4 F (38 C), Maximum dose of acetaminophen is 4000 mg from all sources in 24 hours. Or acetaminophen (TYLENOL) suppository 650 mgJump to med 650 mg, Rectal, EVERY 6 HOURS PRN, Starting on Tue09/18/24 at 0150, Until Discontinued, Pain Mild (1-3) OR per patient request for pain score (4-10), Fever, For temp greater than 100.4 F (38 C), Administer if oral route cannot be used. Group 2: ondansetron (ZOFRAN-ODT) disintegrating tablet 4 mgJump to med 4 mg, Oral, EVERY 8 HOURS PRN, Starting on Tue09/18/24 at 0150, Until Discontinued, Nausea, Vomiting Or ondansetron (ZOFRAN) injection 4 mgJump to med 4 mg, IntraVENous, EVERY 6 HOURS PRN, Starting on Tue09/18/24 at 0150, Until Discontinued, Nausea, Vomiting, Administer if oral route cannot be used. Group 3: potassium chloride (KLOR-CON M) extended release tablet 40 mEqJump to med 40 mEq, Oral, PRN, Starting on Tue09/18/24 at 0150, Until Discontinued, Potassium Replacement, May give alternative linked oral order (ordered as effervescent, packet, or liquid solution) if patient unable to tolerate tablet. K Lab Replacement Action 3.1 to 3.5 40 mEq ORAL x 1 Under 3.1 Refer to IV replacement protocol Recheck K level in AM. Protocol not for use in patients with CrCl less than 30 mL/min. Do not crush, chew, or suck on tablet. Tablet may also be broken in half and each half swallowed separately. Or potassium bicarb-citric acid (EFFER-K) effervescent tablet 40 mEqJump to med 40 mEq, Oral, PRN, Starting on Tue09/18/24 at 0150, Until Discontinued, Per Potassium Replacement Protocol, Administer as alternative if patient unable to tolerate oral tablet. K Lab Replacement Action 3.1 to 3.5 40 mEq ORAL x 1 Under 3.1 Refer to IV replacement protocol Recheck K level in AM. Protocol not for use in patients with CrCl lessthan 30 mL/min. Do not chew or crush. Dissolve flavored tablets completely in 3 to 4 ounces of cold water; unflavored tablets may be dissolved in 3 to 4 ounces of cold juice. Patient to sip slowly over a 5 to 10 minute period. May further dilute if GI adverse effects occur. Or potassium chloride 10 mEq/100 mL IVPB (Peripheral Line)Jump to med 10 mEq, IntraVENous, PRN, Starting on Tue09/18/24 at 0150, Until Discontinued, at 100 mL/hr, Other, Potassium Replacement, K Lab Replacement Action 2.7 to 3.0 10 mEq IVPB x 6 doses (60 mEq Total) Under 2.7 CALL PROVIDER and administer 10 mEq IVPB x 6 doses (60 mEq Total) Infuse at 10 mEq/hr consecutively. Repeat Potassium lab 1 hour after final administration., Protocol not for use in patients with CrCl less than 30 mL/min. FOR RECORDS PERTAINING TO PATIENTS WHO ARE OR HAVE BEEN ENROLLED IN A CHEMICAL DEPENDENCY/SUBSTANCEABUSE PROGRAM, SOME INFORMATION MAY BE OMITTED. This clinical summary was aggregated from multiple sources. Caution should be exercised in using it in the provision of clinical care. This summary normalizes information from multiple sources, and as a consequence, information in this document may materially change the coding, format and clinical context of patient data. In addition, data may be omitted in some cases. CLINICAL DECISIONS SHOULD BE BASED ON THE PRIMARY CLINICAL RECORDS. [employer] [facility]. provides no warranty or guarantee of the accuracy or completeness of information in this document.
[2025-01-01] MEDS: hydrOXYzine PAM 25 MG Capsule 50 MG PO (19:54)
[2025-01-02 05:06] VITALS: BP 148/84; PULSE 74; RESP 15; TEMP 36.6; O2SAT 96
[2025-01-02 08:15] VITALS: BP 158/81; PULSE 81; RESP 15; TEMP 36.6; O2SAT 96
[2025-01-02] MEDS: hydrOXYzine PAM 25 MG Capsule 50 MG PO ×3 (08:22→22:18)
[2025-01-02] MEDS: Nicotine (PBKC) 21 MG Patch TD (08:22)
--- NOTE | 2025-01-02 11:23 | ADDICTION ---
Met with patient to complete RAMP assessments. Patient reports intranasal use of approximately 1 gram of heroin daily. Last use occurred at approximately 2:00 PM today. Patient denies any intravenous drug use. Patient was previously admitted for opioid detoxification in 2017 and left against medical advice (AMA). Patient appeared groggy but was able to respond appropriately to assessment questions. Patient states intention to follow up with AA/NA meetings but is currently resistant to formal treatment recommendations. Will revisit treatment options and discuss addiction-related behaviors during tomorrow?s session.
[2025-01-02 15:22] VITALS: BP 159/83; PULSE 73; RESP 16; TEMP 36.6; O2SAT 95
--- NOTE | 2025-01-02 15:49 | PN.HOSP_ITS ---
Reason for Visit Chief Complaint: Opiate withdrawal and desire for detox Subjective Subjective Patient was seen and examined today, he states he generally does not feel well- he is not specific about this. Objective Data Objective Data Vital Signs: Vital Signs Temp Pulse Resp BP Pulse Ox O2 Del Method 97.8 F 73 16 159/83 H 95 Room Air 01/02/25 15:22 01/02/25 15:22 01/02/25 15:22 01/02/25 15:22 01/02/25 15:22 01/02/25 15:25 Oxygen Delivery Method Room Air Weight: 97.069 kg Body Mass Index (BMI) 27.4 Intake & Output: Intake and Output for Last 24 Hours 12/31/24 01/01/25 01/02/25 23:59 23:59 23:59 Intake Total 200 / 200 Balance 200 / 200 Lab / Micro Data 01/01/25 16:34 01/01/25 16:34 Labs: Laboratory Results - last 24 hr 01/01/25 16:34: WBC 8.8, RBC 5.15, Hgb 14.7, Hct 45.5, MCV 88.3, MCH 28.5, MCHC 32.3, RDW Std Deviation 43.0, RDW Coeff of Julio 13.2, Plt Count 187, MPV 10.9, Immature Gran % (Auto) 0.100, Neut % (Auto) 69.1, Lymph % (Auto) 24.3, [place] % (Auto) 5.6, Eos % (Auto) 0.7, Baso % (Auto) 0.2, Absolute Neuts (auto) 6.1, Absolute Lymphs (auto) 2.13, Nucleated RBC % 0, Sodium 140, Potassium 4.0, Chloride 101, Carbon Dioxide 28.9, Anion Gap 10, BUN 12, Creatinine 0.94, Estim Creat Clear Calc 105.66, Est GFR (MDRD) Non-Af 97, BUN/Creatinine Ratio 13.1, G lucose 102 H, Calcium 9.9, Total Bilirubin 0.57, Direct Bilirubin 0.22, AST 20, ALT 10, Alkaline Phosphatase 88, Total Protein 8.7 H, Albumin 4.3, Globulin 4.3 H, Ethyl Alcohol < 10.1 01/01/25 16:40: Urine Opiates Screen NEGATIVE, U Buprenorphine Qual NEGATIVE, Ur Oxycodone Screen NEGATIVE, Urine Methadone Screen NEGATIVE, Urine Fentanyl Screen PRESUMPTIVE POSITIVE, Ur Barbiturates Screen NEGATIVE, Ur Phencyclidine Scrn NEGATIVE, Ur Amphetamines Screen NEGATIVE, U Benzodiazepines Scrn NEGATIVE, Urine Cocaine Screen NEGATIVE, U Cannabinoids Screen PRESUMPTIVE POSITIVE Physical Exam Const alert and oriented x3 Constitutional Narrative: Patient appears older than stated age General Appearance: cooperative and well developed Orientation / Consciousness: awake, oriented to person, oriented to place and oriented to time HEENT normocephalic, head/scalp atraumatic and moist oral mucous membranes Eyes PERRL, EOMs intact bilaterally and conjunctivae normal Neck supple, no JVD, thyroid normal and no carotid bruits General: trachea midline Resp normal respiratory effort, no retractions, no use of accessory muscles and clear to auscultation bilaterally Auscultation: Negative for rales, rhonchi or wheezes Cardio regular rate, regular rhythm, S1 normal heart sound, S2 normal heart sound, no murmurs, no rub and no gallops GI normal to inspection, nondistended, normoactive bowel sounds, soft to palpation, non-tender and non-distended Extremity no clubbing, cyanosis or edema Skin no rashes or lesions noted General Skin Exam: no breakdown Neuro oriented x3, CN's II-XII intact bilaterally, moves all extremities, no focal motor deficits and no sensory deficits noted Sensorium / Orientation: awake and alert Speech: speech normal Psych Psych Narrative: Patient has flat affect Assessment & Plan Assessment/Plan (1) Opiate abuse, continuous: PLAN: Plan 1. Opiate withdrawal-patient will continue Subutex as ordered, patient will meet with addiction socially responsible investment adviser regarding discharge planning and follow-up as an outpatient with detox services #2 opiate use disorder-patient's testing was positive for fentanyl and cannabinoids, complicates care, management, recovery, and prognosis #3 past history of hepatitis C-a PCR test is pending on the patient at this time. Total clinical time spent by myself addressing the patient's medical issues, reviewing all of his data, and collaborating with patient's care team: 35 minutes Charges/Coding Visit Charges Inpatient E&M: 30620 Subs Hosp L2
[2025-01-02 19:58] VITALS: BP 155/87; PULSE 79; RESP 15; TEMP 37.2; O2SAT 97
[2025-01-03] MEDS: Nicotine (PBKC) 21 MG Patch TD (09:37)
[2025-01-03 09:47] VITALS: BP 154/96; PULSE 98; RESP 18; TEMP 37.2; O2SAT 98
[2025-01-03 10:11] VITALS: O2SAT 98
--- NOTE | 2025-01-03 11:43 | PCM.PN.HOSP ---
Reason for Visit Chief Complaint: Opiate withdrawal and desire for detox Subjective Subjective Pt adminitted for opiate detox. Pt today is complaining of LUQ mild aching abdominal pain. Otherwise resting comfortably with no other complaints. Objective Data Objective Data Vital Signs: Vital Signs Temp Pulse Resp BP Pulse Ox O2 Del Method 98.9 F 98 18 154/96 H 98 Room Air 01/03/25 09:47 01/03/25 09:47 01/03/25 09:47 01/03/25 09:47 01/03/25 10:11 01/03/25 10:11 Oxygen Delivery Method Room Air Weight: 97.069 kg Body Mass Index (BMI) 27.4 Intake & Output: Intake and Output for Last 24 Hours 01/01/25 01/02/25 01/03/25 23:59 23:59 23:59 Intake Total 400 / 400 Balance 400 / 400 Lab / Micro Data 01/01/25 16:34 01/01/25 16:34 Physical Exam Const alert, oriented x3 and no apparent distress Resp normal respiratory effort, no retractions, no use of accessory muscles and clear to auscultation bilaterally Cardio regular rate, regular rhythm and no murmurs GI normal to inspection, nondistended, normoactive bowel sounds and soft to palpation Palpation: tender Positive for LUQ Extremity normal to inspection, full ROM and no clubbing, cyanosis or edema Assessment & Plan Assessment/Plan (1) Acute opioid withdrawal: PLAN: 1. Acute Opiate withdrawal, hx opiate use disorder - continue subutex 2. LUQ pain - added PPI, he was on omeprazole at home. 3. PMhx Hep C - hep C PCR is still pending at this time 4. Tobacco abuse - nicotine patch DVT ppx: lovenox This patient was seen by Ameya Fernandez PA-C under the supervision of Dr. Harvey.
--- NOTE | 2025-01-03 11:58 | ADDICTION ---
The patient was seen for further discussion regarding discharge planning. The patient affirmed her commitment to follow-up with self-help resources, specifically stating her intent to attend AA and NA meetings. The patient explicitly declined interest in formal outpatient treatment at this time.
[2025-01-03] MEDS: hydrOXYzine PAM 25 MG Capsule 50 MG PO ×2 (13:09→19:16)
[2025-01-03 14:59] VITALS: BP 153/79; PULSE 92; RESP 16; TEMP 36.6; O2SAT 97
--- NOTE | 2025-01-03 16:14 | CASEMGMT ---
Social Work Pt currently has no health insurance. Pt met with Sherita from [employer] and will assist pt in applying for Medicaid. SW met with pt and provided resources on the [facility] and prescription assistance programs. Pt denies any other needs at this time. LAZARA Todd
[2025-01-03 20:20] VITALS: BP 127/75; PULSE 93; RESP 18; TEMP 36.7; O2SAT 96
[2025-01-04 01:28] VITALS: BP 157/88; PULSE 90; RESP 16; TEMP 36.7; O2SAT 96
[2025-01-04] MEDS: hydrOXYzine PAM 25 MG Capsule 50 MG PO (01:30)
[2025-01-04 05:13] VITALS: BP 151/86; PULSE 82; RESP 16; TEMP 36.7; O2SAT 95
[2025-01-04 08:24] VITALS: O2SAT 96
[2025-01-04 09:16] VITALS: BP 164/84; PULSE 98; RESP 18; TEMP 36.6; O2SAT 98
--- NOTE | 2025-01-04 09:43 | PHA.DC.MR.R ---
Pharmacy [place] Med Reconciliation Pharmacy Service has performed discharge medication reconciliation for this patient. The patient's discharge medication list was reviewed for discrepancies and discrepancies were resolved. Medications at Discharge Home Medications omeprazole 20 mg capsule,delayed release 20 mg PO DAILY GERD 01/01/25
--- NOTE | 2025-01-04 13:10 | DS.PCM_ITS ---
Providers Date of Admission: 01/01/25 Date of Discharge: 01/04/25 Primary Care Physician: Greta Primary Care Phys Reason For Visit: OPIATE DETOX Diagnosis Discharge Diagnosis (1) Acute opioid withdrawal: Status: Acute Code(s): F11.23 - Opioid dependence with withdrawal Plan: 1. Acute Opiate withdrawal, hx opiate use disorder - continue subutex 2. LUQ pain - added PPI, he was on omeprazole at home. 3. PMhx Hep C - hep C PCR is still pending at this time 4. Tobacco abuse - nicotine patch DVT ppx: lovenox This patient was seen by Ameya Fernandez PA-C under the supervision of Dr. Harvey. Medications at Discharge Home Medications omeprazole 20 mg capsule,delayed release 20 mg PO DAILY GERD 01/01/25 Hospital Course Operations None Procedures None Summary of Care Provided Minutes Spent on Discharge: 30 Hospital Course: This 54-year-old white male was seen in the emergency room [facility] requesting services for opiate detox. Patient was a heroin user. He was admitted to [place] [address] and seen by addiction licensed clinical social worker. Patient initially refused Subutex, then consented to Subutex and then refused it again. Patient did not appear to have any severe withdrawal symptoms during his hospitalization, patient did not want to go to a residential detox program at the time of discharge. On 01/04/2025, patient requested to be discharged home, I was not able to see him that morning and I consented to his discharge request. Patient had been given materials for outpatient detox follow-up if he desired. Weight / BMI Weight Weight: 97.069 kg Body Mass Index (BMI) 27.4 ABG / Lab / Microbiology Data 01/01/25 16:34 01/01/25 16:34 D/C Instructions DC O2, CPAP, BIPAP Needs Home O2 Discharge instructions: No Meaningful Use Info Meaningful Use Meaningful Use Diagnoses (Choose all that apply): None applicable Discharge Plan Admission Admit Date/Time: 01/01/25 16:24 Attending Provider: Ammon Harvey Primary Care Provider: Care Physician,No Primary Consulting Providers: Shahram Guido Discharge Orders/Prescriptions Prescriptions: No Action omeprazole 20 mg capsule,delayed release(DR/EC) 20 mg PO DAILY Referrals / Follow Up: Care Physician,No Primary [Primary Care Provider, Medical] Disposition Disposition (needs filled in before D/C Order can be placed): Home, Self Care
== END 2025-01-04 09:40 | disposition home or self-care (01) | DRG 897 ==
LOC: ED 16:39 → MS3 17:33
PROVIDERS: Admitting Provider Hospitalist; Emergency Provider Emergency Medicine; Visit Provider Internal Medicine
DX: F11.23 Opioid dependence with withdrawal (principal); F17.210 Nicotine dependence, cigarettes, uncomplicated; K21.9 Gastro-esophageal reflux disease without esophagitis; Z79.899 Other long term (current) drug therapy
CPT/HCPCS: 80048; 80076; 80307; 82077; 85025; 87522; 99283; 99406